=== PATIENT | male | born 1960 | race Caucasian/White ===

== ENCOUNTER 2017-09-07 08:17 | Inpatient (IN) | payer MEDICARE ==
[2017-09-07] MEDS ORDERED: Nitroglycerin 0.4 MG TAB (25 Tab Bottle) ONE (08:50)
[2017-09-07 08:59] LABS: CKMB 5.2 ng/mL (0-6.6); Troponin I 0.152 ng/mL (< 0.028)
[2017-09-07 09:00] LABS: #Lymphocytes 0.8 thou/uL (1.20-3.40); #Monocytes 0.9 thou/uL (0.11-0.59); #Neutrophils 4.7 thou/uL (1.40-6.50); %Basophils 0.3 % (0.0-1.0); %Eosinophils 0.4 % (0.0-10.0); %Lymphocytes 12.8 % (21.0-51.0); %Monocytes 14.5 % (0.0-10.0); Band 21 % (5-11); Eosinophils 1 % (0-10); Hemoglobin 13.9 g/dL (14.0-18.0); Lymphocytes 17 % (21-51); MDiff Complete? YES; Mean Corpuscular HGB CONC 33.1 g/dL (32.0-36.0); Mean Corpuscular Volume 96.6 fl (80.0-94.0); Mean Platelet Volume 9.1 fL (7.4-10.4); Monocytes 14 % (0-10); Neutrophil 44 % (42-75); PLT Morphology Comment Appears Decreased; Platelet Count 93 thou/uL (130-400); RBC Distribution Width 11.9 % (11.5-14.5); Reactive Lymphocytes 3 % (0-10); Red Blood Cell (RBC) Count 4.34 mill/uL (4.70-6.10); White Blood Cell (WBC) Count 6.5 thou/uL (4.8-10.8)
--- NOTE | 2017-09-07 09:02 | RAD ---
PORTABLE CHEST 1 VIEW: Dat5e: 09/07/17 Time: 0835 hours HISTORY: Dyspnea and chest pain. FINDINGS: Comparison made with exam of 01/15/17. The heart size is normal. The aorta is tortuous. The lungs are well expanded without lobar consolidat ion, pneumothorax, or pleural effusions. Mild chronic changes are present. There are degenerative chano nges of the spine. IMPRESSION: No radiographic evidence of acute cardiopulmonary process. POS: H
[2017-09-07 09:04] LABS: ALT (SGPT) 13 U/L (8-55); AST (SGOT) 20 U/L (5-34); Albumin 3.8 g/dL (3.5-5.0); Alkaline Phosphatase 89 U/L (40-150); Anion Gap 13 mmol/L (10-20); BUN (Urea Nitrogen) 44 mg/dL (8.4-25.7); Bilirubin, Total 0.5 mg/dL (0.2-1.2); CK (CPK) 265 U/L (30-200); Calc. Creatinine Clearance 0 mL/min (70-130); Calcium 9.4 mg/dL (7.8-10.44); Carbon Dioxide 23 mmol/L (22-29); Chloride 98 mmol/L (98-107); Estimated GFR-MDRD 57; Globulin 3.6 g/dL (2.4-3.5); Glucose 162 mg/dL (70-105); Protein, Total 7.4 g/dL (6.0-8.3); Sodium 130 mmol/L (136-145)
[2017-09-07] MEDS ORDERED: Norepinephrine 4 MG/4 ML VIAL ONE (09:23)
[2017-09-07] MEDS ORDERED: EPINEPHrine 1 MG/10 ML Abboject SYRINGE ONE (09:24)
[2017-09-07] MEDS ORDERED: EPINEPHrine 1 MG/ML AMP ONE (09:24)
--- NOTE | 2017-09-07 12:12 | HP ---
DATE OF ADMISSION: 09/07/2017 PRIMARY CARE PHYSICIAN: Dr. Greg Garcia. PRIMARY ART DEPARTMENT HEAD: Dr. Jaret Newby. CHIEF COMPLAINT: Chest discomfort. HISTORY OF PRESENT ILLNESS: The patient is a 57-year-old male with ongoing tobacco abuse, coronary a rtery disease status post stent placement on aspirin and Plavix, peripheral vascular disease status p ost right knee amputation, hypertension, hyperlipidemia, diabetes mellitus type 2 and mild COPD, pres ented to the emergency room with chest discomfort that started over the last 2-3 days. Patient was discharged from this facility in January of last year after drug-eluting stent placement to the RCA. Over the last 2-3 days, patient has flu-like symptoms. He has shortness of breath along with wheezin g and productive cough. The cough was thick, dark greenish in color. He was short of breath on mild to moderate exertion. The chest discomfort was more or less in the epigastric region, worse on coug magdalena. He had intermittent chills with diaphoresis. He never had diaphoresis along with chest discom fort. He denies any lightheadedness, dizziness, syncope or palpitations. No recent immobilization, travel or dyspepsia reported. In the emergency room, his initial vital signs showed temperature of 97.7 with O2 saturation 88% on r oom air. His O2 saturation improved with O2 supplementation. He was placed on nonrebreather initial ly. His initial pulse rate was 122 with blood pressure of 185/81. After sublingual nitroglycerin, h is blood pressure dropped requiring IV fluid bolus. The sublingual nitroglycerin did not significant ly help with his chest discomfort. His blood pressure in the emergency room lowest was 74/37 that im proved with IV fluids. PAST MEDICAL HISTORY: 1. Coronary artery disease, status post RCA drug-eluting stent placed in January of last year. He also has bare metal stents in the RCA placed in 03/2016. 2. History of complete heart block secondary to high dose of diltiazem in the past. 3. Peripheral vascular disease, status post right above knee amputation. 4. Hypertension. 5. Hyperlipidemia. 6. Ongoing tobacco abuse. 7. Diabetes mellitus type 2. 8. History of renal failure requiring dialysis during the episode of pancreatitis. 9. Anxiety and depression. PAST SURGICAL HISTORY: 1. Femoropopliteal bypass. 2. Right above-knee amputation. 3. Cholecystectomy. 4. Diverticular disease status post colon resection. He also had colostomy at that time. 5. Surgery for pancreatic pseudocyst. 6. Back surgery. 7. Repair of hydrocele. 8. Femoropopliteal bypass. ALLERGIES: Patient is allergic to MORPHINE. CURRENT HOME MEDICATIONS: The patient does not remember all of his home medications. He takes aspir in and Plavix along with Lantus 25 units daily. He is unable to recall all the names of his medicati ons. FAMILY HISTORY: The patient denies any premature coronary artery disease. SOCIAL HISTORY: Continues to smoke and has been smoking for more than 26 years. He denies any drug use. He is FULL CODE. Makes his own decisions. REVIEW OF SYSTEMS: The following complete review of systems was negative, unless otherwise mentioned in the HPI or below: Constitutional: Weight loss or gain, ability to conduct usual activities. Skin: Rash, itching. Eyes: Double vision, pain. ENT/Mouth: Nose bleeding, neck stiffness, pain, tenderness. Cardiovascular: Palpitations, dyspnea on exertion, orthopnea. Respiratory: Shortness of breath, wheezing, cough, hemoptysis, fever or night sweats. Gastrointestinal: Poor appetite, abdominal pain, heartburn, nausea, vomiting, constipation, or diarr hea. Genitourinary: Urgency, frequency, dysuria, nocturia. Musculoskeletal: Pain, swelling. Neurologic/Psychiatric: Anxiety, depression. Allergy/Immunologic: Skin rash, bleeding tendency. PHYSICAL EXAMINATION: VITAL SIGNS: As discussed above. GENERAL: A 57-year-old male in no apparent distress. Chest discomfort has somewhat improved. HEENT: Head atraumatic, normocephalic. Sclerae are anicteric. Moist mucous membrane, no oral lesio n. NECK: Supple, no JVD appreciated. No carotid bruit. LUNGS: Showed diffuse expiratory wheezing with scattered rhonchi. Lungs were symmetrical. No rales are appreciated. Trachea was in midline. HEART: S1, S2 present. Regular rate and rhythm, tachycardic. No rubs or gallops. ABDOMEN: Soft. There was tenderness over the rectus abdominus muscle. No rebound, guarding, no cos tovertebral angle tenderness. EXTREMITIES: No edema or calf tenderness in left lower extremity. The patient is status post right above-knee amputation. SKIN: Warm and dry. LYMPH NODES: No palpable lymph nodes in the neck. PERIPHERAL VASCULAR: Radial pulses palpable bilaterally. MUSCULOSKELETAL: No joint swelling or tenderness. NEUROLOGIC: Grossly nonfocal, moves all four extremities. PSYCHIATRIC: Alert, awake, oriented x3. LABORATORY DATA AND X-RAY FINDINGS: 1. CBC showed WBC 6.5 with hemoglobin 13.9, hematocrit 41.9, and platelet count of 93. He has 21% b andemia. 2. Chemistries showed sodium 130, potassium 4, chloride 98, bicarbonate 23, BUN of 44, creatinine 1. 3, glucose of 162, troponin was 0.152, BNP 296. 3. Chest x-ray by my review was negative for infiltrate. 4. EKG by my review showed sinus rhythm with QT interval of 484 milliseconds. There was nonspecific ST-T wave change in the inferior leads. No previous EKG to compare. 5. His lowest O2 saturation in the emergency room was 87%. IMPRESSION: 1. Acute hypoxic respiratory failure secondary to chronic obstructive pulmonary disease exacerbation /acute bronchitis. 2. Chest discomfort. The patient has coronary artery disease, status post stents in the RCA. 3. Elevated troponins, probably secondary to demand ischemia. 4. Peripheral vascular disease, status post right above knee amputation. 5. Hypertension. 6. Hyperlipidemia. 7. Ongoing tobacco abuse. 8. Diabetes mellitus type 2. 9. History of complete heart block secondary to high dose of diltiazem in the past. 10. Chronic kidney disease stage 2. 11. Hypotension in the emergency room secondary to sublingual nitroglycerin, improved with IV fluids . 12. Hyponatremia, chronic. 13. Thrombocytopenia, chronic. 14. Bandemia at 21%, probably secondary to #1. 15. Chronic anemia, macrocytic. 16. Prerenal azotemia. 17. MORPHINE allergy. 18. Prolonged QT. PLAN: 1. The patient will be monitored in the telemetry unit due to chest discomfort. His chest discomfor t is probably musculoskeletal in origin from repeated coughing. Serial cardiac enzymes will be done. He already took aspirin and Plavix today. This will be continued. We will start him on insulin sl iding scale. We will also add steroids due to COPD exacerbation. We will check for flu. Empiric an tibiotics. We will avoid antibiotics that can cause prolonged QT. Cardiology has already been notif ied by the ER physician. Nebulizer treatments. Home O2 assessment at discharge. 2. The patient will probably require 1-2 days for stabilization. It will depend on the hospital cou rse. Plan of care was discussed with the patient in detail. He stated understanding.
[2017-09-07 12:38] LABS: Troponin I 0.239 ng/mL (< 0.028)
[2017-09-07] MEDS ORDERED: Dextrose 50% Abboject 50 ML SYRINGE SLOW IVP PRN (12:55)
[2017-09-07] MEDS ORDERED: HYDROcodone/Acetaminophen 5/325 mg Tablet PO PRN (12:55)
[2017-09-07] MEDS ORDERED: Calcium Carbonate 500 MG ChewTAB PO PRN (12:55)
[2017-09-07] MEDS ORDERED: Nitroglycerin 0.4 MG TAB (25 Tab Bottle) PO PRN (12:55)
[2017-09-07] MEDS ORDERED: Senokot 8.6 MG TAB PO PRN (12:55)
[2017-09-07] MEDS ORDERED: Dextrose 5% in Water 1,000 ML IV PRN (12:55)
[2017-09-07] MEDS ORDERED: Cyclobenzaprine 10 MG TAB PO PRN ×2 (12:55→20:04)
[2017-09-07] MEDS ORDERED: Acetaminophen 325 MG TAB PO PRN (12:55)
[2017-09-07] MEDS ORDERED: cefTRIAXone\\ROCEPHIN 1 GM in Sodium Chloride 0.9% 100 ML IVPB SCH (12:55)
[2017-09-07] MEDS ORDERED: Insulin Regular 300 UNITS/3 ML VIAL SC PRN ×2 (12:55)
[2017-09-07] MEDS ORDERED: Doxycycline 100 MG CAP PO SCH (13:45)
[2017-09-07] MEDS ORDERED: guaiFENesin ER 600 MG TAB PO SCH (13:45)
[2017-09-07] MEDS ORDERED: HYDROcodone/Acetaminophen 5/325 mg Tablet ONE (14:43)
[2017-09-07 14:51] LABS: Troponin I 0.251 ng/mL (< 0.028)
[2017-09-07] MEDS ORDERED: Sterile Water 0 ML ONE (15:52)
[2017-09-07] MEDS: Mometasone/Formoterol 120 PUFF INHALER INH SCH (19:14)
[2017-09-07] MEDS: Famotidine 20 MG TAB PO SCH (20:33)
[2017-09-07] MEDS: Temazepam 15 MG CAP PO PRN (20:34)
[2017-09-07] MEDS: HYDROcodone/Acetaminophen 10/325 mg Tablet PO PRN (20:34)
[2017-09-07] MEDS: Rosuvastatin 10 MG TAB PO SCH (20:34)
[2017-09-07] MEDS: Docusate 100 MG CAP PO SCH (20:34)
[2017-09-07] MEDS: guaiFENesin ER 600 MG TAB PO SCH (20:36)
[2017-09-07] MEDS: Doxycycline 100 MG CAP PO SCH (20:36)
[2017-09-07] MEDS: Sodium Chloride 0.9% 1,000 ML IV SCH (20:37)
[2017-09-07] MEDS: cefTRIAXone\\ROCEPHIN 1 GM, Syringe 0.4 ML in Sterile Water 9.6 ML SLOW IVP SCH (20:40)
[2017-09-07] MEDS ORDERED: Rosuvastatin 5 MG TAB PO SCH (21:00)
[2017-09-07] MEDS: Insulin Detemir 100 UNITS/ML 25 UNITS in Admixture Fee 1 EACH SC SCH (22:02)
[2017-09-08 05:07] LABS: #Lymphocytes 0.8 thou/uL (1.20-3.40); #Monocytes 0.5 thou/uL (0.11-0.59); #Neutrophils 3.6 thou/uL (1.40-6.50); %Basophils 0.5 % (0.0-1.0); %Eosinophils 0.1 % (0.0-10.0); %Lymphocytes 15.6 % (21.0-51.0); %Monocytes 9.6 % (0.0-10.0); %Neutrophils 74.2 % (42.0-75.0); Mean Corpuscular Hemoglobin 32.1 pg (27.0-31.0); Mean Corpuscular Volume 97.3 fl (80.0-94.0); Mean Platelet Volume 8.8 fL (7.4-10.4); Platelet Count 86 thou/uL (130-400); Red Blood Cell (RBC) Count 3.74 mill/uL (4.70-6.10); White Blood Cell (WBC) Count 4.9 thou/uL (4.8-10.8)
[2017-09-08 05:26] LABS: Anion Gap 10 mmol/L (10-20); BUN (Urea Nitrogen) 35 mg/dL (8.4-25.7); BUN/Creatinine Ratio 38.89; Calc. Creatinine Clearance 71 mL/min (70-130); Calcium 8.8 mg/dL (7.8-10.44); Carbon Dioxide 22 mmol/L (22-29); Chloride 106 mmol/L (98-107); Estimated GFR-MDRD 87; Glucose 150 mg/dL (70-105); Magnesium 1.6 mg/dL (1.6-2.6); Phosphorus 3.1 mg/dL (2.3-4.7); Potassium 4.1 mmol/L (3.5-5.1); Sodium 134 mmol/L (136-145)
[2017-09-08] MEDS: Sodium Chloride 0.9% 1,000 ML IV SCH (06:11)
[2017-09-08] MEDS: Mometasone/Formoterol 120 PUFF INHALER INH SCH (07:43)
[2017-09-08] MEDS ORDERED: Lisinopril 5 MG TAB PO SCH (09:00)
[2017-09-08] MEDS: HYDROcodone/Acetaminophen 10/325 mg Tablet PO PRN (12:46)
[2017-09-08] MEDS: Aspirin 81 mg Enteric Coated Tablet PO SCH (12:49)
[2017-09-08] MEDS: Docusate 100 MG CAP PO SCH ×2 (12:50→22:12)
[2017-09-08] MEDS: Clopidogrel Bisulfate 75 MG TAB PO SCH (12:51)
[2017-09-08] MEDS: Doxycycline 100 MG CAP PO SCH ×2 (12:52→22:12)
[2017-09-08] MEDS: guaiFENesin ER 600 MG TAB PO SCH ×2 (12:52→22:12)
[2017-09-08] MEDS: Famotidine 20 MG TAB PO SCH (12:52)
[2017-09-08] MEDS: Ubidecarenone 50 MG CAP PO SCH (12:54)
[2017-09-08 13:30] VITALS: BMI 19.3
[2017-09-08] MEDS: cefTRIAXone\\ROCEPHIN 1 GM, Syringe 0.4 ML in Sterile Water 9.6 ML SLOW IVP SCH (13:53)
--- NOTE | 2017-09-08 15:10 | CON ---
DATE OF CONSULTATION: 09/08/2017 HISTORY OF PRESENT ILLNESS: This is patient of Dr. Richardson who came in yesterday with shortness of b reath and cannot breath, still smoking about half pack a day. He is coughing up some grossly green s putum. No chest pain, chills or sweats. This morning, he is still having difficulty handling his secretions. Most days he can walk half a block following which he gets short of breath. He saw Dr. Richardson about 2 months ago. Regarding his chest pain, he says it is substernal in origin. He has seen a cardiolo gist in the past. Denies any nausea, vomiting or diaphoresis. PAST MEDICAL HISTORY: COPD, tobacco abuse, hyperlipidemia, coronary artery disease, hypertension, an xiety and depression. PREVIOUS SURGERIES: Right leg amputation, colon surgery, multiple stents, pacemaker, and cholecystec fran. SOCIAL AND FAMILY HISTORY: Disabled. No alcohol abuse. Ongoing tobacco abuse. REVIEW OF SYSTEMS: Ten point negative. I reviewed his old medical records there. PHYSICAL EXAMINATION: VITAL SIGNS: On examination, blood pressure is 177/87, sats 92% on 2 liters, pulse 79, temperature 9 6. CHEST: Bilateral rhonchi and crackles. CARDIAC: Normal S1, S2, no gallops. ABDOMEN: No masses. NEUROLOGIC: Awake, alert and responsive. IMAGING: X-ray report and imaging was personally reviewed. No acute infiltrates were seen. LABORATORY DATA: White count 4,000, hemoglobin and hematocrit 12 and 36, platelet count is low at 86 . This is a new thrombocytopenic manifestation. Electrolytes are normal. Troponin is normal. IMPRESSION: 1. Chest pain. 2. Coronary artery disease with multiple stents in the past, recent pacemaker. 3. Chronic obstructive pulmonary disease. 4. Ongoing tobacco abuse. 5. Diabetes. 6. Peripheral vascular disease. PLAN: He is on neb treatments, steroids and antibiotics, which I would continue. We will notify Dr. Richardson. Await cardiac input. Please note in this 70 minutes of my consultation time of which 50 minutes spent at the bedside, dire ct patient care.
--- NOTE | 2017-09-08 15:48 | PDOC.PN ---
- Subjective Encounter Start Date: 09/08/17 Encounter Start Time: 12:00 Patient seen and examined. SOB with Wheezing + Productive cough +. No overnight events - Objective MAR Reviewed: Yes Vital Signs & Weight: Vital Signs (12 hours) Temp Pulse Resp BP Pulse Ox 09/08/17 14:09 82 20 09/08/17 10:17 79 177/87 H 09/08/17 08:46 82 09/08/17 08:00 97.6 F 82 16 92 L 09/08/17 07:48 92 L 09/08/17 07:43 82 16 92 L 09/08/17 07:42 97.6 F 82 16 195/126 H 92 L 09/08/17 04:54 94 L Weight Admit Weight 120 lb 3 oz Weight 123 lb 9.6 oz I&O: 09/07/17 09/08/17 09/09/17 06:59 06:59 06:59 Intake Total 910 Balance 910 Result Diagrams: 09/08/17 04:54 09/08/17 04:54 Additional Labs: Accuchecks 09/08/17 09/07/17 02:15 22:04 POC Glucose 150 H 133 H EKG Reviewed by me: Yes (Tele SR) Phys Exam - Physical Examination Constitutional: NAD Respiratory: no rales, no rhonchi, wheezing present Symmetrical Cardiovascular: RRR, no rub no heaves/pulsations Gastrointestinal: soft, non-tender, no distention, positive bowel sounds Musculoskeletal: no edema Neurological: non-focal, moves all 4 limbs Psychiatric: A&O x 3 Dx/Plan - Plan respiratory therapy, DVT proph w/SCDs IMPRESSION: 1. Acute hypoxic respiratory failure secondary to chronic obstructive pulmonary disease exacerbation/acute bronchitis. improving 2. Chest discomfort. The patient has coronary artery disease, status post stents in the RCA. 3. Elevated troponins, probably secondary to demand ischemia. 4. Peripheral vascular disease, status post right above knee amputation. 5. Hypertension. 6. Hyperlipidemia. 7. Ongoing tobacco abuse. Counselled 8. Diabetes mellitus type 2. 9. History of complete heart block secondary to high dose of diltiazem in the past. 10. Chronic kidney disease stage 2. 11. Hypotension in the emergency room secondary to sublingual nitroglycerin, improved with IV fluids. 12. Hyponatremia, chronic. 13. Thrombocytopenia, chronic. 14. Bandemia at 21%, probably secondary to #1. 15. Chronic anemia, macrocytic. 16. Prerenal azotemia. 17. MORPHINE allergy. 18. Prolonged QT. PLAN: * Await Cardiology input * Cont Steroids/Atbx/Nebs * Cont ASA/Plavix * Cont current meds as below * Cont Coreg * Cont to monitor Review of Systems - Review of Systems Cardiovascular: negative: chest pain, palpitations, orthopnea, paroxysmal nocturnal dyspnea, edema, light headedness Gastrointestinal: negative: Nausea, Vomiting, Abdominal Pain, Diarrhea, Constipation, Melena, Hematochezia - Medications/Allergies Allergies/Adverse Reactions: Allergies Allergy/AdvReac Type Severity Reaction Status Date / Time morphine AdvReac Severe Verified 09/07/17 19:40 Medications: Current Medications Acetaminophen (Tylenol) 650 mg PO Q4H PRN PRN Reason: Headache/Fever or Pain Hydrocodone Bitart/Acetaminophen (Almond 5/325) 1 tab PO Q4H PRN PRN Reason: Moderate Pain (4-6) Hydrocodone Bitart/Acetaminophen (Almond 10/325) 1 tab PO Q4H PRN PRN Reason: Severe Pain (7-10) Last Admin: 09/08/17 12:46 Dose: 1 tab Albuterol/Ipratropium (Duoneb) 3 ml NEB [id number] [facility] Last Admin: 09/08/17 14:09 Dose: 3 ml Albuterol/Ipratropium (Duoneb) 3 ml NEB [id number] PRN PRN Reason: SOB &/or Wheezing Aspirin (Ecotrin) 81 mg PO DAILY [facility] Last Admin: 09/08/17 12:49 Dose: Not Given Calcium Carbonate (Tums) 1,000 mg PO Q4H PRN PRN Reason: Heartburn or Indigestion Carvedilol (Coreg) 6.25 mg PO BID [facility] Clopidogrel Bisulfate (Plavix) 75 mg PO QAM [facility] Last Admin: 09/08/17 12:51 Dose: Not Given Coenzyme Q10 (Coenzyme Q10) 100 mg PO DAILY [facility] Last Admin: 09/08/17 12:54 Dose: 100 mg Cyclobenzaprine HCl (Flexeril) 5 mg PO TID PRN PRN Reason: Muscle Spasm Stop: 09/09/17 12:56 Cyclobenzaprine HCl (Flexeril) 5 mg PO DAILY PRN PRN Reason: Muscle Spasm Dextrose/Water (Dextrose 50%) 25 gm SLOW IVP PRN PRN PRN Reason: Hypoglycemia Docusate Sodium (Colace) 100 mg PO BID [facility] Last Admin: 09/08/17 12:50 Dose: Not Given Doxycycline Hyclate (Vibramycin) 100 mg PO BID [facility] Last Admin: 09/08/17 12:52 Dose: 100 mg Glucagon (Glucagon) 1 mg IM PRN PRN PRN Reason: Hypoglycemia Guaifenesin (Mucinex) 600 mg PO Q12HR [facility] Last Admin: 09/08/17 12:52 Dose: 600 mg Hydralazine HCl (Apresoline) 5 mg SLOW IVP Q4H PRN PRN Reason: SBP Greater Than 180 Dextrose/Water (D5w) 1,000 mls @ 0 mls/hr IV .Q0M PRN; As Directed PRN Reason: Hypoglycemia Insulin Detemir 25 units/ (Miscellaneous Medication) 0.25 mls @ 0 mls/hr SC [facility] Last Admin: 09/07/17 22:02 Dose: 0.25 mls Ceftriaxone Sodium 1 gm/ (Syringe 0.4 ml/ Sterile Water) 10 mls @ 120 mls/hr SLOW IVP 1400 [facility] Last Admin: 09/08/17 13:53 Dose: 10 mls Insulin Human Regular (Humulin R) 0 units SC .MODERATE SLIDING SC PRN PRN Reason: Moderate Correctional Scale Insulin Human Regular (Humulin R) 0 units SC .BEDTIME SLIDING SC PRN PRN Reason: Bedtime Correctional Scale Lisinopril (Zestril) 5 mg PO DAILY [facility] Last Admin: 09/08/17 08:46 Dose: 5 mg Loratadine (Claritin) 10 mg PO DAILY [facility] Meloxicam (Mobic) 15 mg PO DAILY [facility] Methylprednisolone Sodium Succinate (Solu-Medrol) 20 mg IVP Q8HR [facility] Last Admin: 09/08/17 13:52 Dose: 20 mg Nitroglycerin (Nitrostat) 0.4 mg PO Q5MIN PRN PRN Reason: Chest Pain Lantus Insluin 0 each SC [facility] Anoro 62.5/25mcg 1 (Puff) 1 each PO DAILY [facility] Rosuvastatin Calcium (Crestor) 10 mg PO [facility] Last Admin: 09/07/17 20:34 Dose: 10 mg Senna (Senokot) 2 tab PO HSPRN PRN PRN Reason: Constipation Sertraline HCl (Zoloft) 100 mg PO DAILY [facility] Last Admin: 09/08/17 12:51 Dose: Not Given Temazepam (Restoril) 15 mg PO HS PRN PRN Reason: Insomnia Last Admin: 09/07/17 20:34 Dose: 15 mg
[2017-09-08] MEDS: hydrALAZINE 20 MG/ML VIAL SLOW IVP PRN (16:20)
--- NOTE | 2017-09-08 16:31 | PDOC.EVN ---
Event Note - Event Note Event Note: RN called - Pt developed 6 beats of Vtach
[2017-09-08] MEDS ORDERED: Magnesium Sulfate 2 GM in Sodium Chloride 0.9% 100 ML IVPB SCH (17:30)
[2017-09-08] MEDS: cloNIDine 0.1 MG TAB PO PRN (18:13)
[2017-09-08] MEDS ORDERED: Carvedilol 6.25 MG TAB PO SCH (21:00)
[2017-09-08] MEDS: Rosuvastatin 10 MG TAB PO SCH (22:13)
[2017-09-08] MEDS: INSULIN GLARGINE SC SCH (22:17)
--- NOTE | 2017-09-08 22:41 | CON ---
DATE OF CONSULTATION: 09/08/2017 HISTORY OF PRESENT ILLNESS: Keith Herrera is a 57-year-old white male who I initially evaluated in 02/2016. He was to undergo a hydrocelectomy with general anesthesia in [place]. In the mid 1999, he underwent cardiac evaluation at [facility] in [place] including transesophageal echo and cardiac catheterization; however, he did not recall the findings. 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 A tracheostomy was placed and he was on dialysis for a while. In 04/2009, adenosine Cardiolite was probably normal. He underwent Lexiscan Cardiolite test in the office in 02/2016, which revealed an inferior wall fixed defect with evidence of ischemia. This is a new finding from the 2008 Cardiolite. He underwent cardiac catheterization at [facility]. Normal left ventricular function with ejection fraction of 55%-60%. There was a 10% proximal LAD, 70% mid circumflex with very small distal circumflex to this. There was a 50% lesion in the first obtuse marginal. The right coronary artery had a 60% proximal lesion, 90% mid lesion. Several days later, he then underwent stent placement at [facility]- REBEL 3.0 x 32 mm, 3.0 x 26 mm, and 3.0 x 16-mm stents placed in the right coronary artery. The proximal stent was postdilated with a 3.5-mm balloon. He was seen in the office in 08/2016. He stated that he had better energy level since the stenting of the right coronary artery. In 12/2016, he continued to not have any specific complaints. LDL was 97 on atorvastatin 20 and this was increased to 40 mg qd. He then presented in 01/2017 complaining of 2 days of feeling poorly. He did not complain of any specific chest discomfort. On the day of admission, he had increased shortness of breath and increased weakness, and was brought to the emergency room and found to be in complete heart block with a heart rate of 29- 32 per minute. There was evidence of old anterior infarction and no specific changes inferiorly. He continued to have more hypotension and a transcutaneous pacemaker was placed. He was taken to the cardiac cook house laborer and a temporary pacemaker was placed. Once he was paced in the 90-100 per minute range, his dyspnea dramatically improved. He was found to have total occlusion of the right coronary artery and underwent placement of drug-eluting stents - Synergy 2.5 x 20 mm, 3.0 x 32 mm, 3.0 x 28 mm, and 3.5 x 20 mm from the distal right coronary artery to the ostium. The stenosis was reduced from totally occluded to 0%. He was maintained with temporary pacer for approximately 48 hours and then had recovery of his AV node. Ultimately, the temporary pacemaker was removed. He also was on Cardizem and that was discontinued. He was not initially placed on a beta rachel due to his complete heart block. Echo at the time of discharge revealed ejection fraction of 45%-50%. His peak MB was 27.2 with a peak troponin I of 18.124. He has continued to be followed in the office since that time. In March 2017, he was placed on metoprolol 25 mg daily and lisinopril was increased to 10 mg daily due to poorly controlled blood pressure. In 05/2017, echocardiogram was repeated and again his ejection fraction was 45%-50%. He was then changed from metoprolol 25 daily to carvedilol 6.25 b.i.d. for poorly controlled hypertension. He now is admitted with a 3 to 4-day history of increased cough, productive at times of yellow and brown sputum. He also complains of chest discomfort, which was only present while he was coughing. His initial pulse rate when he presented was 122 per minute with a blood pressure of 185/81. PAST MEDICAL HISTORY: Hypertension; diabetes; hypercholesterolemia; history of acute necrotizing pancreatitis; renal failure, on dialysis for 2 months in 2008 ; history of tracheostomy placement; anxiety; and depression. PAST SURGICAL HISTORY: Colectomy for diverticulosis, resection of more of the colon with placement of colostomy, and ultimately takedown of the colostomy; tracheostomy; laparoscopic cholecystectomy; right [id number] amputation after an episode of hypotension; resection of pancreatic pseudocyst; repair of hydrocele; back surgery. MEDICATIONS: Aspirin 81 daily, Plavix 75 mg q.a.m., carvedilol 6.25 b.i.d., Zyrtec 10 daily, cyclobenzaprine 5 mg t.i.d. p.r.n., [place] p.r.n., Lantus, lisinopril 5 mg daily, Mobic 15 daily, omeprazole 40 daily, Lyrica 50 mg p.r.n. , Crestor 10 mg at bedtime, sertraline 100 daily, Restoril 15 mg at bedtime, CoQ10 200 mg daily. ALLERGIES: MORPHINE. SOCIAL HISTORY: He continued to smoke one pack per day until his myocardial infarction in 01/2017 and then cut back to one-half pack per day. He does not drink alcohol since his necrotizing pancreatitis and the history was unknown. REVIEW OF SYSTEMS: Twelve-point review of systems was unremarkable. PHYSICAL EXAMINATION: VITAL SIGNS: Blood pressure 189/87, pulse of 71. HEENT: PERRL. NECK: Supple. CHEST: Clear. CARDIAC: S1 and S2 are normal without any S3, S4, or murmurs. Carotid upstrokes are normal without bruits. ABDOMEN: Normal bowel sounds without tenderness. EXTREMITIES: Revealed no left leg clubbing, cyanosis, or edema. NEUROLOGIC: Grossly intact. SKIN: Warm and dry. LABORATORY DATA: EKG reveals normal sinus rhythm with prolonged QT. He has had an episode of nonsustained ventricular tachycardia as well as an episode of paroxysmal atrial tachycardia of 14 beats. In the emergency room, O2 saturation was 87%. Hemoglobin 12, hematocrit 36.4, white count 4900. Sodium 134, potassium 4.1, chloride 106, carbon dioxide 22, BUN 35, creatinine 0.9. BNP is 296.1. Troponin I is 0.251. CK-MB is normal. Chest x-ray is unremarkable. IMPRESSION: 1. Chest pain related to coughing. 2. Demand ischemia. 3. Chronic obstructive pulmonary disease exacerbation. 4. History of inferior [id number] myocardial infarction in 01/2017 with total occlusion of right coronary artery with placement of drug-eluting stents. Peak MB 27.2. Peak troponin I 18.124. 5. Placement of bare-metal stents in the right coronary artery in 03/2016. 6. Complete heart block secondary to the totally occluded right coronary artery in 01/2017 as well as being on high-dose diltiazem. He was paced and ultimately his complete heart block resolved. 7. Mild left ventricular dysfunction with most recent ejection fraction of 45%- 50% in 05/2017. 8. Supraventricular tachycardia - probable paroxysmal atrial tachycardia. 9. Nonsustained ventricular tachycardia. 10. Smoker. 11. Hypertension. 12. Hypercholesterolemia. 13. Diabetes. 14. History of acute necrotizing pancreatitis. 15. History of dialysis with ultimate immediate recovery. PLAN: Carvedilol will be increased for better blood pressure control as well as suppression of his arrhythmias. Echo will be performed to reassess left ventricular function. The patient will continue to be treated for his COPD exacerbation. Fasting lipid profile will be obtained. MTDD
[2017-09-08] MEDS: Insulin Detemir 100 UNITS/ML 25 UNITS in Admixture Fee 1 EACH SC SCH (23:27)
[2017-09-09] MEDS: cloNIDine 0.1 MG TAB PO PRN ×2 (03:57→12:00)
[2017-09-09 06:16] LABS: Anion Gap 8 mmol/L (10-20); BUN (Urea Nitrogen) 31 mg/dL (8.4-25.7); Calc. Creatinine Clearance 63 mL/min (70-130); Calcium 8.9 mg/dL (7.8-10.44); Carbon Dioxide 26 mmol/L (22-29); Cardiac Risk 4.8 (Less than 4.5); Chloride 104 mmol/L (98-107); Cholesterol 67 mg/dl (< 200 Desired); Estimated GFR-MDRD 75; Glucose 306 mg/dL (70-105); HDL Cholesterol 14 mg/dL (>60 Neg Risk); LDL Cholesterol, Calculated 29 mg/dL; Potassium 3.7 mmol/L (3.5-5.1); Sodium 134 mmol/L (136-145); Triglycerides 118 mg/dL (Less than 150)
[2017-09-09 06:37] LABS: Band 4 % (5-11); Lymphocytes 18 % (21-51); MDiff Complete? YES; Macrocytosis SLIGHT = 6-15 cells (100X) (0-5/hpf); Mean Corpuscular HGB CONC 33.3 g/dL (32.0-36.0); Mean Corpuscular Hemoglobin 32.1 pg (27.0-31.0); Mean Corpuscular Volume 96.4 fl (80.0-94.0); Mean Platelet Volume 8.9 fL (7.4-10.4); Monocytes 7 % (0-10); Neutrophil 71 % (42-75); PLT Morphology Comment Appears Decreased; Platelet Count 101 thou/uL (130-400); Red Blood Cell (RBC) Count 3.41 mill/uL (4.70-6.10); White Blood Cell (WBC) Count 6.3 thou/uL (4.8-10.8)
--- NOTE | 2017-09-09 08:58 | PDOC.PULPN ---
Progress Note: Subj/Obj - Subjective Date: 09/09/17 Time: 08:57 Narrative: SOB, c/o wheezing - ROS All systems: reviewed and no additional remarkable complaints except as stated Respiratory: short of breath - Objective Allergies/Adverse Reactions: Allergies Allergy/AdvReac Type Severity Reaction Status Date / Time morphine AdvReac Severe Verified 09/07/17 19:40 Medications: Current Medications Acetaminophen (Tylenol) 650 mg PO Q4H PRN PRN Reason: Headache/Fever or Pain Hydrocodone Bitart/Acetaminophen ([place] 5/325) 1 tab PO Q4H PRN PRN Reason: Moderate Pain (4-6) Hydrocodone Bitart/Acetaminophen ([place] 10/325) 1 tab PO Q4H PRN PRN Reason: Severe Pain (7-10) Last Admin: 09/08/17 12:46 Dose: 1 tab Albuterol/Ipratropium (Duoneb) 3 ml NEB [id number] [facility] Last Admin: 09/09/17 07:24 Dose: 3 ml Albuterol/Ipratropium (Duoneb) 3 ml NEB [id number] PRN PRN Reason: SOB &/or Wheezing Aspirin (Ecotrin) 81 mg PO DAILY [facility] Last Admin: 09/08/17 12:49 Dose: Not Given Calcium Carbonate (Tums) 1,000 mg PO Q4H PRN PRN Reason: Heartburn or Indigestion Carvedilol (Coreg) 6.25 mg PO TID [facility] Clonidine (Catapres) 0.1 mg PO Q4H PRN PRN Reason: Systolic BP > 180 Last Admin: 09/09/17 03:57 Dose: 0.1 mg Clopidogrel Bisulfate (Plavix) 75 mg PO QAM [facility] Last Admin: 09/08/17 12:51 Dose: Not Given Coenzyme Q10 (Coenzyme Q10) 100 mg PO DAILY [facility] Last Admin: 09/08/17 12:54 Dose: 100 mg Cyclobenzaprine HCl (Flexeril) 5 mg PO TID PRN PRN Reason: Muscle Spasm Stop: 09/09/17 12:56 Cyclobenzaprine HCl (Flexeril) 5 mg PO DAILY PRN PRN Reason: Muscle Spasm Dextrose/Water (Dextrose 50%) 25 gm SLOW IVP PRN PRN PRN Reason: Hypoglycemia Docusate Sodium (Colace) 100 mg PO BID [facility] Last Admin: 09/08/17 22:12 Dose: Not Given Doxycycline Hyclate (Vibramycin) 100 mg PO BID [facility] Last Admin: 09/08/17 22:12 Dose: Not Given Glucagon (Glucagon) 1 mg IM PRN PRN PRN Reason: Hypoglycemia Guaifenesin (Mucinex) 600 mg PO Q12HR [facility] Last Admin: 09/08/17 22:12 Dose: Not Given Hydralazine HCl (Apresoline) 5 mg SLOW IVP Q4H PRN PRN Reason: SBP Greater Than 180 Last Admin: 09/08/17 16:20 Dose: 5 mg Dextrose/Water (D5w) 1,000 mls @ 0 mls/hr IV .Q0M PRN; As Directed PRN Reason: Hypoglycemia Insulin Detemir 25 units/ (Miscellaneous Medication) 0.25 mls @ 0 mls/hr SC [facility] Last Admin: 09/08/17 23:27 Dose: Not Given Ceftriaxone Sodium 1 gm/ (Syringe 0.4 ml/ Sterile Water) 10 mls @ 120 mls/hr SLOW IVP 1400 [facility] Last Admin: 09/08/17 13:53 Dose: 10 mls Insulin Human Regular (Humulin R) 0 units SC .MODERATE SLIDING SC PRN PRN Reason: Moderate Correctional Scale Last Admin: 09/08/17 18:14 Dose: 6 unit Insulin Human Regular (Humulin R) 0 units SC .BEDTIME SLIDING SC PRN PRN Reason: Bedtime Correctional Scale Lisinopril (Zestril) 5 mg PO BID [facility] Loratadine (Claritin) 10 mg PO DAILY [facility] Meloxicam (Mobic) 15 mg PO DAILY [facility] Methylprednisolone Sodium Succinate (Solu-Medrol) 20 mg IVP Q8HR [facility] Last Admin: 09/09/17 06:39 Dose: Not Given Nitroglycerin (Nitrostat) 0.4 mg PO Q5MIN PRN PRN Reason: Chest Pain Lantus Insluin 0 each SC [facility] Last Admin: 09/08/17 22:17 Dose: Not Given Anoro 62.5/25mcg 1 (Puff) 0 each INH DAILY-RT [facility] Rosuvastatin Calcium (Crestor) 10 mg PO [facility] Last Admin: 09/08/17 22:13 Dose: Not Given Senna (Senokot) 2 tab PO HSPRN PRN PRN Reason: Constipation Sertraline HCl (Zoloft) 100 mg PO DAILY [facility] Last Admin: 09/08/17 12:51 Dose: Not Given Sodium Chloride (Flush - Normal Saline) 10 ml IVF Q12HR [facility] Sodium Chloride (Flush - Normal Saline) 10 ml IVF PRN PRN PRN Reason: Saline Flush Temazepam (Restoril) 15 mg PO HS PRN PRN Reason: Insomnia Last Admin: 09/07/17 20:34 Dose: 15 mg MAR Reviewed: Yes Vital Signs: Vital Signs Temp 98.3 F 09/09/17 07:59 Pulse 72 09/09/17 07:59 Resp 20 09/09/17 07:59 BP 198/88 H 09/09/17 04:00 Pulse Ox 98 09/09/17 07:59 Intake & Output 09/08/17 09/09/17 09/09/17 18:59 06:59 18:59 Intake Total 440 Balance 440 Weight 123 lb 9.6 oz Intake: Oral 440 Other: Voiding Method Toilet Toilet Toilet Progress Note: Exam - Physical Exam Constitutional: NAD HEENT: PERRLA, sclera anicteric Neck: no nodes Cardiovascular: RRR Focused Respiratory Location: wheezes: Right, Left Gastrointestinal: soft, non-tender Musculoskeletal: no edema Neurological: non-focal Lymphatic: no nodes Psychiatric: normal affect, A&O x 3 Skin: no rash Progress Note: Data - Labs Result Diagrams: 09/09/17 05:08 09/09/17 05:08 Lab results: Laboratory Results 09/07/17 09/08/17 09/08/17 22:04 02:15 04:54 WBC RBC Hgb Hct MCV MCH MCHC RDW Plt Count MPV Neutrophils % Neutrophils % (Manual) Band Neuts % (Manual) Lymphocytes % Lymphocytes % (Manual) Monocytes % Monocytes % (Manual) Eosinophils % Basophils % Neutrophils # Lymphocytes # Monocytes # Eosinophils # Basophils # Plt Morphology Comment Macrocytosis Sodium 134 L Potassium 4.1 Chloride 106 Carbon Dioxide 22 Anion Gap 10 BUN 35 H Creatinine 0.90 Estimated GFR (MDRD) 87 BUN/Creatinine Ratio 38.89 Glucose 150 H POC Glucose 133 H 150 H Calcium 8.8 Phosphorus 3.1 Magnesium 1.6 Albumin 3.0 L Triglycerides Cholesterol LDL Cholesterol, Calc HDL Cholesterol Heart Disease Risk Ratio 09/08/17 09/08/17 09/08/17 04:54 17:17 21:51 WBC 4.9 RBC 3.74 L Hgb 12.0 L Hct 36.4 L MCV 97.3 H MCH 32.1 H MCHC 33.0 RDW 12.0 Plt Count 86 L MPV 8.8 Neutrophils % 74.2 Neutrophils % (Manual) Band Neuts % (Manual) Lymphocytes % 15.6 L Lymphocytes % (Manual) Monocytes % 9.6 Monocytes % (Manual) Eosinophils % 0.1 Basophils % 0.5 Neutrophils # 3.6 Lymphocytes # 0.8 L Monocytes # 0.5 Eosinophils # 0.0 Basophils # 0.0 Plt Morphology Comment Macrocytosis Sodium Potassium Chloride Carbon Dioxide Anion Gap BUN Creatinine Estimated GFR (MDRD) BUN/Creatinine Ratio Glucose POC Glucose 279 H 458 H Calcium Phosphorus Magnesium Albumin Triglycerides Cholesterol LDL Cholesterol, Calc HDL Cholesterol Heart Disease Risk Ratio 09/09/17 09/09/17 05:08 05:08 WBC 6.3 RBC 3.41 L Hgb 11.0 L Hct 32.9 L MCV 96.4 H MCH 32.1 H MCHC 33.3 RDW 12.0 Plt Count 101 L MPV 8.9 Neutrophils % Neutrophils % (Manual) 71 Band Neuts % (Manual) 4 L Lymphocytes % Lymphocytes % (Manual) 18 L Monocytes % Monocytes % (Manual) 7 Eosinophils % Basophils % Neutrophils # Lymphocytes # Monocytes # Eosinophils # Basophils # Plt Morphology Comment Appears Decreased L Macrocytosis SLIGHT = 6-15 cells Sodium 134 L Potassium 3.7 Chloride 104 Carbon Dioxide 26 Anion Gap 8 L BUN 31 H Creatinine 1.02 Estimated GFR (MDRD) 75 BUN/Creatinine Ratio Glucose 306 H POC Glucose Calcium 8.9 Phosphorus Magnesium 2.0 Albumin Triglycerides 118 Cholesterol 67 LDL Cholesterol, Calc 29 HDL Cholesterol 14 Heart Disease Risk Ratio 4.8 Progress Note: A/P - Problems (1) Chronic obstructive pulmonary disease with acute exacerbation Current Visit: Yes Status: Acute Code(s): J44.1 - CHRONIC OBSTRUCTIVE PULMONARY DISEASE W (ACUTE) EXACERBATION - Plan Plan: continue steroids, nebs, and abx
[2017-09-09] MEDS: ANORO INH SCH (09:07)
[2017-09-09] MEDS: Meloxicam 15 MG TAB PO SCH (09:09)
[2017-09-09] MEDS: Lisinopril 5 MG TAB PO SCH ×2 (09:10→20:49)
[2017-09-09] MEDS: Carvedilol 6.25 MG TAB PO SCH ×3 (09:11→20:49)
[2017-09-09] MEDS: Clopidogrel Bisulfate 75 MG TAB PO SCH (09:11)
[2017-09-09] MEDS: Aspirin 81 mg Enteric Coated Tablet PO SCH (09:13)
[2017-09-09] MEDS: Docusate 100 MG CAP PO SCH ×2 (09:13→20:50)
[2017-09-09] MEDS: Loratadine 10 MG TAB PO SCH (09:16)
[2017-09-09] MEDS: Doxycycline 100 MG CAP PO SCH ×2 (09:16→20:48)
[2017-09-09] MEDS: guaiFENesin ER 600 MG TAB PO SCH ×2 (09:16→20:48)
[2017-09-09] MEDS: Ubidecarenone 50 MG CAP PO SCH (09:16)
[2017-09-09] MEDS: HYDROcodone/Acetaminophen 10/325 mg Tablet PO PRN ×3 (09:20→20:49)
[2017-09-09] MEDS: Insulin Regular 300 UNITS/3 ML VIAL SC PRN (12:01)
--- NOTE | 2017-09-09 13:25 | PDOC.PN ---
- Subjective Encounter Start Date: 09/09/17 Encounter Start Time: 11:00 Patient seen and examined. SOB/Wheezing +. No overnight events - Objective MAR Reviewed: Yes Vital Signs & Weight: Vital Signs (12 hours) Temp Pulse Resp BP BP Pulse Ox 09/09/17 12:00 214/96 H 09/09/17 11:41 97.1 F L 71 20 214/96 H 99 09/09/17 11:08 75 16 98 09/09/17 09:11 198/88 H 09/09/17 09:10 72 09/09/17 07:59 98.3 F 72 20 98 09/09/17 07:55 97.2 F L 70 24 H 189/79 H 98 09/09/17 07:25 20 98 09/09/17 07:24 74 16 09/09/17 07:20 20 78 L 09/09/17 04:00 70 18 198/88 H 94 L 09/09/17 03:57 198/88 H Weight Admit Weight 120 lb 3 oz Weight 123 lb 9.6 oz I&O: 09/08/17 09/09/17 09/10/17 06:59 06:59 06:59 Intake Total 910 440 300 Balance 910 440 300 Result Diagrams: 09/09/17 05:08 09/09/17 05:08 Additional Labs: Accuchecks 09/09/17 09/08/17 09/08/17 11:46 21:51 17:17 POC Glucose 246 H 458 H 279 H EKG Reviewed by me: Yes (Tele SR) Phys Exam - Physical Examination Constitutional: NAD Respiratory: no rhonchi, wheezing present (exp) Cardiovascular: RRR, no rub Gastrointestinal: soft, non-tender, positive bowel sounds Musculoskeletal: no edema Neurological: moves all 4 limbs Dx/Plan - Plan continue antibiotics, PT/OT, respiratory therapy, DVT proph w/SCDs (no Lovenox due to low plts) IMPRESSION: 1. Acute hypoxic respiratory failure secondary to chronic obstructive pulmonary disease exacerbation/acute bronchitis. slowly improving 2. Chest discomfort/NSVT/CAD s/p stents in the RCA. 3. Elevated troponins, probably secondary to demand ischemia. 4. Peripheral vascular disease, status post right above knee amputation. 5. Hypertension. 6. Hyperlipidemia. 7. Ongoing tobacco abuse. Counselled 8. Diabetes mellitus type 2. uncontrolled due to steroids 9. History of complete heart block secondary to high dose of diltiazem in the past. 10. Chronic kidney disease stage 2. 11. Hypotension in the emergency room secondary to sublingual nitroglycerin, improved with IV fluids. 12. Hyponatremia, chronic. 13. Thrombocytopenia, chronic. 14. Bandemia at 21%, probably secondary to #1. improved 15. Chronic anemia, macrocytic. 16. Prerenal azotemia. 17. MORPHINE allergy. 18. Prolonged QT. PLAN: * Cont to monitor * Cardiology/Pulmonary following * Cont Steroids/Atbx/Nebs/O2 * Cont ASA/Plavix * Cont current meds as below * Cont Coreg - dose increased * Change sliding scale to Aggressive * Increase Levemir to 30 unit HS Review of Systems - Review of Systems Cardiovascular: negative: chest pain, palpitations, orthopnea, paroxysmal nocturnal dyspnea, edema, light headedness Gastrointestinal: negative: Nausea, Vomiting, Abdominal Pain, Diarrhea, Constipation, Melena, Hematochezia - Medications/Allergies Allergies/Adverse Reactions: Allergies Allergy/AdvReac Type Severity Reaction Status Date / Time morphine AdvReac Severe Verified 09/07/17 19:40 Medications: Current Medications Acetaminophen (Tylenol) 650 mg PO Q4H PRN PRN Reason: Headache/Fever or Pain Hydrocodone Bitart/Acetaminophen ([place] 5/325) 1 tab PO Q4H PRN PRN Reason: Moderate Pain (4-6) Hydrocodone Bitart/Acetaminophen ([place] 10/325) 1 tab PO Q4H PRN PRN Reason: Severe Pain (7-10) Last Admin: 09/09/17 09:20 Dose: 1 tab Albuterol/Ipratropium (Duoneb) 3 ml NEB [id number] [facility] Last Admin: 09/09/17 11:08 Dose: 3 ml Albuterol/Ipratropium (Duoneb) 3 ml NEB [id number] PRN PRN Reason: SOB &/or Wheezing Aspirin (Ecotrin) 81 mg PO DAILY [facility] Last Admin: 09/09/17 09:13 Dose: Not Given Calcium Carbonate (Tums) 1,000 mg PO Q4H PRN PRN Reason: Heartburn or Indigestion Carvedilol (Coreg) 6.25 mg PO TID [facility] Last Admin: 09/09/17 09:11 Dose: Not Given Clonidine (Catapres) 0.1 mg PO Q4H PRN PRN Reason: Systolic BP > 180 Last Admin: 09/09/17 12:00 Dose: 0.1 mg Clopidogrel Bisulfate (Plavix) 75 mg PO QAM [facility] Last Admin: 09/09/17 09:11 Dose: Not Given Coenzyme Q10 (Coenzyme Q10) 100 mg PO DAILY [facility] Last Admin: 09/09/17 09:16 Dose: 100 mg Cyclobenzaprine HCl (Flexeril) 5 mg PO DAILY PRN PRN Reason: Muscle Spasm Dextrose/Water (Dextrose 50%) 25 gm SLOW IVP PRN PRN PRN Reason: Hypoglycemia Docusate Sodium (Colace) 100 mg PO BID [facility] Last Admin: 09/09/17 09:13 Dose: Not Given Doxycycline Hyclate (Vibramycin) 100 mg PO BID [facility] Last Admin: 09/09/17 09:16 Dose: 100 mg Glucagon (Glucagon) 1 mg IM PRN PRN PRN Reason: Hypoglycemia Guaifenesin (Mucinex) 600 mg PO Q12HR [facility] Last Admin: 09/09/17 09:16 Dose: 600 mg Hydralazine HCl (Apresoline) 5 mg SLOW IVP Q4H PRN PRN Reason: SBP Greater Than 180 Last Admin: 09/08/17 16:20 Dose: 5 mg Dextrose/Water (D5w) 1,000 mls @ 0 mls/hr IV .Q0M PRN; As Directed PRN Reason: Hypoglycemia Ceftriaxone Sodium 1 gm/ (Syringe 0.4 ml/ Sterile Water) 10 mls @ 120 mls/hr SLOW IVP 1400 [facility] Last Admin: 09/08/17 13:53 Dose: 10 mls Insulin Detemir 30 units/ (Miscellaneous Medication) 0.3 mls @ 0 mls/hr SC HS [facility] Insulin Human Regular (Humulin R) 0 units SC .BEDTIME SLIDING SC PRN PRN Reason: Bedtime Correctional Scale Insulin Human Regular (Humulin R) 0 units SC .AGGRESSIVE SLIDING PRN PRN Reason: Aggressive Sliding Scale Last Admin: 09/09/17 12:01 Dose: 6 unit Lisinopril (Zestril) 5 mg PO BID [facility] Last Admin: 09/09/17 09:10 Dose: Not Given Loratadine (Claritin) 10 mg PO DAILY [facility] Last Admin: 09/09/17 09:16 Dose: 10 mg Meloxicam (Mobic) 15 mg PO DAILY [facility] Last Admin: 09/09/17 09:09 Dose: Not Given Methylprednisolone Sodium Succinate (Solu-Medrol) 20 mg IVP Q8HR [facility] Last Admin: 09/09/17 06:39 Dose: Not Given Nitroglycerin (Nitrostat) 0.4 mg PO Q5MIN PRN PRN Reason: Chest Pain Lantus Insluin 0 each SC HS [facility] Last Admin: 09/08/17 22:17 Dose: Not Given Anoro 62.5/25mcg 1 (Puff) 0 each INH DAILY-RT [facility] Last Admin: 09/09/17 09:07 Dose: 1 each Rosuvastatin Calcium (Crestor) 10 mg PO HS [facility] Last Admin: 09/08/17 22:13 Dose: Not Given Senna (Senokot) 2 tab PO HSPRN PRN PRN Reason: Constipation Sertraline HCl (Zoloft) 100 mg PO DAILY [facility] Last Admin: 09/09/17 09:09 Dose: Not Given Sodium Chloride (Flush - Normal Saline) 10 ml IVF Q12HR [facility] Last Admin: 09/09/17 09:17 Dose: 10 ml Sodium Chloride (Flush - Normal Saline) 10 ml IVF PRN PRN PRN Reason: Saline Flush Temazepam (Restoril) 15 mg PO HS PRN PRN Reason: Insomnia Last Admin: 09/07/17 20:34 Dose: 15 mg
[2017-09-09] MEDS: cefTRIAXone\\ROCEPHIN 1 GM, Syringe 0.4 ML in Sterile Water 9.6 ML SLOW IVP SCH (14:36)
[2017-09-09] MEDS: Rosuvastatin 10 MG TAB PO SCH (20:48)
[2017-09-09] MEDS: Temazepam 15 MG CAP PO PRN (20:49)
[2017-09-09] MEDS: INSULIN GLARGINE SC SCH (20:52)
[2017-09-09] MEDS ORDERED: Insulin Detemir 100 UNITS/ML 30 UNITS in Pre-Filled Syringe SC SCH (21:00)
[2017-09-09] MEDS: hydrALAZINE 20 MG/ML VIAL SLOW IVP PRN (22:25)
[2017-09-10] MEDS: HYDROcodone/Acetaminophen 10/325 mg Tablet PO PRN ×3 (04:26→15:52)
[2017-09-10] MEDS: Insulin Regular 300 UNITS/3 ML VIAL SC PRN (04:27)
[2017-09-10] MEDS ORDERED: Insulin Regular 300 UNITS/3 ML VIAL SC PRN (06:13)
[2017-09-10] MEDS: Aspirin 81 mg Enteric Coated Tablet PO SCH (08:29)
[2017-09-10] MEDS: Clopidogrel Bisulfate 75 MG TAB PO SCH (08:29)
[2017-09-10] MEDS: Lisinopril 5 MG TAB PO SCH ×2 (08:29→21:03)
[2017-09-10] MEDS: Docusate 100 MG CAP PO SCH ×2 (08:29→21:10)
[2017-09-10] MEDS: Carvedilol 6.25 MG TAB PO SCH ×2 (08:29→14:15)
[2017-09-10] MEDS: Doxycycline 100 MG CAP PO SCH ×2 (08:30→21:03)
[2017-09-10] MEDS: guaiFENesin ER 600 MG TAB PO SCH ×2 (08:30→21:20)
[2017-09-10] MEDS: Ubidecarenone 50 MG CAP PO SCH (08:30)
[2017-09-10] MEDS: Loratadine 10 MG TAB PO SCH (08:30)
[2017-09-10] MEDS: Meloxicam 15 MG TAB PO SCH (08:30)
[2017-09-10] MEDS: ANORO INH SCH (08:32)
--- NOTE | 2017-09-10 10:48 | PDOC.PULPN ---
Progress Note: Subj/Obj - Subjective Date: 09/10/17 Time: 10:46 Narrative: feeling better - ROS All systems: reviewed and no additional remarkable complaints except as stated - Objective Allergies/Adverse Reactions: Allergies Allergy/AdvReac Type Severity Reaction Status Date / Time morphine AdvReac Severe Verified 09/07/17 19:40 Medications: Current Medications Acetaminophen (Tylenol) 650 mg PO Q4H PRN PRN Reason: Headache/Fever or Pain Hydrocodone Bitart/Acetaminophen ([place] 5/325) 1 tab PO Q4H PRN PRN Reason: Moderate Pain (4-6) Hydrocodone Bitart/Acetaminophen ([place] 10/325) 1 tab PO Q4H PRN PRN Reason: Severe Pain (7-10) Last Admin: 09/10/17 04:26 Dose: 1 tab Hydrocodone Bitart/Acetaminophen ([place] 10/325) 2 tab PO Q6H PRN PRN Reason: Severe Pain (7-10) Last Admin: 09/10/17 08:28 Dose: 2 tab Albuterol/Ipratropium (Duoneb) 3 ml NEB [id number] [facility] Last Admin: 09/10/17 07:34 Dose: 3 ml Albuterol/Ipratropium (Duoneb) 3 ml NEB [id number] PRN PRN Reason: SOB &/or Wheezing Aspirin (Ecotrin) 81 mg PO DAILY [facility] Last Admin: 09/10/17 08:29 Dose: 81 mg Calcium Carbonate (Tums) 1,000 mg PO Q4H PRN PRN Reason: Heartburn or Indigestion Carvedilol (Coreg) 6.25 mg PO TID [facility] Last Admin: 09/10/17 08:29 Dose: 6.25 mg Clonidine (Catapres) 0.1 mg PO Q4H PRN PRN Reason: Systolic BP > 180 Last Admin: 09/09/17 12:00 Dose: 0.1 mg [facility]) [facility] Last Admin: 09/10/17 08:29 Dose: 75 mg Coenzyme Q10 (Coenzyme Q10) 100 mg PO DAILY [facility] Last Admin: 09/10/17 08:30 Dose: 100 mg Cyclobenzaprine HCl (Flexeril) 5 mg PO DAILY PRN PRN Reason: Muscle Spasm Last Admin: 09/10/17 05:54 Dose: 5 mg Dextrose/Water (Dextrose 50%) 25 gm SLOW IVP PRN PRN PRN Reason: Hypoglycemia Last Admin: 09/10/17 02:07 Dose: 25 gm Docusate Sodium (Colace) 100 mg PO BID [facility] Last Admin: 09/10/17 08:29 Dose: 100 mg Doxycycline Hyclate (Vibramycin) 100 mg PO BID [facility] Last Admin: 09/10/17 08:30 Dose: 100 mg Glucagon (Glucagon) 1 mg IM PRN PRN PRN Reason: Hypoglycemia Guaifenesin (Mucinex) 600 mg PO Q12HR [facility] Last Admin: 09/10/17 08:30 Dose: 600 mg Hydralazine HCl (Apresoline) 5 mg SLOW IVP Q4H PRN PRN Reason: SBP Greater Than 180 Last Admin: 09/09/17 22:25 Dose: 5 mg Dextrose/Water (D5w) 1,000 mls @ 0 mls/hr IV .Q0M PRN; As Directed PRN Reason: Hypoglycemia Ceftriaxone Sodium 1 gm/ (Syringe 0.4 ml/ Sterile Water) 10 mls @ 120 mls/hr SLOW IVP 1400 [facility] Last Admin: 09/09/17 14:36 Dose: 10 mls Insulin Detemir 20 units/ (Miscellaneous Medication) 0.2 mls @ 0 mls/hr SC [facility] Insulin Human Regular (Humulin R) 0 units SC .BEDTIME SLIDING SC PRN PRN Reason: Bedtime Correctional Scale Insulin Human Regular (Humulin R) 0 units SC .MODERATE SLIDING SC PRN PRN Reason: Moderate Correctional Scale Lisinopril (Zestril) 5 mg PO BID [facility] Last Admin: 09/10/17 08:29 Dose: 5 mg Loratadine (Claritin) 10 mg PO DAILY [facility] Last Admin: 09/10/17 08:30 Dose: 10 mg Meloxicam (Mobic) 15 mg PO DAILY [facility] Last Admin: 09/10/17 08:30 Dose: 15 mg Methylprednisolone Sodium Succinate (Solu-Medrol) 20 mg IVP Q8HR [facility] Last Admin: 09/10/17 04:17 Dose: Not Given Nitroglycerin (Nitrostat) 0.4 mg PO Q5MIN PRN PRN Reason: Chest Pain Lantus Insluin 0 each SC [facility] Last Admin: 09/09/17 20:52 Dose: Not Given Anoro 62.5/25mcg 1 (Puff) 0 each INH DAILY-RT [facility] Last Admin: 09/10/17 08:32 Dose: 1 each Rosuvastatin Calcium (Crestor) 10 mg PO HS [facility] Last Admin: 09/09/17 20:48 Dose: 10 mg Senna (Senokot) 2 tab PO HSPRN PRN PRN Reason: Constipation Sertraline HCl (Zoloft) 100 mg PO DAILY [facility] Last Admin: 09/10/17 08:29 Dose: 100 mg Sodium Chloride (Flush - Normal Saline) 10 ml IVF Q12HR [facility] Last Admin: 09/10/17 08:30 Dose: 10 ml Sodium Chloride (Flush - Normal Saline) 10 ml IVF PRN PRN PRN Reason: Saline Flush Last Admin: 09/10/17 02:09 Dose: 10 ml Temazepam (Restoril) 15 mg PO HS PRN PRN Reason: Insomnia Last Admin: 09/09/17 20:49 Dose: 15 mg MAR Reviewed: Yes Vital Signs: Vital Signs Temp 98.7 F 09/10/17 08:00 Pulse 79 09/10/17 08:00 Resp 18 09/10/17 08:00 BP 145/67 H 09/10/17 07:52 Pulse Ox 93 L 09/10/17 07:52 Intake & Output 09/09/17 09/10/17 09/10/17 18:59 06:59 18:59 Intake Total 600 320 Balance 600 320 Intake: Oral 600 320 Other: Voiding Method Toilet Toilet # Unmeasured Voids 3 Progress Note: Exam - Physical Exam Constitutional: NAD HEENT: PERRLA, sclera anicteric Neck: no nodes, supple Cardiovascular: RRR Respiratory: clear to auscultation bilaterally Gastrointestinal: soft, non-tender Musculoskeletal: no edema Neurological: non-focal Lymphatic: no nodes Psychiatric: normal affect, A&O x 3 Skin: no rash Progress Note: Data - Labs Result Diagrams: 09/09/17 05:08 09/09/17 05:08 Lab results: Laboratory Results 09/08/17 09/08/17 09/09/17 17:17 21:51 05:08 WBC RBC Hgb Hct MCV MCH MCHC RDW Plt Count MPV Neutrophils % (Manual) Band Neuts % (Manual) Lymphocytes % (Manual) Monocytes % (Manual) Plt Morphology Comment Macrocytosis Sodium 134 L Potassium 3.7 Chloride 104 Carbon Dioxide 26 Anion Gap 8 L BUN 31 H Creatinine 1.02 Estimated GFR (MDRD) 75 Glucose 306 H POC Glucose 279 H 458 H Calcium 8.9 Magnesium 2.0 Triglycerides 118 Cholesterol 67 LDL Cholesterol, Calc 29 HDL Cholesterol 14 Heart Disease Risk Ratio 4.8 09/09/17 09/09/17 09/09/17 05:08 11:46 17:33 WBC 6.3 RBC 3.41 L Hgb 11.0 L Hct 32.9 L MCV 96.4 H MCH 32.1 H MCHC 33.3 RDW 12.0 Plt Count 101 L MPV 8.9 Neutrophils % (Manual) 71 Band Neuts % (Manual) 4 L Lymphocytes % (Manual) 18 L Monocytes % (Manual) 7 Plt Morphology Comment Appears Decreased L Macrocytosis SLIGHT = 6-15 cells Sodium Potassium Chloride Carbon Dioxide Anion Gap BUN Creatinine Estimated GFR (MDRD) Glucose POC Glucose 246 H 119 H Calcium Magnesium Triglycerides Cholesterol LDL Cholesterol, Calc HDL Cholesterol Heart Disease Risk Ratio 09/09/17 09/10/17 09/10/17 20:48 02:05 02:36 WBC RBC Hgb Hct MCV MCH MCHC RDW Plt Count MPV Neutrophils % (Manual) Band Neuts % (Manual) Lymphocytes % (Manual) Monocytes % (Manual) Plt Morphology Comment Macrocytosis Sodium Potassium Chloride Carbon Dioxide Anion Gap BUN Creatinine Estimated GFR (MDRD) Glucose POC Glucose 191 H 54 L* 204 H Calcium Magnesium Triglycerides Cholesterol LDL Cholesterol, Calc HDL Cholesterol Heart Disease Risk Ratio 09/10/17 04:22 WBC RBC Hgb Hct MCV MCH MCHC RDW Plt Count MPV Neutrophils % (Manual) Band Neuts % (Manual) Lymphocytes % (Manual) Monocytes % (Manual) Plt Morphology Comment Macrocytosis Sodium Potassium Chloride Carbon Dioxide Anion Gap BUN Creatinine Estimated GFR (MDRD) Glucose POC Glucose 253 H Calcium Magnesium Triglycerides Cholesterol LDL Cholesterol, Calc HDL Cholesterol Heart Disease Risk Ratio Progress Note: A/P - Problems (1) Chronic obstructive pulmonary disease with acute exacerbation Current Visit: Yes Status: Acute Code(s): J44.1 - CHRONIC OBSTRUCTIVE PULMONARY DISEASE W (ACUTE) EXACERBATION - Plan Plan: Definitely better Cont steroids and nebs home tomorrow
[2017-09-10] MEDS: cefTRIAXone\\ROCEPHIN 1 GM, Syringe 0.4 ML in Sterile Water 9.6 ML SLOW IVP SCH (14:14)
[2017-09-10] MEDS: cloNIDine 0.1 MG TAB PO PRN (15:52)
[2017-09-10] MEDS: hydrALAZINE 20 MG/ML VIAL SLOW IVP PRN (17:39)
[2017-09-10] MEDS ORDERED: Insulin Detemir 100 UNITS/ML 20 UNITS in Pre-Filled Syringe 1 EACH SC SCH (21:00)
[2017-09-10] MEDS: Rosuvastatin 10 MG TAB PO SCH (21:04)
[2017-09-10] MEDS: INSULIN GLARGINE SC SCH (21:15)
--- NOTE | 2017-09-10 22:01 | PDOC.PN ---
- Subjective Encounter Start Date: 09/10/17 Encounter Start Time: 08:30 Patient seen and examined. Feels weak. SOB with wheezing +. No overnight events - Objective MAR Reviewed: Yes Vital Signs & Weight: Vital Signs (12 hours) Temp Pulse Resp BP BP Pulse Ox 09/10/17 21:03 83 168/76 H 09/10/17 19:20 93 L 09/10/17 19:17 79 18 84 L 09/10/17 17:39 73 09/10/17 17:25 73 184/84 H 09/10/17 15:35 97.4 F L 81 16 182/84 H 96 09/10/17 14:35 83 16 09/10/17 13:51 97.6 F 78 16 96 09/10/17 13:50 97.6 F 78 16 154/76 H 96 09/10/17 11:48 97.2 F L 63 18 164/79 H 96 09/10/17 11:11 79 16 96 Weight Admit Weight 120 lb 3 oz Weight 123 lb 9.6 oz I&O: 09/09/17 09/10/17 09/11/17 06:59 06:59 06:59 Intake Total 440 920 240 Balance 440 920 240 Result Diagrams: 09/09/17 05:08 09/09/17 05:08 Additional Labs: Accuchecks 09/10/17 09/10/17 09/10/17 20:49 17:39 10:49 POC Glucose 228 H 185 H 146 H 09/10/17 09/10/17 09/10/17 04:22 02:36 02:05 POC Glucose 253 H 204 H 54 L* EKG Reviewed by me: Yes (Tele SR) Phys Exam - Physical Examination Constitutional: NAD Respiratory: no rales, no rhonchi, wheezing present Cardiovascular: RRR, no rub Gastrointestinal: soft, non-tender, positive bowel sounds Musculoskeletal: no edema Dx/Plan - Plan IMPRESSION: 1. Acute hypoxic respiratory failure secondary to chronic obstructive pulmonary disease exacerbation/acute bronchitis. slowly improving. Patient refusing IV steroids 2. Chest discomfort/NSVT/CAD s/p stents in the RCA. 3. Elevated troponins, probably secondary to demand ischemia. 4. Peripheral vascular disease, status post right above knee amputation. 5. Hypertension. 6. Hyperlipidemia. 7. Ongoing tobacco abuse. Counselled 8. Diabetes mellitus type 2 uncontrolled. Insulin dose was adjusted based on steroids - Pt however refused steroids 9. History of complete heart block secondary to high dose of diltiazem in the past. 10. Chronic kidney disease stage 2. 11. Hypotension in the emergency room secondary to sublingual nitroglycerin, improved with IV fluids. 12. Hyponatremia, chronic. 13. Thrombocytopenia, chronic. 14. Bandemia at 21%, probably secondary to #1. improved 15. Chronic anemia, macrocytic. 16. Prerenal azotemia. 17. MORPHINE allergy. 18. Prolonged QT. PLAN: * Cont to monitor * Cardiology/Pulmonary following * Cont Atbx/Nebs/O2. Refusing steroids * Cont ASA/Plavix * Betablocker dose increased * Cont current meds as below * Cont Coreg - dose increased due to NSVT * Change sliding scale to moderate * Change Levemir to 20 unit HS * DC in AM if stable * Home O2 eval Review of Systems - Review of Systems Respiratory: Cough, Dry, SOB with Excertion, Wheezing. negative: Shortness of Breath, Hemoptysis, Pleuritic Pain, Sputum Cardiovascular: negative: chest pain, palpitations, orthopnea, paroxysmal nocturnal dyspnea, edema, light headedness Gastrointestinal: negative: Nausea, Vomiting, Abdominal Pain, Diarrhea, Constipation, Melena, Hematochezia - Medications/Allergies Allergies/Adverse Reactions: Allergies Allergy/AdvReac Type Severity Reaction Status Date / Time morphine AdvReac Severe Verified 09/07/17 19:40 Medications: Current Medications Acetaminophen (Tylenol) 650 mg PO Q4H PRN PRN Reason: Headache/Fever or Pain Hydrocodone Bitart/Acetaminophen ([place] 5/325) 1 tab PO Q4H PRN PRN Reason: Moderate Pain (4-6) Hydrocodone Bitart/Acetaminophen ([place] 10/325) 1 tab PO Q4H PRN PRN Reason: Severe Pain (7-10) Last Admin: 09/10/17 04:26 Dose: 1 tab Hydrocodone Bitart/Acetaminophen ([place] 10/325) 2 tab PO Q6H PRN PRN Reason: Severe Pain (7-10) Last Admin: 09/10/17 15:52 Dose: 2 tab Albuterol/Ipratropium (Duoneb) 3 ml NEB [id number] Last Admin: 09/10/17 19:17 Dose: 3 ml Albuterol/Ipratropium (Duoneb) 3 ml NEB [id number] PRN PRN Reason: SOB &/or Wheezing Aspirin (Ecotrin) 81 mg PO DAILY [facility] Last Admin: 09/10/17 08:29 Dose: 81 mg Calcium Carbonate (Tums) 1,000 mg PO Q4H PRN PRN Reason: Heartburn or Indigestion Carvedilol (Coreg) 12.5 mg PO BID-[facility] Clonidine (Catapres) 0.1 mg PO Q4H PRN PRN Reason: Systolic BP > 180 Last Admin: 09/10/17 15:52 Dose: 0.1 mg Clopidogrel Bisulfate (Plavix) 75 mg PO QAM [facility] Last Admin: 09/10/17 08:29 Dose: 75 mg Coenzyme Q10 (Coenzyme Q10) 100 mg PO DAILY [facility] Last Admin: 09/10/17 08:30 Dose: 100 mg Cyclobenzaprine HCl (Flexeril) 5 mg PO DAILY PRN PRN Reason: Muscle Spasm Last Admin: 09/10/17 05:54 Dose: 5 mg Dextrose/Water (Dextrose 50%) 25 gm SLOW IVP PRN PRN PRN Reason: Hypoglycemia Last Admin: 09/10/17 02:07 Dose: 25 gm Docusate Sodium (Colace) 100 mg PO BID [facility] Last Admin: 09/10/17 21:10 Dose: 100 mg Doxycycline Hyclate (Vibramycin) 100 mg PO BID [facility] Last Admin: 09/10/17 21:03 Dose: 100 mg Glucagon (Glucagon) 1 mg IM PRN PRN PRN Reason: Hypoglycemia Guaifenesin (Mucinex) 600 mg PO Q12HR [facility] Last Admin: 09/10/17 21:20 Dose: 600 mg Hydralazine HCl (Apresoline) 5 mg SLOW IVP Q4H PRN PRN Reason: SBP Greater Than 180 Last Admin: 09/10/17 17:39 Dose: 5 mg Dextrose/Water (D5w) 1,000 mls @ 0 mls/hr IV .Q0M PRN; As Directed PRN Reason: Hypoglycemia Ceftriaxone Sodium 1 gm/ (Syringe 0.4 ml/ Sterile Water) 10 mls @ 120 mls/hr SLOW IVP 1400 [facility] Last Admin: 09/10/17 14:14 Dose: 10 mls Insulin Detemir 20 units/ (Miscellaneous Medication) 0.2 mls @ 0 mls/hr SC [facility] Last Admin: 09/10/17 21:11 Dose: 0.2 mls Insulin Human Regular (Humulin R) 0 units SC .BEDTIME SLIDING SC PRN PRN Reason: Bedtime Correctional Scale Insulin Human Regular (Humulin R) 0 units SC .MODERATE SLIDING SC PRN PRN Reason: Moderate Correctional Scale Last Admin: 09/10/17 17:39 Dose: 2 unit Lisinopril (Zestril) 5 mg PO BID [facility] Last Admin: 09/10/17 21:03 Dose: 5 mg Loratadine (Claritin) 10 mg PO DAILY [facility] Last Admin: 09/10/17 08:30 Dose: 10 mg Meloxicam (Mobic) 15 mg PO DAILY [facility] Last Admin: 09/10/17 08:30 Dose: 15 mg Methylprednisolone Sodium Succinate (Solu-Medrol) 20 mg IVP Q8HR [facility] Last Admin: 09/10/17 21:04 Dose: 20 mg Nitroglycerin (Nitrostat) 0.4 mg PO Q5MIN PRN PRN Reason: Chest Pain Lantus Insluin 0 each SC [facility] Last Admin: 09/10/17 21:15 Dose: Not Given Anoro 62.5/25mcg 1 (Puff) 0 each INH DAILY-[facility] Last Admin: 09/10/17 08:32 Dose: 1 each Rosuvastatin Calcium (Crestor) 10 mg PO [facility] Last Admin: 09/10/17 21:04 Dose: 10 mg Senna (Senokot) 2 tab PO HSPRN PRN PRN Reason: Constipation Sertraline HCl (Zoloft) 100 mg PO DAILY [facility] Last Admin: 09/10/17 08:29 Dose: 100 mg Sodium Chloride (Flush - Normal Saline) 10 ml IVF Q12HR [facility] Last Admin: 09/10/17 21:11 Dose: 10 ml Sodium Chloride (Flush - Normal Saline) 10 ml IVF PRN PRN PRN Reason: Saline Flush Last Admin: 09/10/17 02:09 Dose: 10 ml Temazepam (Restoril) 15 mg PO HS PRN PRN Reason: Insomnia Last Admin: 09/09/17 20:49 Dose: 15 mg
[2017-09-10] MEDS: Temazepam 15 MG CAP PO PRN (23:28)
[2017-09-11] MEDS ORDERED: Carvedilol 6.25 MG TAB PO SCH (08:00)
[2017-09-11] MEDS: Lisinopril 5 MG TAB PO SCH (08:49)
[2017-09-11] MEDS: Doxycycline 100 MG CAP PO SCH (08:49)
[2017-09-11] MEDS: Clopidogrel Bisulfate 75 MG TAB PO SCH (08:49)
[2017-09-11] MEDS: Ubidecarenone 50 MG CAP PO SCH (08:50)
[2017-09-11] MEDS: Aspirin 81 mg Enteric Coated Tablet PO SCH (08:50)
[2017-09-11] MEDS: guaiFENesin ER 600 MG TAB PO SCH (08:50)
[2017-09-11] MEDS: Loratadine 10 MG TAB PO SCH (08:50)
[2017-09-11] MEDS: Meloxicam 15 MG TAB PO SCH (08:51)
[2017-09-11] MEDS: Docusate 100 MG CAP PO SCH (08:51)
--- NOTE | 2017-09-11 11:11 | PRG ---
DATE OF SERVICE: 09/11/2017 SUBJECTIVE: He feels better and wants to go home. PHYSICAL EXAMINATION: VITAL SIGNS: Temperature is 98.1, pulse 77, blood pressure 181/81, O2 sat 97% on 1 liter. HEENT: Unremarkable. NECK: No JVD. CHEST: Clear without wheezing. CARDIAC: S1 and S2 regular. ABDOMEN: Soft. EXTREMITIES: No edema. ASSESSMENT: Chronic obstructive pulmonary disease with exacerbation. PLAN: Can go home on his routine pulmonary medications. Complete 7 days of antibiotics. Wean stero ids over a week or two. He can see me in the office in 1 month.
[2017-09-11 12:01] VITALS: TEMP 98
[2017-09-11] MEDS: cloNIDine 0.1 MG TAB PO PRN (12:34)
[2017-09-11 15:15] VITALS: BP 182/88
--- NOTE | 2017-09-12 10:37 | DIS ---
DATE OF DISCHARGE: 09/11/2017 DISCHARGE DISPOSITION: Home. FOLLOWUP: 1. Follow up with primary care physician Greg Garcia in 1 week. 2. Follow up with Dr. Richardson after 2 weeks. INPATIENT CONSULTANTS: 1. Pulmonary, Dr. Richardson. 2. Cardiology, Dr. Newby. Patient will follow up with Dr. Newby after 2 weeks. ALLERGIES: The patient is allergic to MORPHINE. The patient was seen and examined on the day of discharge. He denies any new complaints. Shortness of breath and wheezing has significantly improved. BRIEF HOSPITAL COURSE: The patient is a 57-year-old male with COPD, coronary artery disease, status post stent placement with ongoing tobacco abuse, peripheral vascular disease, status post right knee amputation, who presented to the hospital with chest discomfort as well as shortness of breath. Pleandrew se refer to the history and physical dated 09/07/2017 for further details. The patient was admitted to the hospital with the diagnosis of acute hypoxic respiratory failure seco ndary to chronic obstructive pulmonary disease exacerbation/acute bronchitis. The patient was seen b y Cardiology as well as Pulmonary. Serial troponins were in indeterminate range, maximum of 0.251. He also had a brief episode of nonsustained ventricular tachycardia. Beta rachel dose has been incr eased per Cardiology. He received oxygen nebulizer treatment. Please note patient refused IV steroi ds. He has been cleared by Cardiology and Pulmonary for discharge. FINAL DIAGNOSES: 1. Acute hypoxic respiratory failure secondary to chronic obstructive pulmonary disease exacerbation /acute bronchitis. 2. Chest discomfort with indeterminate troponins. 3. Nonsustained ventricular tachycardia. 4. History of coronary artery disease, status post right coronary artery stents placement. 5. Elevated troponins, probably secondary to demand ischemia. 6. Peripheral vascular disease, status post right above-knee amputation. 7. Hypertension. 8. Hyperlipidemia. 9. Ongoing tobacco abuse. 10. Diabetes mellitus type 2. 11. History of complete heart block secondary to high dose of diltiazem in the past. 12. Chronic kidney disease stage 2. 13. Hypotension in the emergency room secondary to sublingual nitroglycerin improved with IV fluids. 14. Chronic hyponatremia. 15. Chronic thrombocytopenia. 16. Chronic anemia. 17. Prerenal azotemia. 18. Prolonged QT. 19. Morphine allergy. 20. 21% bandemia on admission, probably secondary to acute bronchitis with suspected pneumonia. Que stionable pneumococcal. 21. Influenza testing was negative. 22. Plan of care was discussed with the patient in detail.
--- NOTE | 2017-09-12 12:22 | EKG ---
Test Reason : Blood Pressure : / mmHG Vent. Rate : 094 BPM Atrial Rate : 094 BPM P-R Int : 132 ms QRS Dur : 110 ms QT Int : 364 ms P-R-T Axes : 067 079 055 degrees QTc Int : 455 ms Normal sinus rhythm Possible Left atrial enlargement Borderline ECG No ST elevation/AR Confirmed by LESTER Ortiz, JUANPABLO ([id number]), online content editor BERT PRASAD ([id number]) on 09/12/2017 12:22:01 PM Referred By: Confirmed By:JUANPABLO BATISTA M.D.
--- NOTE | 2017-09-12 12:23 | EKG ---
Test Reason : LOW BP Blood Pressure : / mmHG Vent. Rate : 064 BPM Atrial Rate : 064 BPM P-R Int : 112 ms QRS Dur : 108 ms QT Int : 470 ms P-R-T Axes : 062 087 040 degrees QTc Int : 484 ms Normal sinus rhythm Prolonged QT Abnormal ECG Confirmed by JUANPABLO BATISTA M.D. ([id number]), senior technical editor BERT PRASAD ([id number]) on 09/12/2017 12:22:46 PM Referred By: Confirmed By:JUANPABLO BTAISTA M.D.
--- NOTE | 2017-09-28 15:57 | PQF ---
GINO REA MALIK MD [id number] [address] [place] [address] [id number] CLINICAL DOCUMENTATION CLARIFICATION FORM: POST DISCHARGE Addendum to original discharge summary date: ____ Late entry note date: __ DATE: 09/28/17 ATTN: DR MARIE Please exercise your independent, professional judgment in responding to the clarification form. Clinical indicators are provided on the bottom of this form for your review Please check appropriate box(s): [ ] Aspiration Pneumonia [ ] Aspiration Bronchitis [ ] Empirically treating Gram Negative Pneumonia [ ] Empirically treating Anaerobic Pneumonia [ x ] Suspected Pneumonia secondary to (specify organism / underlying disease) _ _Pneumococcal [ ] Simple Pneumonia (community acquired - nosocomial) [ ] Bronchopneumonia [ ] Pneumonia of unknown etiology [ ] Other diagnosis [ ] Unable to determine In addition, please specify: Present on Admission (POA): [ ] Yes [ ] No [ ] Unable to determine For continuity of documentation, please document condition throughout progress notes and discharge summary. Thank You. CLINICAL INDICATORS - SIGNS / SYMPTOMS / LABS Fever, Elevated WBC SOB, Hypoxia, ABGs, O2 sats CXR results Antibiotics RISK FACTORS Chronic lung disease Tobacco abuse TREATMENTS: Antibiotics/antifungals O2 therapy / bronchodilators Pulmonary consult IV fluids Serial CXRs ACUTE BRONCHITS WITH SUSPECTED PNEUMONIA, PROBABLY PNEUMONOCOCCAL. PLEASE RULE IN / OUT PNEUMONIA (This form is maintained as a part of the permanent medical record) 2014 [email or web address] All Rights Reserved Lisandra [email or web address] [phone] [email or web address]
== END 2017-09-11 14:45 | disposition home or self-care (01) | DRG 193 ==
LOC: ERS 08:17 → ERHOLD 11:48 → OBSVTOIN 18:21 → 2SW 18:25 → 2NO 09-10 13:44
PROVIDERS: ADMIT Internal Medicine; ATTEND Internal Medicine
DX: J13 Pneumonia due to Streptococcus pneumoniae (principal); J96.01 Acute respiratory failure with hypoxia; I47.2 Ventricular tachycardia; E11.22 Type 2 diabetes mellitus with diabetic chronic kidney disease; D69.6 Thrombocytopenia, unspecified; E11.42 Type 2 diabetes mellitus with diabetic polyneuropathy; E87.1 Hypo-osmolality and hyponatremia; I24.8 Other forms of acute ischemic heart disease; J44.1 Chronic obstructive pulmonary disease with (acute) exacerbation; J44.0 Chronic obstructive pulmonary disease with (acute) lower respiratory infection; I25.10 Atherosclerotic heart disease of native coronary artery without angina pectoris; Z89.611 Acquired absence of right leg above knee; F17.210 Nicotine dependence, cigarettes, uncomplicated; Z95.5 Presence of coronary angioplasty implant and graft; Z79.01 Long term (current) use of anticoagulants; Z79.82 Long term (current) use of aspirin; F41.9 Anxiety disorder, unspecified; F32.9 Major depressive disorder, single episode, unspecified; Z90.49 Acquired absence of other specified parts of digestive tract; Z88.5 Allergy status to narcotic agent; Z79.4 Long term (current) use of insulin; J20.9 Acute bronchitis, unspecified; I12.9 Hypertensive chronic kidney disease with stage 1 through stage 4 chronic kidney disease, or unspecified chronic kidney disease; N18.2 Chronic kidney disease, stage 2 (mild); I95.2 Hypotension due to drugs; T46.3X5A Adverse effect of coronary vasodilators, initial encounter; D64.9 Anemia, unspecified; E78.00 Pure hypercholesterolemia, unspecified; I25.2 Old myocardial infarction; I25.5 Ischemic cardiomyopathy
CPT/HCPCS: 36415; 36416; 71045; 80048; 80053; 80061; 80069; 82553; 83735; 83880; 84484; 85025; 93005; 93306; 94640; 94760; 96361; 96374; 96375; A4216; J0171; J0360; J0696; J1610; J1815; J2920; J3475; J7050; J7620

== ENCOUNTER 2017-12-10 12:36 | Outpatient (CLI) | payer MEDICARE ==
--- NOTE | 2017-12-10 13:52 | RAD ---
CHEST 2 VIEWS: Date: 12/10/17 HISTORY: Dyspnea. COMPARISON: 11/25/16. FINDINGS: Cardiac silhouette and pulmonary vasculature are unremarkable. Mediastinum is midline with aortic niurka cification. Radiopaque stent overlies the coronary arteries. Lungs are hyperinflated with flattening of each hemidiaphragm. No confluent air space consolidation, pneumothorax, or pleural fluid are appar ent. IMPRESSION: 1. COPD. 2. Atherosclerosis. POS: [place]
== END 2017-12-10 12:37 | disposition home or self-care (01) ==
LOC: RAD 12:36
PROVIDERS: ATTEND Internal Medicine Critical Care Medicine
DX: R06.00 Dyspnea, unspecified (principal); J44.9 Chronic obstructive pulmonary disease, unspecified; I70.90 Unspecified atherosclerosis
CPT/HCPCS: 71046

== ENCOUNTER 2018-02-25 08:37 | Outpatient (CLI) | payer MEDICARE ==
[2018-02-25] MEDS ORDERED: ISOVUE-370 76%-LOCM 1 ML ONE (13:09)
== END 2018-02-25 08:38 | disposition home or self-care (01) ==
LOC: BICCT 08:37
PROVIDERS: ATTEND Internal Medicine Gastroenterology
DX: K62.4 Stenosis of anus and rectum (principal); K86.2 Cyst of pancreas; I70.8 Atherosclerosis of other arteries; Z90.49 Acquired absence of other specified parts of digestive tract
CPT/HCPCS: 74177

== ENCOUNTER 2018-12-27 05:15 | Inpatient (IN) | payer MEDICARE ==
[2018-12-27 06:09] LABS: #Eosinphils 0.1 thou/uL (0.0-0.7); #Lymphocytes 1.4 thou/uL (1.20-3.40); #Monocytes 0.4 thou/uL (0.11-0.59); #Neutrophils 5.3 thou/uL (1.40-6.50); %Basophils 0.4 % (0.0-1.0); %Eosinophils 0.7 % (0.0-10.0); %Lymphocytes 19.7 % (21.0-51.0); %Monocytes 5.4 % (0.0-10.0); %Neutrophils 73.7 % (42.0-75.0); Hemoglobin 12.8 g/dL (14.0-18.0); Mean Corpuscular HGB CONC 31.9 g/dL (32.0-36.0); Mean Corpuscular Hemoglobin 31.8 pg (27.0-31.0); Mean Corpuscular Volume 99.5 fL (78.0-98.0); Mean Platelet Volume 9.1 fL (7.4-10.4); Platelet Count 110 thou/uL (130-400); RBC Distribution Width 12.6 % (11.5-14.5); Red Blood Cell (RBC) Count 4.02 mill/uL (4.70-6.10); White Blood Cell (WBC) Count 7.3 thou/uL (4.8-10.8)
[2018-12-27 06:13] LABS: ALT (SGPT) 18 U/L (8-55); AST (SGOT) 19 U/L (5-34); Albumin 3.3 g/dL (3.5-5.0); Alkaline Phosphatase 117 U/L (40-150); Anion Gap 11 mmol/L (10-20); BUN (Urea Nitrogen) 12 mg/dL (8.4-25.7); Bilirubin, Total 0.3 mg/dL (0.2-1.2); Calc. Creatinine Clearance 0 mL/min (70-130); Calcium 7.9 mg/dL (7.8-10.44); Carbon Dioxide 22 mmol/L (22-29); Chloride 107 mmol/L (98-107); Estimated GFR-MDRD 66; Globulin 2.4 g/dL (2.4-3.5); Glucose 181 mg/dL (70-105); Potassium 4.3 mmol/L (3.5-5.1); Protein, Total 5.7 g/dL (6.0-8.3); Sodium 136 mmol/L (136-145)
[2018-12-27] MEDS ORDERED: Azithromycin 250 MG TAB ONE (06:14)
[2018-12-27] MEDS ORDERED: cefTRIAXone\\ROCEPHIN 1 GM VIAL ONE (06:14)
[2018-12-27] MEDS ORDERED: Furosemide 40 MG/4 ML VIAL ONE (06:25)
[2018-12-27 06:39] LABS: CKMB 7.5 ng/mL (0-6.6)
--- NOTE | 2018-12-27 07:29 | RAD ---
CHEST 1 VIEW: Date: 12/27/18 INDICATION: Emergency examination for shortness of breath. COMPARISON: Prior 2 views of chest dated 12/10/17. FINDINGS: There is worsening mild to moderate cardiomegaly with mild pulmonary vascular congestion and slight i ncrease in interstitial markings. There is blunting of the costophrenic angles. No pneumothorax is ev ident. IMPRESSION: Findings most suggestive of mild CHF superimposed on severe COPD. POS: [facility]
[2018-12-27] MEDS ORDERED: HYDROcodone/Acetaminophen 10/325 mg Tablet ONE (07:41)
[2018-12-27] MEDS ORDERED: Acetaminophen 325 MG TAB PO PRN (08:14)
[2018-12-27] MEDS ORDERED: Dextrose 5% in Water 1,000 ML IV PRN (08:16)
[2018-12-27] MEDS ORDERED: Dextrose 50% Abboject 50 ML SYRINGE SLOW IVP PRN (08:16)
[2018-12-27] MEDS ORDERED: Insulin Glargine 26 UNITS in Pre-Filled Syringe 1 EACH SC SCH (09:00)
[2018-12-27 09:16] LABS: Troponin I 0.051 ng/mL (< 0.028)
[2018-12-27] MEDS: Lisinopril 5 MG TAB PO SCH (10:26)
[2018-12-27] MEDS: Loratadine 10 MG TAB PO SCH (10:27)
[2018-12-27] MEDS: Meloxicam 15 MG TAB PO SCH (10:27)
[2018-12-27] MEDS: Nicotine 21 MG PATCH TD SCH (10:29)
[2018-12-27 12:14] LABS: Troponin I 0.056 ng/mL (< 0.028)
--- NOTE | 2018-12-27 14:44 | HP ---
CHIEF COMPLAINT: Shortness of breath. HISTORY OF PRESENT ILLNESS: This patient is a 58-year-old male with a history of COPD and coronary artery disease, who was most recently admitted to this facility in August of 2017 with what appeared to be decompensated COPD. The patient follows with Dr. Richardson as his ginner and Dr. 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 He has seen both of them recently. He states Dr. Newby recently changed his beta-rachel and encouraged him to follow his blood pressure. He has not been following it closely at home, but it reports when he saw Dr. Newby, it was very high. The patient awoke yesterday morning to get up to go to the bathroom, when he did, he was very short of breath, became very diaphoretic, believes he even had a little bit of a panic attack as he felt like he was dying. This resolved within about 30 minutes and he did better throughout the day. He resulted to see a physician about this today, being Thursday. However, when he woke up this morning, he had a similar episode and therefore came to the emergency department. The patient reports that he has had a cough over the past week that is productive of a yellow to brown sputum. He has had no chest pain. No generalized edema. No change in his diet, salt, or fluid intake. He reports he has not had any fevers or chills, although he felt like potentially had a little bit here today. He does endorse some orthopnea. REVIEW OF SYSTEMS: The patient has had sluggish bowels. Otherwise, all systems reviewed and all pertinent positives and negatives noted in the history of present illness. PAST MEDICAL HISTORY: Notable for, 1. Coronary artery disease with drug-eluting stent placed in January 2017 in the RCA as well as a bare-metal stent placed in the RCA in 2015. 2. History of complete heart block, which was apparently related to diltiazem. 3. Peripheral vascular disease, status post right AKA. 4. Hypertension. 5. Hyperlipidemia, although the patient's most recent lipid panel in the computer is not bad. 6. Diabetes mellitus, which the patient reports has been under good control. 7. History of pancreatitis. 8. Renal failure, transient related to the pancreatitis requiring transient dialysis. 9. Anxiety and depression. PAST SURGICAL HISTORY: Fem-pop bypass, right AKA, cholecystectomy, colon resection for diverticular disease requiring colostomy with subsequent reversal, had surgical intervention for the pancreatic pseudocyst, had back surgery and hydrocele repair. FAMILY HISTORY: The patient is unaware of any medical problems with his parents. They are both and he is not sure why either of them passed. SOCIAL HISTORY: The patient continues to smoke about a pack of cigarettes per day. Denies alcohol or drugs. He is a full code and his son, Richard, would be his surrogate decision maker should that become necessary. ALLERGIES: MORPHINE. THE PATIENT REPORTS THAT HIS ONLY REACTION TO MORPHINE IS THAT HE GETS A LITTLE CRAZY AND HALLUCINATES IF HE IS ON IT FOR ABOUT A WEEK, WHICH HAPPENED TO HIM ONCE WHEN HE WAS IN THE HOSPITAL IN [place]. HOME MEDICATIONS: 1. Omeprazole 40 mg daily. 2. Meloxicam 15 mg q.a.m. 3. Sertraline 100 mg daily. 4. Zyrtec 10 mg daily. 5. Metoprolol 50 mg daily. 6. [place] 10/325 p.r.n. 7. Aspirin 81 mg p.o. daily. 8. Lantus 26 units subcu at bedtime. 9. Trelegy one inhalation daily. PHYSICAL EXAMINATION: VITAL SIGNS: Initial vital signs; blood pressure 164/103, pulse 97, respirations 28, temperature 98.0, and O2 saturation 92% on room air. Most recent vitals; blood pressure 177/112, pulse 97, respirations 24, temperature 98.5, and O2 saturation 98% on 3 L. GENERAL APPEARANCE: Age-appropriate male, in no distress. He is awake, alert, oriented, pleasant, and cooperative. He is generally thin. HEENT: PERRL. No OP lesions. NECK: Supple and symmetric. HEART: Regular rate and rhythm. Borderline tachycardic. No murmurs, gallops, or rubs. LUNGS: Generally diminished. There is no significant wheezes or rales noted at the moment. ABDOMEN: Soft, very slightly protuberant. He has postsurgical scars above and below the umbilicus, which are generally well healed. There appears to be a small stitch granuloma on the superior incisional scar. Bowel sounds are present. EXTREMITIES: The right AKA stump appears to be healthy. There is no edema of the left lower extremity. There are diminished pulses there. NEUROLOGICAL: The patient appears to be fully intact with no deficits and cognitively normal. DIAGNOSTIC DATA: White count 7.3, hemoglobin 12.8, and platelets 110. Sodium 136, potassium 4.3, chloride 107, CO2 of 27, BUN 12, creatinine is 1.13, glucose 181, AST 19, and ALT 18. CK 7.5, troponin 0.04. BNP 3289. Flu screen negative. Chest x-ray shows some pulmonary vascular congestion and severe COPD. EKG shows sinus rhythm with frequent PACs and PVCs. There is a left bundle-branch block and a right upward axis deviation, right superior axis deviation. IMPRESSION AND PLAN: 1. Congestive heart failure exacerbation, appears to be decompensated diastolic dysfunction. The patient's last echo was in August 2017, that we have record of here. We will repeat that now given that he continues to smoke. We will continue with IV Lasix b.i.d. We will continue with his metoprolol and start low-dose SAKINA inhibitors as his renal function appears to be normal. 2. Chronic obstructive pulmonary disease. We will continue nebulizers, supplemental oxygen. We will avoid steroids as the patient prefers to avoid those as possible because of the profound negative impact that has on his blood sugars. 3. Hypertension. The patient has severely elevated blood pressure. We will resume his metoprolol, adding low-dose SAKINA inhibitor and we will give IV hydralazine p.r.n. 4. Diabetes mellitus. Resume his home dose of Lantus at 26 units at bedtime. We will continue a diabetic diet and Accu-Cheks with low-dose sliding scale. 5. Coronary artery disease. Continue aspirin at 81 mg daily and beta-rachel. 6. Peripheral vascular disease. Continue the aspirin. Job ID: [id number]
[2018-12-27] MEDS: Furosemide 40 MG/4 ML VIAL SLOW IVP SCH (15:08)
[2018-12-27] MEDS: Carvedilol 6.25 MG TAB PO SCH (17:26)
[2018-12-27] MEDS: HYDROcodone/Acetaminophen 10/325 mg Tablet PO PRN (17:29)
[2018-12-27] MEDS: Budesonide 0.25 MG/2 ML NEB INH SCH (18:26)
[2018-12-27] MEDS ORDERED: Temazepam 15 MG CAP PO SCH (21:45)
[2018-12-27] MEDS ORDERED: Rosuvastatin 10 MG TAB PO SCH (21:45)
[2018-12-27] MEDS: Insulin Glargine 26 UNITS in Pre-Filled Syringe 1 EACH SC SCH (21:56)
--- NOTE | 2018-12-27 23:53 | CON ---
DATE OF CONSULTATION: HISTORY OF PRESENT ILLNESS: Keith Herrera is a 58-year-old white male who was initially evaluated in February 2016. He was to undergo hydrocelectomy in [place] with general anesthesia. In the mid , he underwent cardiac evaluation at [facility] in [place] including transesophageal echo and cardiac catheterization; however, he did not recall the findings. 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 A tracheostomy was placed and he was on dialysis for a time. In April 2009, adenosine Cardiolite was probably normal. He underwent Lexiscan Cardiolite test in the office in February 2016, which revealed an inferior wall fixed defect with evidence of ischemia. That was a new finding from the 2008 Cardiolite. He underwent cardiac catheterization at [facility]. There was normal left ventricular function with an ejection fraction of 55% to 60%. There was a 10% proximal LAD , 70% mid circumflex with very small distal circumflex to this. There was a 50% lesion in the first obtuse marginal. Right coronary artery had a 60% proximal lesion, 90 % mid lesion. Several days later, he then underwent stent placement at [facility] with Rebel 3.0 x 32, 3.0 x 26, 3.0 x 16 mm stents in the right coronary artery. The proximal stent was post-dilated with a 3.5 mm balloon. These were bare metal stents. In August 2016, when he was seen in the office, he stated that he had better energy level since stenting of the right coronary artery. In December 2016, he continued to deny any specific complaints. LDL was 97 on atorvastatin 20 and this was increased to 40 mg. He then presented in January 2017 complaining of two days of feeling poorly. He did not complain of any specific chest discomfort. On the day of admission, he had increased shortness of breath, increased weakness and was brought to the emergency room and was found to be in complete heart block with heart rate of 29-32 per minute. There was evidence of old anterior infarction, but no specific changes inferiorly. He continued to have hypotension and a transcutaneous pacemaker was placed. He was taken to the cardiac lab director emergently and a temporary venous pacemaker was placed. Once he was paced at 90-100 per minute, his dyspnea dramatically improved. He was found to have total occlusion of the right coronary artery and he underwent placement of drug-eluting stents - Synergy 2.5 x 20, 3.0 x 32, 3.0 x 28 and 3.5 x 22 mm in the distal right coronary artery to the ostium. The stenosis was reduced from totally occluded to 0%. He was maintained with temporary pacing for approximately 48 hours and then he had recovery of his AV node. He was also on Cardizem at the time of admission, and that was discontinued. Initially, he was not placed on a beta rachel due to his complete heart block. Echo at the time of discharge revealed an ejection fraction of 45% to 50%. Peak MB was 27.2 with peak troponin I of 18.124. In March 2017, he was placed on metoprolol 25 daily, lisinopril was increased to 10 mg daily due to poorly controlled blood pressure. In May 2017, echocardiogram was repeated and again his ejection fraction was 45% to 50%. He was then changed from metoprolol 25 to carvedilol 6.25 b.i.d. for again poorly controlled hypertension. He was admitted in August 2017, with increased cough and chest discomfort, only present when he was coughing. He had acute hypoxic respiratory failure due to COPD. He also had an episode of nonsustained ventricular tachycardia. He has continued to be followed in the office. He continues to smoke one-half pack per day. He was recently seen and found to have a potassium of 5.2, and lisinopril was discontinued. His carvedilol was discontinued; instead, he was placed on metoprolol 50 daily. He has not been following his blood pressure at home like he should. He now is admitted with increased shortness of breath and a panic attack, feeling as if he was going to . He again had such an episodes this morning when he came to the emergency room. He has had cough over the last week, productive of yellow to brown sputum. He denies any fever, chills. PAST MEDICAL HISTORY: 1. Coronary artery disease, drug-eluting stents to the right coronary artery in January 2017 and prior to that right coronary artery bare-metal stent in March,. 2. History of complete heart block when he had total occlusion of his right coronary artery in January 2017 with diltiazem also playing a role. 3. Peripheral vascular disease. 4. Hypertension. 5. Hypercholesterolemia. 6. Diabetes, history of pancreatitis. 7. History of renal failure with his pancreatitis, but ultimately he had return of his kidney function. 8. Anxiety with depression. PAST SURGICAL HISTORY: Operations, tracheostomy, colectomy for diverticulosis, resection of more of the colon and placement of a colostomy and ultimate takedown of the colostomy, laparoscopic cholecystectomy, right [id number] amputation after an episode of hypotension , resection of pancreatic pseudocyst, repair of hydrocele, and back surgery. MEDICATIONS: When he was last seen in the office; 1. Metoprolol 50 q.a.m. 2. Aspirin 325 daily. 3. Meloxicam 15 mg daily. 4. Cyclobenzaprine 5 mg p.r.n. 5. Omeprazole 40 mg daily. 6. Sertraline 100 mg daily. 7. Atorvastatin 40 -1/2 tablet daily. 8. Lantus insulin. ALLERGIES: MORPHINE. SOCIAL HISTORY: He continues to smoke one-half pack per day. Prior to his infarction in January 2017, he was smoking one pack per day. He does not drink alcohol since his necrotizing pancreatitis. REVIEW OF SYSTEMS: A 12-point review of systems is otherwise unremarkable. PHYSICAL EXAMINATION: VITAL SIGNS: 162/92, 170/97, pulse 81. HEENT: PERRL. NECK: Supple. CHEST: Reveals late expiratory wheezing. CARDIOVASCULAR: S1 and S2 normal without any S3, S4, or murmurs. ABDOMEN: Normal bowel sounds without tenderness or organomegaly. EXTREMITIES: Revealed no clubbing, cyanosis, or edema of the left leg, right AKA. NEUROLOGIC: Grossly intact. LABORATORY DATA: EKG revealed sinus rhythm with occasional PVCs, new left bundle-branch block. Hemoglobin 12.8, hematocrit 40.0, white count 7,300, platelets 110,000. Sodium 136, potassium 4.3, chloride 107, carbon dioxide 22, BUN 12, creatinine 1.13. CK-MB 7.5, troponin I 0.051. BNP 3289.1 (BNP 296 in August 2017). In November 2018, cholesterol 115, triglycerides 159, HDL 35, LDL 48. Chest x-ray revealed findings suggestive of mild CHF superimposed on severe COPD. IMPRESSION: 1. Increased shortness of breath, probably due to some degree of systolic dysfunction as well as chronic obstructive pulmonary disease. 2. New left bundle-branch block, which is on current EKG, but has not been present in the past. 3. Non-ST elevation myocardial infarction, type 2. 4. Severe chronic obstructive pulmonary disease. 5. The patient continues to smoke one-half pack per day. 6. History of inferior non-ST elevation myocardial infarction in January 2017 with total occlusion of right coronary artery and placement of drug-eluting stents. Peak MB 27.2, peak troponin 18.124. 7. Placement of bare-metal stent to the right coronary artery in March 2016. 8. Complete heart block secondary to totally occluded right coronary artery in January 2017, as well as being on high-dose diltiazem. He was temporarily placed and ultimately his complete heart block resolved. 9. Mild left ventricular dysfunction with most recent ejection fraction of 45% to 50% in May 2017. However, he has developed left bundle-branch block and may have had significant worsening of his left ventricular function. 10. History of paroxysmal atrial tachycardia. 11. History of nonsustained ventricular tachycardia. 12. Hypertension. 13. Hypercholesterolemia, under good control. 14. Diabetes. 15. History of acute necrotizing pancreatitis. 16. History of dialysis when he had the necrotizing pancreatitis for approximately 2 months with ultimate return of renal function. PLAN: Echocardiogram will be performed to assess left ventricular function with his new left bundle-branch block. I imagine this has significantly worsened with the finding of significantly elevated BNP and the new LBBB. He has been restarted on low-dose lisinopril. I will restart him on carvedilol with hopes of controlling his blood pressure. He will continue to be diuresed. Job ID: [id number] [facility]
[2018-12-28] MEDS: Furosemide 40 MG/4 ML VIAL SLOW IVP SCH ×2 (05:06→13:23)
[2018-12-28] MEDS: Budesonide 0.25 MG/2 ML NEB INH SCH ×2 (05:08→18:17)
[2018-12-28 05:39] LABS: #Basophils 0.1 thou/uL (0.0-0.2); #Eosinphils 0.1 thou/uL (0.0-0.7); #Lymphocytes 1.9 thou/uL (1.20-3.40); #Monocytes 0.5 thou/uL (0.11-0.59); #Neutrophils 4.4 thou/uL (1.40-6.50); %Basophils 0.9 % (0.0-1.0); %Eosinophils 1.4 % (0.0-10.0); %Monocytes 7.4 % (0.0-10.0); %Neutrophils 63.3 % (42.0-75.0); Hemoglobin 12.8 g/dL (14.0-18.0); Mean Corpuscular HGB CONC 32.8 g/dL (32.0-36.0); Mean Corpuscular Hemoglobin 32.2 pg (27.0-31.0); Mean Corpuscular Volume 98.1 fL (78.0-98.0); Mean Platelet Volume 9.2 fL (7.4-10.4); Platelet Count 103 thou/uL (130-400); RBC Distribution Width 12.6 % (11.5-14.5); Red Blood Cell (RBC) Count 3.99 mill/uL (4.70-6.10)
[2018-12-28] MEDS ORDERED: methylPREDNISolone Sod Succ/PF 125 MG/2 ML VIAL IVP SCH (05:45)
[2018-12-28] MEDS: HumaLOG 300 UNITS/3 ML VIAL SC PRN ×2 (05:52→17:00)
[2018-12-28 05:54] LABS: Anion Gap 12 mmol/L (10-20); BUN (Urea Nitrogen) 14 mg/dL (8.4-25.7); Calc. Creatinine Clearance 42 mL/min (70-130); Calcium 8.5 mg/dL (7.8-10.44); Carbon Dioxide 24 mmol/L (22-29); Chloride 103 mmol/L (98-107); Estimated GFR-MDRD 49; Glucose 224 mg/dL (70-105); Potassium 3.8 mmol/L (3.5-5.1); Sodium 135 mmol/L (136-145)
--- NOTE | 2018-12-28 07:37 | RAD ---
EXAM: Portable chest: INDICATIONS: Cough. COPD COMPARISON: 12/27/2018 FINDINGS: Heart size upper normal. Vascular and interstitial markings mildly prominent. Left-sided ef fusion and left basilar atelectasis/infiltrate. IMPRESSION: Stable from yesterday
[2018-12-28] MEDS: Carvedilol 6.25 MG TAB PO SCH ×2 (08:32→16:00)
[2018-12-28] MEDS: Lisinopril 5 MG TAB PO SCH (08:32)
[2018-12-28] MEDS: Meloxicam 15 MG TAB PO SCH (08:32)
[2018-12-28] MEDS: Nicotine 21 MG PATCH TD SCH (08:33)
[2018-12-28] MEDS: Loratadine 10 MG TAB PO SCH (08:33)
[2018-12-28] MEDS ORDERED: Lisinopril 10 MG TAB PO SCH (10:00)
[2018-12-28] MEDS ORDERED: Sodium Chloride 0.9% 1,000 ML IV SCH (10:00)
[2018-12-28] MEDS: HYDROcodone/Acetaminophen 10/325 mg Tablet PO PRN ×3 (10:30→20:57)
[2018-12-28] MEDS: Communication Order-Pharmacy FS SCH (11:06)
[2018-12-28 13:14] VITALS: BMI 19.7
--- NOTE | 2018-12-28 15:41 | PDOC.PN ---
- Subjective Encounter Start Date: 12/28/18 Encounter Start Time: 07:40 Pt seen for followup re: acute on chronic systolic heart failure. feels slightly better. - Objective Resuscitation Status - Order Detail: 12/27/18 08:14 Resuscitation Status Routine Resuscitation Status: FULL: Full Resuscitation Vital Signs & Weight: Vital Signs (12 hours) Temp Pulse Resp BP BP Pulse Ox 12/28/18 12:24 85 16 92 L 12/28/18 11:02 162/92 H 12/28/18 11:00 97.4 F L 82 16 150/85 H 93 L 12/28/18 08:04 97.8 F 71 16 167/92 H 93 L 12/28/18 06:48 95 12/28/18 05:07 101 H 24 H 95 12/28/18 03:37 98 F 76 20 166/89 H 96 Weight Admit Weight 119 lb 14.4 oz Weight 126 lb I&O: 12/27/18 12/28/18 12/29/18 06:59 06:59 06:59 Intake Total 900 Output Total 1570 680 Balance -670 -680 Result Diagrams: 12/28/18 04:49 12/28/18 04:49 Additional Labs: Accuchecks 12/28/18 12/28/18 12/27/18 11:04 05:02 21:40 POC Glucose 175 H 215 H 130 H 12/27/18 12/27/18 20:10 17:00 POC Glucose 67 L 93 Phys Exam - Physical Examination Constitutional: NAD HEENT: moist MMs, sclera anicteric, oral pharynx no lesions, 2+ tonsils Neck: no nodes, supple, full ROM JVD Syed crackles Cardiovascular: RRR, no rub Gastrointestinal: soft, non-tender, no distention, positive bowel sounds Neurological: moves all 4 limbs Psychiatric: normal affect, A&O x 3 Dx/Plan (1) Acute on chronic systolic heart failure, NYHA class 3 Code(s): I50.23 - ACUTE ON CHRONIC SYSTOLIC (CONGESTIVE) HEART FAILURE Status : Acute Comment: continue furosemide (2) LBBB (left bundle branch block) Code(s): I44.7 - LEFT BUNDLE-BRANCH BLOCK, UNSPECIFIED Status: Acute Comment : for cath on (3) DM2 (diabetes mellitus, type 2) Status: Chronic Qualifiers: Diabetes mellitus snf insulin use: with terminal clerk use Diabetes mellitus complication status: with other specified complication Qualified Code (s): E11.69 - Type 2 diabetes mellitus with other specified complication; Z79.4 - terminal block assembler (current) use of insulin Comment: reasonable control (4) HTN (hypertension) Code(s): I10 - ESSENTIAL (PRIMARY) HYPERTENSION Status: Chronic Qualifiers: Hypertension type: essential hypertension Qualified Code(s): I10 - Essential (primary) hypertension Comment: monitor vital signs, titrate antihypertensives as needed - Plan * . Review of Systems - Review of Systems Constitutional: weakness. negative: fever, chills, sweats, malaise Respiratory: Cough, SOB with Excertion, Sputum. negative: Dry, Shortness of Breath, Hemoptysis, Pleuritic Pain, Wheezing Cardiovascular: orthopnea. negative: chest pain, palpitations, paroxysmal nocturnal dyspnea, edema, light headedness, other Gastrointestinal: negative: Nausea, Vomiting, Abdominal Pain, Diarrhea, Constipation, Melena, Hematochezia Genitourinary: negative: Dysuria, Frequency, Incontinence, Hematuria, Retention Skin: negative: Rash, Lesions, [place], Bruising - Medications/Allergies Allergies/Adverse Reactions: Allergies Allergy/AdvReac Type Severity Reaction Status Date / Time morphine AdvReac Severe Verified 09/07/17 19:40 Medications: Current Medications Acetaminophen (Tylenol) 650 mg PO Q4H PRN PRN Reason: Headache/Fever/Mild Pain (1-3) Hydrocodone Bitart/Acetaminophen ([place] 10/325) 1 tab PO Q4H PRN PRN Reason: Mild-Moderate Pain (1-5) Hydrocodone Bitart/Acetaminophen ([place] 10/325) 2 tab PO Q4H PRN PRN Reason: Moderate to Severe Pain (6-10) Last Admin: 12/28/18 15:05 Dose: 2 tab Albuterol/Ipratropium (Duoneb) 3 ml NEB [id number] VOLODYMYR Last Admin: 12/28/18 12:24 Dose: 3 ml Albuterol/Ipratropium (Duoneb) 3 ml NEB [id number] PRN PRN Reason: SOB &/or Wheezing Budesonide (Pulmicort Neb Solution) 0.25 mg INH BID-RT VOLODYMYR Last Admin: 12/28/18 05:08 Dose: 0.25 mg Carvedilol (Coreg) 12.5 mg PO BID-[facility] Last Admin: 12/28/18 08:32 Dose: 12.5 mg Dextrose/Water (Dextrose 50%) 25 gm SLOW IVP PRN PRN PRN Reason: Hypoglycemia Furosemide (Lasix) 40 mg SLOW IVP 0600,1400 [facility] Last Admin: 12/28/18 13:23 Dose: 40 mg Glucagon (Glucagon) 1 mg IM PRN PRN PRN Reason: Hypoglycemia Hydralazine HCl (Apresoline) 10 mg SLOW IVP Q4H PRN PRN Reason: Hypertension Dextrose/Water (D5w) 1,000 mls @ 0 mls/hr IV .Q0M PRN PRN Reason: Hypoglycemia Insulin Glargine 26 units/ (Miscellaneous Medication) 0.26 mls @ 0 mls/hr SC [facility] Last Admin: 12/27/18 21:56 Dose: Not Given Sodium Chloride (Normal Saline 0.9%) 1,000 mls @ 100 mls/hr IV .Q10H [facility] Insulin Human Lispro (Humalog) 0 units SC .MILD SLIDING SCALE PRN PRN Reason: Mild Correctional Scale Last Admin: 12/28/18 05:52 Dose: 3 unit Lisinopril (Zestril) 10 mg PO BID [facility] Loratadine (Claritin) 10 mg PO DAILY [facility] Last Admin: 12/28/18 08:33 Dose: 10 mg Meloxicam (Mobic) 15 mg PO DAILY [facility] Last Admin: 12/28/18 08:32 Dose: 15 mg Miscellaneous Information (Communication Order-Pharmacy) 0 each FS 1000 [facility] Last Admin: 12/28/18 11:06 Dose: Not Given Nicotine (Nicoderm Patch) 21 mg TD Q24HR [facility] Last Admin: 12/28/18 08:33 Dose: 21 mg Pantoprazole Sodium (Protonix) 40 mg PO DAILY [facility] Last Admin: 12/28/18 08:32 Dose: 40 mg Rosuvastatin Calcium (Crestor) 10 mg PO HS [facility] Temazepam (Restoril) 15 mg PO [facility]
[2018-12-28] MEDS ORDERED: HumaLOG 300 UNITS/3 ML VIAL SC SCH (18:00)
[2018-12-28] MEDS: Rosuvastatin 10 MG TAB PO SCH (20:54)
[2018-12-28] MEDS: Lisinopril 10 MG TAB PO SCH (20:56)
[2018-12-28] MEDS: Temazepam 15 MG CAP PO SCH (20:57)
[2018-12-28] MEDS: Insulin Glargine 26 UNITS in Pre-Filled Syringe 1 EACH SC SCH (20:59)
[2018-12-29] MEDS: Furosemide 40 MG/4 ML VIAL SLOW IVP SCH ×2 (05:49→13:56)
[2018-12-29] MEDS: Budesonide 0.25 MG/2 ML NEB INH SCH ×2 (07:11→18:01)
[2018-12-29] MEDS: Meloxicam 15 MG TAB PO SCH (08:46)
[2018-12-29] MEDS: Loratadine 10 MG TAB PO SCH (08:46)
[2018-12-29] MEDS: Carvedilol 6.25 MG TAB PO SCH ×2 (08:46→17:23)
[2018-12-29] MEDS: Lisinopril 10 MG TAB PO SCH (08:46)
[2018-12-29] MEDS: HYDROcodone/Acetaminophen 10/325 mg Tablet PO PRN ×3 (08:56→21:37)
[2018-12-29] MEDS: Nicotine 21 MG PATCH TD SCH (08:56)
[2018-12-29 09:22] LABS: Anion Gap 12 mmol/L (10-20); BUN (Urea Nitrogen) 24 mg/dL (8.4-25.7); Calc. Creatinine Clearance 51 mL/min (70-130); Carbon Dioxide 32 mmol/L (22-29); Chloride 96 mmol/L (98-107); Estimated GFR-MDRD 60; Glucose 185 mg/dL (70-105); Potassium 3.5 mmol/L (3.5-5.1); Sodium 136 mmol/L (136-145)
[2018-12-29] MEDS: Communication Order-Pharmacy FS SCH (10:15)
--- NOTE | 2018-12-29 12:00 | EKG ---
Test Reason : Blood Pressure : / mmHG Vent. Rate : 090 BPM Atrial Rate : 090 BPM P-R Int : 164 ms QRS Dur : 150 ms QT Int : 404 ms P-R-T Axes : 068 085 068 degrees QTc Int : 494 ms Normal sinus rhythm Possible Left atrial enlargement Left bundle branch block Abnormal ECG When compared with ECG of 27-DEC-2018 06:37, (Unconfirmed) Premature ventricular complexes are no longer Present Premature atrial complexes are no longer Present Questionable change in QRS axis Nonspecific T wave abnormality now evident in Inferior leads Confirmed by DR. Susana STEELE ([id number]) on 12/29/2018 12:00:32 PM Referred By: HALEY Confirmed By:DR. Susana STEELE
[2018-12-29] MEDS: HumaLOG 300 UNITS/3 ML VIAL SC PRN ×2 (12:01→17:24)
[2018-12-29] MEDS: hydrALAZINE 20 MG/ML VIAL SLOW IVP PRN (12:22)
--- NOTE | 2018-12-29 14:14 | PDOC.PN ---
- Subjective Encounter Start Date: 12/29/18 Encounter Start Time: 08:00 Pt seen for followup re: CHF exacerbation. Feels better. - Objective Resuscitation Status - Order Detail: 12/27/18 08:14 Resuscitation Status Routine Resuscitation Status: FULL: Full Resuscitation Vital Signs & Weight: Vital Signs (12 hours) Temp Pulse Resp BP BP Pulse Ox 12/29/18 13:30 67 16 98 12/29/18 12:59 153/82 H 12/29/18 12:22 174/84 H 12/29/18 12:10 98.0 F 76 19 180/102 H 98 12/29/18 08:46 174/84 H 12/29/18 07:18 97.5 F L 79 18 178/93 H 97 12/29/18 07:14 83 16 95 12/29/18 07:11 83 16 95 12/29/18 06:00 95 12/29/18 03:32 98.1 F 78 19 155/81 H 94 L Weight Admit Weight 119 lb 14.4 oz Weight 123 lb 8 oz I&O: 12/28/18 12/29/18 12/30/18 06:59 06:59 06:59 Intake Total 900 1040 Output Total 1570 2830 Balance -670 -1790 Result Diagrams: 12/28/18 04:49 12/29/18 08:54 Additional Labs: Accuchecks 12/29/18 12/28/18 12/28/18 05:31 20:34 16:48 POC Glucose 142 H 175 H 445 H Phys Exam - Physical Examination Constitutional: NAD HEENT: moist MMs Neck: supple Respiratory: clear to auscultation bilateral Cardiovascular: RRR Gastrointestinal: soft Neurological: moves all 4 limbs Psychiatric: normal affect Dx/Plan (1) Acute on chronic systolic heart failure, NYHA class 3 Code(s): I50.23 - ACUTE ON CHRONIC SYSTOLIC (CONGESTIVE) HEART FAILURE Status : Acute Comment: Improved, continue furosemide (2) LBBB (left bundle branch block) Code(s): I44.7 - LEFT BUNDLE-BRANCH BLOCK, UNSPECIFIED Status: Acute Comment : for cath tomorrow (3) DM2 (diabetes mellitus, type 2) Status: Chronic Qualifiers: Diabetes mellitus long term care social worker insulin use: with mcfp use Diabetes mellitus complication status: with other specified complication Qualified Code (s): E11.69 - Type 2 diabetes mellitus with other specified complication; Z79.4 - termite control servicer (current) use of insulin Comment: reasonable control (4) HTN (hypertension) Code(s): I10 - ESSENTIAL (PRIMARY) HYPERTENSION Status: Chronic Qualifiers: Hypertension type: essential hypertension Qualified Code(s): I10 - Essential (primary) hypertension Comment: monitor vital signs, titrate antihypertensives as needed - Plan * . Review of Systems - Review of Systems Respiratory: SOB with Excertion. negative: Cough, Dry, Shortness of Breath, Hemoptysis, Pleuritic Pain, Sputum, Wheezing Cardiovascular: negative: chest pain, palpitations, orthopnea, paroxysmal nocturnal dyspnea, edema, light headedness - Medications/Allergies Allergies/Adverse Reactions: Allergies Allergy/AdvReac Type Severity Reaction Status Date / Time morphine AdvReac Severe Verified 09/07/17 19:40 Medications: Current Medications Acetaminophen (Tylenol) 650 mg PO Q4H PRN PRN Reason: Headache/Fever/Mild Pain (1-3) Hydrocodone Bitart/Acetaminophen ([place] 10/325) 1 tab PO Q4H PRN PRN Reason: Mild-Moderate Pain (1-5) Hydrocodone Bitart/Acetaminophen ([place] 10/325) 2 tab PO Q4H PRN PRN Reason: Moderate to Severe Pain (6-10) Last Admin: 12/29/18 08:56 Dose: 2 tab Albuterol/Ipratropium (Duoneb) 3 ml NEB [id number] Last Admin: 12/29/18 13:30 Dose: 3 ml Albuterol/Ipratropium (Duoneb) 3 ml NEB [id number] PRN PRN Reason: SOB &/or Wheezing Budesonide (Pulmicort Neb Solution) 0.25 mg INH BID-RT VOLODYMYR Last Admin: 12/29/18 07:11 Dose: 0.25 mg Carvedilol (Coreg) 12.5 mg PO BID-WM VOLODYMYR Last Admin: 12/29/18 08:46 Dose: 12.5 mg Dextrose/Water (Dextrose 50%) 25 gm SLOW IVP PRN PRN PRN Reason: Hypoglycemia Furosemide (Lasix) 40 mg SLOW IVP 0600,1400 [facility] Last Admin: 12/29/18 13:56 Dose: 40 mg Glucagon (Glucagon) 1 mg IM PRN PRN PRN Reason: Hypoglycemia Hydralazine HCl (Apresoline) 10 mg SLOW IVP Q4H PRN PRN Reason: Hypertension Last Admin: 12/29/18 12:22 Dose: 10 mg Dextrose/Water (D5w) 1,000 mls @ 0 mls/hr IV .Q0M PRN PRN Reason: Hypoglycemia Insulin Glargine 26 units/ (Miscellaneous Medication) 0.26 mls @ 0 mls/hr SC [facility] Last Admin: 12/28/18 20:59 Dose: Not Given Sodium Chloride (Normal Saline 0.9%) 1,000 mls @ 100 mls/hr IV .Q10H [facility] Insulin Human Lispro (Humalog) 0 units SC .MILD SLIDING SCALE PRN PRN Reason: Mild Correctional Scale Last Admin: 12/29/18 12:01 Dose: 2 unit Lisinopril (Zestril) 10 mg PO BID [facility] Last Admin: 12/29/18 08:46 Dose: 10 mg Loratadine (Claritin) 10 mg PO DAILY [facility] Last Admin: 12/29/18 08:46 Dose: 10 mg Meloxicam (Mobic) 15 mg PO DAILY [facility] Last Admin: 12/29/18 08:46 Dose: 15 mg Miscellaneous Information (Communication Order-Pharmacy) 0 each FS 1000 [facility] Last Admin: 12/29/18 10:15 Dose: Not Given Nicotine (Nicoderm Patch) 21 mg TD Q24HR [facility] Last Admin: 12/29/18 08:56 Dose: 21 mg Pantoprazole Sodium (Protonix) 40 mg PO DAILY [facility] Last Admin: 12/29/18 08:46 Dose: 40 mg Rosuvastatin Calcium (Crestor) 10 mg PO [facility] Last Admin: 12/28/18 20:54 Dose: 10 mg Sodium Chloride (Flush - Normal Saline) 10 ml IVF Q12HR [facility] Last Admin: 12/29/18 08:47 Dose: 10 ml Sodium Chloride (Flush - Normal Saline) 10 ml IVF PRN PRN PRN Reason: Saline Flush Last Admin: 12/29/18 05:49 Dose: 10 ml Temazepam (Restoril) 15 mg PO [facility] Last Admin: 12/28/18 20:57 Dose: 15 mg
[2018-12-29] MEDS: Rosuvastatin 10 MG TAB PO SCH (21:35)
[2018-12-29] MEDS: Insulin Glargine 26 UNITS in Pre-Filled Syringe 1 EACH SC SCH (21:36)
[2018-12-29] MEDS: Temazepam 15 MG CAP PO SCH (21:37)
[2018-12-30 05:44] LABS: Anion Gap 13 mmol/L (10-20); BUN (Urea Nitrogen) 27 mg/dL (8.4-25.7); Calc. Creatinine Clearance 55 mL/min (70-130); Calcium 8.9 mg/dL (7.8-10.44); Carbon Dioxide 32 mmol/L (22-29); Chloride 94 mmol/L (98-107); Estimated GFR-MDRD 66; Glucose 230 mg/dL (70-105); Potassium 3.5 mmol/L (3.5-5.1); Sodium 135 mmol/L (136-145)
[2018-12-30] MEDS: Meloxicam 15 MG TAB PO SCH (05:59)
[2018-12-30] MEDS: Loratadine 10 MG TAB PO SCH (05:59)
[2018-12-30] MEDS: Sodium Chloride 0.9% 1,000 ML IV SCH ×2 (05:59→17:01)
[2018-12-30] MEDS: Carvedilol 6.25 MG TAB PO SCH ×2 (06:00→17:00)
[2018-12-30] MEDS: Nicotine 21 MG PATCH TD SCH (06:07)
[2018-12-30] MEDS: Budesonide 0.25 MG/2 ML NEB INH SCH ×2 (07:01→18:44)
[2018-12-30] MEDS ORDERED: Heparin 10,000 UNITS/1 ML VIAL ONE (07:29)
[2018-12-30] MEDS ORDERED: Midazolam HCl 2 mg/2 ml Vial ONE (08:36)
[2018-12-30] MEDS ORDERED: Fentanyl 100 MCG/2 ML VIAL ONE (08:36)
[2018-12-30] MEDS ORDERED: Protamine Sulfate 50 MG/5 ML VIAL ONE (09:17)
[2018-12-30] MEDS ORDERED: Sacubitril 24.5 MG/Valsartan 25.5 MG TABLET PO SCH ×3 (09:45→21:00)
[2018-12-30] MEDS: Furosemide 40 MG TAB PO SCH (09:49)
[2018-12-30] MEDS ORDERED: Iopamidol 370 76% 100 ML VIAL ONE (11:37)
[2018-12-30] MEDS ORDERED: Iopamidol 370 76% 50 ML VIAL FS ONE (11:37)
--- NOTE | 2018-12-30 11:52 | PDOC.PN ---
- Subjective Encounter Start Date: 12/30/18 Encounter Start Time: 11:30 Subjective: is post cardiac cath in room, at bedside -: no chest pain or sob - Objective Resuscitation Status - Order Detail: 12/27/18 08:14 Resuscitation Status Routine Resuscitation Status: FULL: Full Resuscitation MAR Reviewed: Yes Vital Signs & Weight: Vital Signs (12 hours) Temp Pulse Resp BP BP Pulse Ox 12/30/18 08:00 98 12/30/18 07:06 92 L 12/30/18 07:05 72 16 92 L 12/30/18 07:01 72 16 92 L 12/30/18 06:00 153/81 H 12/30/18 03:28 98.0 F 82 18 159/86 H 93 L 12/30/18 00:00 18 Weight Admit Weight 119 lb 14.4 oz Weight 118 lb 1.6 oz I&O: 12/29/18 12/30/18 12/31/18 06:59 06:59 06:59 Intake Total 1040 2080 Output Total 2830 3845 Balance -1790 -1765 Result Diagrams: 12/28/18 04:49 12/30/18 04:41 Additional Labs: Accuchecks 12/30/18 12/30/18 12/29/18 10:29 05:41 20:51 POC Glucose 215 H 233 H 113 H 12/29/18 12/29/18 17:06 11:15 POC Glucose 284 H 191 H Phys Exam - Physical Examination HEENT: PERRLA, moist MMs Neck: no JVD, supple Respiratory: no wheezing, no rales Cardiovascular: RRR, no significant murmur Gastrointestinal: soft, non-tender, positive bowel sounds Musculoskeletal: no edema, pulses present Neurological: non-focal, moves all 4 limbs Psychiatric: normal affect, A&O x 3 Dx/Plan (1) CAD (coronary artery disease) Code(s): I25.10 - ATHSCL HEART DISEASE OF [place] CORONARY ARTERY W/O ANG PCTRS Status: Chronic Qualifiers: Coronary Disease-Associated Artery/Lesion type: [place] artery [place] vs. 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 insulin use: with group home use Diabetes mellitus complication status: with other specified complication Qualified Code (s): E11.69 - Type 2 diabetes mellitus with other specified complication; Z79.4 - residential (current) use of insulin (5) HTN (hypertension) Code(s): I10 - ESSENTIAL (PRIMARY) HYPERTENSION Status: Chronic Qualifiers: Hypertension type: essential hypertension Qualified Code(s): I10 - Essential (primary) hypertension (6) PVD (peripheral vascular disease) Code(s): I73.9 - PERIPHERAL VASCULAR DISEASE, UNSPECIFIED Status: Chronic (7) History of right above knee amputation Code(s): Z89.611 - ACQUIRED ABSENCE OF RIGHT LEG ABOVE KNEE Status: Chronic - Plan has 3 vessel disease for medical mgmt -: continue lasix, coreg, entresto, crestor -: nebs, pulmicort inh, lantus -: hemostable -: d/w and patient at bedside * . Review of Systems - Medications/Allergies Allergies/Adverse Reactions: Allergies Allergy/AdvReac Type Severity Reaction Status Date / Time morphine AdvReac Severe Verified 09/07/17 19:40 Medications: Current Medications Acetaminophen (Tylenol) 650 mg PO Q4H PRN PRN Reason: Headache/Fever/Mild Pain (1-3) Hydrocodone Bitart/Acetaminophen ([place] 10/325) 1 tab PO Q4H PRN PRN Reason: Mild-Moderate Pain (1-5) Hydrocodone Bitart/Acetaminophen ([place] 10/325) 2 tab PO Q4H PRN PRN Reason: Moderate to Severe Pain (6-10) Last Admin: 12/29/18 21:37 Dose: 2 tab Albuterol/Ipratropium (Duoneb) 3 ml NEB [id number] [id number] Last Admin: 12/30/18 07:05 Dose: 3 ml Albuterol/Ipratropium (Duoneb) 3 ml NEB [id number] PRN PRN Reason: SOB &/or Wheezing Budesonide (Pulmicort Neb Solution) 0.25 mg INH BID-RT [facility] Last Admin: 12/30/18 07:01 Dose: 0.25 mg Carvedilol (Coreg) 12.5 mg PO BID-WM [facility] Last Admin: 12/30/18 06:00 Dose: 12.5 mg Dextrose/Water (Dextrose 50%) 25 gm SLOW IVP PRN PRN PRN Reason: Hypoglycemia Furosemide (Lasix) 40 mg PO DAILY-AC [facility] Last Admin: 12/30/18 09:49 Dose: Not Given Glucagon (Glucagon) 1 mg IM PRN PRN PRN Reason: Hypoglycemia Hydralazine HCl (Apresoline) 10 mg SLOW IVP Q4H PRN PRN Reason: Hypertension Last Admin: 12/29/18 12:22 Dose: 10 mg Dextrose/Water (D5w) 1,000 mls @ 0 mls/hr IV .Q0M PRN PRN Reason: Hypoglycemia Insulin Glargine 26 units/ (Miscellaneous Medication) 0.26 mls @ 0 mls/hr SC [facility] Last Admin: 12/29/18 21:36 Dose: Not Given Sodium Chloride (Normal Saline 0.9%) 1,000 mls @ 100 mls/hr IV .Q10H [facility] Last Admin: 12/30/18 05:59 Dose: 1,000 mls Insulin Human Lispro (Humalog) 0 units SC .MILD SLIDING SCALE PRN PRN Reason: Mild Correctional Scale Last Admin: 12/29/18 17:24 Dose: 4 unit Loratadine (Claritin) 10 mg PO DAILY [facility] Last Admin: 12/30/18 05:59 Dose: 10 mg Meloxicam (Mobic) 15 mg PO DAILY [facility] Last Admin: 12/30/18 05:59 Dose: 15 mg Miscellaneous Information (Communication Order-Pharmacy) 0 each FS 1000 [facility] Last Admin: 12/29/18 10:15 Dose: Not Given Pantoprazole Sodium (Protonix) 40 mg PO DAILY [facility] Last Admin: 12/30/18 05:59 Dose: 40 mg Rosuvastatin Calcium (Crestor) 10 mg PO [facility] Last Admin: 12/29/18 21:35 Dose: 10 mg Sacubitril/Valsartan (Entresto 24.5 Mg-25.5 Mg Tablet) 1 tab PO ONE [facility] Stop: 12/30/18 12:00 Sacubitril/Valsartan (Entresto 24.5 Mg-25.5 Mg Tablet) 2 tab PO BID [facility] Sodium Chloride (Flush - Normal Saline) 10 ml IVF Q12HR [facility] Last Admin: 12/30/18 06:07 Dose: 10 ml Sodium Chloride (Flush - Normal Saline) 10 ml IVF PRN PRN PRN Reason: Saline Flush Last Admin: 12/29/18 05:49 Dose: 10 ml Temazepam (Restoril) 15 mg PO HS [facility] Last Admin: 12/29/18 21:37 Dose: 15 mg
[2018-12-30] MEDS: hydrALAZINE 20 MG/ML VIAL SLOW IVP PRN (12:07)
[2018-12-30] MEDS ORDERED: Acetaminophen/Codeine 30-300mg Tablet PO PRN ×2 (13:20)
[2018-12-30] MEDS ORDERED: Sodium Chloride 0.9% 200 ML IV PRN (13:20)
[2018-12-30] MEDS ORDERED: Nitroglycerin 0.4 MG TAB (25 Tab Bottle) SL PRN (13:20)
[2018-12-30] MEDS ORDERED: Sodium Chloride 0.9% 1,000 ML IV SCH (13:30)
[2018-12-30] MEDS: HYDROcodone/Acetaminophen 10/325 mg Tablet PO PRN ×2 (14:17→22:17)
[2018-12-30] MEDS: Communication Order-Pharmacy FS SCH (15:31)
[2018-12-30] MEDS: Sacubitril 24.5 MG/Valsartan 25.5 MG TABLET PO SCH (21:58)
[2018-12-30] MEDS: Temazepam 15 MG CAP PO SCH (21:58)
[2018-12-30] MEDS: Rosuvastatin 10 MG TAB PO SCH (21:58)
[2018-12-30] MEDS: HumaLOG 300 UNITS/3 ML VIAL SC PRN (22:12)
[2018-12-30] MEDS: Insulin Glargine 26 UNITS in Pre-Filled Syringe 1 EACH SC SCH (22:21)
[2018-12-31 05:02] LABS: Anion Gap 14 mmol/L (10-20); BUN (Urea Nitrogen) 16 mg/dL (8.4-25.7); Calc. Creatinine Clearance 71 mL/min (70-130); Calcium 9.1 mg/dL (7.8-10.44); Carbon Dioxide 25 mmol/L (22-29); Chloride 100 mmol/L (98-107); Estimated GFR-MDRD Greater than 90; Glucose 124 mg/dL (70-105); Potassium 3.7 mmol/L (3.5-5.1); Sodium 135 mmol/L (136-145)
[2018-12-31] MEDS: Budesonide 0.25 MG/2 ML NEB INH SCH ×2 (08:00→18:29)
[2018-12-31] MEDS: Carvedilol 6.25 MG TAB PO SCH ×3 (09:04→22:03)
[2018-12-31] MEDS: Furosemide 40 MG TAB PO SCH (09:05)
[2018-12-31] MEDS: HYDROcodone/Acetaminophen 10/325 mg Tablet PO PRN ×3 (09:05→22:47)
[2018-12-31] MEDS: Loratadine 10 MG TAB PO SCH (09:06)
[2018-12-31] MEDS: Sodium Chloride 0.9% 1,000 ML IV SCH (09:06)
[2018-12-31] MEDS: Meloxicam 15 MG TAB PO SCH (09:06)
[2018-12-31] MEDS: Sacubitril 24.5 MG/Valsartan 25.5 MG TABLET PO SCH ×2 (09:20→22:02)
[2018-12-31] MEDS ORDERED: Milk Of Magnesia 30 ML UDCUP PO PRN (10:49)
[2018-12-31] MEDS ORDERED: Milk Of Magnesia 30 ML UDCUP PO SCH (11:00)
[2018-12-31] MEDS ORDERED: Bisacodyl 10 MG SUPP PR PRN (12:02)
[2018-12-31] MEDS ORDERED: Ondansetron PF 4 MG/2 ML Vial IVP SCH (12:15)
--- NOTE | 2018-12-31 13:10 | PDOC.PN ---
- Subjective Encounter Start Date: 12/31/18 Encounter Start Time: 09:00 Subjective: no chest pain or sob -: nausea+, no bm x5 days now -: at bedside - Objective Resuscitation Status - Order Detail: 12/27/18 08:14 Resuscitation Status Routine Resuscitation Status: FULL: Full Resuscitation MAR Reviewed: Yes Vital Signs & Weight: Vital Signs (12 hours) Temp Pulse Resp BP BP Pulse Ox 12/31/18 09:04 159/114 H 12/31/18 08:55 98.0 F 80 18 159/114 H 92 L 12/31/18 03:51 97.5 F L 87 20 124/80 92 L Weight Admit Weight 119 lb 14.4 oz Weight 118 lb 1.6 oz I&O: 12/30/18 12/31/18 01/01/19 06:59 06:59 06:59 Intake Total 2080 1400 Output Total 3845 1700 Balance -1765 -300 Result Diagrams: 12/28/18 04:49 12/31/18 04:25 Additional Labs: Accuchecks 12/31/18 12/31/18 12/30/18 11:03 05:33 20:51 POC Glucose 121 H 127 H 192 H 12/30/18 17:11 POC Glucose 167 H Phys Exam - Physical Examination HEENT: PERRLA, moist MMs Neck: no JVD, supple Respiratory: no wheezing, no rales Cardiovascular: RRR, no significant murmur Gastrointestinal: soft, non-tender, positive bowel sounds Musculoskeletal: no edema, pulses present Neurological: non-focal, moves all 4 limbs Psychiatric: normal affect, A&O x 3 Dx/Plan (1) CAD (coronary artery disease) Code(s): I25.10 - ATHSCL HEART DISEASE OF [place] CORONARY ARTERY W/O ANG PCTRS Status: Chronic Qualifiers: Coronary Disease-Associated Artery/Lesion type: [place] artery [place] vs. transplanted heart: [place] heart Associated angina: without angina Qualified Code(s): I25.10 - Atherosclerotic heart disease of [place] coronary artery without angina pectoris Comment: for medical mgmt (2) Acute on chronic systolic heart failure, NYHA class 3 Code(s): I50.23 - ACUTE ON CHRONIC SYSTOLIC (CONGESTIVE) HEART FAILURE Status : Acute Comment: ef of 25% (3) LBBB (left bundle branch block) Code(s): I44.7 - LEFT BUNDLE-BRANCH BLOCK, UNSPECIFIED Status: Acute (4) DM2 (diabetes mellitus, type 2) Status: Chronic Qualifiers: Diabetes mellitus residential insulin use: with residential use Diabetes mellitus complication status: with other specified complication Qualified Code (s): E11.69 - Type 2 diabetes mellitus with other specified complication; Z79.4 - longterm (current) use of insulin (5) HTN (hypertension) Code(s): I10 - ESSENTIAL (PRIMARY) HYPERTENSION Status: Chronic Qualifiers: Hypertension type: essential hypertension Qualified Code(s): I10 - Essential (primary) hypertension (6) PVD (peripheral vascular disease) Code(s): I73.9 - PERIPHERAL VASCULAR DISEASE, UNSPECIFIED Status: Chronic (7) History of right above knee amputation Code(s): Z89.611 - ACQUIRED ABSENCE OF RIGHT LEG ABOVE KNEE Status: Chronic - Plan dulcolax suppository/fleets enema, zofran prn -: is on entresto, coreg, crestor, lasix, lantus, nebs prn -: dc iv fluids -: htn is slightly uncontrolled (likely anxiety a bit) -: I have explained findings of cath and heart failure education given * . Review of Systems - Medications/Allergies Allergies/Adverse Reactions: Allergies Allergy/AdvReac Type Severity Reaction Status Date / Time morphine AdvReac Severe Verified 09/07/17 19:40 Medications: Current Medications Acetaminophen (Tylenol) 650 mg PO Q4H PRN PRN Reason: Headache/Fever/Mild Pain (1-3) Acetaminophen/Codeine Phosphate (Tylenol #3) 1 tab PO Q4H PRN PRN Reason: Mild Pain (1-3) Acetaminophen/Codeine Phosphate (Tylenol #3) 2 tab PO Q4H PRN PRN Reason: Moderate Pain (4-6) Hydrocodone Bitart/Acetaminophen ([place] 10/325) 1 tab PO Q4H PRN PRN Reason: Mild-Moderate Pain (1-5) Last Admin: 12/31/18 09:05 Dose: 1 tab Hydrocodone Bitart/Acetaminophen ([place] 10/325) 2 tab PO Q4H PRN PRN Reason: Moderate to Severe Pain (6-10) Last Admin: 12/30/18 22:17 Dose: 2 tab Albuterol/Ipratropium (Duoneb) 3 ml NEB [id number] [facility] Last Admin: 12/30/18 23:11 Dose: Not Given Albuterol/Ipratropium (Duoneb) 3 ml NEB [id number] PRN PRN Reason: SOB &/or Wheezing Bisacodyl (Dulcolax) 10 mg [place] DAILYPRN PRN PRN Reason: Constipation Budesonide (Pulmicort Neb Solution) 0.25 mg INH BID-RT [facility] Last Admin: 12/30/18 18:44 Dose: 0.25 mg Carvedilol (Coreg) 12.5 mg PO TID [facility] Dextrose/Water (Dextrose 50%) 25 gm SLOW IVP PRN PRN PRN Reason: Hypoglycemia Docusate Sodium (Colace) 100 mg PO BID [facility] Furosemide (Lasix) 40 mg PO DAILY-AC [facility] Last Admin: 12/31/18 09:05 Dose: 40 mg Glucagon (Glucagon) 1 mg IM PRN PRN PRN Reason: Hypoglycemia Hydralazine HCl (Apresoline) 10 mg SLOW IVP Q4H PRN PRN Reason: Hypertension Last Admin: 12/30/18 12:07 Dose: 10 mg Dextrose/Water (D5w) 1,000 mls @ 0 mls/hr IV .Q0M PRN PRN Reason: Hypoglycemia Insulin Glargine 26 units/ (Miscellaneous Medication) 0.26 mls @ 0 mls/hr SC HS [facility] Last Admin: 12/30/18 22:21 Dose: Not Given Sodium Chloride (Normal Saline 0.9%) 1,000 mls @ 100 mls/hr IV .Q10H [facility] Last Admin: 12/31/18 09:06 Dose: Not Given Sodium Chloride (Normal Saline 0.9%) 200 mls @ 0 mls/hr IV ONE PRN PRN Reason: SBP < 90 Stop: 01/02/19 13:21 Insulin Human Lispro (Humalog) 0 units SC .MILD SLIDING SCALE PRN PRN Reason: Mild Correctional Scale Last Admin: 12/30/18 22:12 Dose: 2 unit Loratadine (Claritin) 10 mg PO DAILY [facility] Last Admin: 12/31/18 09:06 Dose: 10 mg Magnesium Hydroxide (Milk Of Magnesium) 30 ml PO DAILYPRN PRN PRN Reason: Constipation Meloxicam (Mobic) 15 mg PO DAILY [facility] Last Admin: 12/31/18 09:06 Dose: 15 mg Miscellaneous Information (Communication Order-Pharmacy) 0 each FS 1000 [facility] Last Admin: 12/30/18 15:31 Dose: Not Given Nitroglycerin (Nitrostat) 0.4 mg SL Q5MIN PRN PRN Reason: Chest Pain Ondansetron HCl (Zofran) 4 mg IVP Q6H PRN PRN Reason: Nausea/Vomiting Pantoprazole Sodium (Protonix) 40 mg PO DAILY [facility] Last Admin: 12/31/18 09:06 Dose: 40 mg Rosuvastatin Calcium (Crestor) 10 mg PO [facility] Last Admin: 12/30/18 21:58 Dose: 10 mg Sacubitril/Valsartan (Entresto 24.5 Mg-25.5 Mg Tablet) 2 tab PO BID [facility] Last Admin: 12/31/18 09:20 Dose: 2 tab Sodium Chloride (Flush - Normal Saline) 10 ml IVF Q12HR [facility] Last Admin: 12/31/18 09:07 Dose: 10 ml Sodium Chloride (Flush - Normal Saline) 10 ml IVF PRN PRN PRN Reason: Saline Flush Last Admin: 12/29/18 05:49 Dose: 10 ml Temazepam (Restoril) 15 mg PO HS [facility] Last Admin: 12/30/18 21:58 Dose: 15 mg
[2018-12-31] MEDS ORDERED: Fleet Enema 133 ML BOT PR PRN (13:12)
[2018-12-31] MEDS: Communication Order-Pharmacy FS SCH (14:41)
[2018-12-31] MEDS ORDERED: ISOVUE-370 76%-LOCM 1 ML ONE (15:37)
[2018-12-31 15:39] LABS: #Basophils 0.1 thou/uL (0.0-0.2); #Eosinphils 0.1 thou/uL (0.0-0.7); #Lymphocytes 1.9 thou/uL (1.20-3.40); #Monocytes 0.7 thou/uL (0.11-0.59); #Neutrophils 7.9 thou/uL (1.40-6.50); %Basophils 0.6 % (0.0-1.0); %Eosinophils 0.5 % (0.0-10.0); %Lymphocytes 17.9 % (21.0-51.0); %Monocytes 6.6 % (0.0-10.0); %Neutrophils 74.4 % (42.0-75.0); Hemoglobin 17.2 g/dL (14.0-18.0); Mean Corpuscular Hemoglobin 32.3 pg (27.0-31.0); Mean Corpuscular Volume 97.9 fL (78.0-98.0); Mean Platelet Volume 9.3 fL (7.4-10.4); Platelet Count 144 thou/uL (130-400); RBC Distribution Width 12.4 % (11.5-14.5); Red Blood Cell (RBC) Count 5.31 mill/uL (4.70-6.10); White Blood Cell (WBC) Count 10.6 thou/uL (4.8-10.8)
[2018-12-31] MEDS: Promethazine HCl 25 MG/ML VIAL IM/IV PRN ×2 (15:54→22:01)
[2018-12-31] MEDS: Ondansetron PF 4 MG/2 ML Vial IVP PRN (18:30)
[2018-12-31] MEDS: Docusate 100 MG CAP PO SCH (21:56)
[2018-12-31] MEDS: Rosuvastatin 10 MG TAB PO SCH (22:02)
[2018-12-31] MEDS: Temazepam 15 MG CAP PO SCH (22:02)
[2018-12-31] MEDS: Lactated Ringer's 1,000 ML IV SCH (22:03)
[2018-12-31] MEDS: Insulin Glargine 26 UNITS in Pre-Filled Syringe 1 EACH SC SCH (22:11)
--- NOTE | 2018-12-31 23:59 | CT ---
Contrast-enhanced images abdomen pelvis. The patient refused to drink oral contrast. The patient states he is been having abdominal pain since this yesterday. The lung bases are unremarkable. No evidence of free intraperitoneal air seen. The liver is unremarkable. The spleen has a wedgelike area of density possibly representing splenic infarction or splenic mass. Correlate with history. The gallbladder is been surgically removed. The pancreas is atrophied. Extensive splenic varicosities seen. The stomach is markedly distended. The small bowel is not significantly dilated. Some colonic stool seen. Atherosclerotic calcifications seen in the abdominal aorta. There is complete occlusion of the right common internal and external iliac artery. The left common a nd external iliac arteries are patent. Left iliac endovascular stent is in place. IMPRESSION: 1: Abnormal gastric distention 2: Possible splenic infarction or mass.
--- NOTE | 2019-01-01 00:48 | PDOC.EVN ---
Event Note - Event Note Event Note: pt has gastric distentoin with abd pain and nause and vomit, will place ngt with intermittent low wall pressure
[2019-01-01] MEDS: Ondansetron PF 4 MG/2 ML Vial IVP PRN ×3 (02:31→18:35)
[2019-01-01] MEDS ORDERED: Acetaminophen 650 MG Suppository PR PRN (04:49)
[2019-01-01] MEDS ORDERED: Promethazine HCl 25 MG in Sodium Chloride 0.9% 50 ML IVPB PRN (05:41)
[2019-01-01] MEDS: Fentanyl 100 MCG/2 ML VIAL SLOW IVP PRN ×2 (05:48→22:23)
[2019-01-01 05:56] LABS: #Lymphocytes 1.2 thou/uL (1.20-3.40); #Monocytes 0.6 thou/uL (0.11-0.59); #Neutrophils 9.9 thou/uL (1.40-6.50); %Eosinophils 0.1 % (0.0-10.0); %Lymphocytes 10.1 % (21.0-51.0); %Monocytes 5.5 % (0.0-10.0); %Neutrophils 84.3 % (42.0-75.0); Hemoglobin 15.9 g/dL (14.0-18.0); Mean Corpuscular HGB CONC 31.4 g/dL (32.0-36.0); Mean Corpuscular Hemoglobin 30.5 pg (27.0-31.0); Mean Platelet Volume 9.5 fL (7.4-10.4); Platelet Count 137 thou/uL (130-400); RBC Distribution Width 12.2 % (11.5-14.5); Red Blood Cell (RBC) Count 5.23 mill/uL (4.70-6.10); White Blood Cell (WBC) Count 11.7 thou/uL (4.8-10.8)
[2019-01-01 06:30] LABS: Anion Gap 20 mmol/L (10-20); BUN (Urea Nitrogen) 33 mg/dL (8.4-25.7); Calc. Creatinine Clearance 37 mL/min (70-130); Calcium 9.2 mg/dL (7.8-10.44); Carbon Dioxide 33 mmol/L (22-29); Chloride 86 mmol/L (98-107); Estimated GFR-MDRD 44; Glucose 324 mg/dL (70-105); Potassium 3.8 mmol/L (3.5-5.1); Sodium 135 mmol/L (136-145)
[2019-01-01] MEDS: Budesonide 0.25 MG/2 ML NEB INH SCH ×2 (07:19→19:03)
[2019-01-01] MEDS: hydrALAZINE 20 MG/ML VIAL SLOW IVP PRN (07:40)
[2019-01-01] MEDS: Lactated Ringer's 1,000 ML IV SCH (07:43)
[2019-01-01] MEDS: Aspirin 81 mg Enteric Coated Tablet PO SCH (08:20)
[2019-01-01] MEDS: Docusate 100 MG CAP PO SCH ×2 (08:20→22:02)
[2019-01-01] MEDS: Carvedilol 25 MG TAB PO SCH ×2 (08:20→15:28)
[2019-01-01] MEDS: Loratadine 10 MG TAB PO SCH (08:20)
[2019-01-01] MEDS: Furosemide 40 MG TAB PO SCH (08:21)
[2019-01-01] MEDS: Communication Order-Pharmacy FS SCH (09:44)
[2019-01-01] MEDS ORDERED: Lorazepam 2 MG/ML VIAL SLOW IVP SCH (10:15)
[2019-01-01] MEDS: hydrALAZINE 20 MG/ML VIAL SLOW IVP SCH ×3 (10:18→22:11)
[2019-01-01] MEDS ORDERED: Insulin Glargine 26 UNITS in Pre-Filled Syringe 1 EACH SC SCH (11:15)
[2019-01-01] MEDS: Metoprolol Tartrate 5 MG/5 ML VIAL IVP SCH ×2 (11:57→17:38)
[2019-01-01] MEDS: Nitroglycerin 2% Ointment 1 INCH/1 GM Packet TOP SCH ×2 (12:09→17:38)
--- NOTE | 2019-01-01 12:27 | PDOC.PN ---
- Subjective Encounter Start Date: 01/01/19 Encounter Start Time: 08:00 Subjective: still nauseous, has ng tube to low suction -: no chest pain or sob or palp -: no abd pain or distention - Objective Resuscitation Status - Order Detail: 12/27/18 08:14 Resuscitation Status Routine Resuscitation Status: FULL: Full Resuscitation MAR Reviewed: Yes Vital Signs & Weight: Vital Signs (12 hours) Temp Pulse Resp BP Pulse Ox 01/01/19 12:17 113 H 143/79 H 01/01/19 11:47 99.1 F 114 H 20 188/87 H 93 L 01/01/19 09:42 112 H 193/95 H 01/01/19 07:27 98 F 108 H 18 206/85 H 96 01/01/19 03:50 98.7 F 107 H 20 156/79 H 96 Weight Admit Weight 119 lb 14.4 oz Weight 118 lb 1.6 oz I&O: 12/31/18 01/01/19 01/02/19 06:59 06:59 06:59 Intake Total 1400 1354 Output Total 1700 2049 Balance -300 -696 Result Diagrams: 01/01/19 05:34 01/01/19 05:34 Additional Labs: Accuchecks 01/01/19 01/01/19 12/31/18 10:41 05:46 20:36 POC Glucose 324 H 321 H 210 H 12/31/18 17:03 POC Glucose 170 H Phys Exam - Physical Examination HEENT: PERRLA, moist MMs Neck: no JVD, supple Respiratory: no wheezing, no rales Cardiovascular: RRR, no significant murmur Gastrointestinal: soft, non-tender, positive bowel sounds Musculoskeletal: no edema, pulses present Neurological: non-focal, moves all 4 limbs Psychiatric: normal affect, A&O x 3 Dx/Plan (1) CAD (coronary artery disease) Code(s): I25.10 - ATHSCL HEART DISEASE OF [place] CORONARY ARTERY W/O ANG PCTRS Status: Chronic Qualifiers: Coronary Disease-Associated Artery/Lesion type: [place] artery [place] vs. transplanted heart: [place] heart Associated angina: without angina Qualified Code(s): I25.10 - Atherosclerotic heart disease of [place] coronary artery without angina pectoris Comment: for medical mgmt (2) Acute on chronic systolic heart failure, NYHA class 3 Code(s): I50.23 - ACUTE ON CHRONIC SYSTOLIC (CONGESTIVE) HEART FAILURE Status : Acute Comment: ef of 25% (3) LBBB (left bundle branch block) Code(s): I44.7 - LEFT BUNDLE-BRANCH BLOCK, UNSPECIFIED Status: Acute (4) DM2 (diabetes mellitus, type 2) Status: Chronic Qualifiers: Diabetes mellitus senior care insulin use: with transcripter use Diabetes mellitus complication status: with other specified complication Qualified Code (s): E11.69 - Type 2 diabetes mellitus with other specified complication; Z79.4 - custodial (current) use of insulin (5) HTN (hypertension) Code(s): I10 - ESSENTIAL (PRIMARY) HYPERTENSION Status: Chronic Qualifiers: Hypertension type: essential hypertension Qualified Code(s): I10 - Essential (primary) hypertension (6) PVD (peripheral vascular disease) Code(s): I73.9 - PERIPHERAL VASCULAR DISEASE, UNSPECIFIED Status: Chronic (7) History of right above knee amputation Code(s): Z89.611 - ACQUIRED ABSENCE OF RIGHT LEG ABOVE KNEE Status: Chronic (8) LISBETH (acute kidney injury) Code(s): N17.9 - ACUTE KIDNEY FAILURE, UNSPECIFIED Status: Acute - Plan hold entresto, give one dose lantus due to persistent hyperglycemia -: gentle iv hydration, Consult -: will d/w , likely will need EGD, no sbo on CT -: d/w pt and at bedside -: hold all oral meds, continue nebs and pulmicort inh * . Review of Systems - Medications/Allergies Allergies/Adverse Reactions: Allergies Allergy/AdvReac Type Severity Reaction Status Date / Time morphine AdvReac Severe Verified 09/07/17 19:40 lorazepam [From Ativan] AdvReac Verified 01/01/19 11:43 Medications: Current Medications Acetaminophen (Tylenol) 650 mg PO Q4H PRN PRN Reason: Headache/Fever/Mild Pain (1-3) Acetaminophen (Tylenol) 650 mg IA Q4H PRN PRN Reason: Headache/Fever or Pain Acetaminophen/Codeine Phosphate (Tylenol #3) 1 tab PO Q4H PRN PRN Reason: Mild Pain (1-3) Acetaminophen/Codeine Phosphate (Tylenol #3) 2 tab PO Q4H PRN PRN Reason: Moderate Pain (4-6) Hydrocodone Bitart/Acetaminophen ([place] 10/325) 1 tab PO Q4H PRN PRN Reason: Mild-Moderate Pain (1-5) Last Admin: 12/31/18 22:47 Dose: 1 tab Hydrocodone Bitart/Acetaminophen ([place] 10/325) 2 tab PO Q4H PRN PRN Reason: Moderate to Severe Pain (6-10) Last Admin: 12/30/18 22:17 Dose: 2 tab Albuterol/Ipratropium (Duoneb) 3 ml NEB [id number] [facility] Last Admin: 01/01/19 07:19 Dose: 3 ml Albuterol/Ipratropium (Duoneb) 3 ml NEB [id number] PRN PRN Reason: SOB &/or Wheezing Aspirin (Ecotrin) [address] [facility] Last Admin: 01/01/19 08:20 Dose: Not Given Bisacodyl (Dulcolax) 10 mg [place] DAILYPRN PRN PRN Reason: Constipation Budesonide (Pulmicort Neb Solution) 0.25 mg INH BID-RT [facility] Last Admin: 01/01/19 07:19 Dose: 0.25 mg Carvedilol (Coreg) 25 mg PO BID-WM [facility] Last Admin: 01/01/19 08:20 Dose: Not Given Dextrose/Water (Dextrose 50%) 25 gm SLOW IVP PRN PRN PRN Reason: Hypoglycemia Docusate Sodium (Colace) [address] [facility] Last Admin: 01/01/19 08:20 Dose: Not Given Fentanyl (Sublimaze) 25 mcg SLOW IVP Q2H PRN PRN Reason: Moderate to Severe Pain (6-10) Last Admin: 01/01/19 05:48 Dose: 25 mcg Glucagon (Glucagon) 1 mg IM PRN PRN PRN Reason: Hypoglycemia Hydralazine HCl (Apresoline) 10 mg SLOW IVP Q4H PRN PRN Reason: Hypertension Last Admin: 01/01/19 07:40 Dose: 10 mg Hydralazine HCl (Apresoline) 10 mg SLOW IVP 0300,0900,1500,2100 [facility] Last Admin: 01/01/19 10:18 Dose: Not Given Dextrose/Water (D5w) 1,000 mls @ 0 mls/hr IV .Q0M PRN PRN Reason: Hypoglycemia Insulin Glargine 26 units/ (Miscellaneous Medication) 0.26 mls @ 0 mls/hr SC HS [facility] Last Admin: 12/31/18 22:11 Dose: Not Given Sodium Chloride (Normal Saline 0.9%) 200 mls @ 0 mls/hr IV ONE PRN PRN Reason: SBP < 90 Stop: 01/02/19 13:21 Lactated Ringer's (Lactated Ringer's) 1,000 mls @ 100 mls/hr IV .Q10H [facility] Stop: 01/01/19 15:14 Last Admin: 01/01/19 07:43 Dose: 1,000 mls Promethazine HCl 25 mg/ Sodium (Chloride) 51 mls @ 204 mls/hr IVPB Q6H PRN PRN Reason: Nausea Last Admin: 01/01/19 06:07 Dose: 51 mls Insulin Glargine 26 units/ (Miscellaneous Medication) 0.26 mls @ 0 mls/hr SC NOW [facility] Stop: 01/01/19 13:15 Last Admin: 01/01/19 12:12 Dose: 0.26 mls Insulin Human Lispro (Humalog) 0 units SC .MILD SLIDING SCALE PRN PRN Reason: Mild Correctional Scale Last Admin: 12/30/18 22:12 Dose: 2 unit Loratadine (Claritin) [address] [facility] Last Admin: 01/01/19 08:20 Dose: Not Given Magnesium Hydroxide (Milk Of Magnesium) 30 ml PO DAILYPRN PRN PRN Reason: Constipation Metoprolol Tartrate (Lopressor) [address] [facility] Last Admin: 01/01/19 11:57 Dose: 5 mg Miscellaneous Information (Communication Order-Pharmacy) [address] [facility] Last Admin: 01/01/19 09:44 Dose: Not Given Nitroglycerin (Nitrostat) 0.4 mg SL Q5MIN PRN PRN Reason: Chest Pain Nitroglycerin (Nitro-Bid 2% Ointment) [address] [facility] Last Admin: 01/01/19 12:09 Dose: 2 inch Ondansetron HCl (Zofran) 4 mg IVP Q6H PRN PRN Reason: Nausea/Vomiting Last Admin: 01/01/19 10:19 Dose: 4 mg Pantoprazole Sodium (Protonix) [address] [facility] Last Admin: 01/01/19 08:20 Dose: Not Given Promethazine HCl (Phenergan) 25 mg IM/IV Q6H PRN PRN Reason: Nausea/Vomiting Last Admin: 12/31/18 22:01 Dose: 25 mg Rosuvastatin Calcium (Crestor) [address] [facility] Sodium Biphosphate/Sodium Phosphate (Fleet Enema) 133 ml IA ONE PRN PRN Reason: constipation Stop: 01/01/19 13:13 Sodium Chloride (Flush - Normal Saline) [address] [facility] Last Admin: 01/01/19 07:44 Dose: 10 ml Sodium Chloride (Flush - Normal Saline) 10 ml IVF PRN PRN PRN Reason: Saline Flush Last Admin: 12/29/18 05:49 Dose: 10 ml Temazepam (Restoril) [address] [facility] Last Admin: 12/31/18 22:02 Dose: 15 mg
[2019-01-01] MEDS ORDERED: Rocuronium Bromide 10 MG/ML (10ML VIAL) ONE (16:40)
[2019-01-01] MEDS ORDERED: Succinylcholine Chloride 20 MG/ML 10 ml SYRINGE FS ONE (16:40)
[2019-01-01] MEDS ORDERED: Dexamethasone 20 MG/5 ML VIAL ONE (16:40)
[2019-01-01] MEDS ORDERED: Lidocaine 1% PF 5 ML VIAL ONE (16:40)
[2019-01-01] MEDS ORDERED: Ondansetron PF 4 MG/2 ML Vial ONE (16:40)
[2019-01-01] MEDS ORDERED: Glycopyrrolate 0.2 MG/ML 5 ML SYRINGE ONE (16:40)
[2019-01-01] MEDS ORDERED: Pantoprazole 40 MG VIAL IVP SCH (21:00)
[2019-01-01] MEDS ORDERED: Sodium Chloride 0.9% (PF) 10 ML VIAL FS PRN (21:04)
--- NOTE | 2019-01-01 21:33 | CON ---
DATE OF CONSULTATION: 01/01/2019 CHIEF COMPLAINT: Nausea and abdominal pain. HISTORY OF PRESENT ILLNESS: Mr. Herrera is a 58-year-old man, who was admitted with shortness of breath. He underwent heart catheterization on 12/28/2018, that showed three-vessel coronary artery disease that can only be treated with medical management at this point. He has had multiple stents in the past. Over the last 3 days, he has had recurrent vomiting and upper abdominal aching pain. He has had constipation for the last week, but did take some milk of magnesia yesterday and had a bowel movement last night. He had a CT scan of the abdomen and pelvis yesterday evening to evaluate the abdominal discomfort and nausea, which the CT showed distention of the stomach. He did not have oral contrast with that. Splenic varicosities and possible splenic infarction versus splenic mass were also noted. He had an NG tube placed and immediately had 1100 mL of dark bilious fluid return. His nausea and abdominal pain have improved with placement of the NG tube and continued intermittent suction. He has no abdominal pain currently. PAST MEDICAL HISTORY: Coronary artery disease, COPD, cardiomyopathy, peripheral vascular disease, hyperlipidemia, diabetes mellitus, history of pancreatitis. He did have an episode of renal failure in the past requiring dialysis, however, is not on chronic dialysis now. PAST SURGICAL HISTORY: Right AKA, femoral-popliteal bypass, cholecystectomy. He has had a prior colon resection for diverticular disease and had colostomy and then colostomy takedown. He has had a pancreatic pseudocyst and back surgery. FAMILY HISTORY: Negative for GI malignancy. SOCIAL HISTORY: Smokes half a pack a day. Denies drug or alcohol use. ALLERGIES: MORPHINE. MEDICATIONS: Prior to admission, meloxicam, aspirin, Drasco, omeprazole 40 mg daily, sertraline, metoprolol, Lantus, Trelegy. REVIEW OF SYSTEMS: Negative x10 systems reviewed except as stated in history of present illness. PHYSICAL EXAMINATION: VITAL SIGNS: Temperature 98.2, pulse 92, blood pressure 175/82. GENERAL: He is in no acute distress. Alert and oriented x3. HEENT: Eyes have no scleral icterus. Oropharynx is clear without lesions. He has dry mucous membranes. He has an NG tube in place. NECK: No cervical or supraclavicular lymphadenopathy. LUNGS: Clear to auscultation bilaterally. HEART: Regular rate and rhythm without murmur. ABDOMEN: Soft, nontender, and nondistended. Bowel sounds are present. EXTREMITIES: No lower extremity edema on the left. He has [id number] amputation on the right. LABORATORY DATA: White blood cell count 11.7, hemoglobin 15.9, platelets 137, creatinine 1.61. Bilirubin 0.3, AST 19, ALT 18, alkaline phosphatase 117, albumin 3.3. IMPRESSION: 1. Gastric outlet obstruction. He is on meloxicam and aspirin and could have peptic ulcer. He does take omeprazole at home. He has had NG tube placed to suction and did have immediate return with the NG suction of 1100 mL. 2. Ischemic cardiomyopathy. 3. Three vessel coronary artery disease, which medical management has been advised. 4. Chronic obstructive pulmonary disease and tobacco abuse. 5. Severe peripheral vascular disease. 6. Question of a splenic lesion on CT either infarction or splenic mass. Splenic varices were also noted. He has thrombocytopenia along with that. RECOMMENDATIONS: 1. Proton pump inhibitor IV. We will increase this to twice daily. 2. EGD tomorrow. Job ID: [id number]
[2019-01-01] MEDS: Insulin Glargine 26 UNITS in Pre-Filled Syringe 1 EACH SC SCH (22:02)
[2019-01-01] MEDS: Temazepam 15 MG CAP PO SCH (22:03)
[2019-01-01] MEDS: Rosuvastatin 20 MG TAB PO SCH (22:03)
[2019-01-01] MEDS: Pantoprazole 40 MG VIAL IVP SCH (22:23)
[2019-01-02] MEDS: Nitroglycerin 2% Ointment 1 INCH/1 GM Packet TOP SCH ×5 (00:27→23:59)
[2019-01-02] MEDS: Metoprolol Tartrate 5 MG/5 ML VIAL IVP SCH ×2 (00:27→06:28)
[2019-01-02] MEDS: hydrALAZINE 20 MG/ML VIAL SLOW IVP SCH ×4 (03:45→21:07)
[2019-01-02 05:25] LABS: BUN (Urea Nitrogen) 24 mg/dL (8.4-25.7); Calc. Creatinine Clearance 55 mL/min (70-130); Calcium 8.9 mg/dL (7.8-10.44); Estimated GFR-MDRD 69; Glucose 83 mg/dL (70-105); Lipase 12 U/L (8-78)
[2019-01-02 05:34] LABS: Anion Gap 16 mmol/L (10-20); Carbon Dioxide 37 mmol/L (22-29); Chloride 88 mmol/L (98-107); Sodium 138 mmol/L (136-145)
[2019-01-02 05:36] LABS: Potassium 2.8 mmol/L (3.5-5.1)
[2019-01-02] MEDS ORDERED: Potassium Chloride 40 MEQ in Sodium Chloride 0.9% 250 ML 250 ML IVPB SCH (06:15)
[2019-01-02] MEDS: Budesonide 0.25 MG/2 ML NEB INH SCH ×2 (06:32→18:09)
[2019-01-02] MEDS: Carvedilol 25 MG TAB PO SCH ×2 (08:46→15:45)
[2019-01-02] MEDS: Docusate 100 MG CAP PO SCH ×2 (08:47→21:08)
[2019-01-02] MEDS: Aspirin 81 mg Enteric Coated Tablet PO SCH (08:47)
[2019-01-02] MEDS: Loratadine 10 MG TAB PO SCH (08:47)
[2019-01-02] MEDS: Pantoprazole 40 MG VIAL IVP SCH (08:52)
[2019-01-02] MEDS: Fentanyl 100 MCG/2 ML VIAL SLOW IVP PRN (09:02)
[2019-01-02 09:56] LABS: HBCM Index 0.07 S/CO (0-0.79); HBSAg Index 0.27 S/CO (0-0.99); Hep A IgM AB Non-Reactive (NonReactive); Hep A IgM S/CO 0.13 S/CO (0-0.79); Hep B Surf Ag Non-Reactive S/CO (NonReactive); Hep C IgG Ab Non-Reactive (NonReactive); Hep C Index 0.04 S/CO (0-0.79); Hepatitis B Core IgM Abs Non-Reactive (NonReactive)
--- NOTE | 2019-01-02 10:09 | ULT ---
BILATERAL RENAL SONOGRAM WITH DUPLEX EVALUATION: Date: 01/02/19 HISTORY: Hypertension. FINDINGS: Right kidney is 8.6 cm and left is 9.9 cm. Each has a normal sonographic appearance without evidence of mass, stone, or hydronephrosis. Urinary bladder is unremarkable. Good color and spectral Doppler flow within the renal arteries and aorta. Peak systolic velocity with in the aorta is 63 cm/second. Right renal artery 121 cm/second and left renal artery 68 cm/second. Resistive index associated with the arcuate arteries of the right kidney is 0.7 and the left kidney i s 0.6. IMPRESSION: Normal renal sonogram and renal artery duplex evaluation. POS: CET
--- NOTE | 2019-01-02 10:55 | PDOC.PN ---
- Subjective Encounter Start Date: 01/02/19 Encounter Start Time: 09:30 Subjective: doesn't feel good, had rough night as well -: feels weak, no abd pain or chest pain -: at bedside - Objective Resuscitation Status - Order Detail: 12/27/18 08:14 Resuscitation Status Routine Resuscitation Status: FULL: Full Resuscitation MAR Reviewed: Yes Vital Signs & Weight: Vital Signs (12 hours) Temp Pulse Resp BP BP Pulse Ox 01/02/19 07:22 98.2 F 99 20 161/92 H 93 L 01/02/19 04:00 99.6 F 93 18 147/82 H 95 01/02/19 03:45 93 147/82 H 01/01/19 23:30 96 140/71 Weight Admit Weight 119 lb 14.4 oz Weight 118 lb 1.6 oz I&O: 01/01/19 01/02/19 01/03/19 06:59 06:59 06:59 Intake Total 1354 1199 16.0 Output Total 2050 2325 Balance -696 -1126 16.0 Result Diagrams: 01/01/19 05:34 01/02/19 04:08 Additional Labs: Accuchecks 01/02/19 01/01/19 01/01/19 05:32 20:16 17:22 POC Glucose 87 187 H 239 H Phys Exam - Physical Examination HEENT: PERRLA, sclera anicteric Neck: no JVD, supple Respiratory: no wheezing, no rales Cardiovascular: RRR, no significant murmur Gastrointestinal: soft, non-tender, no distention, positive bowel sounds no rigidity or guarding Musculoskeletal: no edema, pulses present Neurological: non-focal, moves all 4 limbs Psychiatric: A&O x 3 Dx/Plan (1) CAD (coronary artery disease) Code(s): I25.10 - ATHSCL HEART DISEASE OF [place] CORONARY ARTERY W/O ANG PCTRS Status: Chronic Qualifiers: Coronary Disease-Associated Artery/Lesion type: [place] artery [place] vs. transplanted heart: [place] heart Associated angina: without angina Qualified Code(s): I25.10 - Atherosclerotic heart disease of [place] coronary artery without angina pectoris Comment: for medical mgmt (2) Acute on chronic systolic heart failure, NYHA class 3 Code(s): I50.23 - ACUTE ON CHRONIC SYSTOLIC (CONGESTIVE) HEART FAILURE Status : Acute Comment: ef of 25% (3) LBBB (left bundle branch block) Code(s): I44.7 - LEFT BUNDLE-BRANCH BLOCK, UNSPECIFIED Status: Acute (4) DM2 (diabetes mellitus, type 2) Status: Chronic Qualifiers: Diabetes mellitus [facility] insulin use: with terminal superintendent use Diabetes mellitus complication status: with other specified complication Qualified Code (s): E11.69 - Type 2 diabetes mellitus with other specified complication; Z79.4 - residential (current) use of insulin (5) HTN (hypertension) Code(s): I10 - ESSENTIAL (PRIMARY) HYPERTENSION Status: Chronic Qualifiers: Hypertension type: essential hypertension Qualified Code(s): I10 - Essential (primary) hypertension (6) PVD (peripheral vascular disease) Code(s): I73.9 - PERIPHERAL VASCULAR DISEASE, UNSPECIFIED Status: Chronic (7) History of right above knee amputation Code(s): Z89.611 - ACQUIRED ABSENCE OF RIGHT LEG ABOVE KNEE Status: Chronic (8) LISBETH (acute kidney injury) Code(s): N17.9 - ACUTE KIDNEY FAILURE, UNSPECIFIED Status: Resolved - Plan has ng tube with low intermittent suction -: rectal asp, iv lopressor, hydralazine and nitropaste -: await egd today -: start iv fluids, if fingerstick glucose is high switch to 1/2 ns -: oral meds are held for now until gi tract is cleared * . Review of Systems - Medications/Allergies Allergies/Adverse Reactions: Allergies Allergy/AdvReac Type Severity Reaction Status Date / Time morphine AdvReac Severe Verified 09/07/17 19:40 lorazepam [From Ativan] AdvReac Verified 01/01/19 11:43 Medications: Current Medications Acetaminophen (Tylenol) 650 mg PO Q4H PRN PRN Reason: Headache/Fever/Mild Pain (1-3) Acetaminophen (Tylenol) 650 mg [place] Q4H PRN PRN Reason: Headache/Fever or Pain Acetaminophen/Codeine Phosphate (Tylenol #3) 1 tab PO Q4H PRN PRN Reason: Mild Pain (1-3) Acetaminophen/Codeine Phosphate (Tylenol #3) 2 tab PO Q4H PRN PRN Reason: Moderate Pain (4-6) Hydrocodone Bitart/Acetaminophen ([place] 10/325) 1 tab PO Q4H PRN PRN Reason: Mild-Moderate Pain (1-5) Last Admin: 12/31/18 22:47 Dose: 1 tab Hydrocodone Bitart/Acetaminophen ([place] 10/325) 2 tab PO Q4H PRN PRN Reason: Moderate to Severe Pain (6-10) Last Admin: 12/30/18 22:17 Dose: 2 tab Albuterol/Ipratropium (Duoneb) 3 ml NEB [id number] [facility] Last Admin: 01/02/19 06:32 Dose: Not Given Albuterol/Ipratropium (Duoneb) 3 ml NEB [id number] PRN PRN Reason: SOB &/or Wheezing Aspirin (Ecotrin) 81 mg PO DAILY [facility] Last Admin: 01/02/19 08:47 Dose: Not Given Bisacodyl (Dulcolax) 10 mg [place] DAILYPRN PRN PRN Reason: Constipation Budesonide (Pulmicort Neb Solution) 0.25 mg INH BID-RT [facility] Last Admin: 01/02/19 06:32 Dose: Not Given Carvedilol (Coreg) 25 mg PO BID-WM [facility] Last Admin: 01/02/19 08:46 Dose: Not Given Dextrose/Water (Dextrose 50%) 25 gm SLOW IVP PRN PRN PRN Reason: Hypoglycemia Docusate Sodium (Colace) 100 mg PO BID [facility] Last Admin: 01/02/19 08:47 Dose: Not Given Fentanyl (Sublimaze) 25 mcg SLOW IVP Q2H PRN PRN Reason: Moderate to Severe Pain (6-10) Last Admin: 01/02/19 09:02 Dose: 25 mcg Glucagon (Glucagon) 1 mg IM PRN PRN PRN Reason: Hypoglycemia Hydralazine HCl (Apresoline) 10 mg SLOW IVP Q4H PRN PRN Reason: Hypertension Last Admin: 01/01/19 07:40 Dose: 10 mg Hydralazine HCl (Apresoline) 10 mg SLOW IVP 0300,0900,1500,2100 [facility] Last Admin: 01/02/19 08:50 Dose: 10 mg Dextrose/Water (D5w) 1,000 mls @ 0 mls/hr IV .Q0M PRN PRN Reason: Hypoglycemia Insulin Glargine 26 units/ (Miscellaneous Medication) 0.26 mls @ 0 mls/hr SC [facility] Last Admin: 01/01/19 22:02 Dose: Not Given Sodium Chloride (Normal Saline 0.9%) 200 mls @ 0 mls/hr IV ONE PRN PRN Reason: SBP < 90 Stop: 01/02/19 13:21 Promethazine HCl 25 mg/ Sodium (Chloride) 51 mls @ 204 mls/hr IVPB Q6H PRN PRN Reason: Nausea Last Admin: 01/01/19 06:07 Dose: 51 mls Insulin Human Lispro (Humalog) 0 units SC .MILD SLIDING SCALE PRN PRN Reason: Mild Correctional Scale Last Admin: 12/30/18 22:12 Dose: 2 unit Loratadine (Claritin) 10 mg PO DAILY [facility] Last Admin: 01/02/19 08:47 Dose: Not Given Magnesium Hydroxide (Milk Of Magnesium) 30 ml PO DAILYPRN PRN PRN Reason: Constipation Metoprolol Tartrate (Lopressor) 5 mg IVP Q6HR [facility] Nitroglycerin (Nitrostat) 0.4 mg SL Q5MIN PRN PRN Reason: Chest Pain Nitroglycerin (Nitro-Bid 2% Ointment) 2 inch TOP Q6HR [facility] Last Admin: 01/02/19 06:40 Dose: 2 inch Ondansetron HCl (Zofran) 4 mg IVP Q6H PRN PRN Reason: Nausea/Vomiting Last Admin: 01/01/19 18:35 Dose: 4 mg Pantoprazole Sodium (Protonix) 40 mg IVP BID [facility] Last Admin: 01/02/19 08:52 Dose: 40 mg Promethazine HCl (Phenergan) 25 mg IM/IV Q6H PRN PRN Reason: Nausea/Vomiting Last Admin: 12/31/18 22:01 Dose: 25 mg Rosuvastatin Calcium (Crestor) 20 mg PO [facility] Last Admin: 01/01/19 22:03 Dose: Not Given Sodium Chloride (Flush - Normal Saline) 10 ml IVF Q12HR [facility] Last Admin: 01/02/19 09:09 Dose: 10 ml Sodium Chloride (Flush - Normal Saline) 10 ml IVF PRN PRN PRN Reason: Saline Flush Last Admin: 01/02/19 06:41 Dose: 10 ml Sodium Chloride (Normal Saline Pf) 10 ml FS PRN PRN PRN Reason: RECONSTITUTION Last Admin: 01/02/19 08:52 Dose: 10 ml Temazepam (Restoril) 15 mg PO HS [facility] Last Admin: 01/01/19 22:03 Dose: Not Given
[2019-01-02] MEDS ORDERED: Metoprolol Tartrate 5 MG/5 ML VIAL IVP SCH (12:00)
[2019-01-02] MEDS ORDERED: Ketamine 50 MG/ML (10ML VIAL) ONE (12:44)
--- NOTE | 2019-01-02 14:19 | OP ---
DATE OF PROCEDURE: 01/02/2019 PROCEDURE PERFORMED: Esophagogastroduodenoscopy with biopsy. PREOPERATIVE DIAGNOSIS: Abnormal CT scan of the abdomen and pelvis and gastric outlet obstruction. DESCRIPTION OF PROCEDURE: Informed consent was obtained from the patient. He was sedated with general anesthesia. The bite block was placed and the endoscope was advanced easily to the second portion of the duodenum and retroflexion was performed in the stomach. The esophagus had severe grade D circumferential ulcerative esophagitis throughout the esophagus. This was biopsied. No clear Z-line was confirmed. There were ulcerations in the cardia of the stomach. There was diffuse erythematous gastritis throughout the remainder of the stomach. Gastric biopsies were obtained to rule out Helicobacter pylori. The pylorus was normal. There were shallow ulcerations throughout the first and second portions of the duodenum with linear thin ulcerations about on every fold. Biopsies were obtained. IMPRESSION: 1. Severe grade D circumferential erosive esophagitis, biopsied. 2. Ulcerations in the fundus and cardia of the stomach with diffuse erythematous gastritis. Biopsies obtained to rule out Helicobacter pylori. 3. Multiple shallow ulcerations throughout the second and first portions of the duodenum. Biopsies obtained. 4. These could be ischemic changes or it could be secondary to the aspirin and meloxicam more likely. RECOMMENDATIONS: 1. Check gastrin level. 2. Proton-pump inhibitor IV twice daily. 3. The NG tube can be clamped when the output decreases significantly. 4. Await histopathology. 5. Discontinue meloxicam. Job ID: [id number]
[2019-01-02] MEDS: Dextrose 5 %-0.45 % NaCl 1,000 ML IV SCH (15:43)
[2019-01-02] MEDS: Rosuvastatin 20 MG TAB PO SCH (21:08)
[2019-01-02] MEDS: Insulin Glargine 26 UNITS in Pre-Filled Syringe 1 EACH SC SCH (21:09)
[2019-01-02] MEDS: Temazepam 15 MG CAP PO SCH (21:10)
[2019-01-02] MEDS: Metoclopramide HCl 10 MG/2 ML VIAL IVP SCH (21:10)
[2019-01-02] MEDS: HYDROcodone/Acetaminophen 10/325 mg Tablet PO PRN (21:31)
[2019-01-03] MEDS: hydrALAZINE 20 MG/ML VIAL SLOW IVP SCH ×4 (04:24→21:45)
[2019-01-03 05:43] LABS: Anion Gap 12 mmol/L (10-20); BUN (Urea Nitrogen) 23 mg/dL (8.4-25.7); Calc. Creatinine Clearance 53 mL/min (70-130); Calcium 8.9 mg/dL (7.8-10.44); Carbon Dioxide 34 mmol/L (22-29); Chloride 89 mmol/L (98-107); Estimated GFR-MDRD 66; Glucose 320 mg/dL (70-105); Potassium 3.7 mmol/L (3.5-5.1); Sodium 131 mmol/L (136-145)
[2019-01-03] MEDS: Metoclopramide HCl 10 MG/2 ML VIAL IVP SCH ×3 (06:00→23:16)
[2019-01-03] MEDS: Nitroglycerin 2% Ointment 1 INCH/1 GM Packet TOP SCH ×4 (06:01→23:18)
[2019-01-03] MEDS: Budesonide 0.25 MG/2 ML NEB INH SCH ×2 (07:29→18:36)
[2019-01-03] MEDS: HYDROcodone/Acetaminophen 10/325 mg Tablet PO PRN ×3 (07:54→20:04)
[2019-01-03] MEDS: Dextrose 5 %-0.45 % NaCl 1,000 ML IV SCH (08:31)
[2019-01-03] MEDS: Carvedilol 25 MG TAB PO SCH ×2 (08:33→17:14)
[2019-01-03] MEDS: Aspirin 81 mg Enteric Coated Tablet PO SCH (08:34)
[2019-01-03] MEDS: Loratadine 10 MG TAB PO SCH (08:35)
[2019-01-03] MEDS: Docusate 100 MG CAP PO SCH ×2 (08:35→20:04)
[2019-01-03] MEDS: HumaLOG 300 UNITS/3 ML VIAL SC PRN ×3 (08:38→17:14)
[2019-01-03] MEDS ORDERED: Aspirin 300 MG Suppository PR SCH (09:00)
--- NOTE | 2019-01-03 09:17 | PDOC.CTH ---
Cardiology Progress Note - Subjective NO complaints from a CV standpoint - Objective Vital Signs Temp Pulse Resp BP BP Pulse Ox 01/03/19 08:36 82 01/03/19 07:49 98.4 F 82 17 173/112 H 94 L 01/03/19 07:30 95 01/03/19 04:24 84 169/91 H 01/03/19 04:00 97.1 F L 85 21 H 169/91 H 95 01/02/19 23:36 96 147/73 H Admit Weight 119 lb 14.4 oz Weight 116 lb 3.2 oz 01/02/19 01/03/19 01/04/19 06:59 06:59 06:59 Intake Total 1199 766.0 622.5 Output Total 2325 1300 Balance -1126 -534.0 622.5 - Physical Examination General/Neuro: alert & oriented x3, NAD Neck: no JVD present Lungs: CTA, unlabored respirations Heart: PMI normal, RRR Abdomen: NT/ND, soft Extremities: + femoral B - Labs Result Diagrams: 01/01/19 05:34 01/03/19 05:01 Troponin/CKMB CK-MB (CK-2) 7.5 ng/mL (0-6.6) H* 12/27/18 05:45 Troponin I 0.056 ng/mL (< 0.028) H 12/27/18 11:41 - Assessment/Plan SOB LBBB NSTEMI COPD Tobacco abuse Previous [place] s/p stnet MIld CM 45-50% NSVT CV meds initiated Lifevest in place Home soon On ASA, coreg
--- NOTE | 2019-01-03 11:22 | PDOC.PN ---
- Subjective Encounter Start Date: 01/03/19 Encounter Start Time: 09:15 Subjective: no nausea/vomiting or abd pain this morning -: at his liq breakfast, wants solid food -: and son at bedside - Objective Resuscitation Status - Order Detail: 12/27/18 08:14 Resuscitation Status Routine Resuscitation Status: FULL: Full Resuscitation MAR Reviewed: Yes Vital Signs & Weight: Vital Signs (12 hours) Temp Pulse Resp BP BP Pulse Ox 01/03/19 08:36 82 01/03/19 07:49 98.4 F 82 17 173/112 H 94 L 01/03/19 07:30 95 01/03/19 04:24 84 169/91 H 01/03/19 04:00 97.1 F L 85 21 H 169/91 H 95 01/02/19 23:36 96 147/73 H Weight Admit Weight 119 lb 14.4 oz Weight 116 lb 3.2 oz I&O: 01/02/19 01/03/19 01/04/19 06:59 06:59 06:59 Intake Total 1199 766.0 622.5 Output Total 2325 1300 Balance -1126 -534.0 622.5 Result Diagrams: 01/01/19 05:34 01/03/19 05:01 Additional Labs: Accuchecks 01/03/19 01/03/19 01/02/19 10:55 05:24 20:30 POC Glucose 252 H 297 H 160 H 01/02/19 17:00 POC Glucose 135 H Phys Exam - Physical Examination HEENT: PERRLA, moist MMs Neck: no JVD, supple Respiratory: no wheezing, no rales Cardiovascular: RRR, no significant murmur Gastrointestinal: soft, non-tender, positive bowel sounds Musculoskeletal: no edema, pulses present Neurological: non-focal, moves all 4 limbs Psychiatric: normal affect, A&O x 3 Dx/Plan (1) CAD (coronary artery disease) Code(s): I25.10 - ATHSCL HEART DISEASE OF [place] CORONARY ARTERY W/O ANG PCTRS Status: Chronic Qualifiers: Coronary Disease-Associated Artery/Lesion type: [place] artery [place] vs. 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 insulin use: with fci use Diabetes mellitus complication status: with other specified complication Qualified Code (s): E11.69 - Type 2 diabetes mellitus with other specified complication; Z79.4 - termite renewal inspector (current) use of insulin (5) HTN (hypertension) Code(s): I10 - ESSENTIAL (PRIMARY) HYPERTENSION Status: Chronic Qualifiers: Hypertension type: essential hypertension Qualified Code(s): I10 - Essential (primary) hypertension (6) PVD (peripheral vascular disease) Code(s): I73.9 - PERIPHERAL VASCULAR DISEASE, UNSPECIFIED Status: Chronic (7) History of right above knee amputation Code(s): Z89.611 - ACQUIRED ABSENCE OF RIGHT LEG ABOVE KNEE Status: Chronic (8) LISBETH (acute kidney injury) Code(s): N17.9 - ACUTE KIDNEY FAILURE, UNSPECIFIED Status: Resolved (9) PUD (peptic ulcer disease) Code(s): K27.9 - PEPTIC ULC, SITE UNSP, UNSP AC OR CHR, W/O HEMOR OR PERF Status: Acute (10) Erosive esophagitis Code(s): K22.10 - ULCER OF ESOPHAGUS WITHOUT BLEEDING Status: Acute - Plan is on protonix bid, movantik, counselled to amb in hallway today -: start all oral meds as before, coreg, asp, crestor -: to start entresto from am once he can eat/drink well -: lantus, nebs and pulmicort inhaler. Hold lasix for now -: I have given complete updates to pt/ and son at bedside * . Is on reglan for possible gastroparesis, may dc or change to oral in am on prn basis. May dc movantik after he has good BM, restrict narcotics on discharge. Bowel regimen to continue. May dc in am if stable and eating well. Needs close monitoring of renal function with in 1 week if entresto is restarted (lisbeth was due to poor oral intake). Review of Systems - Medications/Allergies Allergies/Adverse Reactions: Allergies Allergy/AdvReac Type Severity Reaction Status Date / Time morphine AdvReac Severe Verified 09/07/17 19:40 lorazepam [From Ativan] AdvReac Verified 01/01/19 11:43 Medications: Current Medications Acetaminophen (Tylenol) 650 mg PO Q4H PRN PRN Reason: Headache/Fever/Mild Pain (1-3) Last Admin: 01/03/19 06:02 Dose: 650 mg Acetaminophen (Tylenol) 650 mg [place] Q4H PRN PRN Reason: Headache/Fever or Pain Hydrocodone Bitart/Acetaminophen ([place] 10/325) 1 tab PO Q4H PRN PRN Reason: Mild-Moderate Pain (1-5) Last Admin: 01/03/19 07:54 Dose: 1 tab Albuterol/Ipratropium (Duoneb) 3 ml NEB [id number] [facility] Last Admin: 01/03/19 07:29 Dose: Not Given Albuterol/Ipratropium (Duoneb) 3 ml NEB [id number] PRN PRN Reason: SOB &/or Wheezing Aspirin (Ecotrin) 81 mg PO DAILY [facility] Last Admin: 01/03/19 08:34 Dose: 81 mg Bisacodyl (Dulcolax) 10 mg [place] DAILYPRN PRN PRN Reason: Constipation Budesonide (Pulmicort Neb Solution) 0.25 mg INH BID-RT [facility] Last Admin: 01/03/19 07:29 Dose: Not Given Carvedilol (Coreg) 25 mg PO BID-WM [facility] Last Admin: 01/03/19 08:33 Dose: 25 mg Dextrose/Water (Dextrose 50%) 25 gm SLOW IVP PRN PRN PRN Reason: Hypoglycemia Docusate Sodium (Colace) 100 mg PO BID [facility] Last Admin: 01/03/19 08:35 Dose: 100 mg Glucagon (Glucagon) 1 mg IM PRN PRN PRN Reason: Hypoglycemia Hydralazine HCl (Apresoline) 10 mg SLOW IVP Q4H PRN PRN Reason: Hypertension Last Admin: 01/01/19 07:40 Dose: 10 mg Hydralazine HCl (Apresoline) 10 mg SLOW IVP 0300,0900,1500,2100 [facility] Last Admin: 01/03/19 08:36 Dose: 10 mg Dextrose/Water (D5w) 1,000 mls @ 0 mls/hr IV .Q0M PRN PRN Reason: Hypoglycemia Insulin Glargine 26 units/ (Miscellaneous Medication) 0.26 mls @ 0 mls/hr SC [facility] Last Admin: 01/02/19 21:09 Dose: Not Given Insulin Human Lispro (Humalog) 0 units SC .MILD SLIDING SCALE PRN PRN Reason: Mild Correctional Scale Last Admin: 01/03/19 08:38 Dose: 4 unit Loratadine (Claritin) 10 mg PO DAILY [facility] Last Admin: 01/03/19 08:35 Dose: 10 mg Magnesium Hydroxide (Milk Of Magnesium) 30 ml PO DAILYPRN PRN PRN Reason: Constipation Metoclopramide HCl (Reglan) 10 mg IVP Q8HR [facility] Last Admin: 01/03/19 06:00 Dose: 10 mg Miscellaneous Medication (Movantik) 25 mg PO DAILY[facility] Last Admin: 01/03/19 08:33 Dose: 25 mg Nitroglycerin (Nitrostat) 0.4 mg SL Q5MIN PRN PRN Reason: Chest Pain Nitroglycerin (Nitro-Bid 2% Ointment) 2 inch TOP Q6HR [facility] Last Admin: 01/03/19 06:01 Dose: Not Given Ondansetron HCl (Zofran) 4 mg IVP Q6H PRN PRN Reason: Nausea/Vomiting Last Admin: 01/01/19 18:35 Dose: 4 mg Pantoprazole Sodium (Protonix) 40 mg PO BID [facility] Last Admin: 01/03/19 08:35 Dose: 40 mg Rosuvastatin Calcium (Crestor) 20 mg PO [facility] Last Admin: 01/02/19 21:08 Dose: 20 mg Sodium Chloride (Flush - Normal Saline) 10 ml IVF Q12HR [facility] Last Admin: 01/03/19 08:36 Dose: 10 ml Sodium Chloride (Flush - Normal Saline) 10 ml IVF PRN PRN PRN Reason: Saline Flush Last Admin: 01/02/19 06:41 Dose: 10 ml Sodium Chloride (Normal Saline Pf) 10 ml FS PRN PRN PRN Reason: RECONSTITUTION Last Admin: 01/02/19 08:52 Dose: 10 ml Temazepam (Restoril) 15 mg PO [facility] Last Admin: 01/02/19 21:10 Dose: 15 mg
[2019-01-03] MEDS ORDERED: Polyethylene Glycol 3350 17 GM Packet PO SCH (13:30)
--- NOTE | 2019-01-03 13:39 | PRG ---
DATE OF SERVICE: 01/03/2019 SUBJECTIVE: Mr. Herrera is feeling better. His NG tube is out. He is having no further vomiting. He is sleepy when not stimulated for the most part. He has had no bowel movement for the last couple of days. PHYSICAL EXAMINATION: VITAL SIGNS: Temperature 98.4, pulse 65, and blood pressure 99/56. GENERAL: He is in no acute distress. Alert and oriented x3. EYES: Have no scleral icterus. NEUROLOGIC: Reveals no asterixis. LUNGS: Clear to auscultation bilaterally. HEART: Regular rate and rhythm without murmur. ABDOMEN: Soft, nontender, nondistended. Bowel sounds present. EXTREMITIES: No lower extremity edema. LABORATORY DATA: No new labs today. IMPRESSION: 1. Severe grade D circumferential erosive esophagitis throughout the esophagus. Biopsies obtained. 2. Gastric ulcerations and gastric distention. I suspect he has gastroparesis leading to severe esophagitis. This also would explain the gastric distention without obstructive process around the pylorus. He also has significant ulcerations in the duodenum as well, so some ischemic component is possible. He has underlying chronic constipation and use of hydrocodone. RECOMMENDATIONS: 1. He is doing better with Reglan and now the NG tube is out. We will advance his diet, although plan for a low fiber diet in addition to the heart healthy diet to assist with gastric emptying. 2. Treatment of the constipation will also be an important prior to this. We will start MiraLAX every day. 3. Proton pump inhibitor twice daily. 4. Discontinue meloxicam. Job ID: [id number]
[2019-01-03] MEDS: Temazepam 15 MG CAP PO SCH (20:03)
[2019-01-03] MEDS: Rosuvastatin 20 MG TAB PO SCH (20:04)
[2019-01-03] MEDS: Insulin Glargine 26 UNITS in Pre-Filled Syringe 1 EACH SC SCH (21:41)
[2019-01-04] MEDS: hydrALAZINE 20 MG/ML VIAL SLOW IVP SCH ×2 (03:19→09:26)
[2019-01-04] MEDS: Metoclopramide HCl 10 MG/2 ML VIAL IVP SCH (06:26)
[2019-01-04] MEDS: Nitroglycerin 2% Ointment 1 INCH/1 GM Packet TOP SCH ×2 (06:35→11:04)
[2019-01-04 06:59] LABS: Anion Gap 13 mmol/L (10-20); BUN (Urea Nitrogen) 19 mg/dL (8.4-25.7); Calc. Creatinine Clearance 62 mL/min (70-130); Calcium 8.7 mg/dL (7.8-10.44); Carbon Dioxide 30 mmol/L (22-29); Chloride 93 mmol/L (98-107); Estimated GFR-MDRD 81; Glucose 160 mg/dL (70-105); Potassium 3.1 mmol/L (3.5-5.1); Sodium 133 mmol/L (136-145)
[2019-01-04] MEDS: Budesonide 0.25 MG/2 ML NEB INH SCH (07:23)
[2019-01-04] MEDS ORDERED: hydrALAZINE 25 MG TAB PO SCH (09:00)
[2019-01-04] MEDS ORDERED: Polyethylene Glycol 3350 17 GM Packet PO SCH (09:00)
--- NOTE | 2019-01-04 09:24 | PDOC.PN ---
- Subjective Encounter Start Date: 01/04/19 Encounter Start Time: 09:22 Feels well. No complaints. Ate breakfast well. - Objective Resuscitation Status - Order Detail: 12/27/18 08:14 Resuscitation Status Routine Resuscitation Status: FULL: Full Resuscitation Vital Signs & Weight: Vital Signs (12 hours) Temp Pulse Resp BP BP Pulse Ox 01/04/19 07:23 82 16 94 L 01/04/19 07:18 82 18 94 L 01/04/19 07:07 98.5 F 75 18 175/79 H 99 01/04/19 03:19 98.1 F 73 16 140/78 140/78 94 L 01/03/19 21:45 65 138/75 Weight Admit Weight 119 lb 14.4 oz Weight 116 lb 3.2 oz I&O: 01/03/19 01/04/19 01/05/19 06:59 06:59 06:59 Intake Total 766.0 1702.5 Output Total 1300 1650 Balance -534.0 52.5 Result Diagrams: 01/01/19 05:34 01/04/19 06:25 Additional Labs: Accuchecks 01/04/19 01/03/19 01/03/19 05:35 20:15 16:47 POC Glucose 203 H 177 H 166 H 01/03/19 10:55 POC Glucose 252 H Phys Exam - Physical Examination Constitutional: NAD Respiratory: no wheezing Bibasilar rales. Cardiovascular: RRR, no significant murmur, no rub Gastrointestinal: soft, non-tender, no distention, positive bowel sounds Musculoskeletal: no edema RAKA Neurological: non-focal Psychiatric: normal affect, A&O x 3 Skin: no rash, normal turgor Dx/Plan (1) Acute on chronic systolic heart failure, NYHA class 3 Code(s): I50.23 - ACUTE ON CHRONIC SYSTOLIC (CONGESTIVE) HEART FAILURE Status : Acute Comment: ef of 25% (2) LISBETH (acute kidney injury) Code(s): N17.9 - ACUTE KIDNEY FAILURE, UNSPECIFIED Status: Resolved (3) Chronic obstructive pulmonary disease with acute exacerbation Code(s): J44.1 - CHRONIC OBSTRUCTIVE PULMONARY DISEASE W (ACUTE) EXACERBATION Status: Acute (4) Erosive esophagitis Code(s): K22.10 - ULCER OF ESOPHAGUS WITHOUT BLEEDING Status: Acute (5) HTN (hypertension) Code(s): I10 - ESSENTIAL (PRIMARY) HYPERTENSION Status: Chronic Qualifiers: Hypertension type: essential hypertension Qualified Code(s): I10 - Essential (primary) hypertension (6) CAD (coronary artery disease) Code(s): I25.10 - ATHSCL HEART DISEASE OF [place] CORONARY ARTERY W/O ANG PCTRS Status: Chronic Qualifiers: Coronary Disease-Associated Artery/Lesion type: [place] artery [place] vs. 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9 - PEPTIC ULC, SITE UNSP, UNSP AC OR CHR, W/O HEMOR OR PERF Status: Acute (12) Gastroparesis Code(s): K31.84 - GASTROPARESIS Status: Acute (13) Hypokalemia Code(s): E87.6 - HYPOKALEMIA Status: Acute (14) Cardiomyopathy Code(s): I42.9 - CARDIOMYOPATHY, UNSPECIFIED Status: Acute - Plan * Replace potassium * Discussed with Dr. Newby, cardiology. Changing hydralazine to po. * Will watch with advanced diet today and ensure he is managing po meds adequately. * Continue PPI, Low fiber diet and bowel regimen. * [facility] is in place. * Anticipate discharge tomorrow.
[2019-01-04] MEDS: Docusate 100 MG CAP PO SCH (09:28)
[2019-01-04] MEDS: Carvedilol 25 MG TAB PO SCH (09:28)
[2019-01-04] MEDS: Aspirin 81 mg Enteric Coated Tablet PO SCH (09:28)
[2019-01-04] MEDS: Loratadine 10 MG TAB PO SCH (09:29)
[2019-01-04] MEDS ORDERED: Potassium Chloride 20 MEQ TAB PO SCH (09:30)
[2019-01-04] MEDS: HumaLOG 300 UNITS/3 ML VIAL SC PRN (09:31)
[2019-01-04] MEDS: Potassium Chloride 20 MEQ in Premix Bag 1 BAG IVPB SCH ×3 (10:58→12:36)
[2019-01-04 12:52] VITALS: BP 168/74; TEMP 97.7
--- NOTE | 2019-01-04 13:32 | PRG ---
DATE OF SERVICE: 01/04/2019 It was notified by the patient's nurse that he was upset and wanted to speak with his doctor again. I spoke with the charge nurse and with patient's daughter. The patient's daughter indicated the patient has had similar situations in the past. Talked to the nurse, the patient had some inability to swallow the potassium pill and was converted to IV and the IV was burning his arm. The patient reports that he has received IV potassium since he has been here before this episode and it never burned his arm before, so he thinks it was done inappropriately or at an abnormal rate. He is concerned, because he has been told his ulcers were the result of him having been on aspirin when he has actually not been on aspirin or Plavix for a number of months, because they were discontinued for a dental procedure. He states that he was given steroids again this morning and he believes that his blood sugars were going up because of being on steroids. Apparently, he is referring to the inhaled steroids since he is not getting anything p.o. The patient reports that he feels like things in this hospital in general are going downhill, but it is bad for him. He states that he feels like he is getting sicker since he has been here and he believes that the ulcer disease in his GI tract is something that started since he arrived to this hospital, because he actually came in for shortness of breath. He believes it was related to vomiting associated with contrast. He also relates that when he was here previously number of years ago for pancreatitis that he was placed in a coma for 4 months and that no one moved his leg and that ultimately resulted in a clot that led to his right [id number] amputation. He reports that his medical home is actually [facility] and from this point forward, he will be going there. I tried to explain the patient the potassium certainly can be challenging to swallow the pill form and that it is occasionally uncomfortable through the IV and that adjustments were made to address that. I reassured him that the ulcer disease appeared to be something that developed prior to him coming in given the extent and severity. He states that in the past, Dr. Leung had him on PPI for ulcer disease. He also reports that he is not taking any meloxicam in home either. I explained that there were certainly other reasons why this type of thing might occur and that a gastrin level had been ordered. Ultimately agreed to review the patient's medications top to bottom to ensure he was not getting anything he should not. Reviewing his medicines, the only thing that is persistent that may need to be discontinued is the nitroglycerin ointment, which was discussed with the charge nurse and determined that his steroids are in the inhaled form, not the oral steroids which should have negligible effect on his blood sugars. The patient's nurses asked for a new nurse to cover the patient in order to try to help facilitate appropriate communication and interaction. The patient had indicated to the nurse that he was going home today. I reiterated in my discussion with him that the plan was to ensure he tolerated the p.o.'s well today and anticipate discharge in the morning. Certainly, not beyond the realms of possibility that he could go later today if either he chooses to do so on his own or if he tolerates the medications adequately. Job ID: [id number] MTDD
--- NOTE | 2019-01-04 14:43 | PRG ---
DATE OF SERVICE: 01/04/2019 SUBJECTIVE: Mr. Herrera is tolerating a solid diet well today. OBJECTIVE: VITAL SIGNS: Temperature is 97.7, pulse 73, and blood pressure 168/74. GENERAL: He is in no acute distress. Awake and alert. LUNGS: Clear to auscultation bilaterally. HEART: Regular rate and rhythm. ABDOMEN: Soft, nontender, nondistended. Bowel sounds are present. EXTREMITIES: No lower extremity edema. IMPRESSION: 1. Severe erosive esophagitis. 2. Gastric ulcerations and duodenal ulcerations. 3. Gastric distention on presentation. I suspect he has underlying gastroparesis potentially compounded by chronic opioid use. This would explain the gastric distention and severe ulceration of the esophagus. I will plan on treating this empirically over the next month to see if it helps healing of the esophagitis. 4. Chronic constipation. RECOMMENDATIONS: 1. Proton pump inhibitor twice daily. 2. We will give Reglan before meals 3 times a day over the next month. 3. Continue MiraLAX daily and Movantik daily combination. 4. Follow up in GI clinic to evaluate response of his symptoms to treatment with a proton pump inhibitors and treatment of the constipation and opioid-induced constipation as well. 5. Smoking cessation is advised. 6. Gastrin level has been drawn and is pending. 7. The patient will call to schedule a followup in GI clinic. Job ID: [id number]
--- NOTE | 2019-01-05 13:37 | DIS ---
DATE OF ADMISSION: 12/28/2018 DATE OF DISCHARGE: 01/04/2019 DISCHARGE DIAGNOSES: 1. Acute decompensated systolic heart failure. 2. Bnv-FY-[id number] elevation myocardial infarction, type 2. 3. New left bundle-branch block. 4. Coronary artery disease. 5. Cardiomyopathy with an EF of 20% to 25%. 6. Severe chronic obstructive pulmonary disease. 7. Ongoing tobacco abuse. 8. Hypertension. 9. Hyperlipidemia. 10. Diabetes mellitus. 11. Splenic infarction. 12. Severe erosive esophagitis. 13. Gastric ulcerations. 14. Duodenal ulcerations. 15. Constipation. 16. Gastroparesis. 17. Peripheral vascular disease, status post right above-knee amputation. HISTORY OF PRESENT ILLNESS: This patient is a 58 yo male who presented to the emergency department with the complaint of shortness of breath. He had a known past history of coronary artery disease with drug-eluting stent placed in 2016 in the RCA as well as a bare-metal stent placed in 2015 in the RCA. He had also had a history of complete heart block that had resolved. The patient also had a history of a prior colon resection for what sounds like diverticular disease with transient colostomy with subsequent reversal and a history of necrotizing pancreatitis which had resulted in short-term renal failure, on dialysis, which had resolved. The patient was noted to have a prior echocardiogram in August 2017 primarily revealing diastolic dysfunction with relatively preserved EF and initially was felt to be more in diastolic heart failure based on chest x-ray showing some pulmonary vascular congestion as well as severe COPD. BNP was elevated at 3289. HOSPITAL COURSE: The patient was admitted to the hospital and subsequently seen in consultation by Cardiology, who noted the patient's left bundle-branch block had not been present on their previous evaluations. The patient underwent an echocardiogram, which now revealed an ejection fraction down to 20% to 25%. Given these findings, he then underwent a heart catheterization, which revealed a 30% stenosis of the LMCA, 50% stenosis of the proximal LAD, 50% of the proximal circumflex, 90% of the mid circumflex, left mid RCA was 30%, 2nd acute marginal 100%, distal RCA 20%, mid RCA 20% and noted that there was a previous stent in the mid RCA proximal subsection and mid RCA as well as the distal subsection. The patient was felt to be most appropriately medically managed. After the catheterization, the patient subsequently developed some abdominal distention. He had a CT scan of the abdomen which showed abnormal gastric distention as well as possible splenic infarction. In reviewing the CT with Radiology, this does appear to be more wedge shaped in nature and the patient does have splenic artery calcifications making this more consistent with the splenic infarction rather than a mass-type lesion. The patient had consultation from GI because of the gastric distention. He subsequently underwent endoscopy, which revealed severe erosive esophagitis, grade D, circumferentially throughout the esophagus as well as ulcerations of the fundus and cardia of the stomach with diffuse erythematous gastritis. There were multiple ulcerations throughout the first and second portions of the duodenum. The patient was placed on a high-dose PPI. Also appeared that he had some likely gastroparesis and was started on Reglan. Dr. Veliz was concerned that the patient's constipation could be impacting his gastric distention as well and placed him on aggressive bowel regimen. Of note, the patient's biopsies all returned showing inflammatory changes without evidence of Helicobacter or atypia. Also of note, the patient's gastrin level returned at 530. I discussed this with Dr. Veliz, who agrees this is not significant and once the patient was able to go back to regular diet and transition back over to oral medications, his blood pressure remained somewhat high and his medicines were adjusted by Cardiology. The patient became increasingly frustrated with his stay at the hospital and was eager to discharge and felt like he was getting sicker the longer he stayed and was convinced that he had been told he was going to be discharged by Cardiology. I did review this with Cardiology and GI. Ultimately, they were in agreement with discharging the patient, given his blood pressure is in the tolerable range. PHYSICAL EXAMINATION: On the day of discharge, VITAL SIGNS: Temperature was 97.7, pulse 73, respirations 18, O2 saturation 93 % on room air, BP 168/74. GENERAL: The patient was awake, alert, oriented. He was clearly upset at times , but did his best to be cooperative. HEENT: PERRL. No OP lesions. HEART: Regular rate and rhythm. LUNGS: Clear. ABDOMEN: Soft, nontender. EXTREMITIES: Had no significant edema. Right AKA stump was healthy. DISPOSITION: The patient is discharged to home. ACTIVITY: As tolerated. DIET: He will be on a diabetic heart healthy, low acid, low residual diet. MEDICATIONS: Will include; 1. Carvedilol 25 mg b.i.d. with meals. 2. Docusate 100 mg b.i.d. 3. Hydralazine 25 mg b.i.d. 4. Reglan 10 mg t.i.d. with meals. 5. Protonix 40 mg b.i.d. 6. Polyethylene glycol (MiraLAX) 17 g p.o. b.i.d. 7. Sertraline 100 mg daily. 8. Insulin 26 units subcu at bedtime. 9. Restoril 15 mg at bedtime. 10. Cyclobenzaprine 5 mg t.i.d. p.r.n. 11. [place] 10/325 p.r.n. 12. Crestor 10 mg at bedtime. 13. Aspirin 81 mg daily. 14. CoQ10 200 mg daily. 15. Zyrtec 10 mg daily. 16. Guaifenesin 600 mg q.12. 17. Nitrostat p.r.n. The patient is to discontinue Mobic, omeprazole, and metoprolol. The patient was initially prescribed Movantik as well; however, insurance would not cover that. Therefore, the decision was made by Dr. Veliz to have the patient double up on the MiraLAX. FOLLOWUP: The patient is to follow up with Dr. Greg Garcia in 1-2 weeks. He is also to follow up with Dr. Newby in Cardiology and Dr. Veliz in GI in a couple of weeks as well. He can return to the hospital should he have any problems prior to that time, although he made it fairly clear that he would be going to [facility] in the future. Job ID: [id number] [facility]
== END 2019-01-04 14:37 | disposition home or self-care (01) | DRG 281 ==
LOC: ERS 05:15 → 2SW 09:56 → OBSVTOIN 12-28 14:14 → 2NO 12-28 21:16
PROVIDERS: ADMIT Internal Medicine; ATTEND Internal Medicine
PROC: 4A023N7 Measurement of Cardiac Sampling and Pressure, Left Heart, Percutaneous Approach (ICD-10-PCS; 2018-12-30)
PROC: B2111ZZ Fluoroscopy of Multiple Coronary Arteries using Low Osmolar Contrast (ICD-10-PCS; 2018-12-30)
PROC: B2151ZZ Fluoroscopy of Left Heart using Low Osmolar Contrast (ICD-10-PCS; 2018-12-30)
PROC: 0DB98ZX Excision of Duodenum, Via Natural or Artificial Opening Endoscopic, Diagnostic (ICD-10-PCS; principal; 2019-01-02)
PROC: 0DB78ZX Excision of Stomach, Pylorus, Via Natural or Artificial Opening Endoscopic, Diagnostic (ICD-10-PCS; 2019-01-02)
PROC: 0DB58ZX Excision of Esophagus, Via Natural or Artificial Opening Endoscopic, Diagnostic (ICD-10-PCS; 2019-01-02)
DX: I11.0 Hypertensive heart disease with heart failure (principal); I21.A1 Myocardial infarction type 2; N17.9 Acute kidney failure, unspecified; I25.10 Atherosclerotic heart disease of native coronary artery without angina pectoris; J44.9 Chronic obstructive pulmonary disease, unspecified; E11.51 Type 2 diabetes mellitus with diabetic peripheral angiopathy without gangrene; E78.5 Hyperlipidemia, unspecified; F41.9 Anxiety disorder, unspecified; F32.9 Major depressive disorder, single episode, unspecified; F17.210 Nicotine dependence, cigarettes, uncomplicated; K26.9 Duodenal ulcer, unspecified as acute or chronic, without hemorrhage or perforation; K20.9 Esophagitis, unspecified; K25.9 Gastric ulcer, unspecified as acute or chronic, without hemorrhage or perforation; I50.23 Acute on chronic systolic (congestive) heart failure; I44.7 Left bundle-branch block, unspecified; E11.43 Type 2 diabetes mellitus with diabetic autonomic (poly)neuropathy; K31.84 Gastroparesis; E87.6 Hypokalemia; I25.5 Ischemic cardiomyopathy; Z79.82 Long term (current) use of aspirin; Z79.4 Long term (current) use of insulin; Z89.611 Acquired absence of right leg above knee; Z95.5 Presence of coronary angioplasty implant and graft
CPT/HCPCS: 36415; 36416; 71045; 74177; 76700; 76942; 80048; 80053; 80074; 81003; 82553; 82570; 82941; 83690; 83880; 84484; 85025; 85347; 87040; 87070; 87086; 87205; 87804; 88305; 88312; 88313; 93005; 93010; 93306; 93458; 93798; 94640; 94760; 96365; 96375; 99152; 99153; 99406; C1769; C9113; J0360; J0696; J1100; J1644; J1825; J1940; J2001; J2060; J2250; J2405; J2550; J2720; J2765; J2930; J3010; J3480; J7050; J7620; J7626; Q9966; Q9967

== ENCOUNTER 2019-02-19 13:04 | Emergency (ER) | payer MEDICARE ==
[2019-02-19 14:05] LABS: #Eosinphils 0.1 thou/uL (0.0-0.7); #Lymphocytes 1.3 thou/uL (1.20-3.40); #Monocytes 0.4 thou/uL (0.11-0.59); #Neutrophils 3.4 thou/uL (1.40-6.50); %Basophils 0.5 % (0.0-1.0); %Eosinophils 1.6 % (0.0-10.0); %Lymphocytes 25.1 % (21.0-51.0); %Neutrophils 65.8 % (42.0-75.0); Mean Corpuscular Volume 94.1 fL (78.0-98.0); Platelet Count 138 thou/uL (130-400); RBC Distribution Width 12.1 % (11.5-14.5); Red Blood Cell (RBC) Count 4.39 mill/uL (4.70-6.10); White Blood Cell (WBC) Count 5.2 thou/uL (4.8-10.8)
[2019-02-19 14:31] LABS: ALT (SGPT) 8 U/L (8-55); AST (SGOT) 13 U/L (5-34); Alkaline Phosphatase 92 U/L (40-150); Anion Gap 12 mmol/L (10-20); BUN (Urea Nitrogen) 20 mg/dL (8.4-25.7); Bilirubin, Total 0.4 mg/dL (0.2-1.2); Calc. Creatinine Clearance 0 mL/min (70-130); Calcium 9.5 mg/dL (7.8-10.44); Carbon Dioxide 23 mmol/L (22-29); Chloride 102 mmol/L (98-107); Estimated GFR-MDRD 59; Globulin 3.3 g/dL (2.4-3.5); Potassium 4.2 mmol/L (3.5-5.1); Protein, Total 7.3 g/dL (6.0-8.3); Sodium 133 mmol/L (136-145)
[2019-02-19 14:36] LABS: Glucose 51 mg/dL (70-105)
[2019-02-19 14:52] LABS: Bilirubin Negative (Negative); Blood, Urine Negative (Negative); Clarity Clear (Clear); Glucose, Urine (Dipstick) Normal (Negative); Leukocyte Negative Leu/uL (Negative); Nitrite Negative (Negative); Protein, Urine (Dipstick) 20 mg/dL (Neg-Trace); Urobilinogen Normal mg/dL (Less than 2)
== END 2019-02-19 15:55 | disposition home or self-care (01) ==
LOC: ERS 13:04
DX: E86.0 Dehydration (principal); E11.649 Type 2 diabetes mellitus with hypoglycemia without coma; Z71.6 Tobacco abuse counseling; E78.5 Hyperlipidemia, unspecified; I10 Essential (primary) hypertension; F32.9 Major depressive disorder, single episode, unspecified; F41.9 Anxiety disorder, unspecified; F17.210 Nicotine dependence, cigarettes, uncomplicated; Z79.899 Other long term (current) drug therapy
CPT/HCPCS: 36415; 36416; 80053; 81003; 82550; 85025; 93005; 96360; 99406

== ENCOUNTER 2019-04-27 13:25 | Emergency (ER) | payer MEDICARE ==
[2019-04-27 14:10] LABS: #Lymphocytes 0.9 thou/uL (1.20-3.40); #Monocytes 0.5 thou/uL (0.11-0.59); #Neutrophils 4.7 thou/uL (1.40-6.50); %Basophils 0.5 % (0.0-1.0); %Eosinophils 0.6 % (0.0-10.0); %Lymphocytes 15.2 % (21.0-51.0); %Monocytes 7.4 % (0.0-10.0); %Neutrophils 76.4 % (42.0-75.0); Hemoglobin 16.1 g/dL (14.0-18.0); Mean Corpuscular HGB CONC 33.9 g/dL (32.0-36.0); Mean Corpuscular Hemoglobin 31.5 pg (27.0-31.0); Mean Corpuscular Volume 93.1 fL (78.0-98.0); Mean Platelet Volume 8.1 fL (7.4-10.4); Platelet Count 105 thou/uL (130-400); RBC Distribution Width 12.6 % (11.5-14.5); Red Blood Cell (RBC) Count 5.12 mill/uL (4.70-6.10); White Blood Cell (WBC) Count 6.1 thou/uL (4.8-10.8)
--- NOTE | 2019-04-27 14:10 | CT ---
CT Cervical Spine WO Con Indication: Trauma; found on the ground by the son with concern for fall and neck injury COMPARISON: None. FINDINGS: Acute fracture/subluxation: None. Spinal alignment: No acute malalignment. Craniocervical junction: Within normal limits. Vertebral body heights: Maintained. Cervical spine degenerative change: There is moderate to severe multilevel spondylosis of the cervica l spine. Lung apices: There is moderate emphysema IMPRESSION: No acute osseous abnormality.
--- NOTE | 2019-04-27 14:15 | CT ---
CT BRAIN WITHOUT CONTRAST: Date: 04/27/19 HISTORY: Trauma, fall, headache. FINDINGS: Comparison made with exam of 12/29/08. No evidence of infarct, hemorrhage, midline shift, or abnormal extra-axial fluid collections are seen . The ventricular size is normal and the basilar cisterns are patent. The bony calvarium is intact. T he visualized paranasal sinuses and mastoid air cells are well aerated. IMPRESSION: No CT evidence of acute intracranial process. POS: OFF
[2019-04-27 14:28] LABS: ALT (SGPT) 9 U/L (8-55); AST (SGOT) 17 U/L (5-34); Albumin 4.2 g/dL (3.5-5.0); Alkaline Phosphatase 86 U/L (40-150); Anion Gap 10 mmol/L (10-20); BUN (Urea Nitrogen) 15 mg/dL (8.4-25.7); Bilirubin, Total 0.4 mg/dL (0.2-1.2); Calc. Creatinine Clearance 0 mL/min (70-130); Calcium 9.7 mg/dL (7.8-10.44); Carbon Dioxide 26 mmol/L (22-29); Chloride 101 mmol/L (98-107); Estimated GFR-MDRD 68; Globulin 3.1 g/dL (2.4-3.5); Glucose 105 mg/dL (70-105); Protein, Total 7.3 g/dL (6.0-8.3); Sodium 133 mmol/L (136-145)
== END 2019-04-27 14:49 | disposition home or self-care (01) ==
LOC: ERS 13:25
DX: E11.649 Type 2 diabetes mellitus with hypoglycemia without coma (principal); I25.2 Old myocardial infarction; F41.9 Anxiety disorder, unspecified; F32.9 Major depressive disorder, single episode, unspecified; F17.210 Nicotine dependence, cigarettes, uncomplicated
CPT/HCPCS: 36415; 36416; 70450; 72125; 80053; 84484; 85025; 93005

== ENCOUNTER 2019-05-16 13:30 | Emergency (ER) | payer MEDICARE ==
[2019-05-16] MEDS ORDERED: Ketorolac Tromethamine 30 MG/ML VIAL ONE (14:46)
--- NOTE | 2019-05-16 15:15 | RAD ---
LEFT INDEX FINGER 3 VIEWS: Date: 05/16/19 HISTORY: Pain x2 weeks. FINDINGS: Mild soft tissue swelling. Joint spaces preserved. Mild degenerative changes in distal interphalangea l joint space. No fractures. No radiopaque foreign body. IMPRESSION: Nonspecific soft tissue swelling. Correlate clinically. POS: H
[2019-05-16 15:50] LABS: #Basophils 0.1 thou/uL (0.0-0.2); #Eosinphils 0.1 thou/uL (0.0-0.7); #Lymphocytes 1.9 thou/uL (1.20-3.40); #Monocytes 0.7 thou/uL (0.11-0.59); #Neutrophils 3.8 thou/uL (1.40-6.50); %Basophils 0.9 % (0.0-1.0); %Eosinophils 1.2 % (0.0-10.0); %Lymphocytes 29.6 % (21.0-51.0); %Monocytes 10.2 % (0.0-10.0); %Neutrophils 58.1 % (42.0-75.0); Hemoglobin 13.9 g/dL (14.0-18.0); Mean Corpuscular HGB CONC 34.3 g/dL (32.0-36.0); Mean Corpuscular Hemoglobin 31.6 pg (27.0-31.0); Mean Corpuscular Volume 92.2 fL (78.0-98.0); Mean Platelet Volume 7.6 fL (7.4-10.4); Platelet Count 148 thou/uL (130-400); RBC Distribution Width 12.3 % (11.5-14.5); Red Blood Cell (RBC) Count 4.41 mill/uL (4.70-6.10); White Blood Cell (WBC) Count 6.6 thou/uL (4.8-10.8)
== END 2019-05-16 16:46 | disposition home or self-care (01) ==
LOC: ERS 13:30
DX: L03.012 Cellulitis of left finger (principal); I25.2 Old myocardial infarction; E11.9 Type 2 diabetes mellitus without complications; E78.5 Hyperlipidemia, unspecified; I10 Essential (primary) hypertension; F41.9 Anxiety disorder, unspecified; F32.9 Major depressive disorder, single episode, unspecified; F17.210 Nicotine dependence, cigarettes, uncomplicated
CPT/HCPCS: 36415; 85025; 85652; 86140; 96372; J1885

== ENCOUNTER 2019-05-25 13:44 | Observation (INO) | payer MEDICARE ==
[~2019-05-25 13:44] MED LIST: Ketorolac Tromethamine 30 MG/ML VIAL ONE; Lidocaine 1% PF 5 ML VIAL ONE; Ondansetron PF 4 MG/2 ML Vial ONE; PROPOFOL 200 MG/20 ML VIAL ONE
[2019-05-25] MEDS ORDERED: Fentanyl 100 MCG/2 ML VIAL ONE (13:48)
[2019-05-25] MEDS ORDERED: Midazolam HCl 2 mg/2 ml Vial ONE (13:48)
[2019-05-25] MEDS ORDERED: Lidocaine 2% Jelly 5 ML TUBE ONE (13:48)
[2019-05-25 17:40] LABS: Anion Gap 13 mmol/L (10-20); BUN (Urea Nitrogen) 15 mg/dL (8.4-25.7); Calc. Creatinine Clearance 0 mL/min (70-130); Carbon Dioxide 27 mmol/L (22-29); Chloride 99 mmol/L (98-107); Estimated GFR-MDRD 74; Glucose 173 mg/dL (70-105); Potassium 4.5 mmol/L (3.5-5.1); Sodium 134 mmol/L (136-145)
[2019-05-25] MEDS ORDERED: Sodium Chloride 0.9% 10 ML ONE (19:46)
[2019-05-25] MEDS ORDERED: Bupivacaine PF 0.5% 30 ML VIAL ONE (19:46)
[2019-05-25] MEDS ORDERED: Bacitracin Zinc Ointment 30 gm TUBE ONE (19:46)
[2019-05-25] MEDS ORDERED: HYDROmorphone 2 MG/ML VIAL SLOW IVP PRN (21:22)
[2019-05-25] MEDS ORDERED: Promethazine HCl 25 MG/ML VIAL SLOW IVP PRN (21:22)
[2019-05-25] MEDS ORDERED: Morphine Sulfate 2 MG/ML SYRINGE SLOW IVP PRN (21:22)
[2019-05-25] MEDS ORDERED: Promethazine HCl 25 MG/ML VIAL IM PRN (21:22)
[2019-05-25] MEDS ORDERED: Ondansetron HCl/PF 4 MG/2 ML Vial IVP PRN (21:22)
[2019-05-25] MEDS ORDERED: PACU-Morphine 4MG/ML VIAL SLOW IVP PRN (21:22)
[2019-05-25] MEDS ORDERED: traMADol HCl 50 MG TAB PO PRN (21:53)
[2019-05-25] MEDS ORDERED: Milk Of Magnesia 30 ML UDCUP PO PRN (21:53)
[2019-05-25] MEDS ORDERED: Acetaminophen 325 MG TAB PO PRN (21:53)
[2019-05-25] MEDS ORDERED: Communication Order-Pharmacy FS SCH (22:00)
[2019-05-25] MEDS ORDERED: Morphine 2 MG/ML SYRINGE IVP PRN (22:15)
[2019-05-25 23:49] VITALS: BMI 16.4
[2019-05-26] MEDS ORDERED: Labetalol HCl 100 MG/20 ML VIAL SLOW IVP PRN (01:58)
[2019-05-26] MEDS ORDERED: Promethazine HCl 25 MG/ML VIAL IM PRN (01:59)
[2019-05-26] MEDS ORDERED: Labetalol HCl 100 MG/20 ML VIAL SLOW IVP SCH (02:00)
[2019-05-26] MEDS: hydrALAZINE 25 MG TAB PO SCH ×2 (04:04→17:08)
[2019-05-26 06:26] LABS: #Eosinphils 0.1 thou/uL (0.0-0.7); #Lymphocytes 1.5 thou/uL (1.20-3.40); #Monocytes 0.4 thou/uL (0.11-0.59); #Neutrophils 2.4 thou/uL (1.40-6.50); %Basophils 0.9 % (0.0-1.0); %Eosinophils 1.5 % (0.0-10.0); %Monocytes 8.8 % (0.0-10.0); %Neutrophils 53.8 % (42.0-75.0); Mean Corpuscular HGB CONC 33.8 g/dL (32.0-36.0); Mean Corpuscular Hemoglobin 31.8 pg (27.0-31.0); Mean Corpuscular Volume 93.8 fL (78.0-98.0); Mean Platelet Volume 7.9 fL (7.4-10.4); Platelet Count 121 thou/uL (130-400); RBC Distribution Width 12.4 % (11.5-14.5); White Blood Cell (WBC) Count 4.4 thou/uL (4.8-10.8)
[2019-05-26] MEDS: Carvedilol 25 MG TAB PO SCH ×2 (08:11→17:09)
[2019-05-26] MEDS ORDERED: TETANUS AND DIPHTHERIA TOX/PF 0.5 ML DISP.SYRIN IM SCH (09:00)
[2019-05-26] MEDS ORDERED: Vancomycin HCl 500 MG in Sodium Chloride 0.9% 100 ML IVPB SCH ×2 (09:00→12:00)
[2019-05-26] MEDS ORDERED: Aspirin 81 mg Enteric Coated Tablet PO SCH (09:00)
[2019-05-26] MEDS ORDERED: NIFEdipine XL 30 MG TAB PO SCH (09:00)
[2019-05-26] MEDS ORDERED: hydrALAZINE 20 MG/ML VIAL SLOW IVP PRN (11:14)
--- NOTE | 2019-05-26 13:55 | MRI ---
MRI LEFT INDEX DIGIT: Date: 05/26/19 PROVIDED CLINICAL HISTORY: Osteomyelitis. FINDINGS: Correlation made with the radiographs performed 05/26/19. Evaluation is limited by patient motion and field of view chosen. The sagittal images do not include the index digit. On the coronal STIR sequence, there is evidence for diffuse increased signal intensity involving the index digit distal phalanx. There are patchy foci of signal alteration on fluid sensitive sequences i nvolving the subcortical bone about the second MCP joint. No definite regional joint effusion is evid ent. No evidence for significant regional tenosynovitis. Nonspecific fluid signal intensity is noted involving the subcutaneous adipose layer at the dorsum of the hand. Alignment appears anatomic. Joint spaces appear preserved. IMPRESSION: 1. Limited study. Signal alteration on fluid sensitive sequences involving the index digit distal ph alanx may reflect osteomyelitis in the appropriate clinical context. 2. Nonspecific subcortical signal alteration about the second MCP joint, correlating with areas of e rosive change on radiographs. Correlate with concerns for inflammatory or metabolic arthritis. POS: OFF
[2019-05-26 15:15] VITALS: BP 172/75; TEMP 98.3
[2019-05-26] MEDS ORDERED: HumaLOG 300 UNITS/3 ML VIAL SC PRN ×2 (18:32)
[2019-05-26] MEDS ORDERED: Dextrose 5% in Water 1,000 ML IV PRN (18:32)
[2019-05-26] MEDS ORDERED: Dextrose 50% Abboject 50 ML SYRINGE SLOW IVP PRN (18:32)
--- NOTE | 2019-05-26 19:40 | CON ---
DATE OF CONSULTATION: PRIMARY CARE PHYSICIAN: Dr. Greg Garcia. REASON FOR CONSULTATION: Medical management. HISTORY OF PRESENT ILLNESS: Mr. Herrera is a 59-year-old man, who is status post incision and drainage of wound involving the left index finger. The patient underwent the procedure on 05/25/2019. He apparently presented to the emergency department on 05/19/2019, with pain and swelling involving the left index finger over the course of 2 weeks with worsening pain. The patient apparently had been seen by Dr. Sharma and was referred to a hand specialist. His case was discussed between the ED physician and Dr. Mojica, who had advised discharging the patient on Augmentin with followup as an outpatient. He is now here after undergoing I and D and consultation has been placed for medical management of his comorbidities, which include FL, type 2 diabetes, hyperlipidemia, and hypertension. On assessment of the patient, he expressed being angry about the way of this hospital system turner. He stated "your system is stupid" and asked me to leave him alone. When asked what was frustrating him, he states he was asked to give a list of home medications. "I've been here multiple times, and he will need to stop being lazy and get my medicine list from the emergency department." I explained meds are routinely verified when patients arrive to the floor to ensure there has not been changes to medications as often times happen especially during recent visits and illnesses or hospitalizations. The patient became angry and stated "you better leave before you piss me off." REVIEW OF SYSTEMS: Unable to obtain. PHYSICAL EXAMINATION: GENERAL: The patient appears well developed, well nourished, resting comfortably in bed. He was in no apparent distress. VITAL SIGNS: Temperature 98.3, pulse 56, respirations 16, O2 saturation 93% on room air, and blood pressure 172/75. HEENT: Normocephalic and atraumatic. Dressing in place in his left hand. PAST MEDICAL HISTORY: 1. History of FL. 2. Type 2 diabetes. 3. Hyperlipidemia. 4. Hypertension. 5. External defibrillator. 6. Anxiety. 7. Depression. PAST SURGICAL HISTORY: 1. Right leg amputation. 2. Colon surgery x3. 3. Cardiac stents x2. 4. Cholecystectomy. SOCIAL HISTORY: The patient reportedly drinks alcohol socially and is a current smoker. He smokes one pack per day for the last 30 years. ALLERGIES: 1. LORAZEPAM. 2. MORPHINE. CURRENT MEDICATIONS: Unable to verify. INVESTIGATIONS: The patient has undergone an MRI of his hand on 05/26/2019, showing changes that could reflect osteomyelitis involving the index to distal phalanx in the left hand, nonspecific subcortical signal alteration about the second MCP joint correlating with areas of erosive change on x-rays. Concern for inflammatory or metabolic arthritis. LABORATORY STUDIES: Done today showed a white count of 4.4, hemoglobin 13, hematocrit 38.5. Chemistries done yesterday showed sodium level of 134, potassium 4.5, chloride 99, BUN 15, creatinine 1.02. GFR 74, glucose 173, and calcium 10. IMPRESSION AND PLAN: Mr. Herrera is a 59-year-old gentleman, who is status post I and D of the left index finger, who has been receiving IV antibiotics with vancomycin. Dr. Mojica did reconcile some of his home medications, but apparently has been difficult to verify home medications. The patient refusing to be assessed and states he is adamant about going home regardless of any recommendations and has asked me to leave. Unable to provide much of plan at this time, but happy to see the patient if further input needed. Per nurse, the patient is being discharged by Dr. Mojica today. The patient's case was discussed with Dr. Coto, who is aware of above. Job ID: [id number] MTDD
--- NOTE | 2019-05-27 13:52 | OP ---
DATE OF PROCEDURE: 05/25/2019 PREOPERATIVE DIAGNOSIS: Left index finger abscess. POSTOPERATIVE DIAGNOSIS: Left index finger abscess. PROCEDURE PERFORMED: Incision and drainage abscess, left index finger. ANESTHESIA: General LMA technique anesthesia by [employer] Anesthesia. INDICATION FOR PROCEDURE: The patient was found to have abscess on clinical examination and resolved with IV antibiotics to include Augmentin. DESCRIPTION OF PROCEDURE: After successful anesthesia listed above, limb was prepped and draped. Time-out was done appropriately, we identified the left index finger. Tourniquet was inflated to 250 mmHg pressure. Then we made a zigzag incision along the infection. It was carried down through skin and subcutaneous tissue, and draining the abscess with moderate amount of mucopurulence. We irrigated with 2 L normal saline using bulb syringe pressure with antibiotic inside. Released the tourniquet and there was excellent hemostasis. We then packed the wound with normal saline soaked gauze. We planned for dressing change on the floor. He went to recovery room without evidence of anesthetic or operative complication. Cultures were taken and sent to the lab. Job ID: [id number]
[2019-05-31 08:10] LABS: Fungus Stain Final report (.)
[2019-06-03 09:11] LABS: Fungus Stain Final report (.)
== END 2019-05-26 18:51 | disposition home or self-care (01) ==
LOC: SDC 13:44 → SURG A 21:59
PROVIDERS: ADMIT Orthopaedic Surgery Hand Surgery; ATTEND Orthopaedic Surgery Hand Surgery
PROC: 0H9GXZZ Drainage of Left Hand Skin, External Approach (ICD-10-PCS; principal; 2019-05-25)
DX: L02.512 Cutaneous abscess of left hand (principal); B95.7 Other staphylococcus as the cause of diseases classified elsewhere; B96.89 Other specified bacterial agents as the cause of diseases classified elsewhere; I25.10 Atherosclerotic heart disease of native coronary artery without angina pectoris; I25.2 Old myocardial infarction; K21.9 Gastro-esophageal reflux disease without esophagitis; I11.0 Hypertensive heart disease with heart failure; I50.9 Heart failure, unspecified; F41.9 Anxiety disorder, unspecified; F32.9 Major depressive disorder, single episode, unspecified; F17.210 Nicotine dependence, cigarettes, uncomplicated; Z88.5 Allergy status to narcotic agent; Z88.8 Allergy status to other drugs, medicaments and biological substances; Z95.5 Presence of coronary angioplasty implant and graft; Z98.890 Other specified postprocedural states
CPT/HCPCS: 26010; 73221; 80048; 85025; 87070; 87075; 87076; 87077; 87102; 87186; 87205; 87206; 96372; 96374; 96375; G0378 ×2; 36415; J0360; J0690; J1885; J2001; J2175; J2250; J2405; J2550; J2704; J3010; J3370; J3490; S0020

== ENCOUNTER → 2019-06-20 | Day surgery (SDC) | payer MEDICARE ==
[2019-06-17 09:04] VITALS: BMI 16.4
[~2019-06-20] MED LIST changes: +Fentanyl 100 MCG/2 ML VIAL ONE; +HYDROcodone/Acetaminophen 10/325 mg Tablet ONE; +Iopamidol 370 76% 100 ML VIAL ONE; -Ketorolac Tromethamine 30 MG/ML VIAL ONE; +Lidocaine 1% (PF) 30 ML VIAL ONE; -Lidocaine 1% PF 5 ML VIAL ONE; +Midazolam HCl 2 mg/2 ml Vial ONE; -Ondansetron PF 4 MG/2 ML Vial ONE; -PROPOFOL 200 MG/20 ML VIAL ONE
[2019-06-20 09:08] LABS: #Eosinphils 0.1 thou/uL (0.0-0.7); #Lymphocytes 1.7 thou/uL (1.20-3.40); #Monocytes 0.5 thou/uL (0.11-0.59); #Neutrophils 3.8 thou/uL (1.40-6.50); %Basophils 0.6 % (0.0-1.0); %Eosinophils 1.5 % (0.0-10.0); %Lymphocytes 27.5 % (21.0-51.0); %Monocytes 8.7 % (0.0-10.0); %Neutrophils 61.6 % (42.0-75.0); Hemoglobin 14.2 g/dL (14.0-18.0); Mean Corpuscular HGB CONC 34.2 g/dL (32.0-36.0); Mean Corpuscular Hemoglobin 31.7 pg (27.0-31.0); Mean Corpuscular Volume 92.7 fL (78.0-98.0); Mean Platelet Volume 7.8 fL (7.4-10.4); Platelet Count 135 thou/uL (130-400); RBC Distribution Width 11.7 % (11.5-14.5); Red Blood Cell (RBC) Count 4.48 mill/uL (4.70-6.10); White Blood Cell (WBC) Count 6.2 thou/uL (4.8-10.8)
[2019-06-20 09:17] LABS: Anion Gap 12 mmol/L (10-20); BUN (Urea Nitrogen) 16 mg/dL (8.4-25.7); Calc. Creatinine Clearance 43 mL/min (70-130); Calcium 9.1 mg/dL (7.8-10.44); Carbon Dioxide 28 mmol/L (22-29); Chloride 100 mmol/L (98-107); Estimated GFR-MDRD 60; Glucose 196 mg/dL (70-105); Potassium 4.7 mmol/L (3.5-5.1); Sodium 135 mmol/L (136-145)
--- NOTE | 2019-06-20 17:08 | OP ---
DATE OF PROCEDURE: 06/20/2019 PREOPERATIVE DIAGNOSIS: Bilateral hand ischemia. POSTOPERATIVE DIAGNOSIS: Bilateral hand ischemia. PROCEDURES PERFORMED: 1. Ultrasound-guided left common femoral artery access. 2. Arteriogram. 3. Right radial/brachial/axillary/subclavian artery angiograms. 4. Left radial/brachial/axillary/subclavian artery angiograms. TOTAL CONTRAST: 44. TOTAL FLUORO TIME: 9.3 minutes. DESCRIPTION OF PROCEDURE: After consent was obtained, the patient was brought to the microbiology lab analyst, placed in supine position on the microbiology lab analyst table. Appropriate central line and monitors were placed. IV sedation was begun with 1 mg Versed/50 mcg fentanyl. Using ultrasound guidance, the left groin was anesthetized. Left common femoral artery was accessed with micropuncture needle and wire. This was confirmed on fluoroscopy. The sheath was then used to dilate the tract. The micropuncture wire was exchanged for a short J-wire and a 5-Kinyarwanda sheath. The pigtail catheter was passed over a Bentson guidewire into the ascending aorta. Hand-injected aortogram was performed with elimination of the aorta showing a normal branch pattern with no obstructive disease. An angled Vert catheter and Bentson guidewire were used to access the left subclavian artery. The catheter was placed in the left subclavian artery and hand-injected arteriogram performed showing no obstructive disease. Catheter was advanced over the guidewire down into the axillary artery. Hand-injected arteriogram was performed showing no obstructive disease. The catheter was advanced into the brachial artery and hand-injected arteriogram performed showing no obstructive disease. There was an occluded ulnar artery. The radial artery passed down to the wrist and terminated in collaterals. The radial artery was then accessed and hand-injected arteriogram was performed with mag view of the hand. The radial artery collaterals passed into the hand and filled the arch. There was slow flow into the hand arch. The catheter was withdrawn back into the aortic arch and the subclavian artery access. Hand-injected arteriogram was performed in the subclavian artery showing no obstructive disease. Catheter was advanced over guidewire into the axillary artery. Hand-injected arteriogram was performed showing no obstructive disease. The catheter was passed over the guidewire into the brachial artery and hand-injected arteriogram performed showing no obstructive disease. Radial artery was accessed. The ulnar artery was occluded. Hand-injected arteriogram was performed showing a similar pattern to the left side with radial artery patent down to the wrist with collaterals filling the arch in the hand. Catheters, guidewires, and sheaths were removed and manual pressure held for hemostasis. The patient will be observed here for 4 hours prior to discharge. Job ID: [id number]
== END ==
LOC: CCL 07:54
PROVIDERS: ATTEND Thoracic Surgery (Cardiothoracic Vascular Surgery)
DX: I99.8 Other disorder of circulatory system (principal); Z79.4 Long term (current) use of insulin; Z79.51 Long term (current) use of inhaled steroids; Z79.899 Other long term (current) drug therapy; Z88.5 Allergy status to narcotic agent
CPT/HCPCS: 36217; 36415; 75716; 76942; 80048; 85025; 99152; 99153; C1769; J1644; J2001; J2250; J3010; Q9967

== ENCOUNTER 2019-10-17 21:20 | Inpatient (IN) | payer MEDICARE ==
[2019-10-17] MEDS ORDERED: Acetaminophen 325 MG TAB PO PRN (23:02)
[2019-10-17] MEDS ORDERED: Dextrose 50% Abboject 50 ML SYRINGE SLOW IVP PRN (23:27)
[2019-10-17] MEDS ORDERED: Dextrose 5% in Water 1,000 ML IV PRN (23:27)
[2019-10-17] MEDS ORDERED: predniSONE 20 MG TAB PO SCH (23:30)
--- NOTE | 2019-10-17 23:39 | PDOC.FPRHP ---
- History of Present Illness Chief Complaint: Pneumonia, COPD History of Present Illness: Pt is a 59 yo male who presents as a lateral transfer from [place], [place]. He was being treated for pneumonia. He initially was seen by a primary care provider who sent him to the emergency department. He had been febrile, wheezing, and experienced worsening shortness of breath. Subsequently he was hospitalized for pneumonia noted by the emergency department physician. He was started on ceftriaxone and azithromycin. No steroids were initiated. While under care he was given lasix, deshpande catheter placed. Pt denies heart failure, LE edema. He stopped smoking 6 weeks ago after 40 years, 1.5 ppd at most. He states he feels a little better from his initial hospitalization on Thursday but is not at baseline. He feels like he is short of breath at rest and worse with ambulation. Unable to walk short distances without shortness of breath. Pt does has a R AKA. He sees Dr. Richradson, pulmonology. He recently had surgery on his L hand resulting in an unhealing wound. PCP: Jose - Allergies/Adverse Reactions Allergies Allergy/AdvReac Type Severity Reaction Status Date / Time morphine AdvReac Severe Verified 10/18/19 01:28 - Home Medications Medication Instructions Recorded Confirmed Type Insulin Glargine [Lantus Vial] 15 units SQ HS 11/14/13 10/18/19 History Sertraline HCl [Zoloft] 100 mg PO DAILY 11/14/13 10/18/19 History Temazepam [Restoril] 15 mg PO HS PRN 11/14/13 10/18/19 History HYDROcodone Bit/APAP 10/325 [Viola] 1 tab PO ASDIR PRN 01/15/17 10/18/19 History Carvedilol [Coreg] 25 mg PO BID-WM #60 tab 01/04/19 10/18/19 Rx Atorvastatin Calcium 10 mg PO DAILY 06/17/19 10/18/19 History Fluticasone/Umeclidin/Vilanter 1 puff PO DAILY 06/17/19 10/18/19 History [Trelegy Ellipta 100-62.5-25] Pantoprazole [Protonix] 40 mg PO BID 06/17/19 10/18/19 History Aspirin [Ecotrin] 81 mg PO DAILY 10/18/19 10/18/19 History Budesonide [Pulmicort Flexhaler] 90 mcg IH BID 10/18/19 10/18/19 History Gabapentin 100 mg PO TID PRN 10/18/19 10/18/19 History Metoclopramide HCl [Reglan] 10 mg PO TID 10/18/19 10/18/19 History hydrALAZINE [Apresoline] 50 mg PO TID 10/18/19 10/18/19 History - History PMHx: DM, HLD, CAD, COPD, HTN, hx of pancreatitis resulting in an induced coma for 4 months. During this coma he sustained a blood clot resulting in R AKA. PSHx: R AKA, Cholecystectomy, 3 colon surgeries - unsure etiology FHx: non-contributory Social: pt quit smoking 6 weeks ago and smoked for 40 years, 1.5 packs per day; quit alcohol 10 years ago, no drugs - Review of Systems General: denies: fever/chills, weight/appetite/sleep changes Eyes: denies: eye pain, vision changes ENT: denies: nasal congestion, rhinorrhea Respiratory: reports: cough, shortness of breath, exercise intolerance. denies : congestion Cardiovascular: denies: chest pain, palpitation, edema Gastrointestinal: denies: nausea, vomiting, diarrhea, constipation Genitourinary: denies: incontinence, dysuria Skin: denies: rashes, lesions Musculoskeletal: denies: pain, tenderness Neurological: denies: numbness, syncope Psychological: denies: anxiety, depression - Vital signs BP: 133/79 HR: 79 RR: 12 Tmax: 98.1 Pox: 91% on 3L Wt: 49 kg - Physical Exam Constitutional: NAD, awake, alert and oriented HEENT: PERRLA, EOMI Neck: FROM, no JVD Chest: no-tender to palpation, no lesions Heart: RRR, normal S1/S2 Lungs: no retractions -Lungs: Poor air movement bilaterally and worse in the bases, wheezing appreciated diffusely with expiration Abdomen: soft, non-tender, no masses/distention Musculoskeletal: normal structure, normal tone Neurological: no focal deficit, CN II-XII intact Skin: no rash/lesions, good turgor Heme/Lymphatic: no purpura, no petechia Psychiatric: normal mood and affect, intact recent and remote memory FMR H&P: Results - Labs Result Diagrams: 10/18/19 05:18 10/18/19 05:18 FMR H&P: A/P - Problem List (1) Chronic obstructive pulmonary disease with acute exacerbation Status: Acute Code(s): J44.1 - CHRONIC OBSTRUCTIVE PULMONARY DISEASE W (ACUTE ) EXACERBATION (2) Gastroparesis Status: Acute Code(s): K31.84 - GASTROPARESIS (3) Hypokalemia Status: Acute Code(s): E87.6 - HYPOKALEMIA (4) DM2 (diabetes mellitus, type 2) Status: Chronic Qualifiers: Diabetes mellitus snf insulin use: with supervisor intermediates use Diabetes mellitus complication status: with other specified complication Qualified Code (s): E11.69 - Type 2 diabetes mellitus with other specified complication; Z79.4 - ferry terminal agent (current) use of insulin (5) HTN (hypertension) Status: Chronic Code(s): I10 - ESSENTIAL (PRIMARY) HYPERTENSION Qualifiers: Hypertension type: essential hypertension Qualified Code(s): I10 - Essential (primary) hypertension (6) History of right above knee amputation Status: Chronic Code(s): Z89.611 - ACQUIRED ABSENCE OF RIGHT LEG ABOVE KNEE - Plan Pt is a 59 yo male here for: # COPD Exacerbation vs Pneumonia - will perform med rec and restart home meds - duonebs scheduled and prn - CXR pending - prednisone 40 mg daily - initiated levaquin, d/c azithromycin and ceftriaxone from outside hospital - CBC in am - abg pending - procal pending # Hypokalemia - monitor # Hypomag - monitor # DM II - hyperglycemia protocol initiated - continue home meds # Hypoglycemia - pt had episode of hypoglycemia on admission requiring OJ, D50 bolus. - monitor at this time # HTN - continue home meds # HLD - continue home meds # CAD # LBBB - continue home meds - stable # Hx of HFrEF, EF 20-25%, s/p stent placement. Pt was not discharged with an SAKINA-I, diuretic on 2019 admission. On 2019 admission he had cath revealing occlusion, prior stent and team opted to medically manage. - monitor - BNP pending, pt was given lasix at [facility] - echo pending # Remove Deshpande Cath # Tobacco Abuse Hx - encourage cessation # Gastroporesis - continue home meds # GERD - continue home meds # Anxiety/Depression - continue home meds # L Hand Lesion - wound care consulted Fluids: SL Diet: CC VTE: Lovenox Code: Full Dispo: Admit to inpt medical FMR H&P: Upper Level - Pertinent history 59 year old male presents as transfer from [place] per his request for treatment of his COPD exacerbation and possible PNA. Patient states that he had a productive cough, dyspnea on exertion, and wheezing for the last week. He went to his PCP, but they were unable to do a CXR, so they sent him to [facility] ED. He was admitted for COPD exacerbation on Thursday. Patient states he received "poor" care over there and requested to be transferred to [facility]. He states his Graphics Software Engineer, Dr. Richardson, is over here. Patient states that he does feel he is improving. Patient was hospitalized with PNA several years ago. He was sent home with oxygen at that time to use on a PRN basis. He states that he has never used the oxygen. Patient states that he also experienced fever over the last week. He denies chest pain or palpitations. Patient has history of HFrEF with EF 25% noted 01/04/2019 in discharge summary. He personally denied history of CHF. Patient came in with LBBB during that admission. He got cardiac cath at that time. He was medically managed at that time. Patient has history of gastric and duodenol ulcers. - Pertinent findings General: Alert and oriented x3. No acute distress. HEENT: MMM Card: RRR, No appreciable murmur Resp: Wheezes noted anteriorly, decreased breath sounds throughout, worse in posterior bases Abd: Soft, nontender, nondistended Ext: No cyanosis or edema of left lower extremity. AKA of right lower extremity. Skin: No rashes or lesions. - Plan Date/Time: 10/17/19 2930 IAnila, have evaluated this patient and agree with findings/plan as outlined by internal wholesaler resident. Pertinent changes/additions are listed here. Acute hypoxic respiratory failure 2/2 COPD exacerbation - Maintain O2 88-92% - ABG pending - CXR pending; cannot view CXR done at outside facility, but patient was being treated for suspected PNA - Levoquin 750 mg x5 days, prednisone 40 mg daily x5 days, Duonebs q4h - Procalcitonin pending HFrEF - EF 25% on echo done 12/2018 - Patient not on optimal medical therapy for HF - Will start SAKINA-I - Continue ASA, Statin, BB - Patient may benefit from lifevest pending repeat echo; upon review of records , it appears patient was discharged wit - Lasix PRN for symptoms of overload DM type II - Continue home lantus - CC diet - [facility] accuchecks HTN - Continue home medications DVT PPX: Lovenox Code Status: Full code Dispo: Admit to medical. Anticipate LOS >48 hours. Addendum - Attending - Attending Attestation Date/Time: 10/18/19 3730 I personally evaluated the patient and discussed the management with Dr. Gasca /Bry. I agree with the History, Examination, Assessment and Plan documented above with any addition or exceptions noted below. Patient here for non-improving pneumonia. However, he has no evidence of pneumonia. This is likely COPD flare. He is still requiring O2. Levaquin, steroids, neb treatments. Wean O2 as tolerated. No indication for pulmonology consult at this time.
--- NOTE | 2019-10-17 23:58 | RAD ---
Portable frontal chest radiograph: 10/17/2019 COMPARISON: 12/28/2018 HISTORY: Pneumonia FINDINGS: Coarse increased linear interstitial density again noted, similar when compared to the prio r examination. There is atherosclerotic calcification of the aortic arch. No pneumothorax, pleural fluid, focal consolidation, or alveolar edema. IMPRESSION: Coarse increased linear interstitial density noted bilaterally. No focal consolidation or alveolar edema.
[2019-10-18 00:05] LABS: Actual Bicarbonate (HCO3a) 26.1 mEq/L (22-28); Base Excess (BEa) -0.5 mEq/L (-2.0 to +3.0); CO2 Tension 51.2 mmHg (35.0-45.0); Calcium, Ionized 1.14 mmol/L (1.12-1.30); Carboxyhemoglobin (COHb) 2.7 gm% (0.0-3.0); Hemoglobin (Hb) 11.8 g/dL (14.0-18.0); O2 Tension (PaO2) 76.1 mmHg (> 80.0); pH, Arterial 7.33 (7.35-7.45)
[2019-10-18 00:10] LABS: Puncture Site LBA
[2019-10-18 01:00] VITALS: BMI 16.1
[2019-10-18] MEDS ORDERED: Nitroglycerin 0.4 MG TAB (25 Tab Bottle) SL PRN (01:20)
[2019-10-18] MEDS: Carvedilol 25 MG TAB PO SCH ×2 (04:53→17:13)
[2019-10-18] MEDS: HumaLOG 300 UNITS/3 ML VIAL SC PRN ×7 (04:54→18:45)
[2019-10-18] MEDS: HYDROcodone/Acetaminophen 10/325 mg Tablet PO PRN ×3 (05:26→21:26)
[2019-10-18] MEDS ORDERED: Insulin Glargine 15 UNITS in Pre-Filled Syringe 1 EACH SC SCH (05:30)
[2019-10-18 05:31] LABS: #Basophils 0.2 thou/uL (0.0-0.2); #Lymphocytes 0.3 thou/uL (1.20-3.40); #Monocytes 0.2 thou/uL (0.11-0.59); #Neutrophils 7.8 thou/uL (1.40-6.50); %Basophils 1.8 % (0.0-1.0); %Monocytes 2.8 % (0.0-10.0); %Neutrophils 92.3 % (42.0-75.0); Hemoglobin 12.5 g/dL (14.0-18.0); Mean Corpuscular HGB CONC 31.3 g/dL (32.0-36.0); Mean Corpuscular Hemoglobin 30.3 pg (27.0-31.0); Mean Platelet Volume 8.8 fL (7.4-10.4); Platelet Count 145 thou/uL (130-400); RBC Distribution Width 12.3 % (11.5-14.5); Red Blood Cell (RBC) Count 4.12 mill/uL (4.70-6.10); White Blood Cell (WBC) Count 8.5 thou/uL (4.8-10.8)
[2019-10-18 05:52] LABS: ALT (SGPT) 7 U/L (8-55); AST (SGOT) 9 U/L (5-34); Alkaline Phosphatase 81 U/L (40-110); Anion Gap 11 mmol/L (10-20); BUN (Urea Nitrogen) 12 mg/dL (8.4-25.7); Bilirubin, Total 0.4 mg/dL (0.2-1.2); Calc. Creatinine Clearance 52 mL/min (70-130); Calcium 8.4 mg/dL (7.8-10.44); Carbon Dioxide 28 mmol/L (22-29); Chloride 96 mmol/L (98-107); Estimated GFR-MDRD 77; Globulin 3.4 g/dL (2.4-3.5); Magnesium 1.6 mg/dL (1.6-2.6); Potassium 3.9 mmol/L (3.5-5.1); Protein, Total 6.4 g/dL (6.0-8.3); Sodium 131 mmol/L (136-145)
[2019-10-18 05:58] LABS: Glucose 558 mg/dL (70-105)
[2019-10-18 06:06] LABS: Phosphorus 2.5 mg/dL (2.3-4.7)
[2019-10-18] MEDS ORDERED: Arformoterol 15 MCG/2 ML NEB NEB SCH (06:30)
[2019-10-18] MEDS: Mometasone 100 MCG HFA INHALER INH SCH ×2 (06:57→18:15)
[2019-10-18] MEDS: predniSONE 20 MG TAB PO SCH (08:53)
[2019-10-18] MEDS: Lisinopril 10 MG TAB PO SCH (08:53)
[2019-10-18] MEDS: hydrALAZINE 25 MG TAB PO SCH ×3 (08:53→21:22)
[2019-10-18] MEDS: Aspirin 81 mg Enteric Coated Tablet PO SCH (08:54)
[2019-10-18] MEDS: Atorvastatin Calcium 10 MG TAB PO SCH (08:54)
[2019-10-18] MEDS: Enoxaparin Sodium 40 MG/0.4 ML SYRINGE SC SCH (08:54)
[2019-10-18] MEDS: Gabapentin 100 MG CAP PO SCH ×3 (08:54→21:22)
[2019-10-18] MEDS: Metoclopramide HCl 10 MG TAB PO SCH ×3 (08:54→21:22)
[2019-10-18] MEDS: Ubidecarenone 50 MG CAP PO SCH (08:54)
[2019-10-18] MEDS ORDERED: Mometasone Furoate 120 PUFF 220 MCG INH SCH (18:30)
[2019-10-18] MEDS: Insulin Glargine 15 UNITS in Pre-Filled Syringe 1 EACH SC SCH (21:41)
[2019-10-19] MEDS: HYDROcodone/Acetaminophen 10/325 mg Tablet PO PRN ×5 (00:17→21:02)
[2019-10-19] MEDS: HumaLOG 300 UNITS/3 ML VIAL SC PRN ×2 (04:29→21:03)
--- NOTE | 2019-10-19 05:54 | PDOC.FM ---
- Subjective Subjective: Pt is doing well this morning and near baseline. No acute events overnight. Pt did not received lantus last night but was due to miscommunication as patient is getting both short and long acting insulin and pt did not understanding difference. Explained this AM and pt agreeable to Lantus. Pt states breathing is near baseline, has home O2 and states he will start to use. No CP, fever/ chills, n/v. Tolerating PO well and voiding and stooling without difficulty. Pt does not ambulate much at home 2/2 R AKA, but does use crutches and has home powerchair. - Objective MAR Reviewed: Yes Vital Signs & Weight: Vital Signs (12 hours) Temp Pulse Resp BP Pulse Ox 10/19/19 03:17 82 16 92 L 10/18/19 22:55 86 16 93 L 10/18/19 21:22 84 10/18/19 21:05 98.2 F 84 20 168/63 H 92 L 10/18/19 20:00 96 10/18/19 18:14 85 16 92 L Weight Admit Weight 46.72 kg Weight 46.72 kg I&O: 10/17/19 10/18/19 10/19/19 06:59 06:59 06:59 Output Total 350 Balance -350 Result Diagrams: 10/19/19 05:49 10/19/19 05:49 Phys Exam - Physical Examination Constitutional: NAD (resting comfortably in bed, good spirits) HEENT: moist MMs Neck: supple Respiratory: no rales, no rhonchi decreased aeration throughout, mild end-exp wheeze Cardiovascular: RRR, no significant murmur, no rub Gastrointestinal: soft, non-tender, no distention, positive bowel sounds R AKA, no s/s of infection. Neurological: non-focal, moves all 4 limbs Psychiatric: normal affect, A&O x 3 Deviation from normal: L finger wound, chronic in nature per pt, no erythema, drainage, warmth. -: Dressing in place Dx/Plan (1) Chronic obstructive pulmonary disease with acute exacerbation Code(s): J44.1 - CHRONIC OBSTRUCTIVE PULMONARY DISEASE W (ACUTE) EXACERBATION Status: Acute (2) CAD (coronary artery disease) Code(s): I25.10 - ATHSCL HEART DISEASE OF [place] CORONARY ARTERY W/O ANG PCTRS Status: Chronic Qualifiers: Coronary Disease-Associated Artery/Lesion type: [place] artery [place] vs. transplanted heart: [place] heart Associated angina: without angina Qualified Code(s): I25.10 - Atherosclerotic heart disease of [place] coronary artery without angina pectoris (3) DM2 (diabetes mellitus, type 2) Status: Chronic Qualifiers: Diabetes mellitus tank terminal gauger insulin use: with tank terminal gauger use Diabetes mellitus complication status: with other specified complication Qualified Code (s): E11.69 - Type 2 diabetes mellitus with other specified complication; Z79.4 - intermediate (current) use of insulin (4) HTN (hypertension) Code(s): I10 - ESSENTIAL (PRIMARY) HYPERTENSION Status: Chronic Qualifiers: Hypertension type: essential hypertension Qualified Code(s): I10 - Essential (primary) hypertension - Plan Plan: 59yo CM with h/o COPD and CAD presents with COPD exacerbation #Acute hypoxic respiratory failure 2/2 COPD exacerbation - Initially on up to 4L NC, this morning able to down titrate to 0.5L and satting 88-90% - Pt has home O2 but has not been using, likely will need to cont to use - CXR - no acute CP process or focal consolidation - Levoquin 750 mg x5 days (Day 2), prednisone 40 mg daily x5 days (Day 2), Duonebs q4h schd with prn - Procalcitonin 0.04, WBC 8.5 - Clinically improved this morning and pt states nearing baseline. CM consulted for assistance with HH as patient has limited mobility due to R AKA, COPD, and uncontrolled DM. Would benefit from home PT/Woundcare/OT - nearing discharge, will need continued close OP f/u with PCP and pulm #h/o HFrEF - EF 25% on echo done 12/2018. Repeat Echo this admission EF 55-60% with hypokinetic apex - Started SAKINA-I at this admission. Cont home ASA, Statin, BB - No s/s of CHf exacerbation at this time, euvolemic on exam, will cont to monitor and consider prn lasix if warranted #CAD - LBBB on EKG, no acute changes, no CP. Will cont to monitor and cont home meds #DM type II, uncontrolled - Cont home lantus, refused last night, will give this AM - BG 200-500, cont moderate SS, likely will need increased lantus dose however difficult to titrate with missed doses. Needs close OP f/u - CC diet. [facility] accuchecks - no further episodes of hypoglycemia, will monitor #HTN - Continue home medications, addition of SAKINA this hospitalization. BP still not at goal, may need increased to 20mg lisinopril but will need OP f/u for adjustments, cont to monitor at this time # HLD - continue home meds # Tobacco Abuse Hx - encourage cessation, pt states he is quitting # GERD - continue home meds # Anxiety/Depression - continue home meds # L Hand Lesion - wound care consulted, pt states from peripheral artery disease and he is s/p arterial grafting # Right AKA - from previous blood clot per pt, PT consulted, CM for HH Fluids: SL Diet: CC VTE: Lovenox Code: Full Dispo: Admit to inpt medical, cont current management and monitor resp status. Anticipate discharge today vs tomorrow pending clinical course. Addendum - Attending - Attending Attestation Date/Time: 10/19/19 3435 I personally evaluated the patient and discussed the management with Dr. Rea. I agree with the History, Examination, Assessment and Plan documented above with any addition or exceptions noted below. Patient doing well. Almost off supplemental O2. He continues on treatment for acute on chronic hypoxia from COPD. He reports he has an oxygen concentrator at home as he has previously been on O2 therapy. We will send paperwork to get him portable tanks. He absolutely qualifies for O2 therapy based on room air sats. Otherwise he is feeling well. Needs improved glycemic control but his insulin admin thus far has been inconsistent.
[2019-10-19 06:12] LABS: #Lymphocytes 0.9 thou/uL (1.20-3.40); #Monocytes 0.4 thou/uL (0.11-0.59); #Neutrophils 6.5 thou/uL (1.40-6.50); %Basophils 0.2 % (0.0-1.0); %Eosinophils 0.1 % (0.0-10.0); %Lymphocytes 11.8 % (21.0-51.0); %Monocytes 4.8 % (0.0-10.0); %Neutrophils 83.1 % (42.0-75.0); Hemoglobin 11.1 g/dL (14.0-18.0); Mean Corpuscular HGB CONC 32.7 g/dL (32.0-36.0); Mean Corpuscular Hemoglobin 31.6 pg (27.0-31.0); Mean Corpuscular Volume 96.6 fL (78.0-98.0); Mean Platelet Volume 8.7 fL (7.4-10.4); Platelet Count 131 thou/uL (130-400); RBC Distribution Width 12.2 % (11.5-14.5); Red Blood Cell (RBC) Count 3.51 mill/uL (4.70-6.10); White Blood Cell (WBC) Count 7.8 thou/uL (4.8-10.8)
[2019-10-19] MEDS: Mometasone 100 MCG HFA INHALER INH SCH ×2 (06:27→18:07)
[2019-10-19 06:34] LABS: ALT (SGPT) 7 U/L (8-55); AST (SGOT) 6 U/L (5-34); Albumin 2.7 g/dL (3.5-5.0); Alkaline Phosphatase 63 U/L (40-110); Anion Gap 12 mmol/L (10-20); BUN (Urea Nitrogen) 17 mg/dL (8.4-25.7); Bilirubin, Total 0.3 mg/dL (0.2-1.2); Calc. Creatinine Clearance 60 mL/min (70-130); Calcium 8.6 mg/dL (7.8-10.44); Carbon Dioxide 30 mmol/L (22-29); Chloride 97 mmol/L (98-107); Estimated GFR-MDRD Greater than 90; Globulin 3.1 g/dL (2.4-3.5); Glucose 349 mg/dL (70-105); Potassium 3.3 mmol/L (3.5-5.1); Protein, Total 5.8 g/dL (6.0-8.3); Sodium 136 mmol/L (136-145)
[2019-10-19] MEDS ORDERED: Insulin Glargine 15 UNITS in Pre-Filled Syringe 1 EACH SC SCH (07:00)
[2019-10-19] MEDS: Ubidecarenone 50 MG CAP PO SCH (07:24)
[2019-10-19] MEDS: Aspirin 81 mg Enteric Coated Tablet PO SCH (07:24)
[2019-10-19] MEDS: Enoxaparin Sodium 40 MG/0.4 ML SYRINGE SC SCH (07:24)
[2019-10-19] MEDS: Atorvastatin Calcium 10 MG TAB PO SCH (07:25)
[2019-10-19] MEDS: Carvedilol 25 MG TAB PO SCH ×2 (07:25→16:43)
[2019-10-19] MEDS: hydrALAZINE 25 MG TAB PO SCH ×3 (07:25→20:59)
[2019-10-19] MEDS: Gabapentin 100 MG CAP PO SCH ×3 (07:25→21:50)
[2019-10-19] MEDS: predniSONE 20 MG TAB PO SCH (07:25)
[2019-10-19] MEDS: Metoclopramide HCl 10 MG TAB PO SCH ×3 (07:26→20:45)
[2019-10-19] MEDS: Lisinopril 10 MG TAB PO SCH (07:26)
--- NOTE | 2019-10-19 11:49 | PDOC.BPN ---
- Brief Progress Note Pt evaluated for home O2. Desat to 82% on RA at rest. Pt has chronic COPD and has home O2 machine but has never used. Pt needs to continue home O2 and arrange for portable O2 for continuous 2L NC to keep sats 88-92%. CM consulted for assistance.
[2019-10-19] MEDS ORDERED: Tamsulosin HCl 0.4 MG CAP PO SCH (13:15)
[2019-10-19] MEDS: Insulin Glargine 15 UNITS in Pre-Filled Syringe 1 EACH SC SCH (21:02)
[2019-10-20] MEDS: HYDROcodone/Acetaminophen 10/325 mg Tablet PO PRN ×6 (00:32→22:45)
--- NOTE | 2019-10-20 05:38 | PDOC.FM ---
- Subjective Subjective: Doing well this morning, no acute events overnight. SOB much improved and states breathing at baseline. No fever/chills, CP, n/v. Deshpande placed yesterday 2 /2 bladder scan demonstrating >999cc and feeling of pressure, hesitation. Pt states he had a deshpande many years ago, but had been doing well since until hospitalization in [place]. Had deshpande placed there that was removed upon transfer. Since hospitilization here, was able to void but slowly unable to with increased pressure and pain. Pain and pressure relieved with deshpande placement. States no hesitation or nocturia at home. Pt was also denied home O2 but approved for HH who can re-eval pt for home O2 once completed abx and steroids. Pt states he plans to [place] pay for portable O2 tank in meantime. Tolerating PO well and He is eager for discharge when appropriate. - Objective MAR Reviewed: Yes Vital Signs & Weight: Vital Signs (12 hours) Temp Pulse Resp BP Pulse Ox 10/20/19 02:06 84 16 95 10/20/19 00:00 147/79 H 10/19/19 21:32 78 16 96 10/19/19 20:59 78 10/19/19 20:00 97 10/19/19 19:51 98 F 78 18 189/97 H 96 10/19/19 18:06 85 16 95 Weight Admit Weight 46.72 kg Weight 46.72 kg I&O: 10/18/19 10/19/19 10/20/19 06:59 06:59 06:59 Intake Total 720 Output Total 350 Balance -350 720 Result Diagrams: 10/20/19 05:47 10/20/19 05:47 Phys Exam - Physical Examination Constitutional: NAD (resting comfortably, good spirits) HEENT: moist MMs Neck: supple Respiratory: no wheezing, no rales, no rhonchi, clear to auscultation bilateral (slight decreased aeration throughout but overall much improved from admission) Cardiovascular: RRR, no significant murmur, no rub Gastrointestinal: soft, non-tender, no distention, positive bowel sounds Deshpande in place - dark, yellow urine R AKA Neurological: moves all 4 limbs Psychiatric: normal affect, A&O x 3 Dx/Plan (1) Chronic obstructive pulmonary disease with acute exacerbation Code(s): J44.1 - CHRONIC OBSTRUCTIVE PULMONARY DISEASE W (ACUTE) EXACERBATION Status: Acute (2) CAD (coronary artery disease) Code(s): I25.10 - ATHSCL HEART DISEASE OF [place] CORONARY ARTERY W/O ANG PCTRS Status: Chronic Qualifiers: Coronary Disease-Associated Artery/Lesion type: [place] artery [place] vs. transplanted heart: [place] heart Associated angina: without angina Qualified Code(s): I25.10 - Atherosclerotic heart disease of [place] coronary artery without angina pectoris (3) DM2 (diabetes mellitus, type 2) Status: Chronic Qualifiers: Diabetes mellitus care home insulin use: with medical terminologist use Diabetes mellitus complication status: with other specified complication Qualified Code (s): E11.69 - Type 2 diabetes mellitus with other specified complication; Z79.4 - termination clerk (current) use of insulin (4) HTN (hypertension) Code(s): I10 - ESSENTIAL (PRIMARY) HYPERTENSION Status: Chronic Qualifiers: Hypertension type: essential hypertension Qualified Code(s): I10 - Essential (primary) hypertension - Plan Plan: 59yo CM with h/o COPD and CAD presents with COPD exacerbation #Acute hypoxic respiratory failure 2/2 COPD exacerbation, improving - Initially on up to 4L NC, able to down titrate to 2L this AM and satting mid- 90s - Pt has home O2 but has not been using, RA at rest was 82% on testing yesterday , pt will need to cont to use supp O2 at home however was denied by insurance for re-eval after acute COPD exacerbation - CXR - no acute CP process or focal consolidation - Levoquin 750 mg x5 days (Day 3/5), prednisone 40 mg daily x5 days (Day 3/5), Duonebs q4h schd with prn - Procalcitonin 0.04, WBC 8.5 - Much improved this morning and near baseline. CM consulted for HH and has arranged for at home upon discharge. - nearing discharge from respiratory standpoint, will need continued close OP f/ u with PCP and pulm #Urinary retention - Had deshpande in [place], progressive worsening of retention this hospilization , deshpande placed 10/18 - Started on flomax - Will try bladder training this AM and consider urology consult for eval vs discharge with follow for OP urology f/u #h/o HFrEF - EF 25% on echo done 12/2018. Repeat Echo this admission EF 55-60% with hypokinetic apex - Started SAKINA-I at this admission. Cont home ASA, Statin, BB - No s/s of CHf exacerbation at this time, euvolemic on exam, no s/s of acute CHF exacerbation #CAD - LBBB on EKG, no acute changes, no CP. Will cont to monitor and cont home meds #DM type II, uncontrolled - Cont home lantus 15u - BG 200-400, cont moderate SS, Will consider increase Lantus by 2u this Am to 17u daily. Needs close OP f/u and likely further titration. - CC diet. [facility] accuchecks - no further episodes of hypoglycemia, will monitor #HTN - Continue home medications, addition of SAKINA this hospitalization, increased this AM to 20mg lisinopril as BP still not at goal. Cont to monitor and will need close OP f/u # HLD - continue home meds # Tobacco Abuse Hx - encourage cessation, pt states he is quitting # GERD - continue home meds # Anxiety/Depression - continue home meds # L Hand Lesion - wound care consulted, pt states from peripheral artery disease and he is s/p arterial grafting # Right AKA - from previous blood clot per pt, PT consulted, CM for HH Fluids: SL Diet: CC VTE: Lovenox Code: Full Dispo: Admit to inpt medical, cont current management and monitor resp status. Newly developed urinary rentention. Consider urology consult. Anticipate discharge today vs tomorrow pending clinical course. Addendum - Attending - Attending Attestation Date/Time: 10/20/19 9445 I personally evaluated the patient and discussed the management with Dr. Rea. I agree with the History, Examination, Assessment and Plan documented above with any addition or exceptions noted below.
[2019-10-20] MEDS ORDERED: Potassium Chloride 20 MEQ TAB PO SCH ×2 (05:45→07:00)
[2019-10-20 06:09] LABS: #Lymphocytes 1.5 thou/uL (1.20-3.40); #Monocytes 0.5 thou/uL (0.11-0.59); #Neutrophils 5.1 thou/uL (1.40-6.50); %Basophils 0.2 % (0.0-1.0); %Eosinophils 0.1 % (0.0-10.0); %Lymphocytes 21.4 % (21.0-51.0); %Monocytes 7.6 % (0.0-10.0); %Neutrophils 70.8 % (42.0-75.0); Hemoglobin 10.6 g/dL (14.0-18.0); Mean Corpuscular HGB CONC 33.1 g/dL (32.0-36.0); Mean Corpuscular Hemoglobin 31.6 pg (27.0-31.0); Mean Corpuscular Volume 95.6 fL (78.0-98.0); Mean Platelet Volume 8.1 fL (7.4-10.4); Platelet Count 140 thou/uL (130-400); RBC Distribution Width 12.1 % (11.5-14.5); Red Blood Cell (RBC) Count 3.37 mill/uL (4.70-6.10); White Blood Cell (WBC) Count 7.1 thou/uL (4.8-10.8)
[2019-10-20 06:34] LABS: ALT (SGPT) 7 U/L (8-55); AST (SGOT) 9 U/L (5-34); Albumin 2.6 g/dL (3.5-5.0); Alkaline Phosphatase 66 U/L (40-110); Anion Gap 7 mmol/L (10-20); BUN (Urea Nitrogen) 18 mg/dL (8.4-25.7); Bilirubin, Total 0.3 mg/dL (0.2-1.2); Calc. Creatinine Clearance 66 mL/min (70-130); Calcium 8.7 mg/dL (7.8-10.44); Carbon Dioxide 35 mmol/L (22-29); Chloride 98 mmol/L (98-107); Estimated GFR-MDRD Greater than 90; Globulin 2.8 g/dL (2.4-3.5); Glucose 65 mg/dL (70-105); Potassium 3.7 mmol/L (3.5-5.1); Protein, Total 5.4 g/dL (6.0-8.3); Sodium 136 mmol/L (136-145)
[2019-10-20 06:44] LABS: Magnesium 1.6 mg/dL (1.6-2.6); Phosphorus 3.8 mg/dL (2.3-4.7)
[2019-10-20] MEDS: Mometasone 100 MCG HFA INHALER INH SCH ×2 (07:09→19:54)
[2019-10-20] MEDS: Ubidecarenone 50 MG CAP PO SCH (08:55)
[2019-10-20] MEDS: Aspirin 81 mg Enteric Coated Tablet PO SCH (08:56)
[2019-10-20] MEDS: Metoclopramide HCl 10 MG TAB PO SCH ×3 (08:56→20:09)
[2019-10-20] MEDS: hydrALAZINE 25 MG TAB PO SCH ×3 (08:58→22:31)
[2019-10-20] MEDS: Tamsulosin HCl 0.4 MG CAP PO SCH (08:59)
[2019-10-20] MEDS: Gabapentin 100 MG CAP PO SCH ×3 (09:00→20:09)
[2019-10-20] MEDS: Lisinopril 20 MG TAB PO SCH (09:00)
[2019-10-20] MEDS: Atorvastatin Calcium 10 MG TAB PO SCH (09:00)
[2019-10-20] MEDS: Carvedilol 25 MG TAB PO SCH ×2 (09:00→18:09)
[2019-10-20] MEDS: predniSONE 20 MG TAB PO SCH (09:00)
[2019-10-20] MEDS: Enoxaparin Sodium 40 MG/0.4 ML SYRINGE SC SCH (09:01)
[2019-10-20] MEDS: HumaLOG 300 UNITS/3 ML VIAL SC PRN ×3 (13:08→23:59)
[2019-10-20] MEDS ORDERED: Melatonin 3 MG TAB PO PRN (13:16)
[2019-10-20] MEDS: hydrOXYzine Pamoate 25 mg Capsule PO PRN ×2 (14:22→22:41)
--- NOTE | 2019-10-20 16:25 | PDOC.BPN ---
- Brief Progress Note Called to examine pt as has had increased SOB, increased O2 requirement to 3L, and episodes of diaphoresis, and increased anxiety throughout the day. Vitals taken at time of examine, pt afebrile, HR 70s, SBP 160s, 95% on 3L, RR low 20s. BG 200s. Pt diaphoretic. Lungs tight with decreased aeration and slight end-exp wheeze, heart RRR, no LE edema. Euvolemic on exam. Abd benign. Bedside CXR obtained with no focal acute CPP, await official read by radiologist. Due to change in status will obtain CBC, CMP, Procal, Trop, BNP, D-dimer and EKG. Pt has been getting steroids and states is very anxious, sxs improved with Vistaril. Will await results, suspect component of anxiety and steroid SE but will r/o other causes first.
--- NOTE | 2019-10-20 16:26 | RAD ---
XR Chest 1 View Portable HISTORY: Worsening shortness of breath, COPD exacerbation COMPARISON: 10/17/2019 FINDINGS: The heart size is normal. The lungs are well expanded without focal areas of consolidation, pneumothorax or pleural effusions. IMPRESSION: No radiographic evidence of acute cardiopulmonary process.
[2019-10-20 16:39] LABS: #Lymphocytes 0.5 thou/uL (1.20-3.40); #Monocytes 0.3 thou/uL (0.11-0.59); #Neutrophils 5.6 thou/uL (1.40-6.50); %Basophils 0.3 % (0.0-1.0); %Eosinophils 0.2 % (0.0-10.0); %Lymphocytes 8.1 % (21.0-51.0); %Monocytes 4.9 % (0.0-10.0); %Neutrophils 86.4 % (42.0-75.0); Hemoglobin 12.4 g/dL (14.0-18.0); Mean Corpuscular HGB CONC 32.6 g/dL (32.0-36.0); Mean Corpuscular Hemoglobin 31.5 pg (27.0-31.0); Mean Corpuscular Volume 96.7 fL (78.0-98.0); Platelet Count 156 thou/uL (130-400); Red Blood Cell (RBC) Count 3.94 mill/uL (4.70-6.10); White Blood Cell (WBC) Count 6.5 thou/uL (4.8-10.8)
[2019-10-20 17:07] LABS: ALT (SGPT) 9 U/L (8-55); AST (SGOT) 10 U/L (5-34); Albumin 2.9 g/dL (3.5-5.0); Alkaline Phosphatase 77 U/L (40-110); Anion Gap 11 mmol/L (10-20); BUN (Urea Nitrogen) 16 mg/dL (8.4-25.7); Bilirubin, Total 0.3 mg/dL (0.2-1.2); Calc. Creatinine Clearance 55 mL/min (70-130); Calcium 8.5 mg/dL (7.8-10.44); Carbon Dioxide 33 mmol/L (22-29); Chloride 97 mmol/L (98-107); Estimated GFR-MDRD 82; Globulin 2.9 g/dL (2.4-3.5); Glucose 217 mg/dL (70-105); Potassium 4.3 mmol/L (3.5-5.1); Protein, Total 5.8 g/dL (6.0-8.3); Sodium 137 mmol/L (136-145)
[2019-10-20 17:10] LABS: Troponin I 0.173 ng/mL (< 0.028)
[2019-10-20] MEDS ORDERED: Furosemide 20 MG/2 ML VIAL SLOW IVP SCH (18:00)
[2019-10-20] MEDS ORDERED: Enoxaparin Sodium 40 MG/0.4 ML SYRINGE SC SCH (18:00)
[2019-10-20 18:08] LABS: CKMB 2.7 ng/mL (0-6.6)
[2019-10-20] MEDS ORDERED: Nitroglycerin 2% Ointment 1 INCH/1 GM Packet TOP SCH (19:30)
[2019-10-20] MEDS ORDERED: Clopidogrel Bisulfate 300 MG TAB PO SCH (19:30)
[2019-10-20] MEDS ORDERED: Enoxaparin Sodium 30 MG/0.3 ML SYRINGE SC SCH (20:00)
[2019-10-20] MEDS: Insulin Glargine 15 UNITS in Pre-Filled Syringe 1 EACH SC SCH (22:30)
--- NOTE | 2019-10-20 23:31 | CON ---
DATE OF CONSULTATION: 10/20/2019 REASON FOR CONSULTATION: Shortness of breath, abnormal EKG. 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 Herrera is a pleasant 59-year-old gentleman with history of COPD as well as congestive heart failure and coronary artery disease, admitted with difficulty breathing and now is a very abnormal EKG. Mr. Herrera initially thought he had influenza as someone in the family had influenza, but he was tested for that and did not have that. He has been treated for couple days here in the hospital for COPD, but today his breathing worsened. He did not have any chest pain or pressure. EKG was very abnormal as will be outlined below. He is not having chest pain, but he does feel short of breath. The patient otherwise has been doing fair. He said he stopped smoking a month ago. MEDICATION: At home, he is taking aspirin. He is taking low-dose atorvastatin. His blood pressure has been elevated. He has also been put on lisinopril, as well as prednisone. REVIEW OF SYSTEMS: CONSTITUTIONAL: He feels hot. VISION: No changes. HEARING: No changes. PULMONARY: No cough or wheezing. GASTROINTESTINAL: No nausea, vomiting, or diarrhea. SKIN: No rashes. NEUROLOGIC: No unilateral weakness or numbness. PSYCHIATRIC: No unusual depression or anxiety. HEMATOLOGIC: No unusual bruising. GENITOURINARY: No burning with urination. PHYSICAL EXAMINATION: GENERAL: This is a thin 59-year-old gentleman, 5 feet 7 inches tall, 103 pounds. HEENT: Eyes, sclerae nonicteric. Mouth, mucous membranes moist. NECK: Supple. No lymphadenopathy. LUNGS: Clear. CARDIAC: Normal S1, normal S2. There is no murmur, rub, or gallop. ABDOMEN: Soft, nontender. EXTREMITIES: No clubbing or cyanosis. There is no edema. He has had a previous amputation of the right lower extremity. EKG does reveal a right bundle-branch block with T-wave inversion in the anterior leads. There was T-wave inversions on the as well, but they are deeper now. Looking at old EKGs, he did not have these changes. In one of his EKGs, he actually had a left bundle-branch block. Troponin level 0.17. Previous troponin level in december of 2018, 0.051. At that time, he did not have significant obstruction as catheterization. I did review previous catheterization films and note catheterization done in December of 2018, he had nonobstructive disease in his LAD and diffuse disease in his marginal branch of his circumflex and [id number] in-stent restenosis throughout a long area of stenting in the right coronary, but no obstructions. He had depressed left ventricular function at that time. ASSESSMENT: 1. Possible anginal equivalent causing difficulty breathing. 2. Chronic obstructive pulmonary disease is improved. PLAN: 1. He is to be on enoxaparin. 2. Nitrates. 3. Would likely proceed back to cardiac catheterization lab tomorrow. Dr. Newby to see patient in the morning. Job ID: [id number]
[2019-10-21 04:49] LABS: #Lymphocytes 1.1 thou/uL (1.20-3.40); #Monocytes 0.5 thou/uL (0.11-0.59); #Neutrophils 4.9 thou/uL (1.40-6.50); %Basophils 0.2 % (0.0-1.0); %Eosinophils 0.1 % (0.0-10.0); %Lymphocytes 16.7 % (21.0-51.0); %Monocytes 7.9 % (0.0-10.0); Hemoglobin 10.6 g/dL (14.0-18.0); Mean Corpuscular HGB CONC 33.6 g/dL (32.0-36.0); Mean Corpuscular Hemoglobin 32.2 pg (27.0-31.0); Mean Corpuscular Volume 95.6 fL (78.0-98.0); Mean Platelet Volume 8.7 fL (7.4-10.4); Platelet Count 139 thou/uL (130-400); RBC Distribution Width 11.9 % (11.5-14.5); Red Blood Cell (RBC) Count 3.29 mill/uL (4.70-6.10); White Blood Cell (WBC) Count 6.5 thou/uL (4.8-10.8)
[2019-10-21 05:16] LABS: ALT (SGPT) 7 U/L (8-55); AST (SGOT) 8 U/L (5-34); Albumin 2.5 g/dL (3.5-5.0); Alkaline Phosphatase 59 U/L (40-110); Anion Gap 9 mmol/L (10-20); BUN (Urea Nitrogen) 17 mg/dL (8.4-25.7); Bilirubin, Total 0.3 mg/dL (0.2-1.2); Calc. Creatinine Clearance 58 mL/min (70-130); Calcium 8.2 mg/dL (7.8-10.44); Carbon Dioxide 33 mmol/L (22-29); Chloride 94 mmol/L (98-107); Estimated GFR-MDRD 87; Globulin 2.8 g/dL (2.4-3.5); Glucose 304 mg/dL (70-105); Potassium 3.9 mmol/L (3.5-5.1); Protein, Total 5.3 g/dL (6.0-8.3); Sodium 132 mmol/L (136-145)
[2019-10-21] MEDS: Mometasone 100 MCG HFA INHALER INH SCH ×2 (05:49→23:38)
[2019-10-21] MEDS: Carvedilol 25 MG TAB PO SCH ×2 (05:56→17:24)
[2019-10-21] MEDS: Nitroglycerin 2% Ointment 1 INCH/1 GM Packet TOP SCH ×3 (05:56→21:10)
[2019-10-21] MEDS: Aspirin 81 mg Enteric Coated Tablet PO SCH (05:57)
[2019-10-21] MEDS: predniSONE 20 MG TAB PO SCH (05:57)
[2019-10-21] MEDS: hydrALAZINE 25 MG TAB PO SCH ×3 (05:57→19:50)
[2019-10-21] MEDS: Lisinopril 20 MG TAB PO SCH (05:57)
[2019-10-21] MEDS: Gabapentin 100 MG CAP PO SCH ×3 (05:57→19:51)
[2019-10-21] MEDS: Metoclopramide HCl 10 MG TAB PO SCH ×3 (05:57→19:51)
[2019-10-21] MEDS: Tamsulosin HCl 0.4 MG CAP PO SCH (05:58)
--- NOTE | 2019-10-21 07:43 | PDOC.FM ---
Addendum entered and electronically signed by Jose Juan Rea MD 10/21/19 08:27 : Pt also with QT prolongation on 12-lead EKG. Avoid QT prolonging medications. Original Note: - Subjective Subjective: Doing well this morning, no acute events overnight. Feeling better overall. No CP. No further episodes of diaphoresis or dyspnea. No fever/chills, n/v or pain. - Objective MAR Reviewed: Yes Vital Signs & Weight: Vital Signs (12 hours) Temp Pulse Resp BP Pulse Ox 10/21/19 07:42 95 10/21/19 05:57 91 10/21/19 05:51 95 10/21/19 05:49 95 10/21/19 03:20 98 F 91 18 175/91 H 95 10/21/19 00:00 95 10/20/19 23:42 72 178/84 H 10/20/19 22:31 83 10/20/19 19:56 96 10/20/19 19:55 95 10/20/19 19:54 96 Weight Admit Weight 46.72 kg Weight 46.72 kg I&O: 10/20/19 10/21/19 10/22/19 06:59 06:59 06:59 Intake Total 720 480 Output Total 1110 Balance 720 -630 Result Diagrams: 10/21/19 03:59 10/21/19 03:59 EKG Reviewed by me: Yes (Tele: 29 beat PAT otherwise NSR) Phys Exam - Physical Examination Constitutional: NAD (resting comfortable, good spirits, hungry) HEENT: PERRLA, moist MMs Neck: supple Respiratory: no rales, no rhonchi, clear to auscultation bilateral Improved, slight wheeze, better aeration, still decreased throughout Cardiovascular: RRR, no significant murmur, no rub Gastrointestinal: soft, non-tender, no distention, positive bowel sounds Musculoskeletal: no edema, pulses present R AKA Psychiatric: normal affect, A&O x 3 Dx/Plan (1) Chronic obstructive pulmonary disease with acute exacerbation Code(s): J44.1 - CHRONIC OBSTRUCTIVE PULMONARY DISEASE W (ACUTE) EXACERBATION Status: Acute (2) CAD (coronary artery disease) Code(s): I25.10 - ATHSCL HEART DISEASE OF [place] CORONARY ARTERY W/O ANG PCTRS Status: Chronic Qualifiers: Coronary Disease-Associated Artery/Lesion type: [place] artery [place] vs. transplanted heart: [place] heart Associated angina: without angina Qualified Code(s): I25.10 - Atherosclerotic heart disease of [place] coronary artery without angina pectoris (3) DM2 (diabetes mellitus, type 2) Status: Chronic Qualifiers: Diabetes mellitus correction insulin use: with correction use Diabetes mellitus complication status: with other specified complication Qualified Code (s): E11.69 - Type 2 diabetes mellitus with other specified complication; Z79.4 - FPC (current) use of insulin (4) HTN (hypertension) Code(s): I10 - ESSENTIAL (PRIMARY) HYPERTENSION Status: Chronic Qualifiers: Hypertension type: essential hypertension Qualified Code(s): I10 - Essential (primary) hypertension - Plan Plan: 59yo CM with h/o COPD and CAD presents with COPD exacerbation #Elevated troponin - Episode of dyspnea, increase O2, and diaphoresis on 10/19, CXR, EKG, and labs obtained - EKG with RBBB and T wave inversions, deeper than on previous - Trop 0.173 -> 0.170. BNP 1061 -> 1625 - Given Lasix 20mg IV x1 - Cardiology consulted, Dr. Junior, apprec recs. Given th lovenox, transferred to tele for monitoring, known to Dr Newby, considering heart cath - PAT on tele overnight, likely 2/2 COPD - No CP and sxs of dyspnea and diaphoresis improved, cont to monitor and await cards recs #Acute hypoxic respiratory failure 2/2 COPD exacerbation, improving - Initially on up to 4L NC, able to down titrate to 2L and satting mid-90s - Pt has home O2 but has not been using, RA at rest was 82% on testing, pt will need to cont to use supp O2 at home however was denied by insurance for re-eval after acute COPD exacerbation - CXR - no acute CP process or focal consolidation - s/p Levaquin. Prednisone 40mg daily, consider discontinuation today as have had >5d. cont Duonebs q6h with q2h prn - Exam improved this morning with better aeration and only slight wheeze - Procalcitonin 0.04, WBC 8.5 - CM consulted for HH and has arranged for at home upon discharge. #Elevated D-dimer - 1.21, has been on ppx lovenox since admit, no tachycardia, and O2 sat stable - low suspicion for PE at this time, consider CTA if change in clinical status #Urinary retention - Had deshpande in [place], progressive worsening of retention this hospitalization, deshpande placed 10/18 - Started on flomax - Urology, Dr. Morataya, consulted, apprec recs #h/o HFrEF and CAD - EF 25% on echo done 12/2018. Repeat Echo this admission EF 55-60% with hypokinetic apex - Started SAKINA-I at this admission. Cont home ASA, Statin, BB - No s/s of CHf exacerbation at this time, euvolemic on exam, no s/s of acute CHF exacerbation, give 1 dose lasix, cards consulted #DM type II, uncontrolled - Cont home lantus 15u - BG 200-400, with occasional episodes of hypoglycemia. Cont moderate SS, Will consider increase Lantus by 2u to 17u qhs. Needs close OP f/u and likely further titration. - CC diet. [facility] accuchecks - TSH WNL #HTN - Continue home medications, addition of SAKINA this hospitalization, increased 30mg lisinopril as BP still not at goal. Cont to monitor and will need close OP f/u # HLD - continue home meds # Tobacco Abuse Hx - encourage cessation, pt states he quit last month. 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 Newly developed urinary rentention, awaiting uro recs. Elevated trop and EKG changes, awaiting cards recs. Respiratory status improved. PT/OT/CM consulted for assistance with placement. Addendum - Attending - Attending Attestation Date/Time: 10/21/19 7354 I personally evaluated the patient and discussed the management with Dr. Rea. I agree with the History, Examination, Assessment and Plan documented above with any addition or exceptions noted below.
[2019-10-21] MEDS ORDERED: Lisinopril 10 MG TAB PO SCH (08:15)
[2019-10-21] MEDS: HYDROcodone/Acetaminophen 10/325 mg Tablet PO PRN ×3 (08:58→19:50)
[2019-10-21] MEDS ORDERED: Clopidogrel Bisulfate 75 MG TAB PO SCH (09:00)
[2019-10-21] MEDS ORDERED: Lisinopril 20 MG TAB PO SCH (09:00)
[2019-10-21] MEDS ORDERED: Enoxaparin Sodium 40 MG/0.4 ML SYRINGE SC SCH (09:00)
[2019-10-21] MEDS: hydrOXYzine Pamoate 25 mg Capsule PO PRN ×2 (10:45→13:54)
[2019-10-21] MEDS ORDERED: Communication Order-Pharmacy FS SCH (12:45)
[2019-10-21] MEDS: Ubidecarenone 50 MG CAP PO SCH (13:12)
[2019-10-21] MEDS: Sodium Chloride 0.9% 1,000 ML IV SCH ×2 (13:32→23:28)
[2019-10-21] MEDS ORDERED: Heparin 0 ML ONE (15:10)
[2019-10-21] MEDS ORDERED: Lidocaine 1% (PF) 30 ML VIAL ONE (15:10)
[2019-10-21] MEDS ORDERED: Iopamidol 370 76% 50 ML VIAL FS ONE (15:49)
[2019-10-21] MEDS ORDERED: Iopamidol 370 76% 100 ML VIAL ONE (15:49)
[2019-10-21] MEDS ORDERED: Heparin 10,000 UNITS/1 ML VIAL ONE (15:54)
[2019-10-21] MEDS ORDERED: Fentanyl 100 MCG/2 ML VIAL ONE (15:55)
[2019-10-21] MEDS ORDERED: Midazolam HCl 2 mg/2 ml Vial ONE (15:56)
[2019-10-21] MEDS ORDERED: Acetaminophen/Codeine 30-300mg Tablet PO PRN ×2 (16:39)
[2019-10-21] MEDS ORDERED: Sodium Chloride 0.9% 200 ML IV PRN (16:39)
[2019-10-21] MEDS ORDERED: Nitroglycerin 0.4 MG TAB (25 Tab Bottle) SL PRN (16:39)
[2019-10-21] MEDS: Atorvastatin Calcium 10 MG TAB PO SCH (19:51)
[2019-10-21] MEDS ORDERED: Insulin Glargine 17 UNITS in Pre-Filled Syringe 1 EACH SC SCH (21:00)
[2019-10-21] MEDS: Simethicone Chewable 80 MG TAB PO PRN (21:10)
[2019-10-21] MEDS ORDERED: hydrALAZINE 20 MG/ML VIAL SLOW IVP PRN (23:14)
[2019-10-22] MEDS: hydrOXYzine Pamoate 25 mg Capsule PO PRN ×2 (00:48→21:11)
[2019-10-22] MEDS: Simethicone Chewable 80 MG TAB PO PRN ×2 (00:48→12:10)
[2019-10-22 04:52] LABS: #Lymphocytes 1.5 thou/uL (1.20-3.40); #Monocytes 0.5 thou/uL (0.11-0.59); #Neutrophils 3.5 thou/uL (1.40-6.50); %Basophils 0.2 % (0.0-1.0); %Eosinophils 0.2 % (0.0-10.0); %Lymphocytes 27.3 % (21.0-51.0); %Monocytes 8.9 % (0.0-10.0); %Neutrophils 63.4 % (42.0-75.0); Hemoglobin 10.5 g/dL (14.0-18.0); Mean Corpuscular HGB CONC 33.1 g/dL (32.0-36.0); Mean Corpuscular Volume 96.7 fL (78.0-98.0); Mean Platelet Volume 8.2 fL (7.4-10.4); Platelet Count 138 thou/uL (130-400); RBC Distribution Width 11.8 % (11.5-14.5); Red Blood Cell (RBC) Count 3.27 mill/uL (4.70-6.10); White Blood Cell (WBC) Count 5.5 thou/uL (4.8-10.8)
[2019-10-22 05:34] LABS: ALT (SGPT) 8 U/L (8-55); AST (SGOT) 8 U/L (5-34); Albumin 2.6 g/dL (3.5-5.0); Alkaline Phosphatase 60 U/L (40-110); Anion Gap 12 mmol/L (10-20); BUN (Urea Nitrogen) 19 mg/dL (8.4-25.7); Bilirubin, Total 0.2 mg/dL (0.2-1.2); Calc. Creatinine Clearance 54 mL/min (70-130); Calcium 8.1 mg/dL (7.8-10.44); Carbon Dioxide 29 mmol/L (22-29); Chloride 95 mmol/L (98-107); Estimated GFR-MDRD 80; Globulin 2.7 g/dL (2.4-3.5); Glucose 432 mg/dL (70-105); Potassium 4.1 mmol/L (3.5-5.1); Protein, Total 5.3 g/dL (6.0-8.3); Sodium 132 mmol/L (136-145)
[2019-10-22] MEDS ORDERED: Ondansetron ODT 4 MG TAB PO PRN (06:02)
[2019-10-22] MEDS: Nitroglycerin 2% Ointment 1 INCH/1 GM Packet TOP SCH ×3 (06:14→21:20)
[2019-10-22] MEDS: HumaLOG 300 UNITS/3 ML VIAL SC PRN ×2 (06:15→12:10)
[2019-10-22] MEDS: HYDROcodone/Acetaminophen 10/325 mg Tablet PO PRN ×2 (06:41→12:10)
--- NOTE | 2019-10-22 07:09 | PDOC.FM ---
- Subjective Subjective: Had heart cath yesterday, tolerated well, told he had severe multi-vessel disease and could possibly be candidate for CABG and CV surg has been consulted. Overnight had 1 episode of elevated BP, controlled with prn hydralazine. BG control improved during day but higher last night requiring SS. Anxiety controlled with prn vistaril. This morning, no n/v, CP, dyspnea, abd pain. Had BM. Tolerating PO. Deshpande in place. Eager to speak with CV surg. - Objective MAR Reviewed: Yes Vital Signs & Weight: Vital Signs (12 hours) Temp Pulse Resp BP BP Pulse Ox 10/22/19 05:00 98.7 F 80 18 167/76 H 97 10/22/19 00:09 84 134/73 10/21/19 19:56 97.5 F L 78 18 197/93 H 100 10/21/19 19:50 197/93 H Weight Admit Weight 46.72 kg Weight 46.72 kg I&O: 10/21/19 10/22/19 10/23/19 06:59 06:59 06:59 Intake Total 480 360 Output Total 1110 800 Balance -630 -440 Result Diagrams: 10/22/19 04:39 10/22/19 04:39 EKG Reviewed by me: Yes (no acute events) Phys Exam - Physical Examination Constitutional: NAD (resting comfortably, good spirits, slightly anxious) HEENT: moist MMs Neck: supple Respiratory: no wheezing, no rales, no rhonchi, clear to auscultation bilateral improved this morning, decreased aerationg [place] Cardiovascular: RRR, no significant murmur, no rub Gastrointestinal: soft, non-tender, no distention, positive bowel sounds Musculoskeletal: no edema R aka Psychiatric: normal affect (anxious at time), A&O x 3 Dx/Plan (1) Chronic obstructive pulmonary disease with acute exacerbation Code(s): J44.1 - CHRONIC OBSTRUCTIVE PULMONARY DISEASE W (ACUTE) EXACERBATION Status: Acute (2) CAD (coronary artery disease) Code(s): I25.10 - ATHSCL HEART DISEASE OF [place] CORONARY ARTERY W/O ANG PCTRS Status: Chronic Qualifiers: Coronary Disease-Associated Artery/Lesion type: [place] artery [place] vs. 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: with laborer marine terminal use Diabetes mellitus complication status: with other specified complication Qualified Code (s): E11.69 - Type 2 diabetes mellitus with other specified complication; Z79.4 - shelter (current) use of insulin (4) HTN (hypertension) Code(s): I10 - ESSENTIAL (PRIMARY) HYPERTENSION Status: Chronic Qualifiers: Hypertension type: essential hypertension Qualified Code(s): I10 - Essential (primary) hypertension - Plan Plan: 59yo CM with h/o COPD and CAD presents with COPD exacerbation #Multi-vessel CAD with Elevated troponin - Episode of dyspnea, increase O2, and diaphoresis on 10/19, CXR, EKG, and labs obtained - EKG with RBBB and T wave inversions, deeper than on previous EKG - Trop 0.173 -> 0.170. BNP 1061 -> 1625 - Given Lasix 20mg IV x1 - Cardiology consulted, Dr. Junior, apprec recs. Given th lovenox, transferred to tele for monitoring, known to Dr Newby, heart cath on 10/20, awaiting official report but pt states multi-vessel disease, CV surg (Dr. Ramirez) consulted for possible surgical intervention, apprec recs and assistance. - No CP and sxs of dyspnea and diaphoresis improved, cont to monitor and await cards/CV recs #Acute hypoxic respiratory failure 2/2 COPD exacerbation, improving - Initially on up to 4L NC, able to down titrate to 2L and satting mid-90s - Pt has home O2 but has not been using, RA at rest was 82% on testing, pt will need to cont to use supp O2 at home however was denied by insurance for re-eval after acute COPD exacerbation - CXR - no acute CP process or focal consolidation - s/p Levaquin and Prednisone course. Cont Duonebs q6h with q2h prn - Exam improved this morning with better aeration - Procalcitonin 0.04, WBC 8.5 - CM consulted for HH and has arranged for discharge. #Elevated D-dimer - 1.21, has been on ppx lovenox since admit, no tachycardia, and O2 sat stable - low suspicion for PE at this time, consider CTA if change in clinical status #QT prolongation - On SSRI, will monitor on tele, avoid other QT prolonging medications #Urinary retention - Had deshpande in [place], progressive worsening of retention this hospitalization, deshpande placed 10/18 - Started on flomax - Urology, Dr. Morataya, consulted, apprec recs #h/o HFrEF and CAD - EF 25% on echo done 12/2018. Repeat Echo this admission EF 55-60% with hypokinetic apex - Started SAKINA-I at this admission. Cont home ASA, Statin, BB - No s/s of CHF exacerbation at this time, euvolemic on exam, no s/s of acute CHF exacerbation, give 1 dose lasix, cards consulted #DM type II, uncontrolled - Cont home lantus 15u - BG 100s-400s, no further hypoglycemia. Cont moderate SS, Increased lantus to 17u last night, will monitor today and consider increase dose to 20u this PM. Needs close OP f/u and likely further titration. - CC diet. [facility] accuchecks - TSH WNL #HTN - Continue home medications, addition of SAKINA this hospitalization, will increase to 40mg daily. Cont to monitor and will need close OP f/u # HLD - continue home meds # Tobacco Abuse Hx - encourage cessation, pt states he quit last month. # GERD - continue home meds # Anxiety/Depression - continue Zoloft. Vistaril prn. 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 Newly developed urinary rentention, awaiting uro recs. Elevated trop and EKG changes, Multi-vessel disease on cath. Awaiting CV surg recs. Respiratory status improved. PT/OT/CM consulted for assistance with placement.
[2019-10-22] MEDS: Mometasone 100 MCG HFA INHALER INH SCH ×2 (07:29→19:17)
[2019-10-22] MEDS: Sodium Chloride 0.9% 1,000 ML IV SCH ×2 (08:21→20:51)
[2019-10-22] MEDS: Metoclopramide HCl 10 MG TAB PO SCH ×3 (08:25→20:53)
[2019-10-22] MEDS: Aspirin 81 mg Enteric Coated Tablet PO SCH (08:25)
[2019-10-22] MEDS: Lisinopril 20 MG TAB PO SCH (08:25)
[2019-10-22] MEDS: Ubidecarenone 50 MG CAP PO SCH (08:25)
[2019-10-22] MEDS: Gabapentin 100 MG CAP PO SCH ×3 (08:25→20:53)
[2019-10-22] MEDS: hydrALAZINE 25 MG TAB PO SCH ×3 (08:25→20:53)
[2019-10-22] MEDS: Tamsulosin HCl 0.4 MG CAP PO SCH (08:26)
[2019-10-22] MEDS: Carvedilol 25 MG TAB PO SCH ×2 (08:26→16:43)
--- NOTE | 2019-10-22 10:23 | CON ---
DATE OF CONSULTATION: HISTORY OF PRESENT ILLNESS: This is a 59-year-old gentleman who was hospitalized in [place] with treatment for pneumonia with antibiotics. He was then transferred here for further care where he was treated with oral steroids and nebulizer treatments and gradual improvement in his symptoms. He does have a history of COPD and sees Dr. Richardson, and does have a smoking history of up to 2 packs a day, having only quit about in the past 2 to 3 months. He was noted to have an abnormal EKG with T-wave inversions on admission and his troponin had bumped slightly. He had a history of coronary artery disease, undergoing emergency right coronary stent in [address] Newby. He has a longstanding history of peripheral vascular disease, having undergone embolectomy of the right common femoral artery followed by a BKA and AKA amputation by Dr. Sharma. He then underwent a left femoral to popliteal bypass with saphenous vein by Dr. Sharma for worsening claudication. He has had a history of ischemic ulcers on his hand, dating back several years, and most recently had debridement of his left index finger in an attempt at bypass of his upper extremity vessels in [place], and this was not able to be done, although he did have the surgery. PAST MEDICAL HISTORY: Otherwise includes: 1. Hypertension. 2. Diabetes mellitus. 3. History of pancreatitis. 4. Diverticular disease. PAST SURGICAL HISTORY: Includes: 1. Surgical treatment for necrotizing pancreatitis and pseudocyst drainage. 2. He has had right femoral embolectomy. 3. BK and AK amputation. 4. He has had a left fem-pop bypass with saphenous vein. 5. Had a colostomy and colostomy closure for diverticular disease. 6. He has had some sort of attempted vascular procedure on his left forearm, most recently in [place]. 7. He has had a remote cholecystectomy. SOCIAL HISTORY: The patient is nonambulatory, get surrounding with a wheelchair. He was smoking up until 6 weeks ago, 2 packs a day by his account. He is accompanied by his . PHYSICAL EXAMINATION: GENERAL: He is a small statured gentleman with strands. VITAL SIGNS: Recorded height 5 feet 7 inches, recorded weight of 103 pounds, blood pressure 160/70. NECK: No carotid bruits. LUNGS: Clear to auscultation anteriorly. CARDIAC: No murmurs. Regular rate and rhythm. ABDOMEN: Nontender. EXTREMITIES: He has palpable femoral pulses as well as a good pulse in his left femoral-popliteal graft and a good posterior tibial pulse. He has a dressing on his left hand and has healed incisions on his left forearm. DIAGNOSTIC STUDIES: Cardiac catheterization was reviewed and he has about 30% to 40% left main, 70% LAD, which seems to have progressed somewhat from a cardiac catheterization in December of last year. He has circumflex disease of about 60% to 70% to a small OM and his right coronary artery is totally stented with some mild in-stent stenosis. His EKG shows a right bundle-branch block with T-wave inversion. Cardiac echo, EF 55%. DISCUSSION: The patient could potentially have a BRAGG bypass graft to the LAD and perhaps a saphenous vein graft to the small OM, if his saphenous vein in his left lower leg was usable, whether this would be done this admission or after his upper respiratory symptoms have completely cleared would be another option. I will discuss the case further with Dr. Sharma when he returns from the weekend and leave final decisions . Job ID: [id number]
[2019-10-22] MEDS ORDERED: Enoxaparin Sodium 30 MG/0.3 ML SYRINGE SC SCH (11:15)
[2019-10-22] MEDS ORDERED: Enoxaparin Sodium 40 MG/0.4 ML SYRINGE SC SCH (12:00)
--- NOTE | 2019-10-22 13:45 | PDOC.CPN ---
- Subjective Date: 10/22/19 Time: 13:00 Interval history: Patient upset. Will not tell me why. Will not admit to symptoms. Does report weakness today. - Review of Systems General: denies: fever/chills, weight/appetite/sleep changes, night sweats, fatigue Respiratory: denies: cough, congestion, shortness of breath, exercise intolerance Cardiovascular: denies: chest pain, palpitation, edema, paroxysmal nocturnal dyspnea, orthopnea Gastrointestinal: denies: nausea, vomiting, diarrhea, constipation, abd pain, GI bleeding Musculoskeletal: denies: pain, tenderness, stiffness, swelling, arthritis/ arthralgias Neurological: reports: weakness - Objective Allergies/Adverse Reactions: Allergies Allergy/AdvReac Type Severity Reaction Status Date / Time morphine AdvReac Severe Verified 10/18/19 01:28 Visit Medications: Current Medications Acetaminophen (Tylenol) 650 mg PO Q4H PRN PRN Reason: Headache/Fever/Mild Pain (1-3) Acetaminophen/Codeine Phosphate (Tylenol #3) 1 tab PO Q4H PRN PRN Reason: Mild Pain (1-3) Acetaminophen/Codeine Phosphate (Tylenol #3) 2 tab PO Q4H PRN PRN Reason: Moderate Pain (4-6) Hydrocodone Bitart/Acetaminophen ([place] 10/325) 1 tab PO 5XD PRN PRN Reason: Moderate Pain (4-6) Last Admin: 10/22/19 12:10 Dose: 1 tab Albuterol/Ipratropium (Duoneb) 3 ml NEB Q4H PRN PRN Reason: SOB &/or Wheezing Last Admin: 10/20/19 13:53 Dose: 3 ml Albuterol/Ipratropium (Duoneb) 3 ml NEB [id number] [facility] Last Admin: 10/22/19 13:27 Dose: 3 ml Aspirin (Ecotrin) 81 mg PO DAILY [facility] Last Admin: 10/22/19 08:25 Dose: 81 mg Atorvastatin Calcium (Lipitor) 10 mg PO HS [facility] Last Admin: 10/21/19 19:51 Dose: 10 mg Carvedilol (Coreg) 25 mg PO BID-WM [facility] Last Admin: 10/22/19 08:26 Dose: 25 mg Coenzyme Q10 (Coenzyme Q10) 200 mg PO DAILY [facility] Last Admin: 10/22/19 08:25 Dose: 200 mg Dextrose/Water (Dextrose 50%) 25 gm SLOW IVP PRN PRN PRN Reason: Hypoglycemia Last Admin: 10/17/19 23:26 Dose: 25 gm Enoxaparin Sodium (Lovenox) 40 mg SC 0900 [facility] Stop: 10/24/19 09:01 Gabapentin (Neurontin) 100 mg PO TID [facility] Last Admin: 10/22/19 08:25 Dose: 100 mg Glucagon (Glucagon) 1 mg IM PRN PRN PRN Reason: Hypoglycemia Hydralazine HCl (Apresoline) 50 mg PO TID [facility] Last Admin: 10/22/19 08:25 Dose: 50 mg Hydralazine HCl (Apresoline) 10 mg SLOW IVP Q4H PRN PRN Reason: SBP Greater Than 180 Last Admin: 10/21/19 23:35 Dose: 10 mg Hydroxyzine Pamoate (Vistaril) 25 mg PO TID PRN PRN Reason: Anxiety/Insomnia Last Admin: 10/22/19 00:48 Dose: 25 mg Dextrose/Water (D5w) 1,000 mls @ 0 mls/hr IV .Q0M PRN PRN Reason: Hypoglycemia Sodium Chloride (Normal Saline 0.9%) 1,000 mls @ 100 mls/hr IV .Q10H [facility] Last Admin: 10/22/19 08:21 Dose: Not Given Sodium Chloride (Normal Saline 0.9%) 200 mls @ 0 mls/hr IV PRN PRN PRN Reason: SBP < 90 Insulin Glargine 20 units/ (Miscellaneous Medication) 0.2 mls @ 0 mls/hr SC [facility] Insulin Human Lispro (Humalog) 0 units SC .BEDTIME SLIDING SC PRN PRN Reason: Bedtime Correctional Scale Last Admin: 10/20/19 23:59 Dose: 5 unit Insulin Human Lispro (Humalog) 0 units SC .MODERATE SLIDING SC PRN; Protocol PRN Reason: MODERATE SLIDING SCALE Last Admin: 10/22/19 12:10 Dose: 2 unit Lisinopril (Zestril) 40 mg PO DAILY [facility] Last Admin: 10/22/19 08:25 Dose: 40 mg Melatonin (Melatonin) 3 mg PO HS PRN PRN Reason: Insomnia Last Admin: 10/22/19 00:48 Dose: 3 mg Metoclopramide HCl (Reglan) 10 mg PO TID [facility] Last Admin: 10/22/19 08:25 Dose: 10 mg Mometasone Furoate (Asmanex Hfa 100 Mcg) 1 puff INH BID-RT [facility] Last Admin: 10/22/19 07:29 Dose: 1 puff Nitroglycerin (Nitro-Bid 2% Ointment) 1 inch TOP Q8HR [facility] Last Admin: 10/22/19 06:14 Dose: Not Given Nitroglycerin (Nitrostat) 0.4 mg SL Q5MIN PRN PRN Reason: Chest Pain Ondansetron HCl (Zofran Odt) 4 mg PO Q6H PRN PRN Reason: Nausea/Vomiting Last Admin: 10/22/19 06:15 Dose: 4 mg Pantoprazole Sodium (Protonix) 40 mg PO DAILY [facility] Last Admin: 10/22/19 08:26 Dose: 40 mg Sertraline HCl (Zoloft) 100 mg PO DAILY [facility] Last Admin: 10/22/19 08:26 Dose: 100 mg Simethicone (Mylicon Chewable) 80 mg PO PCHS PRN PRN Reason: Gas Pain Last Admin: 10/22/19 12:10 Dose: 80 mg Tamsulosin HCl (Flomax) 0.4 mg PO DAILY [facility] Last Admin: 10/22/19 08:26 Dose: 0.4 mg Vital Signs & Weight: Vital Signs Temp Pulse Resp BP BP Pulse Ox 10/22/19 13:27 65 12 10/22/19 11:55 97.7 F 73 16 137/65 95 10/22/19 08:15 98.1 F 77 18 156/73 H 95 10/22/19 07:29 79 16 10/22/19 07:22 96 10/22/19 07:20 79 12 10/22/19 05:00 98.7 F 80 18 167/76 H 97 Admit Weight 103 lb Weight 103 lb - Physical Exam General: alert & oriented x3, no apparent distress HEENT: mucus membranes moist Extremities: no cyanosis, other: (Right AKA) Musculoskeletal: other (in wheelchair) - Labs Result Diagrams: 10/22/19 04:39 10/22/19 04:39 Troponin/CKMB CK-MB (CK-2) 2.7 ng/mL (0-6.6) 10/20/19 16:29 Troponin I 0.170 ng/mL (< 0.028) H 10/20/19 19:08 - Assessment/Plan Assessment/Plan: 1. Multivessel CAD 2. Hx severe PAD s/p right BKA and AKA 3. Hx heavy tobacco abuse At this time he's frustrated and does not give much information. Says he wants to leave. has questions about ECHO. Answered. Will continue to monitor for now. Plan for possible recovery from URI and outpatient CABG.
--- NOTE | 2019-10-22 15:21 | PRG ---
DATE OF SERVICE: 10/22/2019 Please see note from Dr. Jose Juan Rea, for which I agree. The patient was seen, evaluated, discussed, and examined with residents by bedside. This gentleman initially came in with a COPD exacerbation, was found to have urinary retention issues, catheters in, and subsequently then had an MN basically, and he is scheduled for likely coronary artery bypass graft surgery. CV surgery is taking a look at him. I am not sure what we are doing about the peripheral artery disease in the left hand that led to an ischemic finger. He states he is feeling okay. Breathing okay. I am just waiting to see what Cardiovascular Surgery says. Today, his chest is clear, regular rate and rhythm, and no edema. We will get him supportive care until the surgeon's decide. Job ID: [id number]
[2019-10-22] MEDS: Atorvastatin Calcium 10 MG TAB PO SCH (20:53)
[2019-10-22] MEDS: Insulin Glargine 20 UNITS in Pre-Filled Syringe 1 EACH SC SCH (21:07)
[2019-10-22] MEDS ORDERED: Dicyclomine 10 MG CAP PO SCH (22:00)
[2019-10-23] MEDS: HYDROcodone/Acetaminophen 10/325 mg Tablet PO PRN ×4 (00:09→19:40)
[2019-10-23] MEDS: Temazepam 15 MG CAP PO PRN ×2 (00:09→19:41)
[2019-10-23] MEDS: Nitroglycerin 2% Ointment 1 INCH/1 GM Packet TOP SCH ×3 (06:25→19:44)
[2019-10-23] MEDS: Sodium Chloride 0.9% 1,000 ML IV SCH (06:25)
--- NOTE | 2019-10-23 06:49 | PDOC.FM ---
- Subjective Subjective: Doing well this morning, no acute events overnight. Breathing near baseline per pt. No CP, SOB, fever/chills. Tolerating PO well. States he has talked to CV surg and cards and awaiting final recommendations regarding surgery, pt states that either way he plans on talking to surgeon about going home to fully recover from hospitalization prior to possible CABG, encouraged to discussed with CV/Cards teams. Deshpande in place. - Objective MAR Reviewed: Yes Vital Signs & Weight: Vital Signs (12 hours) Temp Pulse Resp BP BP Pulse Ox 10/23/19 05:02 99 F 73 14 136/68 94 L 10/23/19 01:14 96 10/22/19 20:53 65 128/59 L 10/22/19 20:00 98.0 F 65 16 128/59 L 96 10/22/19 19:22 94 L 10/22/19 19:19 96 10/22/19 19:17 96 Weight Admit Weight 46.72 kg Weight 46.72 kg I&O: 10/21/19 10/22/19 10/23/19 06:59 06:59 06:59 Intake Total 446 454 3614 Output Total 8975 585 5819 Balance -630 -440 -180 Result Diagrams: 10/22/19 04:39 10/22/19 04:39 EKG Reviewed by me: Yes (Tele: NSR, no acute events) Phys Exam - Physical Examination Constitutional: NAD (resting comfortably, good spirits) HEENT: moist MMs Neck: supple Respiratory: no wheezing, no rales, no rhonchi decreased aeration throughout, but improved Cardiovascular: RRR, no significant murmur, no rub Gastrointestinal: soft, non-tender, no distention, positive bowel sounds R AKA Psychiatric: normal affect, A&O x 3 Dx/Plan (1) Chronic obstructive pulmonary disease with acute exacerbation Code(s): J44.1 - CHRONIC OBSTRUCTIVE PULMONARY DISEASE W (ACUTE) EXACERBATION Status: Acute (2) CAD (coronary artery disease) Code(s): I25.10 - ATHSCL HEART DISEASE OF [place] CORONARY ARTERY W/O ANG PCTRS Status: Chronic Qualifiers: Coronary Disease-Associated Artery/Lesion type: [place] artery [place] vs. transplanted heart: [place] heart Associated angina: without angina Qualified Code(s): I25.10 - Atherosclerotic heart disease of [place] coronary artery without angina pectoris (3) DM2 (diabetes mellitus, type 2) Status: Chronic Qualifiers: Diabetes mellitus termite exterminator helper insulin use: with termite exterminator helper use Diabetes mellitus complication status: with other specified complication Qualified Code (s): E11.69 - Type 2 diabetes mellitus with other specified complication; Z79.4 - long-term (current) use of insulin (4) HTN (hypertension) Code(s): I10 - ESSENTIAL (PRIMARY) HYPERTENSION Status: Chronic Qualifiers: Hypertension type: essential hypertension Qualified Code(s): I10 - Essential (primary) hypertension - Plan Plan: 59yo CM with h/o COPD and CAD presents with COPD exacerbation #Multi-vessel CAD with Elevated troponin - Episode of dyspnea, increase O2, and diaphoresis on 10/19, CXR, EKG, and labs obtained - EKG with RBBB and T wave inversions, deeper than on previous EKG - Trop 0.173 -> 0.170. BNP 1061 -> 1625. Given lasix 20mg IV x1. - Cardiology consulted, Dr. Junior, apprec recs. Given th lovenox, transferred to tele for monitoring, known to Dr Newby, heart cath on 10/20, multi-vessel disease, CV surg (Dr. Ramirez) consulted for possible surgical intervention, apprec recs and assistance. - No CP and sxs of dyspnea and diaphoresis improved, cont to monitor and await cards/CV recs #Acute hypoxic respiratory failure 2/2 COPD exacerbation, improving - Initially on up to 4L NC, able to down titrate to 2L and satting mid-90s - Pt has home O2 but has not been using, RA at rest was 82% on testing, pt will need to cont to use supp O2 at home however was denied by insurance for re-eval after acute COPD exacerbation - CXR - no acute CP process or focal consolidation - s/p Levaquin and Prednisone course. Will change duonebs to prn. - Exam improved this morning with better aeration - Procalcitonin 0.04, WBC 8.5 - CM consulted for HH and has arranged for discharge. #Elevated D-dimer - 1.21, has been on ppx lovenox since admit, no tachycardia, and O2 sat stable - low suspicion for PE at this time, consider CTA if change in clinical status #QT prolongation - On SSRI, will monitor on tele, avoid other QT prolonging medications #Urinary retention - Had deshpande in [place], progressive worsening of retention this hospitalization, deshpande placed 10/18 - Started on flomax - Urology, Dr. Morataya, consulted, apprec recs #h/o HFrEF and CAD - EF 25% on echo done 12/2018. Repeat Echo this admission EF 55-60% with hypokinetic apex - Started SAKINA-I at this admission. Cont home ASA, Statin, BB - No s/s of CHF exacerbation at this time, euvolemic on exam, no s/s of acute CHF exacerbation, give 1 dose lasix, cards consulted #DM type II, uncontrolled - BG 100s-300s, no further hypoglycemia. Cont moderate SS, Increased lantus to 20u last night, BG control improved, will monitor today and provide appropriate adjustments, Needs close OP f/u and likely further titration. - CC diet. [facility] accuchecks - TSH WNL #HTN - Continue home medications, addition of SAKINA this hospitalization, increased to 40mg daily, 1 episode of hypotension, will monitor and consider decrease back to 30mg daily. Cont to monitor and will need close OP f/u # HLD - continue home meds # Tobacco Abuse Hx - encourage cessation, pt states he quit last month. # GERD - continue home meds # Anxiety/Depression - continue Zoloft. Vistaril prn. 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 Newly developed urinary rentention, awaiting uro recs. Elevated trop and EKG changes, Multi-vessel disease on cath. Awaiting CV surg recs. Respiratory status improved. Dispo pending CV surg plan.
[2019-10-23] MEDS: Ubidecarenone 50 MG CAP PO SCH (09:29)
[2019-10-23] MEDS: Tamsulosin HCl 0.4 MG CAP PO SCH (09:29)
[2019-10-23] MEDS: Aspirin 81 mg Enteric Coated Tablet PO SCH (09:29)
[2019-10-23] MEDS: Metoclopramide HCl 10 MG TAB PO SCH ×3 (09:29→19:41)
[2019-10-23] MEDS: Gabapentin 100 MG CAP PO SCH ×3 (09:29→19:42)
[2019-10-23] MEDS: Carvedilol 25 MG TAB PO SCH ×2 (09:30→15:59)
[2019-10-23] MEDS: hydrALAZINE 25 MG TAB PO SCH ×3 (09:30→19:41)
[2019-10-23] MEDS: Lisinopril 20 MG TAB PO SCH (09:30)
[2019-10-23] MEDS: Enoxaparin Sodium 40 MG/0.4 ML SYRINGE SC SCH (09:32)
[2019-10-23] MEDS: Dicyclomine 10 MG CAP PO SCH ×4 (09:32→19:41)
[2019-10-23] MEDS: Mometasone 100 MCG HFA INHALER INH SCH ×2 (10:50→19:30)
--- NOTE | 2019-10-23 11:17 | CON ---
DATE OF CONSULTATION: Please see note from Dr. Jose Juan Rea for which I agree. The patient seen, evaluated, discussed with the residents by bedside. Basically, this gentleman is stable, still has the catheter in for urinary retention, so a urologist has seen him for that. We are also waiting on both Cardiology and Cardiovascular Surgery's recommendations proceed with a coronary artery bypass graft surgery at this admission or not. Since we get that information, we are going to be more ready to potentially send him out, but for now supportive care and continue same cardiac medications, hypertension medications, lipid medications. We are also adjusting Lantus to hyperglycemia. Job ID: [id number]
--- NOTE | 2019-10-23 13:00 | PDOC.CPN ---
- Subjective Date: 10/23/19 Time: 09:45 Interval history: Feels much better today. no complaints - Review of Systems General: denies: fever/chills, weight/appetite/sleep changes, night sweats, fatigue Respiratory: denies: cough, congestion, shortness of breath, exercise intolerance Cardiovascular: denies: chest pain, palpitation, edema, paroxysmal nocturnal dyspnea, orthopnea Gastrointestinal: denies: nausea, vomiting, diarrhea, constipation, abd pain, GI bleeding Musculoskeletal: denies: pain, tenderness, stiffness, swelling, arthritis/ arthralgias Neurological: denies: numbness, syncope, seizure, weakness - Objective Allergies/Adverse Reactions: Allergies Allergy/AdvReac Type Severity Reaction Status Date / Time morphine AdvReac Severe Verified 10/18/19 01:28 Visit Medications: Current Medications Acetaminophen (Tylenol) 650 mg PO Q4H PRN PRN Reason: Headache/Fever/Mild Pain (1-3) Acetaminophen/Codeine Phosphate (Tylenol #3) 1 tab PO Q4H PRN PRN Reason: Mild Pain (1-3) Acetaminophen/Codeine Phosphate (Tylenol #3) 2 tab PO Q4H PRN PRN Reason: Moderate Pain (4-6) Last Admin: 10/22/19 19:55 Dose: 2 tab Hydrocodone Bitart/Acetaminophen ([place] 10/325) 1 tab PO 5XD PRN PRN Reason: Moderate Pain (4-6) Last Admin: 10/23/19 06:21 Dose: 1 tab Albuterol/Ipratropium (Duoneb) 3 ml NEB Q4H PRN PRN Reason: SOB &/or Wheezing Last Admin: 10/20/19 13:53 Dose: 3 ml Aspirin (Ecotrin) 81 mg PO DAILY [facility] Last Admin: 10/23/19 09:29 Dose: 81 mg Atorvastatin Calcium (Lipitor) 10 mg PO HS [facility] Last Admin: 10/22/19 20:53 Dose: 10 mg Carvedilol (Coreg) 25 mg PO BID-WM [facility] Last Admin: 10/23/19 09:30 Dose: 25 mg Coenzyme Q10 (Coenzyme Q10) 200 mg PO DAILY [facility] Last Admin: 10/23/19 09:29 Dose: 200 mg Dextrose/Water (Dextrose 50%) 25 gm SLOW IVP PRN PRN PRN Reason: Hypoglycemia Last Admin: 10/17/19 23:26 Dose: 25 gm Dicyclomine HCl (Bentyl) 10 mg PO QID [facility] Last Admin: 10/23/19 09:32 Dose: 10 mg Enoxaparin Sodium (Lovenox) 40 mg SC 09 [facility] Stop: 10/24/19 09:01 Last Admin: 10/23/19 09:32 Dose: 40 mg Gabapentin (Neurontin) 100 mg PO TID [facility] Last Admin: 10/23/19 09:29 Dose: 100 mg Glucagon (Glucagon) 1 mg IM PRN PRN PRN Reason: Hypoglycemia Hydralazine HCl (Apresoline) 50 mg PO TID [facility] Last Admin: 10/23/19 09:30 Dose: 50 mg Hydralazine HCl (Apresoline) 10 mg SLOW IVP Q4H PRN PRN Reason: SBP Greater Than 180 Last Admin: 10/21/19 23:35 Dose: 10 mg Hydroxyzine Pamoate (Vistaril) 25 mg PO TID PRN PRN Reason: Anxiety/Insomnia Last Admin: 10/22/19 21:11 Dose: 25 mg Dextrose/Water (D5w) 1,000 mls @ 0 mls/hr IV .Q0M PRN PRN Reason: Hypoglycemia Sodium Chloride (Normal Saline 0.9%) 200 mls @ 0 mls/hr IV PRN PRN PRN Reason: SBP < 90 Insulin Glargine 20 units/ (Miscellaneous Medication) 0.2 mls @ 0 mls/hr SC HS [facility] Last Admin: 10/22/19 21:07 Dose: Not Given Insulin Human Lispro (Humalog) 0 units SC .BEDTIME SLIDING SC PRN PRN Reason: Bedtime Correctional Scale Last Admin: 10/20/19 23:59 Dose: 5 unit Insulin Human Lispro (Humalog) 0 units SC .MODERATE SLIDING SC PRN; Protocol PRN Reason: MODERATE SLIDING SCALE Last Admin: 10/22/19 12:10 Dose: 2 unit Lisinopril (Zestril) 40 mg PO DAILY [facility] Last Admin: 10/23/19 09:30 Dose: 40 mg Melatonin (Melatonin) 3 mg PO HS PRN PRN Reason: Insomnia Last Admin: 10/22/19 00:48 Dose: 3 mg Metoclopramide HCl (Reglan) 10 mg PO TID [facility] Last Admin: 10/23/19 09:29 Dose: 10 mg Mometasone Furoate (Asmanex Hfa 100 Mcg) 1 puff INH BID-RT [facility] Last Admin: 10/23/19 10:50 Dose: 1 puff Nitroglycerin (Nitro-Bid 2% Ointment) 1 inch TOP Q8HR [facility] Last Admin: 10/23/19 06:25 Dose: Not Given Nitroglycerin (Nitrostat) 0.4 mg SL Q5MIN PRN PRN Reason: Chest Pain Ondansetron HCl (Zofran Odt) 4 mg PO Q6H PRN PRN Reason: Nausea/Vomiting Last Admin: 10/22/19 06:15 Dose: 4 mg Pantoprazole Sodium (Protonix) 40 mg PO DAILY [facility] Last Admin: 10/23/19 09:28 Dose: 40 mg Sertraline HCl (Zoloft) 100 mg PO DAILY [facility] Last Admin: 10/23/19 09:29 Dose: 100 mg Simethicone (Mylicon Chewable) 80 mg PO PCHS PRN PRN Reason: Gas Pain Last Admin: 10/22/19 12:10 Dose: 80 mg Tamsulosin HCl (Flomax) 0.4 mg PO DAILY [facility] Last Admin: 10/23/19 09:29 Dose: 0.4 mg Temazepam (Restoril) 15 mg PO HSPRN PRN PRN Reason: Insomnia Last Admin: 10/23/19 00:09 Dose: 15 mg Vital Signs & Weight: Vital Signs Temp Pulse Resp BP Pulse Ox 10/23/19 10:50 75 16 10/23/19 09:30 75 10/23/19 08:00 98.3 F 75 17 153/74 H 92 L 10/23/19 05:02 99 F 73 14 136/68 94 L 10/23/19 01:14 96 Admit Weight 103 lb Weight 103 lb - Physical Exam General: alert & oriented x3, appears well HEENT: mucus membranes moist Cardiac: regular rate and rhythm Lungs: no wheeze, rales, rhonchi Neuro: grossly intact Abdomen: unremarkable, soft Extremities: no cyanosis, no edema Skin: clear - Labs Result Diagrams: 10/22/19 04:39 10/22/19 04:39 Troponin/CKMB CK-MB (CK-2) 2.7 ng/mL (0-6.6) 10/20/19 16:29 Troponin I 0.170 ng/mL (< 0.028) H 10/20/19 19:08 - Assessment/Plan Assessment/Plan: 1. Multivessel CAD 2. Hx severe PAD s/p right BKA and AKA 3. Hx heavy tobacco abuse Patient with improved symptoms today. Emotionally not as angry. Await Dr. Sharma tomorrow to determine if CABG planned.
[2019-10-23] MEDS: HumaLOG 300 UNITS/3 ML VIAL SC PRN (13:12)
[2019-10-23] MEDS: Atorvastatin Calcium 10 MG TAB PO SCH (19:41)
[2019-10-23] MEDS: hydrOXYzine Pamoate 25 mg Capsule PO PRN (19:42)
[2019-10-23] MEDS ORDERED: Insulin Glargine 15 UNITS in Pre-Filled Syringe 1 EACH SC SCH (22:00)
[2019-10-23] MEDS: Insulin Glargine 20 UNITS in Pre-Filled Syringe 1 EACH SC SCH (22:18)
[2019-10-24] MEDS: HYDROcodone/Acetaminophen 10/325 mg Tablet PO PRN ×2 (03:07→09:05)
[2019-10-24 04:40] LABS: #Eosinphils 0.1 thou/uL (0.0-0.7); #Lymphocytes 1.2 thou/uL (1.20-3.40); #Monocytes 0.5 thou/uL (0.11-0.59); #Neutrophils 3.1 thou/uL (1.40-6.50); %Basophils 0.7 % (0.0-1.0); %Eosinophils 1.1 % (0.0-10.0); %Lymphocytes 25.3 % (21.0-51.0); %Monocytes 9.9 % (0.0-10.0); Hemoglobin 9.7 g/dL (14.0-18.0); Mean Corpuscular HGB CONC 32.3 g/dL (32.0-36.0); Mean Corpuscular Hemoglobin 31.2 pg (27.0-31.0); Mean Corpuscular Volume 96.5 fL (78.0-98.0); Mean Platelet Volume 8.1 fL (7.4-10.4); Platelet Count 144 thou/uL (130-400); RBC Distribution Width 11.7 % (11.5-14.5); White Blood Cell (WBC) Count 4.9 thou/uL (4.8-10.8)
[2019-10-24 05:07] LABS: Anion Gap 7 mmol/L (10-20); BUN (Urea Nitrogen) 15 mg/dL (8.4-25.7); Calc. Creatinine Clearance 49 mL/min (70-130); Calcium 7.9 mg/dL (7.8-10.44); Carbon Dioxide 32 mmol/L (22-29); Chloride 94 mmol/L (98-107); Estimated GFR-MDRD 72; Glucose 367 mg/dL (70-105); Potassium 4.3 mmol/L (3.5-5.1); Sodium 129 mmol/L (136-145)
[2019-10-24] MEDS: Nitroglycerin 2% Ointment 1 INCH/1 GM Packet TOP SCH ×2 (06:09→12:03)
--- NOTE | 2019-10-24 06:37 | PDOC.FM ---
- Subjective Subjective: Doing well this morning, no acute events overnight. Pleasant and eager to speak with CV surg team regarding possible CABG and plan. No fever/chills, CP, SOB, n/ v. Tolerating PO well. Does state has had decreased PO intake just from lack of appetite. Deshpande in place. No hypoglycemia episodes. - Objective MAR Reviewed: Yes Vital Signs & Weight: Vital Signs (12 hours) Temp Pulse Resp BP BP Pulse Ox 10/24/19 04:00 98.2 F 66 18 142/65 H 92 L 10/23/19 20:00 98.7 F 73 16 132/60 96 10/23/19 19:41 71 132/60 10/23/19 19:30 77 18 95 Weight Admit Weight 46.72 kg Weight 46.72 kg I&O: 10/22/19 10/23/19 10/24/19 06:59 06:59 06:59 Intake Total 360 1320 840 Output Total 800 1500 750 Balance -440 -180 90 Result Diagrams: 10/24/19 03:57 10/24/19 03:57 EKG Reviewed by me: Yes (Teke: NSR, no acute events) Phys Exam - Physical Examination Constitutional: NAD (resting comfortably, good spirits, pleasant) HEENT: moist MMs Neck: supple Respiratory: no rales, no rhonchi, clear to auscultation bilateral Very slight wheeze, tight but stable exam Cardiovascular: RRR, no significant murmur, no rub Gastrointestinal: soft, non-tender, no distention, positive bowel sounds Deshpande in place, straw-colored urine Musculoskeletal: no edema R AKA Neurological: non-focal Psychiatric: normal affect, A&O x 3 Dx/Plan (1) Chronic obstructive pulmonary disease with acute exacerbation Code(s): J44.1 - CHRONIC OBSTRUCTIVE PULMONARY DISEASE W (ACUTE) EXACERBATION Status: Acute (2) CAD (coronary artery disease) Code(s): I25.10 - ATHSCL HEART DISEASE OF [place] CORONARY ARTERY W/O ANG PCTRS Status: Chronic Qualifiers: Coronary Disease-Associated Artery/Lesion type: [place] artery [place] vs. transplanted heart: nond[place] heart Associated angina: without angina Qualified Code(s): I25.10 - Atherosclerotic heart disease of [place] coronary artery without angina pectoris (3) DM2 (diabetes mellitus, type 2) Status: Chronic Qualifiers: Diabetes mellitus ferry terminal agent insulin use: with ferry terminal agent use Diabetes mellitus complication status: with other specified complication Qualified Code (s): E11.69 - Type 2 diabetes mellitus with other specified complication; Z79.4 - long-term (current) use of insulin (4) HTN (hypertension) Code(s): I10 - ESSENTIAL (PRIMARY) HYPERTENSION Status: Chronic Qualifiers: Hypertension type: essential hypertension Qualified Code(s): I10 - Essential (primary) hypertension - Plan Plan: 59yo CM with h/o COPD and CAD presents with COPD exacerbation and found to have multivessel CAD #Multi-vessel CAD with Elevated troponin - Episode of dyspnea, increase O2, and diaphoresis on 10/19, CXR, EKG, and labs obtained - EKG with RBBB and T wave inversions, deeper than on previous EKG - Trop 0.173 -> 0.170. BNP 1061 -> 1625. Given lasix 20mg IV x1. - Cardiology consulted, Dr. Junior, apprec recs. Given th lovenox, transferred to [facility] for monitoring, known to Dr Newby, heart cath on 10/20, multi-vessel disease, CV surg (Dr. Ramirez) consulted for possible surgical intervention, apprec recs and assistance. - No CP and sxs of dyspnea and diaphoresis improved, cont to monitor and await cards/CV recs #Acute hypoxic respiratory failure 2/2 COPD exacerbation, at baseline - Initially on up to 4L NC, able to down titrate to 3L and satting mid-90s. Goal of 88-92% - Pt has home O2 but has not been using, RA at rest was 82% on testing, pt will need to cont to use supp O2 at home however was denied by insurance. Will re- eval as pt is off abx and steroids at this time. - CXR - no acute CP process or focal consolidation - s/p Levaquin and Prednisone course. Guonebs prn. - Exam improved stable - Procalcitonin 0.04, WBC 8.5 - CM consulted for HH and has arranged for discharge, apprec assistance #Hyponatremia - Na 132 -> 129 - decreased PO intake, suspected hypovolemic hyponatremia as off fluids past few days - consider NS fluid bolus and monitoring #Elevated D-dimer - 1.21, has been on ppx lovenox since admit, no tachycardia, and O2 sat stable - low suspicion for PE at this time, consider CTA if change in clinical status #QT prolongation - On SSRI, will monitor on tele, avoid other QT prolonging medications #Urinary retention - Had deshpande in [place], progressive worsening of retention this hospitalization, deshpande placed 10/18 - Started on flomax - Urology, Dr. Morataya, consulted, apprec recs #h/o HFrEF and CAD - EF 25% on echo done 12/2018. Repeat Echo this admission EF 55-60% with hypokinetic apex - Started SAKINA-I at this admission. Cont home ASA, Statin, BB - No s/s of CHF exacerbation at this time, euvolemic on exam, no s/s of acute CHF exacerbation, give 1 dose lasix, cards consulted #DM type II, uncontrolled - BG 300s, no further hypoglycemia. Cont moderate SS, Lantus 16u daily, will monitor today and provide appropriate adjustments, Needs close OP f/u and likely further titration. - CC diet. [facility] accuchecks - TSH WNL #HTN - Continue home medications, addition of SAKINA this hospitalization, increased to 40mg daily, Bp at goal. Cont to monitor and will need close OP f/u # HLD - continue home meds # Tobacco Abuse Hx - encourage cessation, pt states he quit last month. # GERD - continue home meds # Anxiety/Depression - continue Zoloft. Vistaril prn. 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 Newly developed urinary rentention, awaiting uro recs. Elevated trop and EKG changes, Multi-vessel disease on cath. Awaiting CV surg recs. Respiratory status improved. Dispo pending CV surg plan. Addendum - Attending - Attending Attestation Date/Time: 10/24/19 [id number] I personally evaluated the patient and discussed the management with Dr. Rea. I agree with the History, Examination, Assessment and Plan documented above with any addition or exceptions noted below.
[2019-10-24] MEDS: Mometasone 100 MCG HFA INHALER INH SCH (07:33)
[2019-10-24] MEDS ORDERED: Sodium Chloride 0.9% 1,000 ML IV SCH (08:45)
[2019-10-24] MEDS: Enoxaparin Sodium 40 MG/0.4 ML SYRINGE SC SCH (09:03)
[2019-10-24] MEDS: Aspirin 81 mg Enteric Coated Tablet PO SCH (09:03)
[2019-10-24] MEDS: Dicyclomine 10 MG CAP PO SCH (09:03)
[2019-10-24] MEDS: Ubidecarenone 50 MG CAP PO SCH (09:03)
[2019-10-24] MEDS: Lisinopril 20 MG TAB PO SCH (09:04)
[2019-10-24] MEDS: Tamsulosin HCl 0.4 MG CAP PO SCH (09:04)
[2019-10-24] MEDS: Gabapentin 100 MG CAP PO SCH ×2 (09:05→15:43)
[2019-10-24] MEDS: Metoclopramide HCl 10 MG TAB PO SCH ×2 (09:06→15:43)
[2019-10-24] MEDS: hydrALAZINE 25 MG TAB PO SCH ×2 (09:06→15:43)
[2019-10-24] MEDS: HumaLOG 300 UNITS/3 ML VIAL SC PRN ×2 (09:07→12:02)
[2019-10-24] MEDS: Carvedilol 25 MG TAB PO SCH (09:07)
[2019-10-24 15:57] VITALS: BP 134/68; TEMP 98
[2019-10-24] MEDS ORDERED: Insulin Glargine 16 UNITS in Pre-Filled Syringe 1 EACH SC SCH (21:00)
[2019-10-24] MEDS ORDERED: Insulin Glargine 15 UNITS in Pre-Filled Syringe 1 EACH SC SCH (21:00)
[2019-10-25] MEDS ORDERED: Finasteride 5 MG TAB PO SCH (09:00)
--- NOTE | 2019-10-25 15:04 | DIS ---
DATE OF ADMISSION: 10/17/2019 DATE OF DISCHARGE: 10/24/2019 RESIDENT: Jose Juan Rea MD ADMITTING ATTENDING: Martir Mckoy MD DISCHARGE ATTENDING: Martir Mckoy MD. CONSULTS: 1. Cardiology, Dr. Junior. 2. Cardiovascular Surgery, Dr. Ramirez. 3. Urology, Dr. Morataya. PROCEDURES: 1. Indwelling Hopkins catheter placed on 10/19/2019. 2. Cardiac catheterization performed on 10/21/2019, demonstrating left main and three-vessel coronary artery disease, moderately impaired ventricular function. 3. Chest x-ray on 10/17/2019, demonstrating coarse increased linear interstitial density noted bilaterally. No focal consolidation or alveolar edema. 4. Chest x-ray on 10/20/2019, demonstrating no radiographic evidence of acute cardiopulmonary disease. 5. Echocardiogram on 10/18/2019, demonstrating EF 55% to 60%. Mild concentric left ventricular hypertrophy with hypokinetic apex. PRIMARY DIAGNOSES: 1. Acute hypoxic respiratory failure secondary to chronic obstructive pulmonary disease exacerbation. 2. Multi-vessel coronary artery disease with elevated troponin. 3. Hyponatremia. 4. QT prolongation. 5. Urinary retention. SECONDARY DIAGNOSES: 1. Heart failure with reduced ejection fraction and coronary artery disease. 2. Uncontrolled insulin-dependent type 2 diabetic. 3. Hypertension. 4. Hyperlipidemia. 5. History of tobacco abuse. 6. Gastroesophageal reflux disease. 7. Anxiety and depression. 8. Peripheral vascular disease, status post right AKA. DISCHARGE MEDICATIONS: 1. Zoloft 100 mg p.o. daily. 2. Restoril 10 mg p.o. at bedtime p.r.n. 3. [place] 10 one tablet as directed p.r.n. 4. Coreg 25 mg p.o. b.i.d. 5. Atorvastatin 10 mg p.o. daily. 6. Trelegy Ellipta one puff p.o. daily. 7. Protonix 40 mg p.o. b.i.d. 8. Gabapentin 100 mg p.o. t.i.d. p.r.n. 9. Reglan 10 mg p.o. t.i.d. p.r.n. 10. Pulmicort 90 mcg inhalation b.i.d. 11. Aspirin 81 mg p.o. daily. 12. Hydralazine 50 mg p.o. t.i.d. 13. Proscar 5 mg p.o. daily. 14. Vistaril 25 mg p.o. t.i.d. p.r.n. anxiety. 15. Lantus 16 units subcu daily at night. 16. Lisinopril 40 mg p.o. daily. 17. Flomax 0.4 mg p.o. daily. 18. Cefzil 500 mg p.o. daily x7 days. DISCONTINUED MEDICATIONS: Lantus 15 units subcu at bedtime. HISTORY OF PRESENT ILLNESS AND HOSPITAL COURSE: The patient is a 59-year-old male with history of COPD, peripheral vascular disease, and insulin-dependent type 2 diabetic, who presented as a transfer from [place], [place], where he was being treated for a pneumonia. Initially seen by his primary care doctors and sent into the emergency department. He had been febrile, having increased shortness of breath and wheeze, started on ceftriaxone and azithromycin and steroids were initiated. Hopkins catheter was placed. He had minimal improvement throughout his hospitalization the subsequent 2-3 days. He is known to Dr. Richardson, his pickle sorter, and was transferred to [facility] for further management. Acute hypoxic respiratory failure secondary to COPD exacerbation: It appears that the patient did not have an acute bacterial pneumonia. His chest x-ray did not show any acute cardiopulmonary process or focal consolidation. Procalcitonin was negative at 0.04. White blood cell count was 8.5, he was afebrile. The patient states that approximately a week and a half prior to presentation, his son-in-law had the flu. He subsequently developed flu-like illness and he was recovered from this when the COPD exacerbation flared. The patient was continued on Levaquin and prednisone and finished a complete antibiotic and steroid course. He was given DuoNeb scheduled initially and these were able to be spaced out p.r.n. at the time of discharge. The patient initially was desatting into the low 80s on room air. After successful treatment of his COPD exacerbation on the day of discharge, a home O2 eval was performed and the patient was able to sat mid upper 90s on room air and thus did not appear to require home oxygen at this time. At the time of discharge, the patient was stable, saturating well on room air and appeared to be at his baseline COPD status or near that. The patient was instructed to use p.r.n. DuoNebs at home and follow up with his pickle sorter and PCP as previously directed. Multi-vessel coronary artery disease and elevated troponin: On the day of 10/19, the patient had multiple episodes of dyspnea, increased O2 requirement, and feelings of chest tightness. Then, a chest x-ray was obtained that did not show any acute cardiopulmonary process. EKG was obtained that showed a stable left and right bundle branch block; however, T-wave inversions in the lateral leads that appeared worsened from previous EKGs for comparison. He had an elevated troponin at 0.173. These were trended and stable at 0.17. BNP was slightly elevated, it was 1061 at time of discharge, and this increased to 1625 on 10/19, the day of his acute event. He was given one dose of Lasix. He was given a dose of therapeutic Lovenox and transferred to telemetry for further monitoring. On telemetry, he continued to have mild events; however, these did taper off. Cardiology took him for heart catheterization that showed severe multivessel coronary artery disease and thus Cardiovascular Surgery was consulted. CV Surgery evaluated the patient and stated the patient would likely be a candidate for CABG. However, with a long discussion with the patient regarding the risks, benefits, and alternatives, the patient stated that he would like to be discharged home to fully recover from his COPD exacerbation and then follow up with CV Surgery in approximately 1 week for likely planning of CABG. The patient did not have any acute events on tele and at the time of discharge was having no diaphoresis, chest pain, or shortness of breath. Part of his diaphoresis, shortness of breath was also attributed to acute flares of his anxiety and this was improved with p.r.n. Vistaril. It was also noted the patient had QT prolongation and thus the QT prolonging drugs were avoided and will need to continue to be avoided in the future. Hyponatremia: The patient had a sodium of 129 at time of discharge. He was given IV fluids and this will need to be trended as an outpatient. Elevated D-dimer and his D-dimer was elevated at 1.21, is likely due to his chronic cardiac disease and lung disease. He was not tachycardic and not requiring any supplemental O2 past his acute event and he was able to be weaned off O2 that he has very low suspicion of PE and no CTA was obtained. Urinary retention: The patient had a Hopkins catheter placed in [place]. This was removed at the time of transfer, however, had to be replaced due to urinary retention. Dr. Morataya of Urology was contacted who recommended continuation of Hopkins upon discharge with addition of Flomax and Proscar with antibiotic coverage and follow up with him within one week of discharge. These instructions were given to the patient who voiced agreement and understanding. The patient has history of heart failure with reduced ejection fraction, coronary artery disease per above. An echo performed in December of 2018 showed an EF of 25%. A repeat echocardiogram at this hospitalization showed an EF of 55% to 60% with a hypokinetic apex. He was started on SAKINA on this hospitalization and continued on his home statin, beta rachel, and aspirin. Did not appear any acute CHF exacerbation and he will need to continue to be monitored as outpatient. Uncontrolled insulin-dependent type 2 diabetic: The patient had labile blood glucose and his insulin was uptitrated to 16 units daily of his long-acting Lantus. This will need to be continued at home and he will need continued close outpatient followup for this titration. Hypertension: The patient had elevated blood pressure throughout his hospitalization, an SAKINA inhibitor was added and his blood pressure was at goal at the time of discharge and will need to be continued to follow as an outpatient. In regard to the patient's chronic medical conditions, his home medications were continued. At the time of discharge, the patient appeared near his baseline, saturating well on room air. Having no chest pains or acute symptoms. Discharge plan with appropriate followup was discussed with the patient who was agreement understanding of this plan and was eager for discharge. All questions were answered appropriately. DISPOSITION: Stable. DISCHARGE INSTRUCTIONS: 1. Location: Home. 2. Diet: Heart healthy, low-sodium, diabetic. 3. Activity: As tolerated. 4. Followup: The patient should follow up with CV Surgery, Dr. Sharma within one week of discharge. The patient should follow up with Urology, Dr. Morataya within one week of discharge. The patient should follow with the primary care physician within one week of discharge. The patient should follow up with Pulmonology within 1-2 weeks of discharge. Job ID: [id number]
== END 2019-10-24 17:14 | disposition home health service (06) | DRG 189 ==
LOC: T4-A 21:20 → 2NO 10-20 18:58
PROVIDERS: ADMIT Family Medicine; ATTEND Family Medicine
PROC: 4A023N7 Measurement of Cardiac Sampling and Pressure, Left Heart, Percutaneous Approach (ICD-10-PCS; principal; 2019-10-21)
PROC: B2111ZZ Fluoroscopy of Multiple Coronary Arteries using Low Osmolar Contrast (ICD-10-PCS; 2019-10-21)
PROC: B2151ZZ Fluoroscopy of Left Heart using Low Osmolar Contrast (ICD-10-PCS; 2019-10-21)
DX: J96.01 Acute respiratory failure with hypoxia (principal); J44.1 Chronic obstructive pulmonary disease with (acute) exacerbation; E87.1 Hypo-osmolality and hyponatremia; N17.9 Acute kidney failure, unspecified; I45.2 Bifascicular block; I50.22 Chronic systolic (congestive) heart failure; I25.10 Atherosclerotic heart disease of native coronary artery without angina pectoris; I45.81 Long QT syndrome; R79.89 Other specified abnormal findings of blood chemistry; E11.65 Type 2 diabetes mellitus with hyperglycemia; I11.0 Hypertensive heart disease with heart failure; E78.5 Hyperlipidemia, unspecified; K21.9 Gastro-esophageal reflux disease without esophagitis; F41.9 Anxiety disorder, unspecified; F32.9 Major depressive disorder, single episode, unspecified; E11.51 Type 2 diabetes mellitus with diabetic peripheral angiopathy without gangrene; R33.9 Retention of urine, unspecified; E87.6 Hypokalemia; E11.43 Type 2 diabetes mellitus with diabetic autonomic (poly)neuropathy; K31.84 Gastroparesis; E83.42 Hypomagnesemia; E78.00 Pure hypercholesterolemia, unspecified; Z79.4 Long term (current) use of insulin; Z87.891 Personal history of nicotine dependence; Z89.611 Acquired absence of right leg above knee
CPT/HCPCS: 36415; 36416; 71045; 80048; 80053; 82553; 82805; 83735; 83880; 84100; 84145; 84443; 84484; 85025; 85347; 85379; 93005; 93010; 93306; 93458; 93798; 94640; 94760; 99152; 99153; C1769; J0360; J1644; J1650; J1815; J1940; J2001; J2250; J3010; J7512; J7620; Q0162; Q0177; Q9967

== ENCOUNTER 2019-10-26 09:19 | Inpatient (IN) | payer MEDICARE ==
[2019-10-26] MEDS ORDERED: PHENYLEPHRINE-NS 100 MCG/ML 10 ML SYRINGE ONE (10:11)
[2019-10-26] MEDS ORDERED: Succinylcholine Chloride 20 MG/ML 10 ml SYRINGE FS ONE (10:11)
[2019-10-26] MEDS ORDERED: Lidocaine 1% PF 5 ML VIAL ONE (10:11)
[2019-10-26] MEDS ORDERED: Rocuronium Bromide 10 MG/ML (10ML VIAL) ONE (10:11)
[2019-10-26] MEDS ORDERED: PROPOFOL 200 MG/20 ML VIAL ONE (10:11)
[2019-10-26] MEDS ORDERED: Glycopyrrolate 0.2 MG/ML 5 ML SYRINGE ONE (10:11)
[2019-10-26] MEDS ORDERED: Ondansetron PF 4 MG/2 ML Vial ONE ×2 (10:27→11:31)
[2019-10-26 10:50] LABS: #Lymphocytes 1.2 thou/uL (1.20-3.40); #Monocytes 0.7 thou/uL (0.11-0.59); #Neutrophils 9.3 thou/uL (1.40-6.50); %Basophils 0.1 % (0.0-1.0); %Eosinophils 0.3 % (0.0-10.0); %Lymphocytes 10.3 % (21.0-51.0); %Monocytes 6.1 % (0.0-10.0); %Neutrophils 83.2 % (42.0-75.0); Hemoglobin 12.1 g/dL (14.0-18.0); Mean Corpuscular HGB CONC 32.7 g/dL (32.0-36.0); Mean Corpuscular Hemoglobin 31.5 pg (27.0-31.0); Mean Corpuscular Volume 96.2 fL (78.0-98.0); Mean Platelet Volume 8.2 fL (7.4-10.4); Platelet Count 212 thou/uL (130-400); Red Blood Cell (RBC) Count 3.85 mill/uL (4.70-6.10); White Blood Cell (WBC) Count 11.2 thou/uL (4.8-10.8)
[2019-10-26 11:04] LABS: ALT (SGPT) 11 U/L (8-55); AST (SGOT) 10 U/L (5-34); Albumin 2.9 g/dL (3.5-5.0); Alkaline Phosphatase 83 U/L (40-110); Anion Gap 17 mmol/L (10-20); BUN (Urea Nitrogen) 20 mg/dL (8.4-25.7); Bilirubin, Total 0.7 mg/dL (0.2-1.2); Calc. Creatinine Clearance 0 mL/min (70-130); Calcium 8.7 mg/dL (7.8-10.44); Carbon Dioxide 31 mmol/L (22-29); Chloride 88 mmol/L (98-107); Estimated GFR-MDRD 66; Globulin 3.4 g/dL (2.4-3.5); Glucose 387 mg/dL (70-105); Lipase 51 U/L (8-78); Potassium 5.2 mmol/L (3.5-5.1); Protein, Total 6.3 g/dL (6.0-8.3); Sodium 131 mmol/L (136-145)
--- NOTE | 2019-10-26 11:06 | RAD ---
EXAM: Single view of the chest HISTORY: Cough COMPARISON: 10/20/2019 FINDINGS: Single view of the chest shows a normal sized cardiomediastinal silhouette. There is no grant dence of consolidation, mass, or pleural effusion. Degenerative changes are seen in the spine. IMPRESSION: No evidence of acute cardiopulmonary disease
[2019-10-26 11:13] LABS: Bacteria/HPF None Seen HPF (None Seen); Bilirubin 1+ (Negative); Blood, Urine 1+ (Negative); Clarity Clear (Clear); Glucose, Urine (Dipstick) Greater than 1000 mg/dL (Negative); Leukocyte Negative Leu/uL (Negative); Nitrite Negative (Negative); Protein, Urine (Dipstick) 600 mg/dL (Neg-Trace); RBC/HPF 21-50 HPF (0-3); Squamous Epithelial 0-3 HPF (0-3); Urobilinogen 3 mg/dL (Less than 2)
[2019-10-26 11:26] LABS: CKMB 2.6 ng/mL (0-6.6)
[2019-10-26] MEDS ORDERED: Promethazine HCl 25 MG/ML VIAL ONE ×2 (12:11→14:00)
--- NOTE | 2019-10-26 13:30 | CT ---
EXAM: CTA of the chest and abdomen/pelvis HISTORY: Chest pain and back pain; nausea and vomiting. Recent heart catheterization COMPARISON: CT abdomen/pelvis 12/31/2018 TECHNIQUE: Multiple contiguous axial images were obtained a CTA of the chest and abdomen/pelvis with contrast per aortic dissection protocol. Sagittal and coronal 3-D MIP reformats were performed. FINDINGS: HEART: Normal in size without focal cardiac abnormality. PULMONARY ARTERIES: Normal in caliber without filling defects to suggest pulmonary emboli. MEDIASTINUM: Slightly prominent hilar lymph nodes measuring up to 8 mm in short diameter. LUNGS: No focal infiltrates or suspicious masses. Emphysematous changes. Calcified granuloma in the l eft lower lobe. PLEURAL SPACE: No pleural effusion or pneumothorax. CHEST AND ABDOMINAL WALL SOFT TISSUES: Unremarkable LIVER: Unremarkable. GALLBLADDER: Removed. KIDNEYS: Unremarkable. SPLEEN: Stable wedge-shaped area of hypoperfusion of the midportion of the spleen. PANCREAS: There is a stable 4.1 cm cystic lesion associated with the body of the pancreas which is at rophic.. BOWEL: Unremarkable. PERITONEUM: There is high density scattered throughout the lower abdomen which is greater on the left . This likely represents blood. This high density may extend back to the posterior aspect of the left common femoral artery. This may represent dissection of blood in an extraperitoneal location zunilda ng the space of [place]. There is a 2.2 cm nonspecific mass in the right upper quadrant of the abdomen between the liver and right kidney with a peripheral rim of calcification. RETROPERITONEUM: No lymphadenopathy BONES: Degenerative changes in the spine. PELVIS: There is a Hopkins catheter in the urinary bladder. The bladder is displaced to the right by th e hematoma mentioned above. ASCENDING THORACIC AORTA: Normal caliber without evidence of dissection or aneurysmal dilatation. DESCENDING THORACIC AORTA: Normal caliber without evidence of dissection or aneurysmal dilatation. ABDOMINAL AORTA: Normal caliber without evidence of dissection or aneurysmal dilatation. CELIAC TRUNK: Moderate atherosclerotic disease at the ostium. SMA: Mild atherosclerotic disease at the ostium. MERLY: Moderate diffuse atherosclerotic disease RENAL ARTERIES: Bilateral single renal arteries with mild bilateral calcified atherosclerotic disease COMMON ILIAC ARTERIES: Moderate diffuse atherosclerotic disease in the left common iliac artery with a stent in the external iliac artery. There is a 1.4 cm area of collection of contrast anterior to the stent which may represent a pseudoaneurysm. There appears to be communication with this pseudoane urysm and the distal external iliac artery just distal to the stent. Occlusion of the right common iliac artery. Postsurgical changes seen in both inguinal regions. There is slight enlargement of the left common fe moral artery. Minimal flow is seen in the right leg. IMPRESSION: 1. No evidence of thoracic or abdominal aortic aneurysm or dissection 2. There appears to be hematoma in the left lower abdomen. This appears to come from the left common femoral artery. There is also an apparent pseudoaneurysm of the left external iliac artery adjacent to a stent 2. Nonspecific stable mass between the liver and right kidney. 4. Stable cystic lesion within the pancreas.
[2019-10-26] MEDS ORDERED: Fentanyl 100 MCG/2 ML VIAL ONE ×2 (14:00→16:58)
[2019-10-26] MEDS ORDERED: Iopamidol 370 76% 100 ML VIAL ONE (14:52)
[2019-10-26] MEDS ORDERED: Protamine Sulfate 50 MG/5 ML VIAL ONE (15:45)
[2019-10-26] MEDS ORDERED: Heparin 5,000 UNITS/ML VIAL ONE (15:45)
--- NOTE | 2019-10-26 16:10 | ULT ---
Doppler arterial evaluation of the left lower extremity INDICATION: Left lower extremity hematoma TECHNIQUE: Spectral Doppler arterial evaluation of the left lower extremity was performed. Grayscale and color Doppler images were also obtained. Comparisons are made with a CTA of the chest, abdomen and pelvis dated October 26, 2019 FINDINGS: There is a 3.2 x 1.6 x 1.8 cm hematoma within the left inguinal region. There is an antegra de monophasic waveform seen within the left external iliac artery. There is a tardus parvus type waveform within the left common femoral artery and left proximal profunda femoral artery with no appr eciable dopplerable flow within the proximal to mid and distal left SFA. There is minimal antegrade flow within the left popliteal artery. No appreciable flow within the anterior tibial, posterior or d orsal aspect disorder. IMPRESSION: 1. Findings suspicious for proximal high-grade stenosis, cephalad to the left common femoral artery. There is slow tardus parvus type waveform in left common femoral artery and proximal left profunda femoral artery. Complete occlusion of the left superficial femoral artery, anterior tibial artery, po sterior tibial artery and dorsalis pedis artery. 2. Left inguinal subcutaneous hematoma measuring 3.2 cm.
--- NOTE | 2019-10-26 17:01 | CON ---
DATE OF CONSULTATION: HISTORY OF PRESENT ILLNESS: Mr. Herrera came in today with abdominal complaints. He has had nausea, vomiting, and left lower quadrant abdominal pain. His penis and scrotum have become ecchymotic after his catheterization last week. He was recently hospitalized in [place] for pneumonia and transferred here when he had a positive troponin. Underwent cardiac catheterization and has needed coronary artery bypass grafting. He has a history of peripheral vascular disease, status post right above-knee amputation and a left common femoral endarterectomy with femoral to popliteal bypass utilizing saphenous vein. He had a CT scan of his abdomen and pelvis performed in the emergency department, which is showing a left retroperitoneal hematoma with active extravasation of blood from his cath site. I have been asked to see him for further treatment. PAST MEDICAL HISTORY: 1. Peripheral vascular disease. 2. History of pancreatitis. 3. Coronary artery disease. 4. Hypertension. 5. Diabetes mellitus. 6. History of diverticular disease. PAST SURGICAL HISTORY: 1. Surgical treatment of necrotizing pancreatitis and pseudocyst drainage. 2. Right femoral embolectomy. 3. Left iliac stenting and left femoral-popliteal with femoral endarterectomy. 4. Right BKA and AKA amputations. 5. Some sort of vascular procedure, which was attempted in [place] on his left forearm and fingers. SOCIAL HISTORY: He is nonambulatory. For the most part, getting around in a wheelchair, but occasionally uses crutches. He quit smoking when he began to have trouble with his hands from a vascular standpoint. PHYSICAL EXAMINATION: GENERAL: This is an ill-appearing gentleman. VITAL SIGNS: His blood pressure is 106/75. LUNGS: Have rhonchi bilaterally. HEART: Rhythm is regular without murmur. ABDOMEN: Soft. He has tenderness over the left lower quadrant. GENITOURINARY: He has ecchymotic penis and scrotum. The stick site was above the incision for his femoral-popliteal and active extravasation appears to be around the level of the inguinal ligament on CT scan. ASSESSMENT AND PLAN: We will plan for femoral pseudoaneurysm repair in the operating room this evening. He appears to be dry right now. His hemoglobin is up 3 g from his discharge hemoglobin at 12.1. His discharge hemoglobin was 9.7. His BUN is 20 and his creatinine is 1.1. We will plan to hydrate him and get him back to the operating room as soon as possible. Job ID: [id number]
[2019-10-26] MEDS ORDERED: Bupivacaine PF 0.5% 30 ML VIAL ONE (17:26)
[2019-10-26 18:47] LABS: Bacteria/HPF None Seen HPF (None Seen); Bilirubin Negative (Negative); Blood, Urine Trace (Negative); Clarity Clear (Clear); Glucose, Urine (Dipstick) Greater than 1000 mg/dL (Negative); Leukocyte Negative Leu/uL (Negative); Nitrite Negative (Negative); Protein, Urine (Dipstick) 300 mg/dL (Neg-Trace); Squamous Epithelial 0-3 HPF (0-3); WBC/HPF 0-3 HPF (0-3)
[2019-10-26] MEDS ORDERED: Dextrose 50% Abboject 50 ML SYRINGE SLOW IVP PRN (19:23)
[2019-10-26] MEDS ORDERED: Gabapentin 100 MG CAP PO PRN (19:23)
[2019-10-26] MEDS ORDERED: hydrOXYzine Pamoate 25 mg Capsule PO PRN (19:23)
[2019-10-26] MEDS ORDERED: Dextrose 5% in Water 1,000 ML IV PRN (19:23)
[2019-10-26] MEDS ORDERED: Atorvastatin Calcium 10 MG TAB PO SCH (21:00)
[2019-10-26] MEDS ORDERED: Famotidine 20 MG TAB PO SCH (21:00)
[2019-10-26] MEDS ORDERED: BUDESONIDE 90 MCG IH SCH (21:00)
[2019-10-26] MEDS: Metoclopramide HCl 10 MG TAB PO SCH (21:31)
[2019-10-26] MEDS: HumaLOG 300 UNITS/3 ML VIAL SC PRN (21:32)
[2019-10-26] MEDS ORDERED: Insulin Glargine 8 UNITS in Pre-Filled Syringe 1 EACH SC SCH (22:00)
[2019-10-26] MEDS ORDERED: CEFAZOLIN 1 GM VIAL SLOW IVP SCH (22:00)
--- NOTE | 2019-10-26 22:08 | PDOC.FPRHP ---
- History of Present Illness Chief Complaint: CV Surg consulted FM team for medical management History of Present Illness: Keith Herrera is a 59 year old M with a PMH of PVD s/p right AKA, Uncontrolled insulin dep type 2 DM, HTN, COPD, HFrEF (last echo early 2019 showed EF 55-60%) , GERD, CAD was admitted for right femoral pseudoaneurysm repair. He went to the ED due to left lower abdominal pain, n/v and swelling and bruising to suprapubic area and penis. Dr. Sharma admitted patient and took his for pseudoaneurysm repair. He recently had left common femoral endarterectomy with femoral to popliteal bypass utilizing saphenous vein. Patient states that the surgery tonight went well. He complains of some continued abdominal pain. Denies any fever, chills, chest pain, dyspnea, palpitations. In regards to his chronic medical conditions, he states that his blood sugars have been labile at home and he sometime takes 8 U lantus at night and other times, takes 16 U lantus at night. Denies any polyuria, polydipsia, polyphagia. - Allergies/Adverse Reactions Allergies Allergy/AdvReac Type Severity Reaction Status Date / Time morphine AdvReac Severe Verified 10/18/19 01:28 - Home Medications Medication Instructions Recorded Confirmed Type Sertraline HCl [Zoloft] 100 mg PO DAILY 11/14/13 10/27/19 History Temazepam [Restoril] 15 mg PO HS PRN 11/14/13 10/27/19 History HYDROcodone Bit/APAP 10/325 [[place]] 1 tab PO ASDIR PRN 01/15/17 10/27/19 History Carvedilol [Coreg] 25 mg PO BID-WM #60 tab 01/04/19 10/27/19 Rx Atorvastatin Calcium 10 mg PO DAILY 06/17/19 10/27/19 History Gabapentin 100 mg PO TID PRN 10/18/19 10/27/19 History Metoclopramide HCl [Reglan] 10 mg PO TID 10/18/19 10/27/19 History hydrALAZINE [Apresoline] 50 mg PO TID 10/18/19 10/27/19 History Cefprozil [Cefzil] 500 mg PO DAILY #7 tab 10/24/19 10/27/19 Rx Finasteride [Proscar] 5 mg PO DAILY #30 tab 10/24/19 10/27/19 Rx Insulin Glargine [Lantus Vial] 16 units SC HS vial 10/24/19 10/27/19 Rx Lisinopril [Zestril] 40 mg PO DAILY #30 tab 10/24/19 10/27/19 Rx Tamsulosin HCl [Flomax] 0.4 mg PO DAILY #30 cap 10/24/19 10/27/19 Rx Pantoprazole [Protonix] 40 mg PO BID PRN 10/27/19 10/27/19 History hydrOXYzine Pamoate [Hydroxyzine 25 mg PO DAILY 10/27/19 10/27/19 History Pamoate] - History PMHx: CAD s/p IN and Stent, HTN, DM2, COPD, HFpEF (last echo 55-60%), GERD PSHx: femoral pseudoaneurysm repair, L common femoral endarterectomy, right AKA , right femoral embolectomy FHx: noncontributory Social: 40 pk year smoking history-quit, denies alcohol, drug - Review of Systems General: denies: fever/chills, weight/appetite/sleep changes, fatigue ENT: denies: nasal congestion, rhinorrhea Respiratory: denies: cough, congestion, shortness of breath Cardiovascular: denies: chest pain, palpitation, edema Gastrointestinal: reports: nausea, vomiting, abdominal pain. denies: diarrhea Genitourinary: denies: dysuria, polyuria Skin: reports: other (suprapubic bruising). denies: rashes, lesions Musculoskeletal: denies: pain, tenderness Neurological: denies: syncope, seizure Psychological: denies: anxiety, depression - Vital signs BP: 103/67 HR: 82 RR: 16 Tmax: 97.9 Pox: 100% on RA Wt: 52 kg - Physical Exam Constitutional: NAD, awake, alert and oriented, well developed HEENT: normocephalic and atraumatic, PERRLA, EOMI, MMM Neck: supple, FROM Heart: RRR, normal S1/S2, no murmurs/rubs/gallops Lungs: CTAB, no respiratory distress, good air movement, no rales/rhonchi Abdomen: soft, bowel sounds present -Abdomen: diffuse ttp, no rigidity or guarding Musculoskeletal: normal structure, normal tone Neurological: no focal deficit, CN II-XII intact Skin: capillary refill <2 seconds, other (ecchymoses to suprapubic, penis and testicles) Heme/Lymphatic: no unusual bruising or bleeding, no purpura Psychiatric: normal mood and affect, good judgment and insight, intact recent and remote memory FMR H&P: Results - Labs Result Diagrams: 10/27/19 03:21 10/27/19 03:21 Lab results: WBC 11.2 thou/uL (4.8-10.8) H 10/26/19 10:32 Hgb 12.1 g/dL (14.0-18.0) L 10/26/19 10:32 Hct 37.1 % (42.0-52.0) L 10/26/19 10:32 MCV 96.2 fL (78.0-98.0) 10/26/19 10:32 Plt Count 212 thou/uL (130-400) 10/26/19 10:32 Neutrophils % 83.2 % (42.0-75.0) H 10/26/19 10:32 Sodium 131 mmol/L (136-145) L 10/26/19 10:32 Potassium 5.2 mmol/L (3.5-5.1) H 10/26/19 10:32 Chloride 88 mmol/L (98-107) L 10/26/19 10:32 Carbon Dioxide 31 mmol/L (22-29) H 10/26/19 10:32 BUN 20 mg/dL (8.4-25.7) 10/26/19 10:32 Creatinine 1.13 mg/dL (0.7-1.3) 10/26/19 10:32 Glucose 387 mg/dL (70-105) H 10/26/19 10:32 Lactic Acid 1.8 mmol/L (0.5-2.2) 10/26/19 10:32 Calcium 8.7 mg/dL (7.8-10.44) 10/26/19 10:32 Total Bilirubin 0.7 mg/dL (0.2-1.2) 10/26/19 10:32 AST 10 U/L (5-34) 10/26/19 10:32 ALT 11 U/L (8-55) 10/26/19 10:32 Alkaline Phosphatase 83 U/L (40-110) 10/26/19 10:32 CK-MB (CK-2) 2.6 ng/mL (0-6.6) 10/26/19 10:32 B-Natriuretic Peptide 1795.2 pg/mL (0-100) H 10/26/19 10:32 Serum Total Protein 6.3 g/dL (6.0-8.3) 10/26/19 10:32 Albumin 2.9 g/dL (3.5-5.0) L 10/26/19 10:32 Lipase 51 U/L (8-78) 10/26/19 10:32 Urine Ketones 40 mg/dL (Negative) A 10/26/19 17:51 Urine Blood Trace (Negative) A 10/26/19 17:51 Urine Nitrite Negative (Negative) 10/26/19 17:51 Ur Leukocyte Esterase Negative Sherie/uL (Negative) 10/26/19 17:51 Urine RBC 11-20 HPF (0-3) A 10/26/19 17:51 Urine WBC 0-3 HPF (0-3) 10/26/19 17:51 Ur Squamous Epith Cells 0-3 HPF (0-3) 10/26/19 17:51 Urine Bacteria None Seen HPF (None Seen) 10/26/19 17:51 - Radiology Interpretation Chest x-ray Status: image reviewed by me, report reviewed by me (no evidence of active cardiopulmonary disease) CT scan - abdomen Status: image reviewed by me, report reviewed by me (left retroperitoneal hematoma with active extravasation at cath site) FMR H&P: A/P - Problem List (1) Femoral artery pseudo-aneurysm, left Current Visit: Yes Status: Acute Code(s): I72.4 - ANEURYSM OF ARTERY OF LOWER EXTREMITY (2) COPD (chronic obstructive pulmonary disease) Current Visit: Yes Status: Chronic (3) (HFpEF) heart failure with preserved ejection fraction Current Visit: Yes Status: Chronic Code(s): I50.30 - UNSPECIFIED DIASTOLIC ( CONGESTIVE) HEART FAILURE (4) PUD (peptic ulcer disease) Current Visit: No Status: Chronic Code(s): K27.9 - PEPTIC ULC, SITE UNSP, UNSP AC OR CHR, W/O HEMOR OR PERF (5) CAD (coronary artery disease) Current Visit: No Status: Chronic Code(s): I25.10 - ATHSCL HEART DISEASE OF [place] CORONARY ARTERY W/O ANG PCTRS Qualifiers: Coronary Disease-Associated Artery/Lesion type: [place] artery [place] vs. transplanted heart: [place] heart Associated angina: without angina Qualified Code(s): I25.10 - Atherosclerotic heart disease of [place] coronary artery without angina pectoris Comment: for medical mgmt (6) DM2 (diabetes mellitus, type 2) Current Visit: No Status: Chronic Qualifiers: Diabetes mellitus correction insulin use: with rat exterminator use Diabetes mellitus complication status: with other specified complication Qualified Code (s): E11.69 - Type 2 diabetes mellitus with other specified complication; Z79.4 - intermediate manager (current) use of insulin (7) HTN (hypertension) Current Visit: No Status: Chronic Code(s): I10 - ESSENTIAL (PRIMARY) HYPERTENSION Qualifiers: Hypertension type: essential hypertension Qualified Code(s): I10 - Essential (primary) hypertension (8) PVD (peripheral vascular disease) Current Visit: No Status: Chronic Code(s): I73.9 - PERIPHERAL VASCULAR DISEASE, UNSPECIFIED - Plan 1) Left femoral pseudoaneurysm: - s/p repair done by Dr. Sharma - management/pain control per primary team - consulted FM team for medical management - admitted to ICU for post CV surg 2) DM2 insulin dependent, uncontrolled: - continue home lantus regimen - SSI - accuchecks ACHS 3) HTN - continue home meds - continue to monitors closely in ICU 4) CAD - continue home meds 5) GERD - complains for epigastric pain, acid reflux - continue home protonix 6) HFpEF - last echo a couple months ago showed EF 55-60% - no s/s fluid overload - continue to monitor I/Os - continue current regimen 7) Chronic back pain - on norco at home - will continue 8) PVD - increase to high intensity statin CODE STATUS: FULL PCP: Jazmine Addendum - Attending - Attending Attestation Date/Time: 10/27/19 2739 I personally evaluated the patient and discussed the management with Dr. Zabala. I agree with the History, Examination, Assessment and Plan documented above with any addition or exceptions noted below. See my event note for details.
--- NOTE | 2019-10-26 22:20 | PDOC.EVN ---
Addendum - Attending - Attending Attestation Date/Time: 10/26/19 5806 I personally evaluated the patient and discussed the management with Dr. Zabala I agree with the History, Examination, Assessment and Plan documented above with any addition or exceptions noted below. 59 yo WM hx PVD, HTN, IDDM. Admitted for repair of femoral pseudoaneurysm. Consulted for chronic medical problem management. Will restart home medications and monitor glucose. Adjust insulin for in hospital goal of < 160. Increase lipitor to 40 mg HS as he needs high intensity. Will help arranged outpatient follow up.
[2019-10-26] MEDS: Fentanyl 100 MCG/2 ML VIAL SLOW IVP PRN (23:21)
[2019-10-26] MEDS ORDERED: Lidocaine 2% Viscous Solution 10 ML, Aluminum & Magnesium Hydroxide 30 ML SSW SCH (23:30)
[2019-10-27] MEDS: Sodium Chloride 0.9% 1,000 ML IV SCH ×2 (00:46→08:07)
[2019-10-27] MEDS: CEFAZOLIN 2 GM in Premix Bag 1 BAG IVPB SCH ×3 (00:46→17:19)
[2019-10-27] MEDS: Fentanyl 100 MCG/2 ML VIAL SLOW IVP PRN (02:52)
[2019-10-27] MEDS: HumaLOG 300 UNITS/3 ML VIAL SC PRN ×4 (03:25→17:14)
[2019-10-27 04:17] LABS: Anion Gap 14 mmol/L (10-20); BUN (Urea Nitrogen) 34 mg/dL (8.4-25.7); Calc. Creatinine Clearance 48 mL/min (70-130); Calcium 7.6 mg/dL (7.8-10.44); Carbon Dioxide 27 mmol/L (22-29); Chloride 96 mmol/L (98-107); Estimated GFR-MDRD 61; Glucose 405 mg/dL (70-105); Potassium 4.8 mmol/L (3.5-5.1); Sodium 132 mmol/L (136-145)
[2019-10-27] MEDS ORDERED: Bisacodyl 10 MG SUPP PR PRN (05:47)
[2019-10-27] MEDS ORDERED: Bisacodyl 5 MG TAB PO PRN (05:47)
[2019-10-27] MEDS ORDERED: Milk Of Magnesia 30 ML UDCUP PO PRN (05:47)
[2019-10-27] MEDS ORDERED: Magnesium Citrate 300 ML BOT PO PRN (05:47)
[2019-10-27 06:22] LABS: Band 16 % (5-11); Hemoglobin 7.9 g/dL (14.0-18.0); Lymphocytes 5 % (21-51); MDiff Complete? YES; Mean Corpuscular HGB CONC 32.6 g/dL (32.0-36.0); Mean Corpuscular Hemoglobin 31.3 pg (27.0-31.0); Mean Corpuscular Volume 96.2 fL (78.0-98.0); Mean Platelet Volume 8.6 fL (7.4-10.4); Monocytes 5 % (0-10); Neutrophil 74 % (42-75); Platelet Count 192 thou/uL (130-400); RBC Distribution Width 12.3 % (11.5-14.5); Red Blood Cell (RBC) Count 2.51 mill/uL (4.70-6.10); White Blood Cell (WBC) Count 20.1 thou/uL (4.8-10.8)
--- NOTE | 2019-10-27 06:25 | PDOC.FM ---
- Subjective Subjective: Mr. Herrera is a pleasant gentleman who states that he did well overnight. This morning, he denies chest pain, SOB, dizziness, or weakness. He does reports some abdominal soreness this AM but states the pain is well controlled. He states he just woke up and his GERD is not acting up just yet but he believes it will be a concern today. He states he had nothing to eat overnight. He reports normally taking 10 units of lantus at home but was recently discharged on 16 units of lantus. He is agreeable to working on his blood sugar while he is here and understands the importance of good blood glucose control and healing. - Objective MAR Reviewed: Yes Vital Signs & Weight: Vital Signs (12 hours) Temp Pulse Resp Pulse Ox 10/27/19 03:03 100 10/27/19 00:04 87 16 100 10/26/19 20:00 97.9 F 100 Weight Weight 52.1 kg Most Recent Monitor Data Heart Rate from ECG 92 NIBP 152/76 NIBP BP-Mean 101 Respiration from ECG 20 SpO2 99 I&O: 10/25/19 10/26/19 10/27/19 06:59 06:59 06:59 Intake Total 30 Output Total 295 Balance -265 Result Diagrams: 10/27/19 03:21 10/27/19 03:21 Phys Exam - Physical Examination Constitutional: NAD HEENT: PERRLA, moist MMs Neck: no JVD, full ROM Good air movement, very coarse breath sounds in the bases Cardiovascular: RRR, no significant murmur, no rub Gastrointestinal: soft, no distention Pt has no peritoneal signs, mild tenderness to palpation on the left Musculoskeletal: no edema, pulses present AKA on the right Neurological: moves all 4 limbs Psychiatric: A&O x 3 Skin: cap refill <2 seconds Dx/Plan (1) Femoral artery pseudo-aneurysm, left Code(s): I72.4 - ANEURYSM OF ARTERY OF LOWER EXTREMITY Status: Acute (2) (HFpEF) heart failure with preserved ejection fraction Code(s): I50.30 - UNSPECIFIED DIASTOLIC (CONGESTIVE) HEART FAILURE Status: Chronic (3) COPD (chronic obstructive pulmonary disease) Status: Chronic (4) DM2 (diabetes mellitus, type 2) Status: Chronic Qualifiers: Diabetes mellitus terminal manager insulin use: with terminal manager use Diabetes mellitus complication status: with other specified complication Qualified Code (s): E11.69 - Type 2 diabetes mellitus with other specified complication; Z79.4 - terminal block assembler (current) use of insulin (5) HTN (hypertension) Code(s): I10 - ESSENTIAL (PRIMARY) HYPERTENSION Status: Chronic Qualifiers: Hypertension type: essential hypertension Qualified Code(s): I10 - Essential (primary) hypertension (6) History of right above knee amputation Code(s): Z89.611 - ACQUIRED ABSENCE OF RIGHT LEG ABOVE KNEE Status: Chronic - Plan Plan: This is a 59 male with a pmh of AKA, IDDM2 poorly controlled, HTN, COPD, HFpEF, GERD, CAD Left femoral pseudoaneurysm -POD [address] Sharma -Management/pain control per primary team IDDM2, uncontrolled -Continue home lantus regimen, will adjust based on sugars -SSI, ACHS accuchecks, hypoglycemia protocol -Pts sugars are severely elevated overnight. Per checkout, pt refused total dose of lantus. -Per patient and residents, pt's sugar is quite labile. Will attempt to control sugar with a goal of under 160 mg/dL -Will proceed with BID dosing as he is hesitant to have high doses of insulin at one time HTN -Continue home carvedilol CAD -Continue ASA and atorvastatin GERD -Continue home protonix HFpEF -Echo on 10/18/19 shows EF of 55-60% with mild left ventricular hypertrophy -Continue monitoring I&)s Chronic back pain -Continue home norco PVD -Continue atorvastatin Addendum - Attending - Attending Attestation Date/Time: 10/27/19 5317 I personally evaluated the patient and discussed the management with Dr. Barahona. I agree with the History, Examination, Assessment and Plan documented above with any addition or exceptions noted below.
[2019-10-27 07:00] LABS: Hemoglobin A1c 9.7 % (4.0-6.0)
[2019-10-27] MEDS: Metoclopramide HCl 10 MG TAB PO SCH ×4 (07:20→21:57)
[2019-10-27] MEDS: Ondansetron PF 4 MG/2 ML Vial IVP PRN ×2 (07:21→17:19)
--- NOTE | 2019-10-27 07:45 | RAD ---
EXAM: Single view of the chest HISTORY: Pneumonia COMPARISON: 10/26/2019 FINDINGS: Single view of the chest shows a normal sized cardiomediastinal silhouette. Subtle increas ed interstitial markings are present. Atelectasis is seen in the left costophrenic angle. There is no evidence of consolidation, mass, or pleural effusion. The bones are unremarkable. IMPRESSION: No evidence of acute cardiopulmonary disease
[2019-10-27] MEDS: Mometasone 100 MCG HFA INHALER INH SCH ×2 (08:06→18:26)
[2019-10-27] MEDS: Finasteride 5 MG TAB PO SCH (08:17)
[2019-10-27] MEDS: HYDROcodone/Acetaminophen 10/325 mg Tablet PO PRN ×2 (08:18→17:50)
[2019-10-27] MEDS: Aspirin 81 mg Enteric Coated Tablet PO SCH (08:19)
[2019-10-27] MEDS: Tamsulosin HCl 0.4 MG CAP PO SCH (08:19)
[2019-10-27] MEDS: Carvedilol 25 MG TAB PO SCH ×2 (08:20→17:19)
[2019-10-27] MEDS ORDERED: Magnesium Citrate 300 ML BOT ONE (09:44)
[2019-10-27] MEDS: Insulin Glargine 6 UNITS in Pre-Filled Syringe 1 EACH SC SCH (09:50)
[2019-10-27] MEDS ORDERED: Insulin Glargine 16 UNITS in Pre-Filled Syringe 1 EACH SC SCH (21:00)
[2019-10-27] MEDS ORDERED: Insulin Glargine 8 UNITS in Pre-Filled Syringe 1 EACH SC SCH (21:00)
[2019-10-27] MEDS: Atorvastatin Calcium 40 MG TAB PO SCH (21:57)
[2019-10-27] MEDS: Insulin Glargine 10 UNITS in Pre-Filled Syringe 1 EACH SC SCH (21:57)
[2019-10-28] MEDS ORDERED: Sodium Chloride 0.9% 10 ML ONE (00:48)
[2019-10-28] MEDS: CEFAZOLIN 2 GM in Premix Bag 1 BAG IVPB SCH ×3 (00:50→18:27)
[2019-10-28] MEDS: HYDROcodone/Acetaminophen 10/325 mg Tablet PO PRN ×4 (00:51→18:29)
[2019-10-28 04:40] LABS: #Lymphocytes 1.5 thou/uL (1.20-3.40); #Monocytes 1.1 thou/uL (0.11-0.59); #Neutrophils 11.1 thou/uL (1.40-6.50); %Lymphocytes 10.7 % (21.0-51.0); %Monocytes 7.8 % (0.0-10.0); %Neutrophils 81.4 % (42.0-75.0); Hemoglobin 6.1 g/dL (14.0-18.0); Mean Corpuscular HGB CONC 32.9 g/dL (32.0-36.0); Mean Corpuscular Hemoglobin 32.1 pg (27.0-31.0); Mean Corpuscular Volume 97.3 fL (78.0-98.0); Mean Platelet Volume 8.1 fL (7.4-10.4); Platelet Count 133 thou/uL (130-400); RBC Distribution Width 12.4 % (11.5-14.5); Red Blood Cell (RBC) Count 1.89 mill/uL (4.70-6.10); White Blood Cell (WBC) Count 13.6 thou/uL (4.8-10.8)
[2019-10-28 05:00] LABS: Anion Gap 9 mmol/L (10-20); BUN (Urea Nitrogen) 29 mg/dL (8.4-25.7); Calc. Creatinine Clearance 54 mL/min (70-130); Calcium 7.2 mg/dL (7.8-10.44); Carbon Dioxide 27 mmol/L (22-29); Chloride 99 mmol/L (98-107); Estimated GFR-MDRD 70; Glucose 111 mg/dL (70-105); Potassium 3.8 mmol/L (3.5-5.1); Sodium 131 mmol/L (136-145)
--- NOTE | 2019-10-28 06:19 | PDOC.FM ---
- Subjective Subjective: Pt denies any needs this morning. He denies any complaints. He states his abdomen is still sore. - Objective MAR Reviewed: Yes Vital Signs & Weight: Vital Signs (12 hours) Temp Pulse Resp BP Pulse Ox 10/28/19 04:42 99.0 F 758 H 18 150/72 H 92 L 10/27/19 23:58 98.3 F 78 20 134/60 96 10/27/19 23:52 16 10/27/19 20:45 63 20 94/50 L 93 L 10/27/19 20:25 98.4 F 62 20 88/51 L 86 L 10/27/19 18:26 76 20 97 10/27/19 18:25 76 20 97 Weight Weight 52.1 kg Most Recent Monitor Data Heart Rate from ECG 69 NIBP 89/55 NIBP BP-Mean 66 Respiration from ECG 16 SpO2 100 I&O: 10/26/19 10/27/19 10/28/19 06:59 06:59 06:59 Intake Total 30 2171 Output Total 405 625 Balance -375 1546 Result Diagrams: 10/28/19 04:03 10/28/19 04:03 Phys Exam - Physical Examination Constitutional: NAD HEENT: moist MMs Neck: no JVD Respiratory: no wheezing, clear to auscultation bilateral Cardiovascular: RRR, no significant murmur Gastrointestinal: soft Mild tenderness over the LLQ Musculoskeletal: no edema, pulses present Neurological: moves all 4 limbs Psychiatric: A&O x 3 Skin: cap refill <2 seconds Dx/Plan (1) Femoral artery pseudo-aneurysm, left Code(s): I72.4 - ANEURYSM OF ARTERY OF LOWER EXTREMITY Status: Acute (2) (HFpEF) heart failure with preserved ejection fraction Code(s): I50.30 - UNSPECIFIED DIASTOLIC (CONGESTIVE) HEART FAILURE Status: Chronic (3) COPD (chronic obstructive pulmonary disease) Status: Chronic (4) DM2 (diabetes mellitus, type 2) Status: Chronic Qualifiers: Diabetes mellitus care home insulin use: with care home use Diabetes mellitus complication status: with other specified complication Qualified Code (s): E11.69 - Type 2 diabetes mellitus with other specified complication; Z79.4 - retirement (current) use of insulin (5) HTN (hypertension) Code(s): I10 - ESSENTIAL (PRIMARY) HYPERTENSION Status: Chronic Qualifiers: Hypertension type: essential hypertension Qualified Code(s): I10 - Essential (primary) hypertension (6) History of right above knee amputation Code(s): Z89.611 - ACQUIRED ABSENCE OF RIGHT LEG ABOVE KNEE Status: Chronic - Plan Plan: This is a 59 male with a pmh of AKA, IDDM2 poorly controlled, HTN, COPD, HFpEF, GERD, CAD Left femoral pseudoaneurysm -POD [address] Sharma -Management/pain control per primary team IDDM2, uncontrolled -Continue home lantus regimen, will adjust based on sugars -SSI, ACHS accuchecks, hypoglycemia protocol -Pts sugars are improving. He is still requiring large amounts of short acting insulin -Per patient and residents, pt's sugar is quite labile. Will attempt to control sugar with a goal of under 160 mg/dL -Will proceed with BID dosing as he is hesitant to have high doses of insulin at one time HTN -Continue home carvedilol CAD -Continue ASA and atorvastatin GERD -Continue home protonix HFpEF -Echo on 10/18/19 shows EF of 55-60% with mild left ventricular hypertrophy -Continue monitoring I&)s Chronic back pain -Continue home norco PVD -Continue atorvastatin Anemia, acute blood loss -Appears he will be receiving transfusion today Addendum - Attending - Attending Attestation Date/Time: 10/28/19 1557 I personally evaluated the patient and discussed the management with Dr. Cantrell. I agree with the History, Examination, Assessment and Plan documented above with any addition or exceptions noted below.
--- NOTE | 2019-10-28 07:14 | CON ---
DATE OF CONSULTATION: HISTORY OF PRESENT ILLNESS: Keith Herrera is a 59-year-old male who lives over in the [facility]. He says he was recently in the hospital over there with a pneumonia. He was admitted this admission for pseudoaneurysm repair. He has undergone that successfully. He has coronary disease and he is being considered for surgery in the future. He has one leg. He just quit smoking 6 weeks ago. His only complaint when I saw him today, was the TV set in the room. He reportedly is marginally medically compliant with management of his insulin and diabetes, and only recently quit smoking, as mentioned. PAST MEDICAL HISTORY: 1. Remarkable for history of coronary stenting. 2. Hypertension. 3. Diabetes. 4. COPD. 5. Reflux disease. 6. History of common femoral endarterectomy on the left. 7. Right AKA. 8. History of right femoral embolectomy. FAMILY HISTORY: Negative for lung disease in early age. SOCIAL HISTORY: 40+ pack-year history of smoking, quit 6 weeks ago, he says. Denies drinking or drug use. REVIEW OF SYSTEMS: Otherwise negative. PHYSICAL EXAMINATION: VITAL SIGNS: Blood pressure 102/58, heart rate 74, respiratory rate 15, oximetry is 95%. HEENT: Pupils are equal. Sclerae are anicteric. NECK: Supple. LUNGS: Clear. HEART: Regular rhythm. ABDOMEN: Mildly tender. EXTREMITIES: Warm. IMPRESSION: 1. Chronic obstructive pulmonary disease, clinically stable. 2. Status post femoral pseudoaneurysm repair while he was in ICU. Job ID: [id number]
[2019-10-28] MEDS: Mometasone 100 MCG HFA INHALER INH SCH ×2 (07:23→18:45)
[2019-10-28] MEDS: Metoclopramide HCl 10 MG TAB PO SCH ×3 (07:41→23:25)
[2019-10-28] MEDS: Fentanyl 100 MCG/2 ML VIAL SLOW IVP PRN (07:52)
[2019-10-28] MEDS ORDERED: Gaviscon Tablet PO PRN (08:50)
[2019-10-28] MEDS ORDERED: Gaviscon Tablet PO SCH (09:00)
[2019-10-28] MEDS: Tamsulosin HCl 0.4 MG CAP PO SCH ×2 (09:30→10:00)
[2019-10-28] MEDS: Aspirin 81 mg Enteric Coated Tablet PO SCH ×2 (09:30→09:58)
[2019-10-28] MEDS: Finasteride 5 MG TAB PO SCH ×2 (09:30→09:59)
[2019-10-28] MEDS: Carvedilol 25 MG TAB PO SCH ×2 (09:30→18:26)
[2019-10-28] MEDS: Insulin Glargine 6 UNITS in Pre-Filled Syringe 1 EACH SC SCH (09:30)
[2019-10-28] MEDS ORDERED: Furosemide 20 MG/2 ML VIAL SLOW IVP SCH (10:30)
[2019-10-28] MEDS ORDERED: Ondansetron PF 4 MG/2 ML Vial IVP SCH (10:45)
[2019-10-28] MEDS: Ondansetron PF 4 MG/2 ML Vial IVP PRN (12:02)
--- NOTE | 2019-10-28 12:07 | PQF ---
CLINICAL DOCUMENTATION IMPROVEMENT CLARIFICATION FORM: ICD-10 Updated PLEASE DO AN ADDENDUM TO THE PROGRESS NOTE WITH ANY DOCUMENTATION UPDATES OR ADDITIONS AND CARRY THROUGH TO DC SUMMARY. THANK YOU. DATE: 10/28/19 ATTN: DR. SAXENA Please exercise your independent, professional judgment in responding to the clarification form. Clinical indicators are provided on the bottom of this form for your review Please check appropriate box(s): HEART FAILURE: ACUITY: [ ] Acute [ ] Acute on Chronic [ x ] Chronic [ ] Other diagnosis [ ] Unable to determine In addition, please specify: Present on Admission (POA): [ x ] Yes [ ] No [ ] Unable to determine For continuity of documentation, please document condition throughout progress notes and discharge summary. Thank You. CLINICAL INDICATORS - SIGNS / SYMPTOMS / LABS / RESULTS AND LOCATION IN EMR BNP 10/25: 1795.2 RISKS: HYPERTENSION H/O DIASTOLIC CHF TREATMENT: LASIX IVP (10/27) COREG (10/26-PRESENT) MONITORING I&Os (PROGRESS NOTE 10/27) (This form is maintained as a part of the permanent medical record) 2014 [employer] All Rights Reserved [place] [email or web address] Office: [phone] [facility] HOSPITALRachelle
--- NOTE | 2019-10-28 18:25 | RAD ---
EXAM: Single view of the chest HISTORY: Shortness of breath COMPARISON: 10/27/2019 FINDINGS: Single view of the chest shows a normal sized cardiomediastinal silhouette. Atelectasis is seen in both lung bases. There is no evidence of consolidation, mass, or pleural effusion. Degenerative changes are seen in the spine. IMPRESSION: Bibasilar atelectasis
--- NOTE | 2019-10-28 18:49 | ULT ---
EXAM: LEFT LOWER EXTREMITY VENOUS ULTRASOUND WITH DOPPLER: 10/28/19 HISTORY: Left lower extremity pain and edema. Swelling. COMPARISON: None. TECHNIQUE: Leung scale, color flow, Doppler imaging with spectral waveform analysis is performed in the left lowe r extremity deep venous system. FINDINGS: There is compressibility, presence of flow, and augmentation of the common femoral vein, femoral vein , and popliteal vein. Flow in the greater saphenous vein, profunda femoral vein. Flow and augmentatio n of the posterior tibial vein. IMPRESSION: No evidence of thrombus in the left lower extremity deep venous system. POS: PPP
[2019-10-28] MEDS: Insulin Glargine 10 UNITS in Pre-Filled Syringe 1 EACH SC SCH (23:21)
[2019-10-28] MEDS: Atorvastatin Calcium 40 MG TAB PO SCH (23:25)
[2019-10-29] MEDS: CEFAZOLIN 2 GM in Premix Bag 1 BAG IVPB SCH ×3 (00:53→16:42)
[2019-10-29 04:55] LABS: Anion Gap 12 mmol/L (10-20); BUN (Urea Nitrogen) 23 mg/dL (8.4-25.7); Calc. Creatinine Clearance 65 mL/min (70-130); Calcium 7.3 mg/dL (7.8-10.44); Carbon Dioxide 26 mmol/L (22-29); Chloride 97 mmol/L (98-107); Estimated GFR-MDRD 84; Glucose 96 mg/dL (70-105); Potassium 3.7 mmol/L (3.5-5.1); Sodium 131 mmol/L (136-145)
[2019-10-29 05:01] LABS: #Monocytes 0.8 thou/uL (0.11-0.59); #Neutrophils 7.5 thou/uL (1.40-6.50); %Eosinophils 0.1 % (0.0-10.0); %Lymphocytes 11.1 % (21.0-51.0); %Monocytes 8.8 % (0.0-10.0); Band 8 % (5-11); Hemoglobin 8.1 g/dL (14.0-18.0); Hypochromia MODERATE=16-30 cells (100X) (0-5/hpf); Lymphocytes 14 % (21-51); MDiff Complete? YES; Mean Corpuscular HGB CONC 33.7 g/dL (32.0-36.0); Mean Corpuscular Hemoglobin 31.6 pg (27.0-31.0); Mean Corpuscular Volume 93.7 fL (78.0-98.0); Monocytes 6 % (0-10); Neutrophil 72 % (42-75); Platelet Count 105 thou/uL (130-400); Platelet Morphology Comment Appears Decreased; RBC Distribution Width 13.8 % (11.5-14.5); Red Blood Cell (RBC) Count 2.58 mill/uL (4.70-6.10); White Blood Cell (WBC) Count 9.4 thou/uL (4.8-10.8)
[2019-10-29] MEDS: HYDROcodone/Acetaminophen 10/325 mg Tablet PO PRN (06:17)
--- NOTE | 2019-10-29 07:28 | PDOC.FM ---
- Subjective Subjective: This morning patient states he is feeling more short of breath than yesterday. States he has pain at surgical site at L groin. He denies pain. There were no acute events overnight. He also complains of increased swelling and bruising around his testicles. - Objective Vital Signs & Weight: Vital Signs (12 hours) Temp Pulse Resp BP Pulse Ox 10/29/19 07:19 98.4 F 18 174/80 H 96 10/29/19 03:07 98.2 F 71 20 129/65 98 10/29/19 00:36 12 Weight Weight 53.8 kg Most Recent Monitor Data Heart Rate from ECG 69 NIBP 89/55 NIBP BP-Mean 66 Respiration from ECG 16 SpO2 100 I&O: 10/28/19 10/29/19 10/30/19 06:59 06:59 06:59 Intake Total 2411 700 Output Total 950 Balance 1461 700 Result Diagrams: 10/29/19 04:08 10/29/19 04:08 Phys Exam - Physical Examination Constitutional: NAD HEENT: PERRLA, moist MMs crackles at bases bilaterally Cardiovascular: RRR, no significant murmur mild distension at LLQ, tender to palpation swollen testicles with bruising Musculoskeletal: pulses present Neurological: non-focal, moves all 4 limbs Psychiatric: normal affect, A&O x 3 Skin: no rash, cap refill <2 seconds Dx/Plan (1) Femoral artery pseudo-aneurysm, left Code(s): I72.4 - ANEURYSM OF ARTERY OF LOWER EXTREMITY Status: Acute (2) (HFpEF) heart failure with preserved ejection fraction Code(s): I50.30 - UNSPECIFIED DIASTOLIC (CONGESTIVE) HEART FAILURE Status: Chronic (3) COPD (chronic obstructive pulmonary disease) Status: Chronic (4) Acute on chronic systolic heart failure, NYHA class 3 Code(s): I50.23 - ACUTE ON CHRONIC SYSTOLIC (CONGESTIVE) HEART FAILURE Status : Acute (5) Cardiomyopathy Code(s): I42.9 - CARDIOMYOPATHY, UNSPECIFIED Status: Acute (6) Chronic obstructive pulmonary disease with acute exacerbation Code(s): J44.1 - CHRONIC OBSTRUCTIVE PULMONARY DISEASE W (ACUTE) EXACERBATION Status: Acute - Plan Plan: This is a 59 male with a pmh of AKA, IDDM2 poorly controlled, HTN, COPD, HFpEF, GERD, CAD Left femoral pseudoaneurysm -POD [address] Sharma -Management/pain control per primary team Suspected volume overload - s/p 2 U PRBC yesterday - CXR shows atelectasis, swollen testicles - will add one time dose 40mg IV lasix this AM and f/u CXR this afternoon HFrEF -Echo on 10/18/19 shows EF of 55-60% with mild left ventricular hypertrophy, Cath 10/16 showed EF 30% -Continue monitoring I&Os - added 40mg IV dose lasix this AM - Cardiology consulted recs appreciated IDDM2, uncontrolled -Continue home lantus regimen, will adjust based on sugars -SSI, ACHS accuchecks, hypoglycemia protocol -sugars are improving HTN -Continue home carvedilol CAD -Continue atorvastatin GERD -Continue home protonix Chronic back pain -Continue home norco PVD -Continue atorvastatin Anemia, acute blood loss -Appears he will be receiving transfusion today Addendum - Attending - Attending Attestation Date/Time: 10/29/19 1341 I personally evaluated the patient and discussed the management with [William] I agree with the History, Examination, Assessment and Plan documented above with any addition or exceptions noted below. Continue to monitor 1 more night to ensure stable and may go to inpatient rehab vs home.
[2019-10-29] MEDS ORDERED: Furosemide 40 MG/4 ML VIAL SLOW IVP SCH (07:30)
[2019-10-29] MEDS: Mometasone 100 MCG HFA INHALER INH SCH ×2 (07:44→18:24)
[2019-10-29] MEDS: Aspirin 81 mg Enteric Coated Tablet PO SCH (08:04)
[2019-10-29] MEDS: Tamsulosin HCl 0.4 MG CAP PO SCH (08:04)
[2019-10-29] MEDS: HYDROcodone/Acetaminophen 10/325 mg Tablet PO SCH ×4 (08:05→20:50)
[2019-10-29] MEDS: Metoclopramide HCl 10 MG TAB PO SCH ×3 (08:05→20:48)
[2019-10-29] MEDS: Carvedilol 25 MG TAB PO SCH ×2 (08:05→16:42)
[2019-10-29] MEDS: Finasteride 5 MG TAB PO SCH (08:05)
[2019-10-29] MEDS: Insulin Glargine 6 UNITS in Pre-Filled Syringe 1 EACH SC SCH (08:06)
--- NOTE | 2019-10-29 12:15 | RAD ---
PORTABLE CHEST: HISTORY: Fluid overload. COMPARISON: Prior day's study. FINDINGS: Heart size appears borderline with atherosclerotic change of the aorta. Bibasilar lung changes are s imilar to the prior exam given differences in technique. Pulmonary vessels do not appear engorged. IMPRESSION: Stable bibasilar lung change. POS: [facility]
[2019-10-29] MEDS: Atorvastatin Calcium 40 MG TAB PO SCH (20:48)
[2019-10-29] MEDS: Lisinopril 5 MG TAB PO SCH (20:49)
[2019-10-29] MEDS: Insulin Glargine 10 UNITS in Pre-Filled Syringe 1 EACH SC SCH (20:51)
[2019-10-29] MEDS: Temazepam 15 MG CAP PO PRN (20:54)
[2019-10-30] MEDS: CEFAZOLIN 2 GM in Premix Bag 1 BAG IVPB SCH ×2 (01:52→08:44)
[2019-10-30] MEDS: HYDROcodone/Acetaminophen 10/325 mg Tablet PO SCH ×3 (01:53→08:42)
[2019-10-30 05:23] VITALS: BMI 18.8
[2019-10-30] MEDS ORDERED: Furosemide 40 MG/4 ML VIAL SLOW IVP SCH (06:00)
--- NOTE | 2019-10-30 07:32 | PDOC.FM ---
- Subjective Subjective: This morning patient states his breathing is easier. The patient states his abdominal pain is improved. He denies chest pain or shortness of breath. He states that he would like to pursue inpatient rehab. Few PVCs noted on tele overnight. - Objective Vital Signs & Weight: Vital Signs (12 hours) Temp Pulse Resp BP BP Pulse Ox 10/30/19 07:23 65 16 10/30/19 04:00 99.4 F 74 18 147/70 H 97 10/30/19 03:08 99.4 F 74 18 147/70 H 97 10/29/19 23:47 70 12 95 10/29/19 23:43 98.9 F 72 14 140/75 99 10/29/19 20:49 76 114/59 L 10/29/19 20:00 99.4 F 76 18 114/59 L 89 L Weight Weight 54.703 kg Most Recent Monitor Data Heart Rate from ECG 69 NIBP 89/55 NIBP BP-Mean 66 Respiration from ECG 16 SpO2 100 I&O: 10/29/19 10/30/19 10/31/19 06:59 06:59 06:59 Intake Total 700 1720 Output Total 3025 Balance 700 -1305 Result Diagrams: 10/30/19 08:25 10/30/19 08:25 Phys Exam - Physical Examination Constitutional: NAD HEENT: PERRLA, moist MMs Respiratory: no wheezing, clear to auscultation bilateral Cardiovascular: RRR, no significant murmur Gastrointestinal: non-tender, positive bowel sounds testicles will swelling and bruising tender to palpation on LLQ Musculoskeletal: no edema Psychiatric: normal affect, A&O x 3 Dx/Plan (1) Femoral artery pseudo-aneurysm, left Code(s): I72.4 - ANEURYSM OF ARTERY OF LOWER EXTREMITY Status: Acute (2) (HFpEF) heart failure with preserved ejection fraction Code(s): I50.30 - UNSPECIFIED DIASTOLIC (CONGESTIVE) HEART FAILURE Status: Chronic (3) COPD (chronic obstructive pulmonary disease) Status: Chronic (4) Acute on chronic systolic heart failure, NYHA class 3 Code(s): I50.23 - ACUTE ON CHRONIC SYSTOLIC (CONGESTIVE) HEART FAILURE Status : Acute (5) Cardiomyopathy Code(s): I42.9 - CARDIOMYOPATHY, UNSPECIFIED Status: Acute (6) Chronic obstructive pulmonary disease with acute exacerbation Code(s): J44.1 - CHRONIC OBSTRUCTIVE PULMONARY DISEASE W (ACUTE) EXACERBATION Status: Acute - Plan Plan: This is a 59 male with a pmh of AKA, IDDM2 poorly controlled, HTN, COPD, HFpEF, GERD, CAD Left femoral pseudoaneurysm -POD [address] Sharma, ok for discharge per Dr. Sharma Suspected volume overload - s/p 2 U PRBC 10/29 - CXR showed atelectasis, swollen testicles - lasix 40mg IV one time daily HFrEF - Echo on 10/18/19 shows EF of 55-60% with mild left ventricular hypertrophy, Cath 10/16 showed EF 30% - Continue monitoring I&Os - Cardiology consulted recs appreciated, cardiology did not rec lifevest at last d/c IDDM2, uncontrolled - Continue home lantus regimen, will adjust based on sugars -SSI, ACHS accuchecks, hypoglycemia protocol -sugars are improving HTN -Continue home carvedilol CAD -Continue atorvastatin GERD -Continue home protonix Chronic back pain -Continue home norco PVD -Continue atorvastatin Anemia, acute blood loss -received 2U PRBC 09/29 - AM CBC pending Dispo: pending placement at inpatient rehab Addendum - Attending - Attending Attestation Date/Time: 10/30/19 8807 I personally evaluated the patient and discussed the management with [William] I agree with the History, Examination, Assessment and Plan documented above with any addition or exceptions noted below. planning for t/f to inpatient rehab
[2019-10-30] MEDS: Mometasone 100 MCG HFA INHALER INH SCH ×2 (07:58→19:04)
[2019-10-30] MEDS: Tamsulosin HCl 0.4 MG CAP PO SCH (08:41)
[2019-10-30] MEDS: Finasteride 5 MG TAB PO SCH (08:41)
[2019-10-30] MEDS: Carvedilol 25 MG TAB PO SCH ×2 (08:41→17:56)
[2019-10-30] MEDS: Metoclopramide HCl 10 MG TAB PO SCH ×3 (08:41→20:49)
[2019-10-30] MEDS: Lisinopril 5 MG TAB PO SCH (08:41)
[2019-10-30] MEDS: Aspirin 81 mg Enteric Coated Tablet PO SCH (08:41)
[2019-10-30] MEDS: Insulin Glargine 6 UNITS in Pre-Filled Syringe 1 EACH SC SCH (08:51)
[2019-10-30 08:56] LABS: Hemoglobin 8.9 g/dL (14.0-18.0); Mean Corpuscular HGB CONC 32.9 g/dL (32.0-36.0); Mean Corpuscular Hemoglobin 31.5 pg (27.0-31.0); Mean Corpuscular Volume 95.9 fL (78.0-98.0); Mean Platelet Volume 8.4 fL (7.4-10.4); Platelet Count 100 thou/uL (130-400); RBC Distribution Width 13.8 % (11.5-14.5); Red Blood Cell (RBC) Count 2.81 mill/uL (4.70-6.10); White Blood Cell (WBC) Count 7.7 thou/uL (4.8-10.8)
[2019-10-30 08:57] LABS: Anion Gap 11 mmol/L (10-20); BUN (Urea Nitrogen) 16 mg/dL (8.4-25.7); Calc. Creatinine Clearance 68 mL/min (70-130); Calcium 7.6 mg/dL (7.8-10.44); Carbon Dioxide 30 mmol/L (22-29); Chloride 97 mmol/L (98-107); Estimated GFR-MDRD 86; Glucose 133 mg/dL (70-105); Potassium 3.7 mmol/L (3.5-5.1); Sodium 134 mmol/L (136-145)
--- NOTE | 2019-10-30 14:40 | PDOC.BPN ---
- Brief Progress Note Discussed case with on-call special tester Patient did not require lifevest at time a discharge last admission Will follow up with patient's primary Sciences Dean Dr. Newby, tomorrow to confirm patient does not need lifevest
[2019-10-30] MEDS: Temazepam 15 MG CAP PO PRN (20:48)
[2019-10-30] MEDS: HYDROcodone/Acetaminophen 10/325 mg Tablet PO PRN (20:48)
[2019-10-30] MEDS: Lisinopril 10 MG TAB PO SCH (20:49)
[2019-10-30] MEDS: Atorvastatin Calcium 40 MG TAB PO SCH (20:49)
[2019-10-30] MEDS: Insulin Glargine 10 UNITS in Pre-Filled Syringe 1 EACH SC SCH (20:50)
--- NOTE | 2019-10-31 06:12 | PDOC.FM ---
- Subjective Subjective: Mr. Herrera reports feeling well this morning. He has no concerns this morning. He seemed to be unaware of the plan for inpatient rehab though family member in room acknowledged this was the plan. Denies CP, SOB. - Objective Vital Signs & Weight: Vital Signs (12 hours) Temp Pulse Resp BP BP BP Pulse Ox 10/31/19 03:07 99.2 F 69 16 168/76 H 99 10/31/19 00:08 70 12 10/31/19 00:00 99.6 F 78 18 131/65 92 L 10/30/19 20:49 146/71 H 10/30/19 19:50 99.2 F 70 18 146/71 H 93 L 10/30/19 18:57 71 16 Weight Weight 54.703 kg Most Recent Monitor Data Heart Rate from ECG 69 NIBP 89/55 NIBP BP-Mean 66 Respiration from ECG 16 SpO2 100 I&O: 10/29/19 10/30/19 10/31/19 06:59 06:59 06:59 Intake Total 700 1720 700 Output Total 3025 1350 Balance 700 -1305 -650 Result Diagrams: 10/30/19 08:25 10/30/19 08:25 Phys Exam - Physical Examination Constitutional: NAD course breath sounds Cardiovascular: RRR, no significant murmur Gastrointestinal: soft Left side tender with light palpation - patient refused further exam. Refused lifting gown for visual exam as well. Musculoskeletal: no edema Neurological: non-focal Skin: normal turgor Dx/Plan (1) Femoral artery pseudo-aneurysm, left Code(s): I72.4 - ANEURYSM OF ARTERY OF LOWER EXTREMITY Status: Acute (2) (HFpEF) heart failure with preserved ejection fraction Code(s): I50.30 - UNSPECIFIED DIASTOLIC (CONGESTIVE) HEART FAILURE Status: Chronic (3) COPD (chronic obstructive pulmonary disease) Status: Chronic (4) Acute on chronic systolic heart failure, NYHA class 3 Code(s): I50.23 - ACUTE ON CHRONIC SYSTOLIC (CONGESTIVE) HEART FAILURE Status : Acute (5) Cardiomyopathy Code(s): I42.9 - CARDIOMYOPATHY, UNSPECIFIED Status: Acute (6) Chronic obstructive pulmonary disease with acute exacerbation Code(s): J44.1 - CHRONIC OBSTRUCTIVE PULMONARY DISEASE W (ACUTE) EXACERBATION Status: Acute - Plan Plan: This is a 59 male with a pmh of AKA, IDDM2 poorly controlled, HTN, COPD, HFpEF, GERD, CAD Left femoral pseudoaneurysm -POD [address] Sharma, ok for discharge per Dr. Sharma Suspected volume overload, improved - s/p 2 U PRBC 10/29 - CXR showed atelectasis, swollen testicles - s/p lasix 40mg IV HFrEF - Echo on 10/18/19 shows EF of 55-60% with mild left ventricular hypertrophy, Cath 10/16 showed EF 30% - Continue monitoring I&Os - Cardiology consulted recs appreciated, cardiology did not rec lifevest at last d/c IDDM2, uncontrolled - Continue home lantus regimen, will adjust based on sugars -SSI, ACHS accuchecks, hypoglycemia protocol -sugars are improving HTN -Continue home carvedilol CAD -Continue atorvastatin GERD -Continue home protonix Chronic back pain -Continue home norco PVD -Continue atorvastatin Anemia, acute blood loss -received 2U PRBC 09/29, Hgb 8.9 on recheck Dispo: pending placement at inpatient rehab Addendum - Attending - Attending Attestation Date/Time: 11/01/19 0200 I personally evaluated the patient and discussed the management with Dr. Salinas on 10/31/2019 I agree with the History, Examination, Assessment and Plan documented above with any addition or exceptions noted below - Patient denies complaints. Afebrile VSS. A/P: 1) S/P pseudoaneurysm - stable per CV surgery. 2) Deconditioning - discussed with patient recomendation for rehab/PT. Discussed options for inpatient rehab in order to improve upper body strength and core prior to further surgery. Patient also asked about home health with physical therapy. DIscussed differences ins ervices. Questions also answered by Dr. Sharma. Patient will consider an dlet team know in AM. 3) DM- stable.
[2019-10-31] MEDS: Mometasone 100 MCG HFA INHALER INH SCH ×2 (08:09→18:45)
[2019-10-31] MEDS: Finasteride 5 MG TAB PO SCH (08:59)
[2019-10-31] MEDS: Tamsulosin HCl 0.4 MG CAP PO SCH (08:59)
[2019-10-31] MEDS: Carvedilol 25 MG TAB PO SCH ×2 (08:59→16:18)
[2019-10-31] MEDS: Aspirin 81 mg Enteric Coated Tablet PO SCH (08:59)
[2019-10-31] MEDS: HYDROcodone/Acetaminophen 10/325 mg Tablet PO PRN ×4 (09:00→23:34)
[2019-10-31] MEDS: Lisinopril 10 MG TAB PO SCH ×2 (09:01→19:57)
[2019-10-31] MEDS: Metoclopramide HCl 10 MG TAB PO SCH ×3 (09:01→19:57)
[2019-10-31] MEDS ORDERED: Amlodipine 10 MG TAB PO SCH (11:16)
[2019-10-31] MEDS ORDERED: Acetaminophen 500 MG TAB PO PRN (11:27)
[2019-10-31] MEDS: Insulin Glargine 6 UNITS in Pre-Filled Syringe 1 EACH SC SCH (12:25)
[2019-10-31] MEDS: Atorvastatin Calcium 40 MG TAB PO SCH (19:57)
[2019-10-31] MEDS: Insulin Glargine 10 UNITS in Pre-Filled Syringe 1 EACH SC SCH (19:58)
[2019-10-31] MEDS: Temazepam 15 MG CAP PO PRN (23:34)
--- NOTE | 2019-11-01 06:46 | PDOC.FM ---
- Subjective Subjective: Patient reports feeling well this morning. He has no complaint. Denies SOB, difficulty breathing. Deshpande was removed yesterday and has had urinary retention since. Nursing as followed with bladders scans and in and out cath. Tried to replace deshpande this am and unsuccessful with clots clogging deshpande tube stopping flow. - Objective Vital Signs & Weight: Vital Signs (12 hours) Temp Pulse Resp BP BP BP Pulse Ox 11/01/19 05:01 98.5 F 73 17 176/85 H 95 10/31/19 23:11 71 16 95 10/31/19 19:57 135/75 10/31/19 19:45 99.0 F 65 20 135/75 96 Weight Weight 55.429 kg Most Recent Monitor Data Heart Rate from ECG 69 NIBP 89/55 NIBP BP-Mean 66 Respiration from ECG 16 SpO2 100 I&O: 10/30/19 10/31/19 11/01/19 06:59 06:59 06:59 Intake Total 1720 940 295 Output Total 3025 2020 692 Balance -1305 -1085 -180 Result Diagrams: 10/30/19 08:25 10/30/19 08:25 Phys Exam - Physical Examination Constitutional: NAD Respiratory: no wheezing, clear to auscultation bilateral Cardiovascular: RRR, no significant murmur Gastrointestinal: positive bowel sounds Musculoskeletal: no edema Neurological: non-focal Skin: normal turgor Dx/Plan (1) Femoral artery pseudo-aneurysm, left Code(s): I72.4 - ANEURYSM OF ARTERY OF LOWER EXTREMITY Status: Acute (2) (HFpEF) heart failure with preserved ejection fraction Code(s): I50.30 - UNSPECIFIED DIASTOLIC (CONGESTIVE) HEART FAILURE Status: Chronic (3) COPD (chronic obstructive pulmonary disease) Status: Chronic (4) Acute on chronic systolic heart failure, NYHA class 3 Code(s): I50.23 - ACUTE ON CHRONIC SYSTOLIC (CONGESTIVE) HEART FAILURE Status : Acute (5) Cardiomyopathy Code(s): I42.9 - CARDIOMYOPATHY, UNSPECIFIED Status: Acute (6) Chronic obstructive pulmonary disease with acute exacerbation Code(s): J44.1 - CHRONIC OBSTRUCTIVE PULMONARY DISEASE W (ACUTE) EXACERBATION Status: Acute - Plan Plan: This is a 59 male with a pmh of AKA, IDDM2 poorly controlled, HTN, COPD, HFpEF, GERD, CAD Left femoral pseudoaneurysm, postop -okay for discharge per Dr. Sharma Suspected volume overload, improved - s/p 2 U PRBC 10/29 - CXR showed atelectasis, swollen testicles - s/p lasix 40mg IV HFrEF - Echo on 10/18/19 shows EF of 55-60% with mild left ventricular hypertrophy, Cath 10/16 showed EF 30% - Continue monitoring I&Os - Cardiology consulted, no lifevest needed for d/c IDDM2, uncontrolled -SSI, ACHS accuchecks, hypoglycemia protocol -sugars are improving HTN -Continue home carvedilol CAD -Continue atorvastatin GERD -Continue home protonix Chronic back pain -Continue home norco PVD -Continue atorvastatin Anemia, acute blood loss -received 2U PRBC 09/29, Hgb 8.9 on recheck Dispo: Not candidate for inpatient rehab and has refused all PT and therapies in hospital. Dr. Sharma has discussed options with patient. Patient says that he plans to go home for discharge. Addendum - Attending - Attending Attestation Date/Time: 11/01/19 0270 I personally evaluated the patient and discussed the management with Dr. Salinas I agree with the History, Examination, Assessment and Plan documented above with any addition or exceptions noted below - Patient denies any pain in groin. Still would prefer to go home with Home health and PT rather than inpatient rehab. Afebrile VSS. A/O: 1) S/p pseudoaneurysm repair- stable. 2) Urinary retention- urology called as nurse was unable to pass catheter. 3) Deconditioning- will plan to d/c home with home health once urinary issues resolved. 4) DM- stable.
[2019-11-01] MEDS: Mometasone 100 MCG HFA INHALER INH SCH ×2 (08:38→19:44)
[2019-11-01] MEDS ORDERED: Lisinopril 10 MG TAB PO SCH (08:41)
[2019-11-01] MEDS: HumaLOG 300 UNITS/3 ML VIAL SC PRN (09:35)
[2019-11-01] MEDS: Finasteride 5 MG TAB PO SCH (09:35)
[2019-11-01] MEDS: Tamsulosin HCl 0.4 MG CAP PO SCH (09:37)
[2019-11-01] MEDS: Carvedilol 25 MG TAB PO SCH ×2 (09:37→16:23)
[2019-11-01] MEDS: Lisinopril 20 MG TAB PO SCH ×2 (09:37→12:16)
[2019-11-01] MEDS: Amlodipine 10 MG TAB PO SCH (09:38)
[2019-11-01] MEDS: Metoclopramide HCl 10 MG TAB PO SCH ×3 (09:39→23:58)
[2019-11-01] MEDS: Insulin Glargine 6 UNITS in Pre-Filled Syringe 1 EACH SC SCH (09:39)
[2019-11-01] MEDS: Aspirin 81 mg Enteric Coated Tablet PO SCH (09:39)
[2019-11-01] MEDS: HYDROcodone/Acetaminophen 10/325 mg Tablet PO PRN ×4 (09:45→23:58)
--- NOTE | 2019-11-01 18:31 | CON ---
DATE OF CONSULTATION: 11/01/2019 CONSULTING: Family Medicine. CONSULTED: Dr. Buitrago. REASON FOR CONSULTATION: Urinary retention and scrotal swelling. HISTORY OF PRESENT ILLNESS: Mr. Herrera is a 59-year-old white male with history of peripheral vascular disease, who recently underwent a femoral endarterectomy and femoropopliteal bypass surgery. His postoperative course was complicated with a pseudoaneurysm, which bled. He was taken on this admission to the operating room, where he underwent emergent repair of his femoral pseudoaneurysm, which resulted in significant bleeding around his groin area. This was done by Dr. Sharma. The patient has been admitted to the hospital postoperatively for recovery by the Family Medicine Service. While in the hospital, the patient did initially have a catheter. This was removed and the patient was able to void only a small amount. He subsequently did not void at all, requiring an in-and-out catheterization. It has now been approximately over 12 hours since his last void. A bladder scan done earlier this morning demonstrated between 200 to 300 mL, although the patient states that he is starting to feel distended and somewhat full and still having not been able to urinate. Of note, the patient does have a known history of BPH and takes tamsulosin and finasteride at home. He reports that on this regimen, he has been urinating well without any difficulty. He does note that he has become significantly weakened after his hospitalization and surgery. He is also apparently refusing to comply with physical therapy and not performing any type of exercises currently. He also states it has been approximately 2 to 3 days since his last bowel movement. He does not endorse any prior history of gross hematuria, urinary tract infections, incontinence, or previous urologic surgeries. ALLERGIES: MORPHINE. HOME MEDICATIONS: 1. Zoloft. 2. Temazepam. 3. [place] 10/325 mg. 4. Carvedilol. 5. Atorvastatin. 6. Gabapentin. 7. Reglan. 8. Hydralazine. 9. Cefzil. 10. Finasteride. 11. Insulin Lantus. 12. Lisinopril. 13. Flomax. 14. Protonix. 15. Hydroxyzine. PAST MEDICAL HISTORY: 1. Coronary artery disease, status post myocardial infarction and stenting. 2. Hypertension. 3. Type 2 diabetes mellitus, suboptimally controlled. 4. COPD. 5. Gastroesophageal reflux disease. 6. Peripheral vascular disease. 7. BPH. PAST SURGICAL HISTORY: 1. Femoral pseudoaneurysm repair. 2. Left common femoral endarterectomy. 3. Right [id number] amputation. 4. Right femoral embolectomy. 5. Left femoropopliteal bypass surgery. FAMILY HISTORY: Noncontributory. SOCIAL HISTORY: The patient has a 12-dtgq-owvm of smoking, but apparently quit. He denies alcohol or illicit drug use. REVIEW OF SYSTEMS: A 12-point review of system was reviewed and negative other than some abdominal pain and discomfort in the suprapubic area. PHYSICAL EXAMINATION: VITAL SIGNS: Temperature 98.8, pulse 66, respirations 16, blood pressure 164/77, saturations 94% on room air. GENERAL: No apparent distress, communicative and alert, well-nourished, well-developed, relatively thin, answering questions appropriately. HEENT: Normocephalic and atraumatic. Pupils are symmetric and round. Nonicteric. Trachea midline. Moist mucous membranes. CARDIOVASCULAR: Regular rate and rhythm. Normal S1 and S2. Symmetric pulses in the upper extremities. CHEST: No increased work of breathing. Symmetric expansion. LUNGS: Clear anteriorly. ABDOMEN: Soft, mildly protuberant. No masses. Tenderness to palpation in the suprapubic area. There is ecchymosis on the lower abdomen. No obvious organomegaly, although exam is somewhat limited by abdominal distention. There is a well-healed lower midline incision without hernia. GENITOURINARY: The patient's penis is somewhat edematous with ecchymosis around the glans and on the ventral aspect of the penis. There is some mild penile edema. The scrotum is moderately edematous with scrotal wall thickening and diffusely and significantly ecchymotic in a dark maroon color. There is also bruising and ecchymosis along the inguinal regions and inner thighs, consistent with prior bleed from the patient's pseudoaneurysm. Meatus appears patent. EXTREMITIES: No cyanosis or edema of the left lower extremity. The right extremity has an AKA. The stump appears well healed. There is clubbing of the upper extremities. MUSCULOSKELETAL: No obvious joint deformities or joint erythema noted other than previously noted AKA. Full range of motion. SKIN: Warm and dry. No rashes or lesions. Good turgor. PSYCHIATRIC: Alert and oriented x3. Appropriate mood and affect. NEUROLOGIC: Cranial nerves 2 through 12 are grossly intact. No focal or sensory or motor deficits identified. LABORATORY EVALUATION: Full set of labs is in the [facility] system, which I have reviewed. Of note, the patient's white count is currently 7.7, hemoglobin of 8.9. Creatinine of 0.9. Urinalysis from October 25 demonstrates greater than 1000 glucose, 300 protein, 11 to 20 rbc's, nitrite negative, no bacteria. PROCEDURE: I discussed catheterization with the patient since he is having abdominal discomfort and fullness as well as not having voided in almost a day. The patient agreed to catheterization. A 16-[place] coude catheter was chosen for catheterization. The patient was prepped and draped in usual sterile fashion. Coude catheter was placed with relative ease into the patient's bladder with 800 mL of joel colored urine released, 10 mL of sterile water placed into the balloon. The catheter was secured to [employer] on the patient's right leg. ASSESSMENT AND PLAN: A 59-year-old white male with significant BPH and urinary retention with failed attempts at catheterization by the nursing staff previously. The patient had not voided in over a day and was in urinary retention. This has been alleviated with a catheter. I suspect the majority of the patient's urinary retention currently is coming from neurogenic bladder weakness from debilitation and deconditioning. Physical therapy will be the best regimen to improve the patient's bladder contractility, which should allow for normal urination again. Alleviation of constipation should also assist in the patient's urination. I would recommend he remain on his finasteride and Flomax, keep the catheter in for at least 7 days to allow decompression of the bladder and recovery of bladder function. After which time, we can attempt a voiding trial in the office. If the patient does not participate in physical therapy and remains weak, there is a high probability he will remain in urinary retention. Also, the patient is planning to undergo a coronary artery bypass grafting in the future, apparently in about three weeks or so. There is a good possibility that either the patient will keep the catheter until that time if he is not regaining his strength or he will go back into urinary retention after his coronary artery bypass grafting. We will manage his urinary retention at that time if it occurs postoperatively with a catheter again. Ultimately, we may discuss transurethral resection of the prostate or UroLift in the future to improve the patient's urination once his strength returns and his cardiac issues have been resolved. This can be done on an outpatient basis. As of this time, there does not appear to be anything further that needs to be done with this patient other than maintenance of good bowel movements, continuation of his home BPH medications, and indwelling catheter for at least 7 days. I have provided my card for followup. They will contact me for a voiding trial in about 1 week. Job ID: [id number]
[2019-11-01] MEDS: Atorvastatin Calcium 40 MG TAB PO SCH (23:57)
[2019-11-01] MEDS: Insulin Glargine 10 UNITS in Pre-Filled Syringe 1 EACH SC SCH (23:59)
[2019-11-02 04:47] LABS: Anion Gap 10 mmol/L (10-20); BUN (Urea Nitrogen) 9 mg/dL (8.4-25.7); Calc. Creatinine Clearance 89 mL/min (70-130); Calcium 7.7 mg/dL (7.8-10.44); Carbon Dioxide 25 mmol/L (22-29); Chloride 99 mmol/L (98-107); Estimated GFR-MDRD Greater than 90; Glucose 79 mg/dL (70-105); Potassium 4.3 mmol/L (3.5-5.1); Sodium 130 mmol/L (136-145)
--- NOTE | 2019-11-02 06:32 | PDOC.FM ---
- Subjective Subjective: Mr. Herrera was upset this morning. Says that he cannot get rest as people are always checking on him. He expressed frustration. He has O2 requirement, not required before. He refuses to use incentive spirometer or work with PT. - Objective MAR Reviewed: Yes Vital Signs & Weight: Vital Signs (12 hours) Temp Pulse Resp BP Pulse Ox 11/02/19 03:03 99.1 F 65 17 155/74 H 92 L 11/02/19 01:17 91 L 11/02/19 01:14 75 14 95 11/02/19 00:00 99.2 F 11/01/19 20:13 99 F 60 18 137/72 97 11/01/19 20:00 97 11/01/19 19:49 95 11/01/19 19:47 63 16 95 11/01/19 19:44 63 16 95 Weight Weight 54.839 kg Most Recent Monitor Data Heart Rate from ECG 69 NIBP 89/55 NIBP BP-Mean 66 Respiration from ECG 16 SpO2 100 I&O: 10/31/19 11/01/19 11/02/19 06:59 06:59 06:59 Intake Total 940 295 350 Output Total 2024 945 638 Balance -1085 -180 -450 Result Diagrams: 10/30/19 08:25 11/02/19 03:52 Phys Exam - Physical Examination Respiratory: no wheezing, clear to auscultation bilateral Cardiovascular: RRR, no significant murmur Musculoskeletal: no edema Neurological: non-focal Psychiatric: normal affect Skin: normal turgor Dx/Plan (1) Femoral artery pseudo-aneurysm, left Code(s): I72.4 - ANEURYSM OF ARTERY OF LOWER EXTREMITY Status: Acute (2) (HFpEF) heart failure with preserved ejection fraction Code(s): I50.30 - UNSPECIFIED DIASTOLIC (CONGESTIVE) HEART FAILURE Status: Chronic (3) COPD (chronic obstructive pulmonary disease) Status: Chronic (4) Acute on chronic systolic heart failure, NYHA class 3 Code(s): I50.23 - ACUTE ON CHRONIC SYSTOLIC (CONGESTIVE) HEART FAILURE Status : Acute (5) Cardiomyopathy Code(s): I42.9 - CARDIOMYOPATHY, UNSPECIFIED Status: Acute (6) Chronic obstructive pulmonary disease with acute exacerbation Code(s): J44.1 - CHRONIC OBSTRUCTIVE PULMONARY DISEASE W (ACUTE) EXACERBATION Status: Acute - Plan Plan: This is a 59 male with a pmh of AKA, IDDM2 poorly controlled, HTN, COPD, HFpEF, GERD, CAD Left femoral pseudoaneurysm, postop -okay for discharge per Dr. Sharma Suspected volume overload, improved - s/p 2 U PRBC 10/29 - CXR showed atelectasis, swollen testicles - s/p lasix 40mg IV HFrEF - Echo on 10/18/19 shows EF of 55-60% with mild left ventricular hypertrophy, Cath 10/16 showed EF 30% - Continue monitoring I&Os - Cardiology consulted, no lifevest needed for d/c IDDM2, uncontrolled -SSI, ACHS accuchecks, hypoglycemia protocol -sugars are improving O2 requirement - likely 2/2 atelectasis from patient not getting out of bed, refusing PT and IS Urinary retention - deshpande in place with follow up in 1 wk planned w/ Dr. Buitrago HTN -Continue home carvedilol CAD -Continue atorvastatin GERD -Continue home protonix Chronic back pain -Continue home norco PVD -Continue atorvastatin Anemia, acute blood loss -received 2U PRBC 09/29, Hgb 8.9 on recheck Dispo: Plan for discharge today home with HH, pending weaning off O2. Addendum - Attending - Attending Attestation Date/Time: 11/02/19 2218 I personally evaluated the patient and discussed the management with Dr. Salinas I agree with the History, Examination, Assessment and Plan documented above with any addition or exceptions noted below - Patient without complaints. Deshpande placed for urinary retention yesterday and tolerating well. Afebrile VSS. PLan to d/c home today. [facility] for home health and home O2. Follow-up with specialists as schedule/recommended.
[2019-11-02] MEDS: Mometasone 100 MCG HFA INHALER INH SCH ×2 (07:09→18:25)
[2019-11-02] MEDS ORDERED: Polyethylene Glycol 3350 17 GM Packet PO SCH (09:00)
[2019-11-02] MEDS: Carvedilol 25 MG TAB PO SCH ×2 (09:06→17:16)
[2019-11-02] MEDS: Finasteride 5 MG TAB PO SCH (09:07)
[2019-11-02] MEDS: Amlodipine 10 MG TAB PO SCH (09:07)
[2019-11-02] MEDS: Aspirin 81 mg Enteric Coated Tablet PO SCH (09:07)
[2019-11-02] MEDS: Insulin Glargine 6 UNITS in Pre-Filled Syringe 1 EACH SC SCH (09:07)
[2019-11-02] MEDS: Lisinopril 20 MG TAB PO SCH ×2 (09:09→19:49)
[2019-11-02] MEDS: HYDROcodone/Acetaminophen 10/325 mg Tablet PO PRN ×3 (09:11→18:30)
[2019-11-02] MEDS: Tamsulosin HCl 0.4 MG CAP PO SCH (09:11)
[2019-11-02] MEDS: Metoclopramide HCl 10 MG TAB PO SCH ×3 (09:11→19:49)
[2019-11-02] MEDS: Temazepam 15 MG CAP PO PRN (10:06)
[2019-11-02 15:28] VITALS: BP 128/61
[2019-11-02 17:22] VITALS: TEMP 98.2
[2019-11-02] MEDS: Atorvastatin Calcium 40 MG TAB PO SCH (19:49)
[2019-11-02] MEDS: Insulin Glargine 10 UNITS in Pre-Filled Syringe 1 EACH SC SCH (19:50)
--- NOTE | 2019-11-03 09:58 | PQF ---
CLINICAL DOCUMENTATION IMPROVEMENT CLARIFICATION FORM: ICD-10 Updated PLEASE DO AN ADDENDUM TO THE PROGRESS NOTE WITH ANY DOCUMENTATION UPDATES OR ADDITIONS AND CARRY THROUGH TO DC SUMMARY. THANK YOU. DATE: 11/03/19 ATTN: DR. RAMIRES Please exercise your independent, professional judgment in responding to the clarification form. Clinical indicators are provided on the bottom of this form for your review Please check appropriate box(s): [ x ] Hyponatremia please specify etiology, if known [ ] Hyponatremia due to SIADH (Syndrome of Inappropriate Secretion of Antidiuretic Hormone) [ ] Other diagnosis [ ] Unable to determine In addition, please specify: Present on Admission (POA): [ x ] Yes [ ] No [ ] Unable to determine CLINICAL INDICATORS - SIGNS / SYMPTOMS / LABS / RESULTS AND LOCATION IN EMR 10/26: NA+ 132 10/27: NA+ 131 11/01 NA+ 130 RISKS: IV LASIX (10/27) TREATMENT: IV FLUIDS (NURSE NOTE 10/26) SERIAL LABS (This form is maintained as a part of the permanent medical record) 2014 [employer] All Rights Reserved [email or web address] Office: [phone] [email or web address]
--- NOTE | 2019-11-03 10:11 | PQF ---
CLINICAL DOCUMENTATION IMPROVEMENT CLARIFICATION FORM: ICD-10 Updated PLEASE DO AN ADDENDUM TO THE PROGRESS NOTE WITH ANY DOCUMENTATION UPDATES OR ADDITIONS AND CARRY THROUGH TO DC SUMMARY. THANK YOU. DATE: 11/03/19 ATTN: DR. RAMIRES Please exercise your independent, professional judgment in responding to the clarification form. Clinical indicators are provided on the bottom of this form for your review Please check appropriate box(s): Conflicting documentation was noted in the Medical Record, please clarify if patient is being treated/monitored for: [ ] DIASTOLIC CHF [ ] ACUTE [ ] CHRONIC [ ] ACUTE ON CHRONIC [ x] SYSTOLIC CHF [ ] ACUTE [ X ] CHRONIC [ ] ACUTE ON CHRONIC [ ] COMBINED [ ] ACUTE [ ] CHRONIC [ ] ACUTE ON CHRONIC [ ] Other diagnosis [ ] Unable to determine In addition, please specify: Present on Admission (POA): [ x ] Yes [ ] No [ ] Unable to determine For continuity of documentation, please document condition throughout progress notes and discharge summary. Thank You. CLINICAL INDICATORS - SIGNS / SYMPTOMS/ LABS / RESULTS AND LOCATION IN EMR PROGRESS NOTE 10/28: CHRONIC DIASTOLIC CHF PROGRESS NOTE 10/29: ACUTE ON CHRONIC SYSTOLIC CHF RISKS: HYPERTENSION H/O DIASTOLIC CHF TREATMENT: LASIX IVP (10/27) COREG (10/26-PRESENT) MONITORING I&Os (PROGRESS NOTE 10/27) (This form is maintained as a part of the permanent medical record) 2014 [employer]. All Rights Reserved CHEYENNE [email or web address] Office: [phone] [facility]OSPITALRachelle
--- NOTE | 2019-11-03 12:08 | OP ---
DATE OF PROCEDURE: 10/26/2019 PREOPERATIVE DIAGNOSIS: Bleeding left femoral pseudoaneurysm, post cardiac catheterization. PROCEDURE PERFORMED: Open repair of left femoral artery laceration. ANESTHESIA: General endotracheal. ESTIMATED BLOOD LOSS: Less than 100. DESCRIPTION OF PROCEDURE: After consent was obtained, the patient was brought to the operating room and placed in supine position on the operating room table. Appropriate central line and monitors were placed, and general endotracheal anesthesia was induced. The left groin and abdomen were prepped and draped in usual sterile fashion. Transverse incision was made over the area identified on ultrasound of bleeding. Dissection down under the inguinal ligament was obtained with electrocautery. Once the area was exposed on the anterior wall of the femoral artery, the Kittner dissector was used to hold pressure while 5-0 Prolene was used to repair the artery. Once artery was repaired, the wound was copiously irrigated, closed in layers and Dermabond applied to skin. The patient tolerated the procedure well, was awakened, extubated, and transferred to the recovery room in stable condition. Job ID: [id number]
--- NOTE | 2019-11-03 12:08 | DIS ---
DATE OF ADMISSION: 10/26/2019 DATE OF DISCHARGE: 11/02/2019 RESIDENT: Ladan Salinas DO. ADMITTING ATTENDING: Erick Coley MD DISCHARGE ATTENDING: Annette Garrido MD CONSULTS: 1. Cardiovascular Surgery, Dr. Sharma. 2. Pulmonology, Dr. Bangura. 3. Urology, Dr. Buitrago. PROCEDURES: Left femoral pseudoaneurysm repair on 10/26/2019. PRIMARY DIAGNOSES: 1. Left femoral pseudoaneurysm, status post repair by Dr. Sharma. 2. Heart failure with reduced ejection fraction. 3. Insulin-dependent diabetes type 2. 4. Oxygen requirement. 5. Urinary retention. 6. Hypertension. 7. Coronary artery disease. 8. Gastroesophageal reflux disease. 9. Chronic back pain. 10. Peripheral vascular disease. 11. Anemia due to acute blood loss. DISCHARGE MEDICATIONS: 1. Sertraline 100 mg p.o. daily. 2. Restoril 15 mg p.o. at bedtime p.r.n. 3. Igo 10 mg/325 mg one tab p.o. as directed p.r.n. 4. Carvedilol 25 mg p.o. b.i.d. 5. Gabapentin 100 mg p.o. t.i.d. p.r.n. 6. Reglan 10 mg p.o. t.i.d. 7. Finasteride 5 mg p.o. daily. 8. Insulin glargine 6 units subcu q.a.m., 10 units subcu at bedtime. 9. Tamsulosin 0.4 mg p.o. daily. 10. Pantoprazole 40 mg p.o. b.i.d. p.r.n. 11. Hydroxyzine 25 mg p.o. daily. 12. Amlodipine 30 mg p.o. daily. 13. Aspirin 81 mg p.o. daily. 14. Atorvastatin 40 mg p.o. at bedtime. 15. Lisinopril 20 mg p.o. b.i.d. DISCONTINUED MEDICATIONS: 1. Cefzil 500 mg p.o. daily #7. 2. Lisinopril 40 mg p.o. daily. 3. Insulin glargine 16 units subcu at bedtime. 4. Hydralazine 50 mg p.o. t.i.d. 5. Atorvastatin 10 mg p.o. daily. HISTORY OF PRESENT ILLNESS: A 59-year-old male with past medical history of peripheral vascular disease, status post right AKA; uncontrolled diabetes, insulin dependent; hypertension; heart failure with reduced ejection fraction, was admitted for femoral pseudoaneurysm repair. He was initially admitted to the ICU postsurgical and then was transferred to telemetry floor for further recovery. His chronic medical problems were controlled. He was recommended to have a CABG procedure by Dr. Sharma, however, the patient is not a current surgical candidate due to his physical deconditioning. Throughout hospitalization, the patient refused to work with any physical therapy. He refused to use incentive spirometry and he did not want to go to inpatient rehab as recommended. He preferred to go home to build up his strength. At end of hospitalization, the patient had continued urinary retention with catheter removal. Dr. Buitrago saw patient and replaced the catheter with plan to follow up in 7 days in office for a voiding trial. Dr. Sharma signed off the case. The patient was discharged home. DISPOSITION: Guarded. DISCHARGE INSTRUCTIONS: 1. Location: Home with home health and supplemental oxygen. This is likely due to atelectasis as the patient was sedentary throughout hospitalization. 2. Diet: Diabetic. 3. Activity: As tolerated. 4. Follow up with Dr. Buitrago, Urology in 7 days. 5. Follow up with PCP who is Dr. Garcia within 7 days. 6. Follow up with Cardiovascular Surgery, Dr. Sharma in 1 month. Job ID: [id number]
== END 2019-11-02 08:15 | disposition home or self-care (01) | DRG 253 ==
LOC: ERS 09:19 → CCU 18:07 → 2NO 10-27 20:49
PROVIDERS: ADMIT Family Medicine; ATTEND Family Medicine
PROC: 04QL0ZZ Repair Left Femoral Artery, Open Approach (ICD-10-PCS; principal; 2019-10-26)
DX: I72.4 Aneurysm of artery of lower extremity (principal); D62 Acute posthemorrhagic anemia; I42.9 Cardiomyopathy, unspecified; J44.1 Chronic obstructive pulmonary disease with (acute) exacerbation; J98.11 Atelectasis; I50.22 Chronic systolic (congestive) heart failure; E87.1 Hypo-osmolality and hyponatremia; Z89.611 Acquired absence of right leg above knee; K21.9 Gastro-esophageal reflux disease without esophagitis; I25.10 Atherosclerotic heart disease of native coronary artery without angina pectoris; I25.2 Old myocardial infarction; Z87.891 Personal history of nicotine dependence; I11.0 Hypertensive heart disease with heart failure; K27.9 Peptic ulcer, site unspecified, unspecified as acute or chronic, without hemorrhage or perforation; I73.9 Peripheral vascular disease, unspecified; E11.51 Type 2 diabetes mellitus with diabetic peripheral angiopathy without gangrene; Z79.4 Long term (current) use of insulin; M54.9 Dorsalgia, unspecified; G89.29 Other chronic pain; E11.649 Type 2 diabetes mellitus with hypoglycemia without coma; Z88.5 Allergy status to narcotic agent; R33.9 Retention of urine, unspecified
CPT/HCPCS: 36415; 36416; 36430; 71045; 71275; 74174; 80048; 80053; 81003; 81015; 82553; 82947; 83036; 83605; 83690; 83880; 84484; 85025; 85027; 86850; 86870; 86900; 86901; 86922; 87086; 93005; 93923; 96365; 96366; 96375; 96376; J0690; J1644; J1815; J1940; J2001; J2405; J2550; J2704; J2720; J3010; J7620; P9016; Q0177; Q9967; S0020

== ENCOUNTER 2020-04-18 14:23 | Inpatient (IN) | payer MEDICARE, OTHER ==
--- NOTE | 2020-04-18 15:05 | CT ---
CT BRAIN WITHOUT CONTRAST: HISTORY: Right-sided numbness and tingling Comparison 04/27/2019 FINDINGS: No evidence of acute transcortical infarct, hemorrhage, midline shift or abnormal extra-axial fluid c ollections is seen. The ventricular size is appropriate and the basilar cisterns are patent. The bony calvarium is intact. The visualized paranasal sinuses and mastoid air cells are well aerated. There is a small focal area of decreased attenuation in the left thalamus which is new since last exa m. This is suspicious for an age-indeterminate infarction. IMPRESSION: Findings suspicious for an age-indeterminate nonhemorrhagic left thalamic infarction.
[2020-04-18 15:21] LABS: #Eosinphils 0.1 thou/uL (0.0-0.7); #Lymphocytes 2.1 thou/uL (1.20-3.40); #Monocytes 0.3 thou/uL (0.11-0.59); #Neutrophils 2.9 thou/uL (1.40-6.50); %Basophils 0.2 % (0.0-1.0); %Eosinophils 1.2 % (0.0-10.0); %Lymphocytes 38.8 % (21.0-51.0); %Monocytes 6.4 % (0.0-10.0); %Neutrophils 53.4 % (42.0-75.0); Mean Corpuscular HGB CONC 34.1 g/dL (32.0-36.0); Mean Corpuscular Hemoglobin 31.4 pg (27.0-31.0); Mean Corpuscular Volume 92.1 fL (78.0-98.0); Mean Platelet Volume 8.9 fL (7.4-10.4); Platelet Count 117 thou/uL (130-400); RBC Distribution Width 12.3 % (11.5-14.5); Red Blood Cell (RBC) Count 4.46 mill/uL (4.70-6.10); White Blood Cell (WBC) Count 5.4 thou/uL (4.8-10.8)
[2020-04-18] MEDS ORDERED: Aspirin Chewable 81 MG TAB ONE (15:27)
[2020-04-18 15:37] LABS: ALT (SGPT) 7 U/L (8-55); AST (SGOT) 10 U/L (5-34); Albumin 3.9 g/dL (3.4-4.8); Alkaline Phosphatase 85 U/L (40-110); Anion Gap 12 mmol/L (10-20); BUN (Urea Nitrogen) 19 mg/dL (8.4-25.7); Bilirubin, Total 0.4 mg/dL (0.2-1.2); Calc. Creatinine Clearance 0 mL/min (70-130); Calcium 8.9 mg/dL (7.8-10.44); Carbon Dioxide 26 mmol/L (23-31); Chloride 96 mmol/L (98-107); Estimated GFR-MDRD 55; Glucose 303 mg/dL (80-115); Potassium 4.9 mmol/L (3.5-5.1); Protein, Total 6.9 g/dL (5.8-8.1); Sodium 129 mmol/L (136-145)
[2020-04-18 16:22] LABS: CKMB 2.4 ng/mL (0-6.6)
[2020-04-18] MEDS ORDERED: Dextrose 5% in Water 1,000 ML IV PRN (18:20)
[2020-04-18] MEDS ORDERED: HumaLOG 300 UNITS/3 ML VIAL SC PRN ×2 (18:20)
[2020-04-18] MEDS ORDERED: Acetaminophen 325 MG TAB PO PRN (18:20)
[2020-04-18] MEDS ORDERED: Dextrose 50% Abboject 50 ML SYRINGE SLOW IVP PRN (18:20)
[2020-04-18 19:28] LABS: Troponin I 0.034 ng/mL (< 0.028)
[2020-04-18] MEDS: Sodium Chloride 0.9% 1,000 ML IV SCH (19:44)
[2020-04-18 19:59] VITALS: BMI 16.7
--- NOTE | 2020-04-18 20:04 | PDOC.HHP ---
Hospitalist HPI - History of Present Illness Right arm and leg numbness History of Present Illness: PCP: Dr. Garcia Patient is a 60-year-old male past medical history significant for diabetes type 2, hyperlipidemia, hypertension, right AKA. Patient presents to the ER today after having right-sided facial, leg and arm numbness. He states that this started approximately 4 days ago but he was unable to make an appointment with his physician until today. When he presented to the physician's office instructed him to come to the ER after completing an EKG. Patient denies any chest pain, shortness of breath, abdominal pain, dizziness, elevated blood pressures or sugars. Patient states he has been compliant with his medications. Patient not very contributory to interview or assessment, states we should have all the information we need to know. ED Course: Today in the ER they completed lab work, brain CT, EKG. Patient was administered 1 L of normal saline and aspirin 325 mg. Hospitalist ROS - Review of Systems Constitutional: denies: fever, chills, sweats, weakness, malaise, other Eyes: denies: pain, vision change, conjunctivae inflammation, eyelid inflammation, redness, other ENT: denies: ear pain, ear discharge, nose pain, nose discharge, nose congestion , mouth pain, mouth swelling, throat pain, throat swelling, other Respiratory: denies: cough, dry, shortness of breath, hemoptysis, SOB with excertion, pleuritic pain, sputum, wheezing, other Cardiovascular: denies: chest pain, palpitations, orthopnea, paroxysmal noc. dyspnea, edema, light headedness, other Gastrointestinal: denies: nausea, vomiting, abdominal pain, diarrhea, constipation, melena, hematochezia, other Genitourinary: denies: dysuria, frequency, incontinence, hematuria, retention, other Musculoskeletal: denies: neck pain, shoulder pain, arm pain, back pain, hand pain, leg pain, foot pain, other Skin: denies: rash, lesions, dominique, bruising, other Neurological: reports: numbness (To right leg and arm) All other systems reviewed; all pertinent +/- noted in HPI/Subj - Medication Medications: Allergies: lorazepam, morphine Current Medications: finasteride ThuApr 18, 2020 14:54 CHEYENNE Martin, Thomas tablet : Strength - 5 mg : ORAL Patient Dose: 5 mg Oral once a day. Lantus U-100 Insulin ThuApr 18, 2020 14:54 CHEYENNE Martin Daylee solution : Strength - 100 unit/mL : SUBCUTANEOUS Patient Dose: 16 units Subcutaneous once a day (at bedtime). lisinopril ThuApr 18, 2020 14:54 CHEYENNE Martin Daylee tablet : Strength - 40 mg : ORAL Patient Dose: 40 mg Oral once a day. tamsulosin ThuApr 18, 2020 14:54 CHEYENNE Martin Daylee capsule : Strength - 0.4 mg : ORAL Patient Dose: 0.4 mg Oral once a day. sertraline ThuApr 18, 2020 14:54 CHEYENNE Martin Daylee tablet : Strength - 100 mg : ORAL Patient Dose: 100 mg Oral once a day. temazepam ThuApr 18, 2020 14:54 CHEYENNE Martin Daylee capsule : Strength - 15 mg : ORAL Patient Dose: 15 mg Oral once a day (at bedtime). Spring ThuApr 18, 2020 14:54 CHEYENNE Martin Daylee tablet : Strength - 10 mg-325 mg : ORAL Patient Dose: 1 tab(s) Oral As Needed. atorvastatin ThuApr 18, 2020 14:54 CHEYENNE Martin Daylee tablet : Strength - 10 mg : ORAL Patient Dose: 10 mg Oral once a day. Trelegy Ellipta ThuApr 18, 2020 14:54 CHEYENNE Martin Daylee blister with device : Strength - 100 mcg-62.5 mcg-25 mcg/actuation : INHALATION Patient Dose: 1 puff(s) Oral once a day. pantoprazole oral ThuApr 18, 2020 14:54 CHEYENNE Martin Daylee tablet,delayed release (DR/EC) : Strength - 40 mg : ORAL Patient Dose: 40 mg Oral 2 times a day. metoclopramide oral ThuApr 18, 2020 14:54 CHEYENNE Martin Daylee tablet : Strength - 10 mg : ORAL Patient Dose: 10 mg Oral 3 times a day. hydrALAZINE oral ThuApr 18, 2020 14:54 CHEYENNE Martin Daylee tablet : Strength - 50 mg : ORAL Patient Dose: 50 mg Oral 3 times a day. cyclobenzaprine ThuApr 18, 2020 14:55 CHEYENNE Martin Daylee tablet : Strength - 5 mg : ORAL Patient Dose: once a day. carvedilol ThuApr 18, 2020 15:37 CHEYENNE Martin, Thomas tablet : Strength - 25 mg : ORAL Patient Dose: 3.12 mg Oral once a day. Hospitalist History - Past Medical History Source: patient Cardiac: reports: HTN, [place], Hyperlipidemia Endocrine: reports: Diabetes - Past Surgical History Past Surgical History: reports: Cholecystectomy, Other Other Surgical History: Right AKA, colon surgery x3, cardiac stents x2 - Family History Family History: reports: no pertinent history - Social History Smoking Status: Current every day smoker Tobacco Type: cigarettes Alcohol: reports: None Drugs: reports: none - Exam General Appearance: NAD, awake alert ENT: normocephalic atraumatic, moist mucosa Heart: RRR, no murmur, no gallops, no rubs, normal peripheral pulses Respiratory: CTAB, no wheezes, no rales, no ronchi, normal chest expansion Gastrointestinal: soft, non-tender, non-distended, normal bowel sounds Extremities: no edema Extremities - other findings: Right AKA Neurological - other findings: Patient with facial, right arm, right leg sensory deficit Psychiatric - other findings: Hostile during interview and assessment Hospitalist Results - Labs Result Diagrams: 04/18/20 15:09 04/18/20 15:09 Lab results: WBC 5.4 thou/uL (4.8-10.8) 04/18/20 15:09 Hgb 14.0 g/dL (14.0-18.0) 04/18/20 15:09 Hct 41.1 % (42.0-52.0) L 04/18/20 15:09 MCV 92.1 fL (78.0-98.0) 04/18/20 15:09 Plt Count 117 thou/uL (130-400) L 04/18/20 15:09 Neutrophils % 53.4 % (42.0-75.0) 04/18/20 15:09 Sodium 129 mmol/L (136-145) L 04/18/20 15:09 Potassium 4.9 mmol/L (3.5-5.1) 04/18/20 15:09 Chloride 96 mmol/L (98-107) L 04/18/20 15:09 Carbon Dioxide 26 mmol/L (23-31) 04/18/20 15:09 BUN 19 mg/dL (8.4-25.7) 04/18/20 15:09 Creatinine 1.32 mg/dL (0.7-1.3) H 04/18/20 15:09 Glucose 303 mg/dL (80-115) H 04/18/20 15:09 Calcium 8.9 mg/dL (7.8-10.44) 04/18/20 15:09 Total Bilirubin 0.4 mg/dL (0.2-1.2) 04/18/20 15:09 AST 10 U/L (5-34) 04/18/20 15:09 ALT 7 U/L (8-55) L 04/18/20 15:09 Alkaline Phosphatase 85 U/L (40-110) 04/18/20 15:09 CK-MB (CK-2) 2.4 ng/mL (0-6.6) 04/18/20 15:09 Troponin I 0.034 ng/mL (< 0.028) H 04/18/20 18:50 Serum Total Protein 6.9 g/dL (5.8-8.1) 04/18/20 15:09 Albumin 3.9 g/dL (3.4-4.8) 04/18/20 15:09 Laboratory Tests 04/18/20 15:09 CK-MB (CK-2) 2.4 Troponin I 0.038 H - EKG Interpretation EKG: SR RBB 63bpm - Radiology Interpretation CT scan - head Status: report reviewed by me Additional Comment: IMPRESSION: Findings suspicious for an age-indeterminate nonhemorrhagic left thalamic infarction. 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 Echo and carotid Doppler FLP in a.m. Start aspirin Stroke team Hyponatremia Start IV fluids Recheck labs in a.m. Elevated troponin Telemetry Continue to trend troponins Denies any chest pain shortness of breath Diabetes type 2 Monitor Accu-Cheks AC at bedtime Mild sliding scale insulin Hyperlipidemia FLP in a.m. Restart home medications Hypertension Monitor vital signs every 4 hours Restart home medications once reconciled GI and VTE prophylaxis ordered CODE STATUS: Full Surrogate decision: Scott Newman
[2020-04-18 20:42] LABS: Amphetamine Not Detected (NotDetected); Benzodiazepine Screen Detected (NotDetected); Cocaine Metabolite Screen Not Detected (NotDetected); Medtox Reader # READER 1; Methamphetamine Not Detected (NotDetected); Opiate Screen Detected (NotDetected); Phencyclidine (PCP) Not Detected (NotDetected); THC/Cannabinoid Screen Not Detected (NotDetected)
[2020-04-18 20:43] LABS: Barbiturates Screen Not Detected (NotDetected); Medtox Control Line Valid? VALID (VALID); Methadone Not Detected (NotDetected); Oxycodone Screen Not Detected (NotDetected); Tricyclic Screen Not Detected (NotDetected)
[2020-04-18] MEDS ORDERED: Famotidine 20 MG TAB PO SCH (21:00)
[2020-04-18] MEDS ORDERED: HYDROcodone/Acetaminophen 10/325 mg Tablet PO SCH (21:00)
[2020-04-18] MEDS ORDERED: Atorvastatin Calcium 40 MG TAB PO SCH (21:00)
[2020-04-18 22:14] LABS: Troponin I 0.037 ng/mL (< 0.028)
--- NOTE | 2020-04-18 22:42 | ULT ---
ULTRASOUND DOPPLER DUPLEX CAROTID: DATE: 04/18/2020 10:14 PM HISTORY: Stroke: 60-year-old male with CVA TECHNIQUE: Grayscale, color-flow, and spectral analysis, of major arteries of neck. FINDINGS: RIGHT: Atherosclerotic plaque:Moderate plaque throughout common carotid and proximal portions of internal ca rotid and external carotid. Peak systolic and end diastolic velocities: CCA:75 cm/s, 15 cm/s ICA:110 cm/s, 35 cm/s ICA/CCA ratio:1.4 Vertebral artery flow:Antegrade LEFT: Atherosclerotic plaque:Moderate plaque throughout common carotid and proximal portions of internal ca rotid and external carotid Peak systolic and end diastolic velocities: CCA:80 cm/s, 15 cm/s ICA:90 cm/s, 25 cm/s ICA/CCA ratio:1.1 Vertebral artery flow:Antegrade IMPRESSION: 1) extensive atherosclerosis of bilateral common carotid, external carotid, and internal carotid peter papi. 2) no evidence of hemodynamically significant stenosis.
[2020-04-18] MEDS ORDERED: hydrALAZINE 20 MG/ML VIAL SLOW IVP PRN (23:47)
[2020-04-19 06:09] LABS: #Eosinphils 0.1 thou/uL (0.0-0.7); #Lymphocytes 1.6 thou/uL (1.20-3.40); #Monocytes 0.2 thou/uL (0.11-0.59); #Neutrophils 1.8 thou/uL (1.40-6.50); %Basophils 0.7 % (0.0-1.0); %Eosinophils 1.9 % (0.0-10.0); %Monocytes 6.3 % (0.0-10.0); %Neutrophils 48.1 % (42.0-75.0); Hemoglobin 12.9 g/dL (14.0-18.0); Mean Corpuscular HGB CONC 33.2 g/dL (32.0-36.0); Mean Corpuscular Hemoglobin 30.9 pg (27.0-31.0); Mean Corpuscular Volume 93.1 fL (78.0-98.0); Mean Platelet Volume 8.5 fL (7.4-10.4); Platelet Count 107 thou/uL (130-400); RBC Distribution Width 12.5 % (11.5-14.5); Red Blood Cell (RBC) Count 4.16 mill/uL (4.70-6.10); White Blood Cell (WBC) Count 3.8 thou/uL (4.8-10.8)
[2020-04-19 06:27] LABS: Anion Gap 10 mmol/L (10-20); BUN (Urea Nitrogen) 15 mg/dL (8.4-25.7); Calc. Creatinine Clearance 54 mL/min (70-130); Calcium 8.4 mg/dL (7.8-10.44); Carbon Dioxide 24 mmol/L (23-31); Cardiac Risk 3.8 (Less than 4.5); Chloride 104 mmol/L (98-107); Cholesterol 96 mg/dl (< 200 Desired); Estimated GFR-MDRD 77; Glucose 208 mg/dL (80-115); HDL Cholesterol 25 mg/dL (>60 Neg Risk); LDL Cholesterol, Calculated 53 mg/dL; Potassium 4.6 mmol/L (3.5-5.1); Sodium 133 mmol/L (136-145); Triglycerides 91 mg/dL (Less than 150)
[2020-04-19] MEDS ORDERED: Temazepam 15 MG CAP PO PRN (08:01)
[2020-04-19] MEDS ORDERED: Aspirin 81 mg Enteric Coated Tablet PO SCH ×2 (09:00)
[2020-04-19] MEDS ORDERED: Enoxaparin Sodium 40 MG/0.4 ML SYRINGE SC SCH (09:00)
[2020-04-19] MEDS ORDERED: Lisinopril 20 MG TAB PO SCH (09:00)
[2020-04-19] MEDS ORDERED: Carvedilol 25 MG TAB PO SCH (09:00)
[2020-04-19] MEDS ORDERED: HYDROcodone/Acetaminophen 10/325 mg Tablet PO SCH (09:00)
[2020-04-19] MEDS ORDERED: Tamsulosin HCl 0.4 MG CAP PO SCH (09:00)
--- NOTE | 2020-04-19 09:55 | MRI ---
MRI of thebrain without contrast: 04/19/2020 COMPARISON:None available HISTORY:Right-sided weakness, assess for acute infarction TECHNIQUE: Multiplanar multisequence MR imaging of thebrain without contrast Findings:The diffusion weighted imaging demonstrates a focus of acute infarction within the dorsal in ferior aspect of the left thalamus measuring 8 mm. There is corresponding increased T2 and FLAIR signal in this region. Multiple subcentimeter foci of increased T2 and FLAIR signal noted within the lexii as well as the periventricular, deep, and subcortical white matter, evidence of small vessel disease. The axial gradient echo imaging demonstrates no evidence for intracranial hemorrhage. Regional bone marrow signal intensity appears within normal limits. Arterial flow voids at the axial level of the skull base appear grossly unremarkable on the T2-weight ed imaging. Paranasal sinuses and mastoid air cells appear grossly unremarkable. IMPRESSION:8 mm acute infarction of the left thalamus. Small vessel disease. No intracranial hemorrha ge
[2020-04-19] MEDS ORDERED: Gabapentin 100 MG CAP PO SCH ×2 (10:45→15:00)
--- NOTE | 2020-04-19 11:41 | CON ---
NEUROLOGY CONSULTATION DATE OF CONSULTATION: 04/19/2020 REASON FOR CONSULTATION: Right-sided numbness and paresthesias. HISTORY OF PRESENT ILLNESS: Mr. Herrera is a 60-year-old male with history significant for diabetes, hyperlipidemia, hypertension, and right AKA, presented to the emergency room on 04/18/2020 with 3-day history of right-sided numbness and paresthesias. Per patient, the symptoms started 3 to 4 days ago, but he was unable to make his appointment with his primary care physician until yesterday. He presented to the primary care physician's office and complained about right- sided focal paresthesias with numbness and also, there was a concern about EEG, so he was sent to the emergency room for further evaluation. The patient denies nausea, vomiting, headache, chest pain, abdominal pain, dizziness, recent infection or exposure to COVID. In the emergency room, head CT was done, which was negative for acute intracranial pathology. EKG showed normal sinus rhythm. He was given aspirin and was transferred to the stroke floor for further evaluation. ALLERGIES: LORAZEPAM AND MORPHINE. MEDICATIONS: 1. Finasteride 5 mg once daily. 2. Lantus insulin 100 units/mL, 10 units subcutaneous once a day. 3. Lisinopril 40 mg once a day. 4. Tamsulosin 0.4 mg once a day. 5. Sertraline 100 mg once a day. 6. Temazepam 15 mg once a day. 7. Orient 10 mg-325 mg one tablet oral as needed. 8. Atorvastatin 10 mg once a day. 9. Trelegy Ellipta 100 one puff once a day. 10. Pantoprazole 40 mg two times daily. 11. Metoclopramide 10 mg three times a day. 12. Hydralazine 50 mg three times a day. 13. Cyclobenzaprine 5 mg once a day. 14. Carvedilol 25 mg daily. PAST MEDICAL HISTORY: Hypertension, diabetes, hyperlipidemia, and history of myocardial infarction. PAST SURGICAL HISTORY: Cholecystectomy, right AKA, colon surgery x2, and cardiac stents x2. FAMILY HISTORY: No family history of stroke. SOCIAL HISTORY: The patient smokes. He is a current smoker. Denies alcohol or illegal drug use. REVIEW OF SYSTEMS: Constitutional: denies: fever, chills, sweats, weakness, malaise, other Eyes: denies: pain, vision change, conjunctivae inflammation, eyelid inflammation, redness, other ENT: denies: ear pain, ear discharge, nose pain, nose discharge, nose congestion , mouth pain, mouth swelling, throat pain, throat swelling, other Respiratory: denies: cough, dry, shortness of breath, hemoptysis, SOB with excertion, pleuritic pain, sputum, wheezing, other Cardiovascular: denies: chest pain, palpitations, orthopnea, paroxysmal noc. dyspnea, edema, light headedness, other Gastrointestinal: denies: nausea, vomiting, abdominal pain, diarrhea, constipation, melena, hematochezia, other Genitourinary: denies: dysuria, frequency, incontinence, hematuria, retention, other Musculoskeletal: denies: neck pain, shoulder pain, arm pain, back pain, hand pain, leg pain, foot pain, other Skin: denies: rash, lesions, dominique, bruising, other Neurological: reports: numbness (To right leg and arm) All other systems reviewed; all pertinent +/- noted in HPI/Subj - Exam General Appearance: NAD, awake alert ENT: normocephalic atraumatic, moist mucosa Heart: RRR, no murmur, no gallops, no rubs, normal peripheral pulses Respiratory: CTAB, no wheezes, no rales, no ronchi, normal chest expansion Gastrointestinal: soft, non-tender, non-distended, normal bowel sounds Extremities: no edema Extremities - other findings: Right AKA Neurological - other findings: Patient with facial, right arm, right leg sensory deficit Psychiatric - Mental status, the patient is alert and oriented to person, place , and time. Speech is clear. Cranial nerves 2 through 12 intact except 5, decreased sensation in the right V1, V2, and V3 distribution. Sensory; decreased sensation to light touch and pinprick in the right upper and right thigh. Right AKA. Motor, muscle tone and bulk are normal. Strength, 5/5 bilaterally. Right AKA. Cerebellar, finger-nose testing intact. Gait deferred due to patient's safety reason. DATA REVIEWED: I reviewed the labs which were significant for hyperglycemia, glucose 303 and hyponatremia, sodium of 129. Creatinine is also 1.32. A head CT showed old left thalamic infarction. 04/18/20 15:09 Lab results: WBC 5.4 thou/uL (4.8-10.8) 04/18/20 15:09 Hgb 14.0 g/dL (14.0-18.0) 04/18/20 15:09 Hct 41.1 % (42.0-52.0) L 04/18/20 15:09 MCV 92.1 fL (78.0-98.0) 04/18/20 15:09 Plt Count 117 thou/uL (130-400) L 04/18/20 15:09 Neutrophils % 53.4 % (42.0-75.0) 04/18/20 15:09 Sodium 129 mmol/L (136-145) L 04/18/20 15:09 Potassium 4.9 mmol/L (3.5-5.1) 04/18/20 15:09 Chloride 96 mmol/L (98-107) L 04/18/20 15:09 Carbon Dioxide 26 mmol/L (23-31) 04/18/20 15:09 BUN 19 mg/dL (8.4-25.7) 04/18/20 15:09 Creatinine 1.32 mg/dL (0.7-1.3) H 04/18/20 15:09 Glucose 303 mg/dL (80-115) H 04/18/20 15:09 Calcium 8.9 mg/dL (7.8-10.44) 04/18/20 15:09 Total Bilirubin 0.4 mg/dL (0.2-1.2) 04/18/20 15:09 AST 10 U/L (5-34) 04/18/20 15:09 ALT 7 U/L (8-55) L 04/18/20 15:09 Alkaline Phosphatase 85 U/L (40-110) 04/18/20 15:09 CK-MB (CK-2) 2.4 ng/mL (0-6.6) 04/18/20 15:09 Troponin I 0.034 ng/mL (< 0.028) H 04/18/20 18:50 Serum Total Protein 6.9 g/dL (5.8-8.1) 04/18/20 15:09 Albumin 3.9 g/dL (3.4-4.8) 04/18/20 15:09 Laboratory Tests 04/18/20 15:09 CK-MB (CK-2) 2.4 Troponin I 0.038 H - EKG Interpretation EKG: SR RBB 63bpm - Radiology Interpretation CT scan - head Status: report reviewed by me Additional Comment: IMPRESSION: Findings suspicious for an age-indeterminate nonhemorrhagic left thalamic infarction. 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 Keith Herrera is a 60-year-old consulted for 4- to 5-day history of focal paresthesias and numbness in the right of the body including facial paresthesias. MRI of the brain reviewed, which was consistent with subacute stroke in the left thalamus. Consider gabapentin 100 mg t.i.d. for neuropathic pain and paresthesias associated with stroke. Permissive control of blood pressure at this time, strict control of blood glucose. Continue home medications. Continue medical management per primary team. Continue aspirin and high-intensity statin for secondary stroke prevention. Carotid Dopplers did not reveal hemodynamically significant stenosis. 2D echo pending. PT/OT. Continue telemetry. Continue home medications. Continue medical management per primary team. Plan discussed with the patient, the nursing staff, and team during the MDR rounds and also with the primary attending, Dr. Coto. Job ID: [id number] [facility] SYSTEMRachelle
[2020-04-19 11:47] VITALS: TEMP 98
[2020-04-19 12:30] LABS: SARS-CoV-2 MS2 Positive; SARS-CoV-2 N Gene Negative; SARS-CoV-2 S Gene Negative; SARS-CoV-2 by NAA Not Detected (NotDetected); SARS-CoV-2 orf1ab Negative
--- NOTE | 2020-04-19 12:50 | EEG ---
DATE OF SERVICE: 04/19/2020 ATTENDING PHYSICIAN: Sandra Gregg MD This EEG was performed using 24-channel [employer] video digital EEG machine with 24-disk electrodes. This was an extended 2 hours 6 minutes of inpatient video EEG recording. Digital analysis of the EEG was done for spike and seizure detection which revealed no abnormalities. BACKGROUND: The posterior background rhythm is 9 to 10 hertz. The background rhythm attenuates with eye opening and enhances with eye closure. HYPERVENTILATION: Not performed. PHOTIC STIMULATION: Bioccipital symmetric driving responses observed. SLEEP: Drowsiness is observed. EEG DIAGNOSIS: Normal awake and drowsy EEG. Job ID: [id number]
[2020-04-19] MEDS: Sodium Chloride 0.9% 1,000 ML IV SCH (14:22)
[2020-04-19 16:03] VITALS: BP 185/76
[2020-04-19] MEDS ORDERED: Mometasone 200 MCG/Formoterol 5 MCG 120 PUFF INHALER INH SCH (18:30)
[2020-04-19] MEDS ORDERED: Atorvastatin Calcium 40 MG TAB PO SCH (21:00)
== END 2020-04-19 14:36 | disposition home health service (06) | DRG 65 ==
LOC: ERS 14:23 → 2SE 18:11
PROVIDERS: ADMIT Internal Medicine; ATTEND Internal Medicine
DX: I63.89 Other cerebral infarction (principal); E87.1 Hypo-osmolality and hyponatremia; G81.91 Hemiplegia, unspecified affecting right dominant side; Z20.828 Contact with and (suspected) exposure to other viral communicable diseases; R40.2362 Coma scale, best motor response, obeys commands, at arrival to emergency department; R40.2142 Coma scale, eyes open, spontaneous, at arrival to emergency department; R40.2252 Coma scale, best verbal response, oriented, at arrival to emergency department; R29.701 NIHSS score 1; E78.5 Hyperlipidemia, unspecified; N52.9 Male erectile dysfunction, unspecified; N18.2 Chronic kidney disease, stage 2 (mild); I12.9 Hypertensive chronic kidney disease with stage 1 through stage 4 chronic kidney disease, or unspecified chronic kidney disease; E11.22 Type 2 diabetes mellitus with diabetic chronic kidney disease; F17.210 Nicotine dependence, cigarettes, uncomplicated; R79.89 Other specified abnormal findings of blood chemistry; E11.69 Type 2 diabetes mellitus with other specified complication; Z88.5 Allergy status to narcotic agent; Z88.8 Allergy status to other drugs, medicaments and biological substances; Z79.4 Long term (current) use of insulin; Z79.899 Other long term (current) drug therapy; I25.2 Old myocardial infarction; Z90.49 Acquired absence of other specified parts of digestive tract; Z89.611 Acquired absence of right leg above knee
CPT/HCPCS: 36415; 36416; 70450; 70551; 80048; 80053; 80061; 80306; 82553; 84484; 85025; 87635; 93005; 93880; 95712; 95819; 95957; J1650; U0003

== ENCOUNTER 2020-08-22 21:36 | Emergency (ER) | payer MEDICARE ==
[~2020-08-22 21:36] MED LIST changes: -Fentanyl 100 MCG/2 ML VIAL ONE; -HYDROcodone/Acetaminophen 10/325 mg Tablet ONE; -Iopamidol 370 76% 100 ML VIAL ONE; +Iopamidol-370 76% 500 ML 1 ML ONE; -Lidocaine 1% (PF) 30 ML VIAL ONE; -Midazolam HCl 2 mg/2 ml Vial ONE
--- NOTE | 2020-08-22 22:34 | ULT ---
Left lower extremity arterial Doppler ultrasound: 08/22/2020 HISTORY: Left lower extremity/left foot numbness, history of right lower extremity amputation TECHNIQUE: Multiplanar grayscale sonographic imaging of the arterial structures of the left lower ext remity obtained with Doppler interrogation including color flow and spectral analysis FINDINGS: There is a monophasic tardus parvus waveform within the left common femoral artery. The lef t superficial femoral artery appears occluded. The left profunda femoral artery is patent demonstrating a monophasic high resistance tardus parvus waveform. Peak systolic velocity (centimeters per second) is approximately 52 within the common femoral artery, 41 within the profunda femoral artery, 21 within the popliteal artery, and 12 in the region of the posterior tibial artery. Anterior tibial artery peak systolic velocity is less than 10. The left popliteal artery is patent demonstrating a high resistance monophasic tardus parvus waveform . The left posterior tibial artery and anterior tibial artery are patent and demonstrate very slow flow with tardus parvus waveforms. IMPRESSION: Abnormal high resistance tardus parvus waveforms within the left lower extremity. This ma y signify severe stenosis proximally within the pelvis or involving the abdominal aorta. The superficial femoral artery appears occluded on the left. There is severe left lower extremity runoff vessel disease. There is slow blood flow throughout the patent arterial structures of the left lower extremity.
--- NOTE | 2020-08-22 22:49 | ULT ---
Left lower extremity venous Doppler ultrasound: 08/22/2020 COMPARISON: None HISTORY: Pain, numbness, assess for DVT TECHNIQUE: Multiplanar grayscale sonographic imaging of the venous structures of the left lower extre mity obtained with color flow and spectral analysis FINDINGS: Left common femoral vein, greater saphenous vein, profunda femoral vein, femoral vein, popl iteal vein, and posterior tibial vein are patent. Normal blood flow, augmentation, and compression within the deep venous system on the left. No evidence for deep venous thrombosis. IMPRESSION: No evidence for deep venous thrombosis of the left lower extremity.
[2020-08-23 00:04] LABS: #Basophils 0.1 thou/uL (0.0-0.2); #Eosinphils 0.1 thou/uL (0.0-0.7); #Lymphocytes 1.7 thou/uL (1.20-3.40); #Monocytes 0.4 thou/uL (0.11-0.59); #Neutrophils 4.4 thou/uL (1.40-6.50); %Eosinophils 1.4 % (0.0-10.0); %Lymphocytes 25.8 % (21.0-51.0); %Monocytes 5.3 % (0.0-10.0); %Neutrophils 66.5 % (42.0-75.0); Hemoglobin 12.7 g/dL (14.0-18.0); Mean Corpuscular HGB CONC 33.6 g/dL (32.0-36.0); Mean Corpuscular Hemoglobin 31.5 pg (27.0-31.0); Mean Corpuscular Volume 93.8 fL (78.0-98.0); Mean Platelet Volume 8.3 fL (7.4-10.4); Platelet Count 98 thou/uL (130-400); RBC Distribution Width 11.9 % (11.5-14.5); Red Blood Cell (RBC) Count 4.03 mill/uL (4.70-6.10); White Blood Cell (WBC) Count 6.6 thou/uL (4.8-10.8)
[2020-08-23 00:17] LABS: PTT 31.2 sec (22.9-36.1); Prothrombin Time 13.4 sec (12.0-14.7)
--- NOTE | 2020-08-23 00:19 | CT ---
CT angiogram of the chest, abdomen, pelvis, and bilateral lower extremities: 08/22/2020 COMPARISON: None HISTORY: Peripheral arterial disease, left lower extremity discoloration, pain and swelling TECHNIQUE: Axial CT imaging at 2.5 mm intervals from the thoracic inlet through the feet with IV cont rast using CT angiogram protocol. Coronal and sagittal 3-D reformatted imaging obtained. FINDINGS: The lung apices/superior aspect of bilateral lungs incompletely imaged on this exam. The anastasiia ng parenchyma demonstrates prominent extensive emphysematous change. The lungs appear hyperinflated. There is a densely calcified mass with adjacent soft tissue density within the superio r segment of the left lower lobe measuring up to 1.4 cm, consistent with a granuloma. Partially imaged lung parenchyma demonstrates no acute abnormality. There is atherosclerotic calcification of the coronary arteries, the ascending aorta, the aortic arch , the imaged proximal great vessels, and the descending thoracic aorta. There is no evidence for dissection or aneurysm of the thoracic aorta. Review of the osseous structures of the chest demonstrate no acute findings. The lack of oral contrast media limits assessment of the bowel. The hepatic parenchyma is diffusely hypodense, suggesting steatosis. Cholecystectomy clips are presen t. There is a nonspecific rim calcified lesion within the right upper quadrant measuring 2.2 cm, unchang ed when compared to CT angiogram of the chest performed 10/26/2019. This lesion is located between the right lobe of the liver and the right kidney and appears unchanged when compared to an abdominal CT performed at 02/25/2018. The exact etiology and origin of this lesion is uncertain. There is a cystic mass in the left upper quadrant posterior to the stomach measuring 4.2 cm, similar when compared to 10/26/2019 CT. This is suspicious for a cystic pancreatic lesion which could signify a neoplastic lesion or a pseudocyst if the patient has a history of prior pancreatitis. This lesion is similar in size when compared to CT abdomen pelvis performed at 12/31/2018. The splenic vein appears occluded in this region. There are multiple varices along the lesser and greater curvature of the stomach. The adrenal glands and kidneys demonstrate no acute findings. There are numerous calcifications assoc iated with both kidneys, primarily on the basis of extensive arterial calcification. Punctate nonobstructing stones cannot be excluded. Evaluation of the bowel is suboptimal without oral contrast media. The rectum is distended and filled with gas. No evidence for bowel obstruction is seen. There is extensive atherosclerotic calcification involving the abdominal aorta and its branches. Ther e is severe stenosis at the origin of the celiac axis with extensive atherosclerotic calcification involving the branches of the celiac axis and multifocal severe stenosis. There is moderate/severe st enosis at the origin of the superior mesenteric artery with extensive atherosclerotic disease involving distal branches of the superior mesenteric artery. There is moderate stenosis at the origin of bilateral renal arteries. The inferior mesenteric artery appears patent. There is no aneurysm or dissection of the abdominal ao rta. There is extensive partially calcified plaque throughout the abdominal aorta. The right common iliac artery is occluded. The right internal iliac artery is occluded. The right ext ernal iliac artery is occluded. The right superficial femoral artery appears occluded with probable minimal blood flow within the right profunda femoral artery. The patient is status post amputation of the right lower extremity in the mid femur region. The left common iliac artery is patent and demonstrates severe multifocal atherosclerotic calcificati on. There is severe stenosis involving the distal aspect of the left common iliac artery. There is a stent within the left external iliac artery which is completely occluded. There is minimal blood fl ow within a severely diseased proximal left internal iliac artery. The left internal iliac artery is occluded proximally. There is minimal blood flow within a severely stenotic left common femoral artery. From the axial level of the acetabular roof through the axial level of the left femoral neck the comm on femoral artery on the left demonstrates markedly severe stenosis. Distal to this the common femoral artery is patent. There appears to be an arterial bypass graft from the level of the left com mon femoral artery extending along the medial aspect of the left thigh extending to the level of the distal left superficial femoral artery bypassing an occluded left superficial femoral artery. The re is minimal blood flow within a severely diseased left profunda femoral artery. The left superficial femoral artery is patent distally. There is moderate stenosis of the distal left superior femoral artery at the axial level of the patella. The left popliteal artery is patent but demonstrates severe stenosis on the basis of partially calcified plaque. The distal aspect of the lef t popliteal artery demonstrates critical stenosis on the basis of calcified plaque on axial image 388, just proximal to the origin of the anterior tibial artery. The left anterior tibial artery demon strates multifocal calcification and appears occluded at its origin. There is critical stenosis involving the tibioperoneal trunk on axial image 401. The peroneal artery on the left demonstrates mu ltifocal severe stenosis but appears patent to the level of the foot. The posterior tibial artery on the left appears occluded at its origin with multifocal calcification. The osseous structures of the left lower extremity demonstrate no acute findings. Imaged portions of the right femur demonstrate significant osteopenia, likely on the basis of disuse. IMPRESSION: 1. Extensive severe atherosclerotic disease as detailed above. 2. Nonspecific stable rim calcified soft tissue lesion between the right lobe of the liver and the ri ght kidney. 3. Cystic lesion in the region of the body of the pancreas/tail of the pancreas within the left upper quadrant as above.
[2020-08-23 00:26] LABS: ALT (SGPT) 7 U/L (8-55); AST (SGOT) 12 U/L (5-34); Albumin 3.3 g/dL (3.4-4.8); Alkaline Phosphatase 94 U/L (40-110); BUN (Urea Nitrogen) 16 mg/dL (8.4-25.7); Bilirubin, Total 0.2 mg/dL (0.2-1.2); Calc. Creatinine Clearance 0 mL/min (70-130); Calcium 8.3 mg/dL (7.8-10.44); Carbon Dioxide 22 mmol/L (23-31); Globulin 2.6 g/dL (2.4-3.5); Glucose 448 mg/dL (80-115); Protein, Total 5.9 g/dL (5.8-8.1)
[2020-08-23 00:30] LABS: Anion Gap 16 mmol/L (10-20); Chloride 92 mmol/L (98-107); Potassium 4.6 mmol/L (3.5-5.1); Sodium 124 mmol/L (136-145)
[2020-08-23] MEDS ORDERED: HYDROcodone/Acetaminophen 10/325 mg Tablet ONE (00:39)
== END 2020-08-23 01:37 | disposition home or self-care (01) ==
LOC: ERS 21:36
DX: E11.51 Type 2 diabetes mellitus with diabetic peripheral angiopathy without gangrene (principal); I25.2 Old myocardial infarction; E78.5 Hyperlipidemia, unspecified; I10 Essential (primary) hypertension; F17.210 Nicotine dependence, cigarettes, uncomplicated; Z79.4 Long term (current) use of insulin; Z79.899 Other long term (current) drug therapy
CPT/HCPCS: 36415; 75635; 80053; 85025; 85610; 85730; 93923; Q9967

== ENCOUNTER 2020-08-27 15:15 | Inpatient (IN) | payer MEDICARE ==
[2020-08-27 16:24] LABS: Hemoglobin 11.4 g/dL (14.0-18.0); Mean Corpuscular HGB CONC 32.5 G/DL (32.0-36.0); Mean Corpuscular Hemoglobin 30.2 PG (27.0-33.0); Mean Corpuscular Volume 93.1 fl (80.0-100.0); Mean Platelet Volume 11.4 fl (7.4-10.4); Platelet Count 100 10x3/uL (130-400); RBC Distribution Width 12.3 % (11.5-14.5); Red Blood Cell (RBC) Count 3.77 10x6/uL (4.40-5.80); White Blood Cell (WBC) Count 6.4 10x3/uL (4.5-11.0)
[2020-08-27 16:37] LABS: Anion Gap 12 mmol/L (10-20); BUN (Urea Nitrogen) 17 mg/dL (8.4-25.7); Calc. Creatinine Clearance 0 mL/min (70-130); Calcium 8.4 mg/dL (7.8-10.44); Carbon Dioxide 26 mmol/L (23-31); Chloride 92 mmol/L (98-107); Glucose 430 mg/dL (80-115); Potassium 4.8 mmol/L (3.5-5.1); Sodium 125 mmol/L (136-145)
[2020-08-28 09:23] VITALS: BMI 16.4
[2020-08-28 18:41] LABS: SARS-CoV-2 PCR by NAA Not Detected (NotDetected)
[2020-08-30] MEDS ORDERED: Midazolam HCl 2 mg/2 ml Vial ONE (06:34)
[2020-08-30] MEDS ORDERED: Fentanyl 100 MCG/2 ML VIAL ONE ×3 (06:35→10:14)
[2020-08-30] MEDS ORDERED: Heparin 5,000 UNITS/ML VIAL ONE (06:39)
[2020-08-30] MEDS ORDERED: Bupivacaine 0.25% HCL 30 ML VIAL ONE (06:39)
[2020-08-30] MEDS ORDERED: Protamine Sulfate 50 MG/5 ML VIAL ONE (06:47)
[2020-08-30] MEDS ORDERED: HYDROmorphone 2 MG/ML VIAL ONE (07:03)
[2020-08-30] MEDS ORDERED: Famotidine/PF 20 mg/2ml Vial ONE (07:04)
[2020-08-30] MEDS ORDERED: Ketamine 50 MG/ML (10ML VIAL) ONE (07:04)
[2020-08-30] MEDS ORDERED: Scopolamine 1.5 mg/72 hour Patch ONE (07:04)
[2020-08-30] MEDS ORDERED: SUGAMMADEX SODIUM 200 MG/2 ML VIAL ONE (07:19)
[2020-08-30] MEDS ORDERED: Bupivacaine PF 0.5% 30 ML VIAL ONE (09:00)
[2020-08-30] MEDS ORDERED: PROPOFOL 200 MG/20 ML VIAL ONE (09:03)
[2020-08-30] MEDS ORDERED: ePHEDrine 50 MG/ML VIAL ONE (09:03)
[2020-08-30] MEDS ORDERED: Lidocaine 1% PF 5 ML VIAL ONE (09:03)
[2020-08-30] MEDS ORDERED: Labetalol HCl 100 MG/20 ML VIAL ONE ×2 (09:03)
[2020-08-30] MEDS ORDERED: Rocuronium Bromide 10 MG/ML (10ML VIAL) ONE (09:03)
[2020-08-30] MEDS ORDERED: Naloxone HCl 0.4 mg/ml Vial ONE (09:03)
--- NOTE | 2020-08-30 09:56 | OP ---
DATE OF PROCEDURE: 08/30/2020 PREOPERATIVE DIAGNOSIS: Peripheral vascular disease. POSTOPERATIVE DIAGNOSIS: Peripheral vascular disease. PROCEDURES PERFORMED: 1. Open femoral artery exposure on the left. 2. Abdominal aortogram. 3. External iliac artery angiogram. 4. External iliac artery percutaneous transluminal angioplasty with a 7 x 40 [place] balloon in multiple locations. 5. Left external iliac artery stenting with a 7 x 40 Innova balloon with post-stent percutaneous transluminal angioplasty with a 7 x 40 balloon taken up to 18 mmHg. 6. Left common femoral artery endarterectomy with patch angioplasty. TOTAL CONTRAST: 30 mL. TOTAL FLUORO TIME: 6 minutes and 11 seconds. ANESTHESIA: General endotracheal, Dr. Wilfredo Pollard. ESTIMATED BLOOD LOSS: 100. DESCRIPTION OF PROCEDURE: After operative consent was obtained, the patient was brought to the operating room and placed in supine position on the operating table. Appropriate central line and monitors were placed and general endotracheal anesthesia was induced. Right radial arterial line was placed via Seldinger technique. Left groin was prepped and draped in the usual sterile fashion. The previous skin incision was opened and extended up over the inguinal ligament. Dissection down through the subcutaneous tissues to the level of the femoral-popliteal graft was obtained with electrocautery. Sharp and electrocautery dissection were used to expose the graft, common femoral artery, and the external iliac artery under the inguinal ligament. The patient was given 5000 units of heparin. The common femoral artery was accessed and a Bentson guidewire was passed under fluoroscopic guidance into the previously placed stent. A 6-[place] sheath was then placed, and using an angled Alvarez catheter, the guidewire was passed up into the aorta. [place] catheter was passed into the aorta. Hand-injected aortogram was performed. This showed an occlusion of the external iliac artery just proximal to the previously placed stent. A 7 x 40 balloon was selected. This was passed into the external iliac artery and inflated in [address] all the way through the previously placed stent. Followup angiogram showed patent iliac artery, but residual stenosis. This was treated with a 7 x 40 Innova stent and posted with a 7 x 40 balloon. Post-stenting angiogram showed an excellent result. Sheath was removed. The external iliac artery was clamped underneath the inguinal ligament just distal to the previously placed stent. The graft and common femoral arteries were clamped. The access site was opened proximally on the common femoral artery all the way to the previously placed stent. The endarterectomy was performed with a significant plaque burden being removed all the way down into the origin of the femoral-popliteal graft. Bovine pericardial patch was sewn in place with running 6-0 Prolene suture. After completion of the patch, antegrade flow was re-established. Protamine was administered. Hemostasis was ensured. There was a strong palpable pulse within the femoral artery and in the graft. The wounds were copiously irrigated, treated with 0.5% Marcaine and closed in layers. Dermabond was applied to skin. The patient was awakened, extubated, transferred to recovery room in stable condition. Needle, sponge, and instrument counts were all reported as correct at the end of the procedure. Job ID: [id number]
[2020-08-30] MEDS ORDERED: Fentanyl 100 MCG/2 ML VIAL SLOW IVP PRN (11:59)
[2020-08-30] MEDS ORDERED: Ondansetron ODT 4 MG TAB PO PRN (11:59)
[2020-08-30] MEDS ORDERED: Acetaminophen 325 MG TAB PO PRN (11:59)
[2020-08-30] MEDS ORDERED: hydrOXYzine 25 MG TAB PO PRN (11:59)
[2020-08-30] MEDS ORDERED: Non-Formulary Item 1 EACH (Fluticasone/Umeclidin/Vilanter [Trelegy Ellipta 100-62.5-25] 1 PO PRN (11:59)
[2020-08-30] MEDS ORDERED: Ondansetron PF 4 MG/2 ML Vial IVP PRN (11:59)
[2020-08-30] MEDS ORDERED: Diphenoxylate HCl/Atropine Tablet PO PRN (11:59)
[2020-08-30] MEDS ORDERED: Temazepam 15 MG CAP PO PRN (11:59)
[2020-08-30] MEDS ORDERED: Cyclobenzaprine 10 MG TAB PO PRN (12:05)
[2020-08-30] MEDS: Gabapentin 100 MG CAP PO SCH ×3 (14:33→20:15)
[2020-08-30] MEDS: CEFAZOLIN 2 GM in Premix Bag 1 BAG IVPB SCH ×2 (14:33→21:13)
[2020-08-30] MEDS: HYDROcodone/Acetaminophen 10/325 mg Tablet PO PRN ×2 (17:28→23:59)
[2020-08-30] MEDS: Mometasone 100 MCG/PUFF (1 INHALER) INH SCH (18:38)
[2020-08-30] MEDS: Sodium Chloride 0.9% 1,000 ML IV SCH ×2 (18:44→21:14)
[2020-08-30] MEDS: hydrALAZINE 25 MG TAB PO SCH (20:14)
[2020-08-30] MEDS: Metoclopramide HCl 10 MG TAB PO SCH (20:15)
[2020-08-30] MEDS ORDERED: Non-Formulary Item 1 EACH (Insulin Glargine,Hum.Rec.Anlog [Lantus Solostar] 100 UNIT/ML P SC SCH (21:00)
[2020-08-30] MEDS ORDERED: Atorvastatin Calcium 40 MG TAB PO SCH (21:00)
[2020-08-30] MEDS ORDERED: Insulin Glargine 13 UNITS in Pre-Filled Syringe 1 EACH SC SCH (21:00)
[2020-08-31] MEDS: HYDROcodone/Acetaminophen 10/325 mg Tablet PO PRN (06:09)
[2020-08-31] MEDS: CEFAZOLIN 2 GM in Premix Bag 1 BAG IVPB SCH (06:38)
--- NOTE | 2020-08-31 06:56 | DIS ---
DATE OF ADMISSION: 08/30/2020 DATE OF DISCHARGE: 08/31/2020 DIAGNOSIS: Peripheral vascular disease. PROCEDURES PERFORMED: Left external iliac artery percutaneous transluminal angioplasty and stenting with left common femoral endarterectomy and patch angioplasty. DESCRIPTION OF HOSPITAL STAY: Mr. Herrera was electively admitted and underwent the above procedures. Postoperatively, he has a palpable pulse in his previously placed femoral to popliteal artery bypass graft. The pain in his left foot is resolved. He is being discharged home today with no changes in his medications other than a reduction in aspirin to 81 mg and Plavix 75 mg daily added to his regimen. Follow up with me in 2 weeks. Job ID: [id number]
[2020-08-31] MEDS: Mometasone 100 MCG/PUFF (1 INHALER) INH SCH (07:50)
[2020-08-31 08:13] VITALS: TEMP 98.4
[2020-08-31] MEDS: hydrALAZINE 25 MG TAB PO SCH (08:22)
[2020-08-31] MEDS: Gabapentin 100 MG CAP PO SCH (08:23)
[2020-08-31] MEDS: Metoclopramide HCl 10 MG TAB PO SCH (08:23)
[2020-08-31 08:24] VITALS: BP 187/89
[2020-08-31] MEDS ORDERED: FLU VACC QS2020-21(6MOS UP)/PF 60 MCG/0.5 ML SYRINGE IM ONE (09:00)
[2020-08-31] MEDS ORDERED: Carvedilol 25 MG TAB PO SCH (09:00)
[2020-08-31] MEDS ORDERED: Aspirin Chewable 81 MG TAB PO SCH ×2 (09:00)
[2020-08-31] MEDS ORDERED: Ubidecarenone 50 MG CAP PO SCH (09:00)
[2020-08-31] MEDS ORDERED: Lisinopril 2.5 MG TAB PO SCH (09:00)
[2020-08-31] MEDS ORDERED: Finasteride 5 MG TAB PO SCH (09:00)
[2020-08-31] MEDS ORDERED: Clopidogrel Bisulfate 75 MG TAB PO SCH (09:00)
[2020-08-31] MEDS ORDERED: Tamsulosin HCl 0.4 MG CAP PO SCH (09:00)
[2020-09-11 13:43] LABS: Actual Bicarbonate (HCO3a) 23.4 mEq/L (22-28); Analyzer IN Cardio OR; Base Excess (BEa) -0.8 mEq/L (-2.0 to +3.0); CO2 Tension 37.3 mmHg (35.0-45.0); Calcium, Ionized (arterial) 1.07 mmol/L (1.12-1.30); Carboxyhemoglobin (COHb) 11.4 gm% (0.0-3.0); O2 Tension (PaO2), arterial 471.8 mmHg (> 80.0); Potassium - ABG Lab 4.29 mmol/L (3.70-5.30); pH, Arterial 7.42 (7.35-7.45)
[2020-09-11 14:04] LABS: Puncture Site Arterial Line
== END 2020-08-31 10:44 | disposition home or self-care (01) | DRG 254 ==
LOC: SURG A 08-30 06:08 → SURG B 08-30 12:18 → EDSTATUS 08-30 15:15
PROVIDERS: ADMIT Thoracic Surgery (Cardiothoracic Vascular Surgery); ATTEND Thoracic Surgery (Cardiothoracic Vascular Surgery)
PROC: 04CL0ZZ Extirpation of Matter from Left Femoral Artery, Open Approach (ICD-10-PCS; principal; 2020-08-30)
PROC: 047J3DZ Dilation of Left External Iliac Artery with Intraluminal Device, Percutaneous Approach (ICD-10-PCS; 2020-08-30)
PROC: 04UY0KZ Supplement Lower Artery with Nonautologous Tissue Substitute, Open Approach (ICD-10-PCS; 2020-08-30)
PROC: B4101ZZ Fluoroscopy of Abdominal Aorta using Low Osmolar Contrast (ICD-10-PCS; 2020-08-30)
PROC: B4171ZZ Fluoroscopy of Left Renal Artery using Low Osmolar Contrast (ICD-10-PCS; 2020-08-30)
DX: E11.51 Type 2 diabetes mellitus with diabetic peripheral angiopathy without gangrene (principal); Z20.822 Contact with and (suspected) exposure to COVID-19; K21.00 Gastro-esophageal reflux disease with esophagitis, without bleeding; I10 Essential (primary) hypertension; F17.210 Nicotine dependence, cigarettes, uncomplicated; I25.10 Atherosclerotic heart disease of native coronary artery without angina pectoris; Z88.5 Allergy status to narcotic agent; Z88.8 Allergy status to other drugs, medicaments and biological substances; Z90.49 Acquired absence of other specified parts of digestive tract; Z79.82 Long term (current) use of aspirin; Z79.899 Other long term (current) drug therapy; Z89.611 Acquired absence of right leg above knee
CPT/HCPCS: 36416; 76000; 80048; 82805; 85027; 86850; 86870; 86880; 86900; 86901; 86905; 86922; 87635; C1725; J0690; J1170; J1644; J1815; J2250; J2310; J2704; J2720; J3010; J3490; S0020; S0028; U0003; U0005

== ENCOUNTER 2020-10-18 16:08 | Inpatient (IN) | payer MEDICARE ==
[2020-10-18 17:16] LABS: #Eosinphils 0.1 thou/uL (0.0-0.7); #Lymphocytes 2.1 thou/uL (1.20-3.40); #Monocytes 0.8 thou/uL (0.11-0.59); #Neutrophils 11.4 thou/uL (1.40-6.50); %Basophils 0.3 % (0.0-1.0); %Eosinophils 0.7 % (0.0-10.0); %Lymphocytes 14.6 % (21.0-51.0); %Monocytes 5.5 % (0.0-10.0); Hemoglobin 15.2 g/dL (14.0-18.0); Mean Corpuscular HGB CONC 32.4 g/dL (32.0-36.0); Mean Corpuscular Hemoglobin 30.6 pg (27.0-31.0); Mean Corpuscular Volume 94.3 fL (78.0-98.0); Mean Platelet Volume 8.4 fL (7.4-10.4); Platelet Count 154 thou/uL (130-400); RBC Distribution Width 11.9 % (11.5-14.5); Red Blood Cell (RBC) Count 4.96 mill/uL (4.70-6.10); White Blood Cell (WBC) Count 14.4 thou/uL (4.8-10.8)
[2020-10-18 17:30] LABS: ALT (SGPT) 9 U/L (8-55); AST (SGOT) 11 U/L (5-34); Alkaline Phosphatase 97 U/L (40-110); Anion Gap 14 mmol/L (10-20); BUN (Urea Nitrogen) 17 mg/dL (8.4-25.7); Bilirubin, Total 0.4 mg/dL (0.2-1.2); Calc. Creatinine Clearance 0 mL/min (70-130); Calcium 8.5 mg/dL (7.8-10.44); Carbon Dioxide 18 mmol/L (23-31); Chloride 101 mmol/L (98-107); Globulin 2.9 g/dL (2.4-3.5); Glucose 176 mg/dL (80-115); Potassium 4.9 mmol/L (3.5-5.1); Protein, Total 5.9 g/dL (5.8-8.1); Sodium 128 mmol/L (136-145)
[2020-10-18 17:31] LABS: Acetaminophen Less than 6.0 mcg/mL (10.0-30.0); Alcohol Less than 10 mg/dL (Less than 10); Magnesium 2.1 mg/dL (1.6-2.6); Salicylate Less than 8.0 mg/dL (15.0-30.0)
[2020-10-18] MEDS ORDERED: Piperacillin/Tazobactam 4.5 GM VIAL ONE (20:53)
[2020-10-18] MEDS ORDERED: HYDROcodone/Acetaminophen 10/325 mg Tablet ONE (21:55)
[2020-10-18] MEDS ORDERED: Acetaminophen 325 MG TAB PO PRN (22:57)
[2020-10-18] MEDS ORDERED: Ondansetron PF 4 MG/2 ML Vial IVP PRN (22:57)
[2020-10-18] MEDS ORDERED: Dextrose 50% Abboject 50 ML SYRINGE SLOW IVP PRN (23:00)
[2020-10-18] MEDS ORDERED: Dextrose 5% in Water 1,000 ML IV PRN (23:00)
[2020-10-18] MEDS ORDERED: HumaLOG 300 UNITS/3 ML VIAL SC PRN (23:00)
[2020-10-18] MEDS ORDERED: hydrALAZINE 20 MG/ML VIAL SLOW IVP PRN (23:12)
[2020-10-19 00:30] VITALS: BMI 17.2
[2020-10-19] MEDS: Sodium Chloride 0.9% 1,000 ML IV SCH ×2 (00:40→08:55)
[2020-10-19] MEDS ORDERED: Temazepam 15 MG CAP PO PRN (02:06)
[2020-10-19] MEDS: HYDROcodone/Acetaminophen 10/325 mg Tablet PO PRN ×2 (02:24→05:30)
[2020-10-19 04:28] LABS: Bacteria/HPF None Seen HPF (None Seen); Bilirubin Negative (Negative); Blood, Urine Trace (Negative); Clarity Clear (Clear); Glucose, Urine (Dipstick) Normal (Negative); Ketone, Urine Negative (Negative); Leukocyte Negative Leu/uL (Negative); Nitrite Negative (Negative); Protein, Urine (Dipstick) 100 mg/dL (Neg-Trace); Squamous Epithelial 0-3 HPF (0-3); Urobilinogen Normal mg/dL (Less than 2); WBC/HPF 0-3 HPF (0-3); pH, Urine 5.5 (5.0-9.0)
[2020-10-19 04:29] LABS: Specific Gravity, Urine 1.043 (1.002-1.036)
[2020-10-19 04:31] LABS: Urine Culture Reflex No No
[2020-10-19] MEDS: Piperacillin/Tazobactam 3.375 GM in Sodium Chloride 0.9% 100 ML IVPB SCH ×4 (05:30→22:33)
[2020-10-19 06:19] LABS: Anion Gap 13 mmol/L (10-20); BUN (Urea Nitrogen) 20 mg/dL (8.4-25.7); Calc. Creatinine Clearance 44 mL/min (70-130); Calcium 7.7 mg/dL (7.8-10.44); Carbon Dioxide 18 mmol/L (23-31); Chloride 102 mmol/L (98-107); Glucose 161 mg/dL (80-115); Potassium 4.2 mmol/L (3.5-5.1); Sodium 129 mmol/L (136-145)
[2020-10-19 07:40] LABS: #Lymphocytes 1.3 thou/uL (1.20-3.40); #Monocytes 0.8 thou/uL (0.11-0.59); #Neutrophils 8.1 thou/uL (1.40-6.50); %Basophils 0.1 % (0.0-1.0); %Eosinophils 0.1 % (0.0-10.0); %Lymphocytes 12.9 % (21.0-51.0); %Monocytes 7.6 % (0.0-10.0); %Neutrophils 79.3 % (42.0-75.0); Hemoglobin 11.8 g/dL (14.0-18.0); MDiff Complete? YES; Mean Corpuscular HGB CONC 33.6 g/dL (32.0-36.0); Mean Corpuscular Hemoglobin 31.8 pg (27.0-31.0); Mean Corpuscular Volume 94.7 fL (78.0-98.0); Mean Platelet Volume 8.4 fL (7.4-10.4); Platelet Count 117 thou/uL (130-400); Platelet Morphology Comment Appears Decreased; Polychromasia SLIGHT = 2-3 cells (100X) (0-2/hpf); Red Blood Cell (RBC) Count 3.71 mill/uL (4.70-6.10); White Blood Cell (WBC) Count 10.2 thou/uL (4.8-10.8)
[2020-10-19] MEDS: hydrALAZINE 25 MG TAB PO SCH ×2 (08:44→20:27)
[2020-10-19] MEDS: Carvedilol 25 MG TAB PO SCH (08:44)
[2020-10-19] MEDS: Lisinopril 2.5 MG TAB PO SCH (08:44)
[2020-10-19] MEDS: Gabapentin 100 MG CAP PO SCH ×3 (08:48→20:25)
[2020-10-19] MEDS: Metoclopramide HCl 10 MG TAB PO SCH ×2 (08:49→20:28)
[2020-10-19] MEDS: Tamsulosin HCl 0.4 MG CAP PO SCH (08:49)
[2020-10-19] MEDS ORDERED: Pantoprazole 40 MG GRANULES PACKET PO SCH ×2 (09:00)
[2020-10-19] MEDS ORDERED: Non-Formulary Item 1 EACH (Cyclobenzaprine Hcl [Cyclobenzaprine Hcl] 5 MG Tablet) PO PRN (10:06)
[2020-10-19] MEDS ORDERED: Non-Formulary Item 1 EACH (Fluticasone/Umeclidin/Vilanter [Trelegy Ellipta 100-62.5-25] 1 PO PRN (10:06)
[2020-10-19] MEDS ORDERED: Cyclobenzaprine 10 MG TAB PO PRN (10:11)
[2020-10-19] MEDS: HYDROcodone/Acetaminophen 10/325 mg Tablet PO SCH ×4 (12:02→23:40)
[2020-10-19] MEDS: Mometasone 100 MCG/PUFF (1 INHALER) INH SCH (19:06)
[2020-10-19] MEDS ORDERED: Atorvastatin Calcium 40 MG TAB PO SCH (21:00)
[2020-10-19] MEDS ORDERED: Insulin Glargine 13 UNITS in Pre-Filled Syringe 1 EACH SC SCH (21:00)
[2020-10-19 23:41] LABS: SARS-CoV-2 PCR by NAA Not Detected (NotDetected)
[2020-10-20] MEDS: Piperacillin/Tazobactam 3.375 GM in Sodium Chloride 0.9% 100 ML IVPB SCH ×2 (06:12→11:25)
[2020-10-20 06:33] LABS: #Eosinphils 0.1 thou/uL (0.0-0.7); #Lymphocytes 1.1 thou/uL (1.20-3.40); #Monocytes 0.4 thou/uL (0.11-0.59); #Neutrophils 4.8 thou/uL (1.40-6.50); %Basophils 0.7 % (0.0-1.0); %Eosinophils 1.4 % (0.0-10.0); %Lymphocytes 16.7 % (21.0-51.0); %Monocytes 6.8 % (0.0-10.0); %Neutrophils 74.4 % (42.0-75.0); Hemoglobin 10.7 g/dL (14.0-18.0); Mean Corpuscular HGB CONC 33.6 g/dL (32.0-36.0); Mean Corpuscular Hemoglobin 31.9 pg (27.0-31.0); Mean Corpuscular Volume 94.8 fL (78.0-98.0); Mean Platelet Volume 8.1 fL (7.4-10.4); Platelet Count 100 thou/uL (130-400); RBC Distribution Width 11.8 % (11.5-14.5); Red Blood Cell (RBC) Count 3.36 mill/uL (4.70-6.10); White Blood Cell (WBC) Count 6.5 thou/uL (4.8-10.8)
[2020-10-20 06:52] LABS: Anion Gap 12 mmol/L (10-20); BUN (Urea Nitrogen) 13 mg/dL (8.4-25.7); Calc. Creatinine Clearance 54 mL/min (70-130); Carbon Dioxide 19 mmol/L (23-31); Chloride 102 mmol/L (98-107); Glucose 159 mg/dL (80-115); Potassium 3.8 mmol/L (3.5-5.1); Sodium 129 mmol/L (136-145)
[2020-10-20] MEDS: HYDROcodone/Acetaminophen 10/325 mg Tablet PO SCH ×2 (08:34→11:24)
[2020-10-20] MEDS: Gabapentin 100 MG CAP PO SCH (08:35)
[2020-10-20] MEDS: Lisinopril 2.5 MG TAB PO SCH (08:35)
[2020-10-20] MEDS: hydrALAZINE 25 MG TAB PO SCH (08:36)
[2020-10-20] MEDS: Metoclopramide HCl 10 MG TAB PO SCH (08:36)
[2020-10-20] MEDS: Carvedilol 25 MG TAB PO SCH (08:36)
[2020-10-20] MEDS: Tamsulosin HCl 0.4 MG CAP PO SCH (08:36)
[2020-10-20] MEDS ORDERED: Enoxaparin Sodium 40 MG/0.4 ML SYRINGE SC SCH (09:00)
[2020-10-20] MEDS ORDERED: Aspirin 325 mg Enteric Coated Tablet PO SCH (09:00)
[2020-10-20] MEDS ORDERED: Clopidogrel Bisulfate 75 MG TAB PO SCH (09:00)
[2020-10-20] MEDS ORDERED: Finasteride 5 MG TAB PO SCH (09:00)
[2020-10-20] MEDS ORDERED: Non-Formulary Item 1 EACH (Ubidecarenone [Co Q-10] 200 MG Capsule) PO SCH (09:00)
[2020-10-20] MEDS: Mometasone 100 MCG/PUFF (1 INHALER) INH SCH (10:20)
[2020-10-20 11:59] VITALS: TEMP 98.6
[2020-10-20 12:56] VITALS: BP 146/76
== END 2020-10-20 13:10 | disposition home or self-care (01) | DRG 872 ==
LOC: ERS 16:08 → T4-A 21:26
PROVIDERS: ADMIT Internal Medicine; ATTEND Internal Medicine
DX: A41.9 Sepsis, unspecified organism (principal); K55.9 Vascular disorder of intestine, unspecified; E87.1 Hypo-osmolality and hyponatremia; I50.32 Chronic diastolic (congestive) heart failure; Z20.822 Contact with and (suspected) exposure to COVID-19; J44.9 Chronic obstructive pulmonary disease, unspecified; I10 Essential (primary) hypertension; E11.51 Type 2 diabetes mellitus with diabetic peripheral angiopathy without gangrene; F41.9 Anxiety disorder, unspecified; F32.9 Major depressive disorder, single episode, unspecified; F17.210 Nicotine dependence, cigarettes, uncomplicated; E78.5 Hyperlipidemia, unspecified; N52.9 Male erectile dysfunction, unspecified; I11.0 Hypertensive heart disease with heart failure; Z88.5 Allergy status to narcotic agent; Z89.611 Acquired absence of right leg above knee; Z95.5 Presence of coronary angioplasty implant and graft; Z90.49 Acquired absence of other specified parts of digestive tract; I25.2 Old myocardial infarction; Z88.8 Allergy status to other drugs, medicaments and biological substances; Z79.899 Other long term (current) drug therapy; Z79.82 Long term (current) use of aspirin; Z79.02 Long term (current) use of antithrombotics/antiplatelets
CPT/HCPCS: 36415; 36416; 71045; 74177; 80048; 80053; 80307; 81001; 83605; 83690; 83735; 83880; 84443; 84484; 85025; 87040; 87045; 87046; 87324; 87427; 87449; 87635; 93005; 96365; J0360; J1650; J1815; J2543; J3490; Q9967; U0003; U0005

== ENCOUNTER 2020-10-22 15:34 | Inpatient (IN) | payer MEDICARE ==
[2020-10-22 16:51] LABS: #Lymphocytes 1.2 thou/uL (1.20-3.40); #Monocytes 0.6 thou/uL (0.11-0.59); #Neutrophils 9.6 thou/uL (1.40-6.50); %Basophils 0.1 % (0.0-1.0); %Eosinophils 0.1 % (0.0-10.0); %Lymphocytes 10.2 % (21.0-51.0); %Neutrophils 84.7 % (42.0-75.0); Hemoglobin 15.8 g/dL (14.0-18.0); Mean Corpuscular HGB CONC 33.4 g/dL (32.0-36.0); Mean Corpuscular Hemoglobin 31.4 pg (27.0-31.0); Mean Corpuscular Volume 94.2 fL (78.0-98.0); Mean Platelet Volume 7.9 fL (7.4-10.4); Platelet Count 186 thou/uL (130-400); Red Blood Cell (RBC) Count 5.02 mill/uL (4.70-6.10); White Blood Cell (WBC) Count 11.3 thou/uL (4.8-10.8)
[2020-10-22 17:18] LABS: ALT (SGPT) 9 U/L (8-55); AST (SGOT) 15 U/L (5-34); Albumin 3.3 g/dL (3.4-4.8); Alkaline Phosphatase 85 U/L (40-110); Anion Gap 21 mmol/L (10-20); BUN (Urea Nitrogen) 16 mg/dL (8.4-25.7); Bilirubin, Total 0.3 mg/dL (0.2-1.2); Calc. Creatinine Clearance 0 mL/min (70-130); Calcium 8.8 mg/dL (7.8-10.44); Carbon Dioxide 22 mmol/L (23-31); Chloride 94 mmol/L (98-107); Globulin 3.4 g/dL (2.4-3.5); Glucose 212 mg/dL (80-115); Potassium 3.9 mmol/L (3.5-5.1); Protein, Total 6.7 g/dL (5.8-8.1); Sodium 133 mmol/L (136-145)
[2020-10-22] MEDS ORDERED: Ondansetron PF 4 MG/2 ML Vial ONE ×2 (17:18→19:29)
[2020-10-22] MEDS ORDERED: hydrALAZINE 20 MG/ML VIAL ONE ×2 (17:24→19:26)
[2020-10-22] MEDS ORDERED: Labetalol HCl 100 MG/20 ML VIAL ONE (17:24)
[2020-10-22] MEDS ORDERED: Octreotide Acetate 1,250 MCG in Sodium Chloride 0.9% 250 ML 250 ML IVPB SCH (19:15)
[2020-10-22] MEDS ORDERED: Fentanyl 100 MCG/2 ML VIAL ONE (19:23)
[2020-10-22] MEDS ORDERED: Octreotide Acetate 50 MCG/ML AMP ONE (19:26)
[2020-10-22] MEDS ORDERED: Pantoprazole 40 MG VIAL ONE (19:26)
[2020-10-22] MEDS ORDERED: Octreotide Acetate 50 MCG/ML AMP SLOW IVP SCH (19:30)
[2020-10-22] MEDS ORDERED: Temazepam 15 MG CAP PO SCH (23:30)
[2020-10-22 23:39] VITALS: BMI 17.2
[2020-10-22] MEDS: hydrALAZINE 20 MG/ML VIAL SLOW IVP PRN (23:47)
[2020-10-23] MEDS: Labetalol HCl 100 MG/20 ML VIAL SLOW IVP PRN ×2 (02:17→07:32)
[2020-10-23] MEDS ORDERED: Piperacillin/Tazobactam 4.5 GM in Sodium Chloride 0.9% 100 ML IVPB SCH (03:00)
[2020-10-23] MEDS ORDERED: Lactated Ringer's 1,000 ML IV SCH (03:45)
[2020-10-23 03:57] LABS: #Lymphocytes 1.5 thou/uL (1.20-3.40); #Monocytes 0.5 thou/uL (0.11-0.59); %Lymphocytes 19.1 % (21.0-51.0); %Monocytes 5.9 % (0.0-10.0); %Neutrophils 74.9 % (42.0-75.0); Hemoglobin 13.7 g/dL (14.0-18.0); Mean Corpuscular HGB CONC 33.6 g/dL (32.0-36.0); Mean Corpuscular Hemoglobin 31.4 pg (27.0-31.0); Mean Corpuscular Volume 93.4 fL (78.0-98.0); Mean Platelet Volume 8.7 fL (7.4-10.4); Platelet Count 170 thou/uL (130-400); Red Blood Cell (RBC) Count 4.38 mill/uL (4.70-6.10)
[2020-10-23] MEDS ORDERED: niCARdipine 25 MG in Sodium Chloride 0.9% 250 ML 250 ML IVPB SCH ×2 (04:00→17:15)
[2020-10-23 04:17] LABS: ALT (SGPT) Less than 7 U/L (8-55); AST (SGOT) 11 U/L (5-34); Albumin 2.8 g/dL (3.4-4.8); Alkaline Phosphatase 69 U/L (40-110); Anion Gap 15 mmol/L (10-20); BUN (Urea Nitrogen) 18 mg/dL (8.4-25.7); Bilirubin, Total 0.3 mg/dL (0.2-1.2); Calc. Creatinine Clearance 47 mL/min (70-130); Calcium 7.8 mg/dL (7.8-10.44); Carbon Dioxide 21 mmol/L (23-31); Chloride 100 mmol/L (98-107); Globulin 2.8 g/dL (2.4-3.5); Glucose 168 mg/dL (80-115); Lipase 26 U/L (8-78); Potassium 3.9 mmol/L (3.5-5.1); Protein, Total 5.6 g/dL (5.8-8.1); Sodium 132 mmol/L (136-145)
[2020-10-23] MEDS ORDERED: Octreotide Acetate 1,250 MCG in Sodium Chloride 0.9% 250 ML 250 ML IVPB SCH (05:00)
[2020-10-23] MEDS: hydrALAZINE 20 MG/ML VIAL SLOW IVP PRN (05:45)
[2020-10-23] MEDS ORDERED: FLU VACC QS2020-21(6MOS UP)/PF 60 MCG/0.5 ML SYRINGE IM ONE (06:15)
[2020-10-23] MEDS ORDERED: Dextrose 50% Abboject 50 ML SYRINGE SLOW IVP PRN (06:57)
[2020-10-23] MEDS ORDERED: Dextrose 5% in Water 1,000 ML IV PRN (06:57)
[2020-10-23] MEDS ORDERED: Acetaminophen 325 MG TAB PO PRN (08:12)
[2020-10-23] MEDS ORDERED: Nitroglycerin 50 MG/250 ML BOT 250 ML IVPB SCH (08:15)
[2020-10-23] MEDS ORDERED: Enoxaparin Sodium 40 MG/0.4 ML SYRINGE SC SCH (09:00)
[2020-10-23] MEDS ORDERED: cloNIDine 0.1mg/24 Hour PATCH TD SCH (09:00)
[2020-10-23] MEDS: HYDROcodone/Acetaminophen 5/325 mg Tablet PO PRN ×2 (09:19→21:00)
[2020-10-23] MEDS: hydrALAZINE 25 MG TAB PO SCH ×2 (09:22→21:01)
[2020-10-23] MEDS: Pantoprazole 40 MG VIAL IVP SCH ×2 (09:27→21:55)
[2020-10-23] MEDS: HYDROmorphone 0.5 MG/0.5 ML SYRINGE SLOW IVP PRN (09:33)
[2020-10-23] MEDS ORDERED: Metoprolol Tartrate 5 MG/5 ML VIAL IVP SCH (10:08)
[2020-10-23] MEDS: Piperacillin/Tazobactam 4.5 GM in Sodium Chloride 0.9% 100 ML IVPB SCH ×2 (11:20→20:57)
[2020-10-23] MEDS ORDERED: Diphenoxylate HCl/Atropine Tablet PO PRN (13:14)
[2020-10-23] MEDS ORDERED: Mometasone 100 MCG/PUFF (1 INHALER) INH PRN (13:43)
[2020-10-23] MEDS ORDERED: PROPOFOL 200 MG/20 ML VIAL ONE (16:17)
[2020-10-23] MEDS ORDERED: Fentanyl 100 MCG/2 ML VIAL ONE (16:50)
[2020-10-23] MEDS ORDERED: Metoclopramide HCl 10 MG/2 ML VIAL IVP SCH (17:00)
[2020-10-23] MEDS ORDERED: cloNIDine 0.1 MG TAB ONE (17:09)
[2020-10-23] MEDS ORDERED: Fosphenytoin Sodium 500 mg/10 ml Vial ONE (17:09)
[2020-10-23] MEDS ORDERED: Non-Formulary Item 1 EACH (Insulin Glargine,Hum.Rec.Anlog [Lantus Solostar] 100 UNIT/ML P SC SCH (21:00)
[2020-10-23] MEDS ORDERED: Metoclopramide HCl 10 MG TAB PO SCH (21:00)
[2020-10-23] MEDS: Gabapentin 100 MG CAP PO SCH ×2 (21:00→21:21)
[2020-10-23] MEDS ORDERED: Insulin Glargine 13 UNITS in Pre-Filled Syringe 1 EACH SC SCH (21:00)
[2020-10-23] MEDS: Cyclobenzaprine 10 MG TAB PO PRN (21:01)
[2020-10-23] MEDS: Atorvastatin Calcium 40 MG TAB PO SCH (21:01)
[2020-10-23] MEDS ORDERED: Temazepam 15 MG CAP ONE (21:26)
[2020-10-23] MEDS: Temazepam 15 MG CAP PO PRN (21:30)
[2020-10-24] MEDS: hydrALAZINE 20 MG/ML VIAL SLOW IVP PRN ×3 (00:10→11:45)
[2020-10-24] MEDS: HYDROmorphone 0.5 MG/0.5 ML SYRINGE SLOW IVP PRN (01:04)
[2020-10-24] MEDS: Piperacillin/Tazobactam 4.5 GM in Sodium Chloride 0.9% 100 ML IVPB SCH ×3 (03:59→21:16)
[2020-10-24 04:00] LABS: Hemoglobin A1c 9.5 % (4.0-6.0)
[2020-10-24] MEDS: Metoclopramide HCl 10 MG/2 ML VIAL IVP SCH ×4 (04:00→21:19)
[2020-10-24 04:12] LABS: #Eosinphils 0.1 thou/uL (0.0-0.7); #Lymphocytes 1.7 thou/uL (1.20-3.40); #Monocytes 0.4 thou/uL (0.11-0.59); #Neutrophils 2.7 thou/uL (1.40-6.50); %Basophils 0.8 % (0.0-1.0); %Eosinophils 2.1 % (0.0-10.0); %Lymphocytes 34.4 % (21.0-51.0); %Monocytes 7.7 % (0.0-10.0); %Neutrophils 55.1 % (42.0-75.0); Hemoglobin 10.2 g/dL (14.0-18.0); Mean Corpuscular HGB CONC 34.2 g/dL (32.0-36.0); Mean Corpuscular Hemoglobin 31.8 pg (27.0-31.0); Mean Corpuscular Volume 93.1 fL (78.0-98.0); Mean Platelet Volume 7.1 fL (7.4-10.4); Platelet Count 131 thou/uL (130-400); RBC Distribution Width 11.8 % (11.5-14.5)
[2020-10-24 04:19] LABS: Anion Gap 11 mmol/L (10-20); BUN (Urea Nitrogen) 14 mg/dL (8.4-25.7); Calc. Creatinine Clearance 55 mL/min (70-130); Calcium 7.4 mg/dL (7.8-10.44); Carbon Dioxide 22 mmol/L (23-31); Chloride 102 mmol/L (98-107); Glucose 82 mg/dL (80-115); Magnesium 1.6 mg/dL (1.6-2.6); Potassium 3.2 mmol/L (3.5-5.1); Sodium 132 mmol/L (136-145)
[2020-10-24 04:21] LABS: Phosphorus 2.4 mg/dL (2.3-4.7)
[2020-10-24] MEDS: Gabapentin 100 MG CAP PO SCH ×3 (08:23→21:17)
[2020-10-24] MEDS: Tamsulosin HCl 0.4 MG CAP PO SCH (08:24)
[2020-10-24] MEDS: Finasteride 5 MG TAB PO SCH (08:24)
[2020-10-24] MEDS: Carvedilol 6.25 MG TAB PO SCH (08:25)
[2020-10-24] MEDS: hydrALAZINE 25 MG TAB PO SCH ×2 (08:27→21:18)
[2020-10-24] MEDS ORDERED: Lisinopril 2.5 MG TAB PO SCH (09:00)
[2020-10-24] MEDS ORDERED: Magnesium Sulfate 4 GM in Sodium Chloride 0.9% 250 ML 250 ML IVPB SCH (09:45)
[2020-10-24] MEDS ORDERED: Potassium Chloride 40 MEQ in Premix Bag 1 BAG IVPB SCH (09:45)
[2020-10-24] MEDS ORDERED: Amlodipine 10 MG TAB PO SCH (09:45)
[2020-10-24] MEDS ORDERED: Lisinopril 20 MG TAB PO SCH (10:00)
[2020-10-24] MEDS: HYDROcodone/Acetaminophen 5/325 mg Tablet PO PRN ×3 (11:42→21:19)
[2020-10-24] MEDS: HumaLOG 300 UNITS/3 ML VIAL SC PRN (11:44)
[2020-10-24] MEDS: Potassium Chloride 20 MEQ in Premix Bag 1 BAG IVPB SCH ×2 (12:09→13:48)
[2020-10-24] MEDS: Atorvastatin Calcium 40 MG TAB PO SCH (21:17)
[2020-10-24] MEDS: Lisinopril 20 MG TAB PO SCH (21:18)
[2020-10-24] MEDS: Cyclobenzaprine 10 MG TAB PO PRN (21:19)
[2020-10-24] MEDS ORDERED: Sodium Chloride 0.9% (PF) 10 ML VIAL FS PRN (21:30)
[2020-10-24] MEDS: Lantus 1000 UNITS/10 ML VIAL SC SCH (22:29)
[2020-10-24] MEDS: Temazepam 15 MG CAP PO PRN (22:30)
[2020-10-25 04:24] LABS: #Eosinphils 0.2 thou/uL (0.0-0.7); #Lymphocytes 1.9 thou/uL (1.20-3.40); #Monocytes 0.3 thou/uL (0.11-0.59); #Neutrophils 2.7 thou/uL (1.40-6.50); %Basophils 0.6 % (0.0-1.0); %Eosinophils 3.4 % (0.0-10.0); %Lymphocytes 37.1 % (21.0-51.0); %Monocytes 6.2 % (0.0-10.0); %Neutrophils 52.7 % (42.0-75.0); Hemoglobin 10.1 g/dL (14.0-18.0); Mean Corpuscular HGB CONC 31.9 g/dL (32.0-36.0); Mean Corpuscular Hemoglobin 29.7 pg (27.0-31.0); Mean Corpuscular Volume 93.4 fL (78.0-98.0); Mean Platelet Volume 7.4 fL (7.4-10.4); Platelet Count 119 thou/uL (130-400); RBC Distribution Width 11.9 % (11.5-14.5); Red Blood Cell (RBC) Count 3.38 mill/uL (4.70-6.10); White Blood Cell (WBC) Count 5.1 thou/uL (4.8-10.8)
[2020-10-25] MEDS: Metoclopramide HCl 10 MG/2 ML VIAL IVP SCH ×4 (04:24→22:00)
[2020-10-25] MEDS: Piperacillin/Tazobactam 4.5 GM in Sodium Chloride 0.9% 100 ML IVPB SCH ×3 (04:24→20:33)
[2020-10-25] MEDS: HYDROcodone/Acetaminophen 5/325 mg Tablet PO PRN ×3 (04:26→22:00)
[2020-10-25 04:29] LABS: Anion Gap 11 mmol/L (10-20); BUN (Urea Nitrogen) 9 mg/dL (8.4-25.7); Calc. Creatinine Clearance 61 mL/min (70-130); Calcium 7.3 mg/dL (7.8-10.44); Carbon Dioxide 21 mmol/L (23-31); Chloride 105 mmol/L (98-107); Glucose 96 mg/dL (80-115); Magnesium 2.3 mg/dL (1.6-2.6); Potassium 3.4 mmol/L (3.5-5.1); Sodium 134 mmol/L (136-145)
[2020-10-25] MEDS: Lisinopril 20 MG TAB PO SCH ×2 (08:17→21:57)
[2020-10-25] MEDS: Carvedilol 6.25 MG TAB PO SCH (08:17)
[2020-10-25] MEDS: Tamsulosin HCl 0.4 MG CAP PO SCH (08:19)
[2020-10-25] MEDS: hydrALAZINE 25 MG TAB PO SCH ×2 (08:33→20:37)
[2020-10-25] MEDS: Gabapentin 100 MG CAP PO SCH ×3 (08:34→20:36)
[2020-10-25] MEDS: Finasteride 5 MG TAB PO SCH (08:36)
[2020-10-25] MEDS: Amlodipine 10 MG TAB PO SCH (08:36)
[2020-10-25] MEDS: Pantoprazole 40 MG VIAL IVP SCH (09:41)
[2020-10-25] MEDS: HumaLOG 300 UNITS/3 ML VIAL SC PRN (12:32)
[2020-10-25] MEDS: hydrALAZINE 20 MG/ML VIAL SLOW IVP PRN ×2 (16:44→19:46)
[2020-10-25 16:47] VITALS: BP 194/95
[2020-10-25] MEDS: Atorvastatin Calcium 40 MG TAB PO SCH (20:37)
[2020-10-25] MEDS: Lantus 1000 UNITS/10 ML VIAL SC SCH (20:38)
[2020-10-25] MEDS: Cyclobenzaprine 10 MG TAB PO PRN (20:38)
[2020-10-25] MEDS: Temazepam 15 MG CAP PO PRN (21:38)
[2020-10-26] MEDS: HYDROmorphone 0.5 MG/0.5 ML SYRINGE SLOW IVP PRN ×2 (01:41→21:52)
[2020-10-26] MEDS: hydrALAZINE 20 MG/ML VIAL SLOW IVP PRN ×2 (03:30→13:08)
[2020-10-26] MEDS: Piperacillin/Tazobactam 4.5 GM in Sodium Chloride 0.9% 100 ML IVPB SCH ×3 (05:08→20:11)
[2020-10-26] MEDS: Metoclopramide HCl 10 MG/2 ML VIAL IVP SCH ×4 (05:09→21:48)
[2020-10-26] MEDS: Pantoprazole 40 MG VIAL IVP SCH (08:48)
[2020-10-26] MEDS: Amlodipine 10 MG TAB PO SCH (08:49)
[2020-10-26] MEDS: Carvedilol 6.25 MG TAB PO SCH (08:49)
[2020-10-26] MEDS: Finasteride 5 MG TAB PO SCH (08:51)
[2020-10-26] MEDS: Gabapentin 100 MG CAP PO SCH ×3 (08:51→21:39)
[2020-10-26] MEDS: Tamsulosin HCl 0.4 MG CAP PO SCH (08:52)
[2020-10-26] MEDS: hydrALAZINE 25 MG TAB PO SCH ×3 (08:52→21:39)
[2020-10-26] MEDS: Lisinopril 20 MG TAB PO SCH ×2 (08:53→21:40)
[2020-10-26] MEDS ORDERED: hydrALAZINE 25 MG TAB PO SCH (09:00)
[2020-10-26] MEDS: Metoprolol Tartrate 5 MG/5 ML VIAL IVP PRN ×2 (10:11→17:07)
[2020-10-26] MEDS: HYDROcodone/Acetaminophen 5/325 mg Tablet PO PRN ×2 (16:20→20:10)
[2020-10-26] MEDS: HumaLOG 300 UNITS/3 ML VIAL SC PRN (17:20)
[2020-10-26] MEDS: Cyclobenzaprine 10 MG TAB PO PRN (21:40)
[2020-10-26] MEDS: Atorvastatin Calcium 40 MG TAB PO SCH (21:40)
[2020-10-26] MEDS: Temazepam 15 MG CAP PO PRN (21:40)
[2020-10-26] MEDS: Lantus 1000 UNITS/10 ML VIAL SC SCH (21:41)
[2020-10-27 03:38] LABS: #Eosinphils 0.2 thou/uL (0.0-0.7); #Lymphocytes 1.6 thou/uL (1.20-3.40); #Monocytes 0.4 thou/uL (0.11-0.59); %Basophils 0.6 % (0.0-1.0); %Eosinophils 3.2 % (0.0-10.0); %Monocytes 7.8 % (0.0-10.0); %Neutrophils 57.4 % (42.0-75.0); Hemoglobin 10.8 g/dL (14.0-18.0); Mean Corpuscular HGB CONC 32.5 g/dL (32.0-36.0); Mean Corpuscular Hemoglobin 30.5 pg (27.0-31.0); Mean Corpuscular Volume 93.9 fL (78.0-98.0); Mean Platelet Volume 7.5 fL (7.4-10.4); Platelet Count 128 thou/uL (130-400); Red Blood Cell (RBC) Count 3.53 mill/uL (4.70-6.10); White Blood Cell (WBC) Count 5.1 thou/uL (4.8-10.8)
[2020-10-27 04:01] LABS: Anion Gap 9 mmol/L (10-20); BUN (Urea Nitrogen) 9 mg/dL (8.4-25.7); Calc. Creatinine Clearance 58 mL/min (70-130); Calcium 7.5 mg/dL (7.8-10.44); Carbon Dioxide 27 mmol/L (23-31); Chloride 103 mmol/L (98-107); Glucose 108 mg/dL (80-115); Potassium 3.2 mmol/L (3.5-5.1); Sodium 136 mmol/L (136-145)
[2020-10-27] MEDS: Metoclopramide HCl 10 MG/2 ML VIAL IVP SCH ×2 (05:48→08:43)
[2020-10-27] MEDS: Piperacillin/Tazobactam 4.5 GM in Sodium Chloride 0.9% 100 ML IVPB SCH (05:52)
[2020-10-27] MEDS: HYDROcodone/Acetaminophen 5/325 mg Tablet PO PRN (05:52)
[2020-10-27 07:11] VITALS: TEMP 97.9
[2020-10-27] MEDS: hydrALAZINE 25 MG TAB PO SCH (08:24)
[2020-10-27] MEDS: Carvedilol 6.25 MG TAB PO SCH (08:26)
[2020-10-27] MEDS: Lisinopril 20 MG TAB PO SCH (08:27)
[2020-10-27] MEDS: Tamsulosin HCl 0.4 MG CAP PO SCH (08:27)
[2020-10-27] MEDS: Gabapentin 100 MG CAP PO SCH (08:28)
[2020-10-27] MEDS: Amlodipine 10 MG TAB PO SCH (08:29)
[2020-10-27] MEDS: Finasteride 5 MG TAB PO SCH (08:29)
[2020-10-27] MEDS: Pantoprazole 40 MG VIAL IVP SCH (08:30)
== END 2020-10-27 11:20 | disposition home or self-care (01) | DRG 74 ==
LOC: ERS 15:34 → IMCU/EMU 18:47 → CCU 10-23 18:46
PROVIDERS: ADMIT Student in an Organized Health Care Education/Training Program; ATTEND Family Medicine
PROC: 0D9680Z Drainage of Stomach with Drainage Device, Via Natural or Artificial Opening Endoscopic (ICD-10-PCS; principal; 2020-10-23)
DX: E11.43 Type 2 diabetes mellitus with diabetic autonomic (poly)neuropathy (principal); K92.2 Gastrointestinal hemorrhage, unspecified; K86.2 Cyst of pancreas; K86.1 Other chronic pancreatitis; E87.1 Hypo-osmolality and hyponatremia; Z20.822 Contact with and (suspected) exposure to COVID-19; I16.0 Hypertensive urgency; K31.84 Gastroparesis; E11.51 Type 2 diabetes mellitus with diabetic peripheral angiopathy without gangrene; J44.9 Chronic obstructive pulmonary disease, unspecified; E86.0 Dehydration; E78.5 Hyperlipidemia, unspecified; N52.9 Male erectile dysfunction, unspecified; M19.90 Unspecified osteoarthritis, unspecified site; F32.9 Major depressive disorder, single episode, unspecified; F41.9 Anxiety disorder, unspecified; E11.22 Type 2 diabetes mellitus with diabetic chronic kidney disease; N18.9 Chronic kidney disease, unspecified; I12.9 Hypertensive chronic kidney disease with stage 1 through stage 4 chronic kidney disease, or unspecified chronic kidney disease; K52.9 Noninfective gastroenteritis and colitis, unspecified; K21.00 Gastro-esophageal reflux disease with esophagitis, without bleeding; E11.69 Type 2 diabetes mellitus with other specified complication; F17.210 Nicotine dependence, cigarettes, uncomplicated; Z89.611 Acquired absence of right leg above knee; Z95.5 Presence of coronary angioplasty implant and graft; Z88.5 Allergy status to narcotic agent; I25.2 Old myocardial infarction; Z79.82 Long term (current) use of aspirin; Z79.4 Long term (current) use of insulin; Z79.899 Other long term (current) drug therapy; Z88.8 Allergy status to other drugs, medicaments and biological substances; Z90.49 Acquired absence of other specified parts of digestive tract
CPT/HCPCS: 36415; 36416; 74177; 80048; 80053; 83036; 83605; 83690; 83735; 84100; 85025; 87040; 96365; 96366; 96375; 96376; C9113; J0360; J1170; J1650; J1815; J2354; J2405; J2543; J2704; J2765; J3010; J3475; J3480; J3490; J7050; Q2009; Q9967

== ENCOUNTER 2021-01-22 13:00 | Inpatient (IN) | payer MEDICARE ==
[2021-01-22] MEDS ORDERED: Nitroglycerin 2% Ointment 1 INCH/1 GM Packet ONE (13:39)
[2021-01-22] MEDS ORDERED: hydrALAZINE 20 MG/ML VIAL ONE (14:29)
[2021-01-22] MEDS ORDERED: Nitroglycerin 50 MG/250 ML BOT 250 ML ONE ×2 (15:08→22:58)
[2021-01-22] MEDS ORDERED: Temazepam 15 MG CAP PO PRN (15:25)
[2021-01-22] MEDS ORDERED: Non-Formulary Item 1 EACH (Fluticasone/Umeclidin/Vilanter [Trelegy Ellipta 100-62.5-25] 1 PO PRN (15:25)
[2021-01-22 15:33] LABS: PTT 29.2 sec (22.9-36.1); Prothrombin Time 13.4 sec (12.0-14.7)
[2021-01-22] MEDS ORDERED: Lisinopril 20 MG TAB PO SCH (16:00)
[2021-01-22] MEDS ORDERED: Tamsulosin HCl 0.4 MG CAP PO SCH (16:00)
[2021-01-22] MEDS: Sodium Chloride 0.9% 1,000 ML IV SCH (17:10)
[2021-01-22 19:33] LABS: SARS-CoV-2 NAA Rapid Test Not Detected (NotDetected)
[2021-01-22] MEDS: Lantus 1000 UNITS/10 ML VIAL SC SCH (21:24)
[2021-01-22] MEDS ORDERED: cloNIDine 0.1 MG TAB ONE (21:27)
[2021-01-22] MEDS ORDERED: Cyclobenzaprine 10 MG TAB ONE (21:28)
[2021-01-22] MEDS: cloNIDine 0.1 MG TAB PO SCH (21:32)
[2021-01-22] MEDS: Lisinopril 20 MG TAB PO SCH (21:32)
[2021-01-22] MEDS ORDERED: Lidocaine 5% Patch TD SCH (22:00)
[2021-01-22] MEDS: Atorvastatin Calcium 40 MG TAB PO SCH (22:28)
[2021-01-22] MEDS: hydrALAZINE 25 MG TAB PO SCH (22:29)
[2021-01-22] MEDS: Metoclopramide HCl 10 MG TAB PO SCH (22:29)
[2021-01-22] MEDS: Nitroglycerin 50 MG/250 ML BOT 250 ML IVPB SCH (23:00)
[2021-01-22 23:35] VITALS: BMI 16.3
[2021-01-23] MEDS: Cyclobenzaprine 10 MG TAB PO PRN (00:17)
[2021-01-23] MEDS: Sodium Chloride 0.9% 1,000 ML IV SCH ×2 (00:19→12:46)
[2021-01-23] MEDS: Gabapentin 100 MG CAP PO SCH ×4 (00:33→23:17)
[2021-01-23] MEDS: HYDROcodone/Acetaminophen 10/325 mg Tablet PO PRN ×4 (00:55→23:18)
[2021-01-23] MEDS: Nitroglycerin 50 MG/250 ML BOT 250 ML IVPB SCH ×2 (03:26→07:47)
[2021-01-23] MEDS: cloNIDine 0.1 MG TAB PO SCH ×3 (07:41→21:21)
[2021-01-23] MEDS: Amlodipine 10 MG TAB PO SCH (07:42)
[2021-01-23] MEDS: Lisinopril 20 MG TAB PO SCH ×2 (07:42→21:21)
[2021-01-23] MEDS: Finasteride 5 MG TAB PO SCH (08:38)
[2021-01-23] MEDS: Metoclopramide HCl 10 MG TAB PO SCH ×2 (08:39→21:21)
[2021-01-23] MEDS: Tamsulosin HCl 0.4 MG CAP PO SCH (08:39)
[2021-01-23] MEDS: hydrALAZINE 25 MG TAB PO SCH ×3 (08:39→21:21)
[2021-01-23] MEDS ORDERED: Iopamidol 370 76% 50 ML VIAL FS ONE (08:50)
[2021-01-23] MEDS ORDERED: Lidocaine 1% (PF) 30 ML VIAL ONE (09:54)
[2021-01-23] MEDS ORDERED: Gentamicin 80 MG/2 ML VIAL ONE (09:54)
[2021-01-23] MEDS ORDERED: CEFAZOLIN 1 GM VIAL ONE (09:54)
[2021-01-23] MEDS ORDERED: Transdermal Patch Removal TOP SCH (10:00)
[2021-01-23] MEDS ORDERED: Fentanyl 100 MCG/2 ML VIAL ONE (10:49)
[2021-01-23] MEDS ORDERED: Midazolam HCl 2 mg/2 ml Vial ONE (10:50)
[2021-01-23] MEDS ORDERED: Acetaminophen/Codeine 30-300mg Tablet PO PRN ×2 (12:07)
[2021-01-23] MEDS ORDERED: Nitroglycerin 50 MG/250 ML BOT 250 ML IVPB SCH (12:10)
[2021-01-23] MEDS ORDERED: Carvedilol 6.25 MG TAB PO SCH (12:15)
[2021-01-23] MEDS: Cephalexin 250 MG CAP PO SCH ×2 (15:07→21:20)
[2021-01-23] MEDS: Carvedilol 25 MG TAB PO SCH ×2 (15:08→21:20)
[2021-01-23] MEDS: Mometasone 200 MCG/Formoterol 5 MCG 120 PUFF INHALER INH SCH (19:39)
[2021-01-23] MEDS: Atorvastatin Calcium 40 MG TAB PO SCH (21:20)
[2021-01-23] MEDS: Lantus 1000 UNITS/10 ML VIAL SC SCH (21:26)
[2021-01-24] MEDS: Mometasone 200 MCG/Formoterol 5 MCG 120 PUFF INHALER INH SCH ×2 (06:56→19:12)
[2021-01-24] MEDS: Carvedilol 25 MG TAB PO SCH ×2 (08:07→16:23)
[2021-01-24] MEDS: HYDROcodone/Acetaminophen 10/325 mg Tablet PO PRN ×2 (08:10→16:24)
[2021-01-24] MEDS: Aspirin 81 mg Enteric Coated Tablet PO SCH (08:11)
[2021-01-24] MEDS: Cephalexin 250 MG CAP PO SCH ×3 (08:11→20:03)
[2021-01-24] MEDS: cloNIDine 0.1 MG TAB PO SCH ×3 (08:11→20:03)
[2021-01-24] MEDS: Gabapentin 100 MG CAP PO SCH ×2 (08:11→16:23)
[2021-01-24] MEDS: Amlodipine 10 MG TAB PO SCH (08:11)
[2021-01-24] MEDS: Metoclopramide HCl 10 MG TAB PO SCH ×2 (08:12→20:03)
[2021-01-24] MEDS: Tamsulosin HCl 0.4 MG CAP PO SCH (08:12)
[2021-01-24] MEDS: Lisinopril 20 MG TAB PO SCH ×2 (08:13→20:03)
[2021-01-24] MEDS: Finasteride 5 MG TAB PO SCH (08:13)
[2021-01-24] MEDS: hydrALAZINE 25 MG TAB PO SCH ×3 (08:14→20:02)
[2021-01-24] MEDS: Polyethylene Glycol 3350 17 GM Packet PO SCH ×2 (14:48→20:02)
[2021-01-24] MEDS: Lantus 1000 UNITS/10 ML VIAL SC SCH (20:02)
[2021-01-24] MEDS: Atorvastatin Calcium 40 MG TAB PO SCH (20:03)
[2021-01-24] MEDS: Cyclobenzaprine 10 MG TAB PO PRN (23:14)
[2021-01-25] MEDS: HYDROcodone/Acetaminophen 10/325 mg Tablet PO PRN ×3 (02:46→21:28)
[2021-01-25] MEDS: Gabapentin 100 MG CAP PO SCH ×3 (02:46→15:51)
[2021-01-25] MEDS: hydrALAZINE 20 MG/ML VIAL SLOW IVP PRN ×2 (04:09→12:30)
[2021-01-25 05:38] LABS: ALT (SGPT) 12 U/L (8-55); AST (SGOT) 14 U/L (5-34); Alkaline Phosphatase 103 U/L (40-110); Anion Gap 9 mmol/L (10-20); BUN (Urea Nitrogen) 15 mg/dL (8.4-25.7); Bilirubin, Total 0.3 mg/dL (0.2-1.2); Calc. Creatinine Clearance 52 mL/min (70-130); Calcium 8.5 mg/dL (7.8-10.44); Carbon Dioxide 24 mmol/L (23-31); Cardiac Risk 2.2 (Less than 4.5); Chloride 101 mmol/L (98-107); Cholesterol 87 mg/dl (< 200 Desired); Globulin 2.8 g/dL (2.4-3.5); Glucose 119 mg/dL (80-115); HDL Cholesterol 40 mg/dL (>60 Neg Risk); LDL Cholesterol, Calculated 36 mg/dL; Potassium 4.3 mmol/L (3.5-5.1); Protein, Total 5.8 g/dL (5.8-8.1); Sodium 130 mmol/L (136-145); Triglycerides 56 mg/dL (Less than 150)
[2021-01-25 06:22] LABS: #Eosinphils 0.1 thou/uL (0.0-0.7); #Lymphocytes 0.9 thou/uL (1.20-3.40); #Monocytes 0.5 thou/uL (0.11-0.59); #Neutrophils 4.4 thou/uL (1.40-6.50); %Basophils 0.4 % (0.0-1.0); %Eosinophils 1.4 % (0.0-10.0); %Lymphocytes 14.7 % (21.0-51.0); %Monocytes 7.7 % (0.0-10.0); %Neutrophils 75.8 % (42.0-75.0); Hemoglobin 12.2 g/dL (14.0-18.0); Mean Corpuscular HGB CONC 32.2 g/dL (32.0-36.0); Mean Corpuscular Hemoglobin 30.6 pg (27.0-31.0); Mean Corpuscular Volume 95.2 fL (78.0-98.0); Mean Platelet Volume 8.4 fL (7.4-10.4); Platelet Count 97 thou/uL (130-400); Platelet Morphology Comment Appears Decreased; RBC Distribution Width 13.1 % (11.5-14.5); Red Blood Cell (RBC) Count 3.98 mill/uL (4.70-6.10); White Blood Cell (WBC) Count 5.8 thou/uL (4.8-10.8)
[2021-01-25] MEDS: Mometasone 200 MCG/Formoterol 5 MCG 120 PUFF INHALER INH SCH ×2 (07:13→19:12)
[2021-01-25] MEDS: Cephalexin 250 MG CAP PO SCH ×3 (08:35→21:27)
[2021-01-25] MEDS: Lisinopril 20 MG TAB PO SCH ×2 (08:35→21:28)
[2021-01-25] MEDS: hydrALAZINE 25 MG TAB PO SCH ×3 (08:35→21:26)
[2021-01-25] MEDS: cloNIDine 0.1 MG TAB PO SCH ×3 (08:35→21:28)
[2021-01-25] MEDS: Aspirin 81 mg Enteric Coated Tablet PO SCH (08:35)
[2021-01-25] MEDS: Carvedilol 25 MG TAB PO SCH ×3 (08:36→21:27)
[2021-01-25] MEDS: Metoclopramide HCl 10 MG TAB PO SCH ×2 (08:36→21:27)
[2021-01-25] MEDS: Tamsulosin HCl 0.4 MG CAP PO SCH (08:36)
[2021-01-25] MEDS: Amlodipine 10 MG TAB PO SCH (08:36)
[2021-01-25] MEDS: Finasteride 5 MG TAB PO SCH (08:36)
[2021-01-25] MEDS: Polyethylene Glycol 3350 17 GM Packet PO SCH ×3 (08:37→21:29)
[2021-01-25 12:02] LABS: Hemoglobin A1c 8.1 % (4.0-6.0)
[2021-01-25] MEDS ORDERED: Dextrose 5% in Water 1,000 ML IV PRN (12:39)
[2021-01-25] MEDS ORDERED: HumaLOG 300 UNITS/3 ML VIAL SC PRN ×2 (12:39)
[2021-01-25] MEDS ORDERED: Dextrose 50% Abboject 50 ML SYRINGE SLOW IVP PRN (12:39)
[2021-01-25] MEDS ORDERED: Enoxaparin Sodium 40 MG/0.4 ML SYRINGE SC SCH (13:45)
[2021-01-25] MEDS: Atorvastatin Calcium 40 MG TAB PO SCH (21:27)
[2021-01-25] MEDS: Lantus 1000 UNITS/10 ML VIAL SC SCH (21:30)
[2021-01-26] MEDS: Gabapentin 100 MG CAP PO SCH ×2 (00:12→09:20)
[2021-01-26] MEDS: Mometasone 200 MCG/Formoterol 5 MCG 120 PUFF INHALER INH SCH (08:34)
[2021-01-26] MEDS ORDERED: NIFEdipine XL 60 MG TAB PO SCH (09:00)
[2021-01-26] MEDS ORDERED: Hydrochlorothiazide 25 MG TAB PO SCH (09:00)
[2021-01-26] MEDS ORDERED: Enoxaparin Sodium 40 MG/0.4 ML SYRINGE SC SCH (09:00)
[2021-01-26] MEDS: Aspirin 81 mg Enteric Coated Tablet PO SCH (09:11)
[2021-01-26] MEDS: cloNIDine 0.1 MG TAB PO SCH (09:11)
[2021-01-26] MEDS: Cephalexin 250 MG CAP PO SCH (09:12)
[2021-01-26] MEDS: Tamsulosin HCl 0.4 MG CAP PO SCH (09:12)
[2021-01-26] MEDS: hydrALAZINE 25 MG TAB PO SCH (09:12)
[2021-01-26] MEDS: Finasteride 5 MG TAB PO SCH (09:12)
[2021-01-26] MEDS: Carvedilol 25 MG TAB PO SCH (09:13)
[2021-01-26] MEDS: Lisinopril 20 MG TAB PO SCH (09:13)
[2021-01-26] MEDS: Polyethylene Glycol 3350 17 GM Packet PO SCH (09:15)
[2021-01-26] MEDS: Metoclopramide HCl 10 MG TAB PO SCH (09:19)
[2021-01-26] MEDS: HYDROcodone/Acetaminophen 10/325 mg Tablet PO PRN (09:20)
[2021-01-26 12:44] VITALS: BP 153/76; TEMP 98.2
== END 2021-01-26 14:40 | disposition home or self-care (01) | DRG 243 ==
LOC: ERS 13:00 → ERHOLD 14:34 → CCU 23:18 → 2NO 01-24 22:50
PROVIDERS: ADMIT Internal Medicine; ATTEND Internal Medicine
PROC: 3E033XZ Introduction of Vasopressor into Peripheral Vein, Percutaneous Approach (ICD-10-PCS; principal; 2021-01-22)
PROC: 0JH606Z Insertion of Pacemaker, Dual Chamber into Chest Subcutaneous Tissue and Fascia, Open Approach (ICD-10-PCS; 2021-01-23)
PROC: 02HK3JZ Insertion of Pacemaker Lead into Right Ventricle, Percutaneous Approach (ICD-10-PCS; 2021-01-23)
PROC: 02H63JZ Insertion of Pacemaker Lead into Right Atrium, Percutaneous Approach (ICD-10-PCS; 2021-01-23)
DX: I44.2 Atrioventricular block, complete (principal); J44.1 Chronic obstructive pulmonary disease with (acute) exacerbation; K56.699 Other intestinal obstruction unspecified as to partial versus complete obstruction; I42.9 Cardiomyopathy, unspecified; E87.0 Hyperosmolality and hypernatremia; I50.32 Chronic diastolic (congestive) heart failure; I13.0 Hypertensive heart and chronic kidney disease with heart failure and stage 1 through stage 4 chronic kidney disease, or unspecified chronic kidney disease; Z20.822 Contact with and (suspected) exposure to COVID-19; E11.43 Type 2 diabetes mellitus with diabetic autonomic (poly)neuropathy; K31.84 Gastroparesis; K59.00 Constipation, unspecified; R00.1 Bradycardia, unspecified; E11.51 Type 2 diabetes mellitus with diabetic peripheral angiopathy without gangrene; I25.10 Atherosclerotic heart disease of native coronary artery without angina pectoris; I44.7 Left bundle-branch block, unspecified; E78.00 Pure hypercholesterolemia, unspecified; I16.0 Hypertensive urgency; N40.0 Benign prostatic hyperplasia without lower urinary tract symptoms; F32.9 Major depressive disorder, single episode, unspecified; M19.90 Unspecified osteoarthritis, unspecified site; F17.210 Nicotine dependence, cigarettes, uncomplicated; I95.9 Hypotension, unspecified; N18.9 Chronic kidney disease, unspecified; E11.22 Type 2 diabetes mellitus with diabetic chronic kidney disease; K59.01 Slow transit constipation; K59.03 Drug induced constipation; T40.2X5A Adverse effect of other opioids, initial encounter; Z89.611 Acquired absence of right leg above knee; Z95.1 Presence of aortocoronary bypass graft; I25.2 Old myocardial infarction; Z88.5 Allergy status to narcotic agent; Z88.8 Allergy status to other drugs, medicaments and biological substances; Z79.899 Other long term (current) drug therapy; Z79.4 Long term (current) use of insulin; Z90.49 Acquired absence of other specified parts of digestive tract; Z95.5 Presence of coronary angioplasty implant and graft; Z86.73 Personal history of transient ischemic attack (TIA), and cerebral infarction without residual deficits; Z87.11 Personal history of peptic ulcer disease
CPT/HCPCS: 0240U; 33208; 36415; 36416; 71045; 75820; 80053; 80061; 83036; 85025; 85610; 85730; 93005; 93010; 93306; 93923; 96365; 96366; 96367; 96375; 97139; 99152; 99153; C1785; C1898; J0360; J0690; J1580; J1650; J1815; J2001; J2250; J3010; Q9967

== ENCOUNTER 2021-02-07 08:16 | Inpatient (IN) | payer MEDICARE ==
[2021-02-07 09:10] LABS: #Lymphocytes 1.3 thou/uL (1.20-3.40); #Neutrophils 15.1 thou/uL (1.40-6.50); %Eosinophils 0.1 % (0.0-10.0); %Lymphocytes 7.3 % (21.0-51.0); %Monocytes 5.5 % (0.0-10.0); %Neutrophils 87.1 % (42.0-75.0); Hemoglobin 14.1 g/dL (14.0-18.0); Mean Corpuscular HGB CONC 33.5 g/dL (32.0-36.0); Mean Corpuscular Hemoglobin 30.7 pg (27.0-31.0); Mean Corpuscular Volume 91.7 fL (78.0-98.0); Mean Platelet Volume 7.4 fL (7.4-10.4); Platelet Count 226 thou/uL (130-400); RBC Distribution Width 12.8 % (11.5-14.5); Red Blood Cell (RBC) Count 4.59 mill/uL (4.70-6.10); White Blood Cell (WBC) Count 17.3 thou/uL (4.8-10.8)
[2021-02-07] MEDS ORDERED: Ondansetron PF 4 MG/2 ML Vial ONE (09:17)
[2021-02-07] MEDS ORDERED: Fentanyl 100 MCG/2 ML VIAL ONE (09:17)
[2021-02-07 09:32] LABS: ALT (SGPT) 8 U/L (8-55); AST (SGOT) 12 U/L (5-34); Albumin 3.3 g/dL (3.4-4.8); Alkaline Phosphatase 92 U/L (40-110); Anion Gap 18 mmol/L (10-20); BUN (Urea Nitrogen) 57 mg/dL (8.4-25.7); Bilirubin, Total 0.3 mg/dL (0.2-1.2); Calc. Creatinine Clearance 0 mL/min (70-130); Calcium 8.4 mg/dL (7.8-10.44); Carbon Dioxide 25 mmol/L (23-31); Chloride 82 mmol/L (98-107); Glucose 468 mg/dL (80-115); Lipase 46 U/L (8-78); Potassium 4.3 mmol/L (3.5-5.1); Protein, Total 6.3 g/dL (5.8-8.1); Sodium 121 mmol/L (136-145)
[2021-02-07] MEDS ORDERED: Piperacillin/Tazobactam 3.375 GM VIAL ONE ×2 (11:12→15:41)
[2021-02-07] MEDS ORDERED: Insulin Regular 300 UNITS/3 ML VIAL ONE (11:40)
[2021-02-07 11:43] LABS: Bacteria/HPF None Seen HPF (None Seen); Bilirubin Negative (Negative); Blood, Urine Negative (Negative); Clarity Clear (Clear); Glucose, Urine (Dipstick) Greater than 1000 mg/dL (Negative); Ketone, Urine 10 mg/dL (Negative); Leukocyte Negative Leu/uL (Negative); Nitrite Negative (Negative); Protein, Urine (Dipstick) 100 mg/dL (Neg-Trace); RBC/HPF 0-3 HPF (0-3); Specific Gravity, Urine 1.028 (1.002-1.036); Squamous Epithelial None Seen HPF (0-3); Urobilinogen Normal mg/dL (Less than 2); WBC/HPF 0-3 HPF (0-3)
[2021-02-07] MEDS ORDERED: Sodium Chloride 0.9% 1,000 ML IV SCH (12:15)
[2021-02-07] MEDS ORDERED: Ondansetron PF 4 MG/2 ML Vial IVP PRN ×2 (12:15→14:34)
[2021-02-07] MEDS ORDERED: Ondansetron ODT 4 MG TAB SL PRN (12:15)
[2021-02-07] MEDS ORDERED: Ondansetron ODT 4 MG TAB PO PRN (14:34)
[2021-02-07] MEDS ORDERED: Dextrose 50% Abboject 50 ML SYRINGE SLOW IVP PRN (14:34)
[2021-02-07] MEDS ORDERED: Acetaminophen 500 MG TAB PO PRN (14:34)
[2021-02-07] MEDS ORDERED: Bisacodyl 5 MG TAB PO PRN (14:34)
[2021-02-07] MEDS ORDERED: Dextrose 5% in Water 1,000 ML IV PRN (14:34)
[2021-02-07] MEDS ORDERED: Magnesium Citrate 300 ML BOT PO SCH (14:34)
[2021-02-07] MEDS ORDERED: HumaLOG 300 UNITS/3 ML VIAL SC PRN (14:34)
[2021-02-07] MEDS ORDERED: Piperacillin/Tazobactam 3.375 GM in Sodium Chloride 0.9% 100 ML IVPB SCH (14:45)
[2021-02-07] MEDS: Gabapentin 100 MG CAP PO SCH ×2 (15:57→21:43)
[2021-02-07] MEDS: Piperacillin/Tazobactam 3.375 GM in Sodium Chloride 0.9% 100 ML IVPB SCH ×2 (15:58→23:59)
[2021-02-07] MEDS: Sodium Chloride 0.9% 1,000 ML IV SCH (15:59)
[2021-02-07] MEDS: HumaLOG 300 UNITS/3 ML VIAL SC PRN (16:15)
[2021-02-07] MEDS ORDERED: Mineral Oil ENEMA PR SCH (16:45)
[2021-02-07 17:17] VITALS: BMI 16.4
[2021-02-07] MEDS: Mometasone 100 MCG/PUFF (1 INHALER) INH SCH (18:44)
[2021-02-07] MEDS ORDERED: Metoclopramide HCl 10 MG TAB PO SCH (21:00)
[2021-02-07] MEDS ORDERED: Famotidine 20 MG TAB PO SCH (21:00)
[2021-02-07] MEDS: Senokot S 8.6-50 MG TAB PO SCH (21:40)
[2021-02-07] MEDS: Atorvastatin Calcium 40 MG TAB PO SCH (21:40)
[2021-02-07] MEDS: Lisinopril 20 MG TAB PO SCH (21:40)
[2021-02-07] MEDS: HYDROcodone/Acetaminophen 10/325 mg Tablet PO SCH (21:40)
[2021-02-07] MEDS: hydrALAZINE 25 MG TAB PO SCH (21:42)
[2021-02-07] MEDS: Carvedilol 25 MG TAB PO SCH (21:43)
[2021-02-07] MEDS: Metoclopramide HCl 10 MG/2 ML VIAL IVP SCH (21:44)
[2021-02-07] MEDS: Lantus 1000 UNITS/10 ML VIAL SC SCH (21:46)
[2021-02-08] MEDS: Sodium Chloride 0.9% 1,000 ML IV SCH (04:28)
[2021-02-08 06:13] LABS: Anion Gap 13 mmol/L (10-20); BUN (Urea Nitrogen) 64 mg/dL (8.4-25.7); Calc. Creatinine Clearance 42 mL/min (70-130); Calcium 7.3 mg/dL (7.8-10.44); Carbon Dioxide 17 mmol/L (23-31); Chloride 94 mmol/L (98-107); Glucose 196 mg/dL (80-115); Potassium 4.2 mmol/L (3.5-5.1); Sodium 120 mmol/L (136-145)
[2021-02-08 06:36] LABS: #Basophils 0.1 thou/uL (0.0-0.2); #Lymphocytes 2.1 thou/uL (1.20-3.40); %Basophils 0.8 % (0.0-1.0); %Eosinophils 0.1 % (0.0-10.0); %Lymphocytes 18.6 % (21.0-51.0); %Monocytes 8.8 % (0.0-10.0); %Neutrophils 71.8 % (42.0-75.0); Hemoglobin 7.9 g/dL (14.0-18.0); Mean Corpuscular HGB CONC 32.8 g/dL (32.0-36.0); Mean Corpuscular Hemoglobin 30.4 pg (27.0-31.0); Mean Corpuscular Volume 92.8 fL (78.0-98.0); Mean Platelet Volume 7.3 fL (7.4-10.4); Platelet Count 153 thou/uL (130-400); RBC Distribution Width 12.4 % (11.5-14.5); Red Blood Cell (RBC) Count 2.59 mill/uL (4.70-6.10); White Blood Cell (WBC) Count 11.1 thou/uL (4.8-10.8)
[2021-02-08] MEDS: HumaLOG 300 UNITS/3 ML VIAL SC PRN (07:00)
[2021-02-08] MEDS: Mometasone 100 MCG/PUFF (1 INHALER) INH SCH ×2 (07:12→19:23)
[2021-02-08] MEDS: Piperacillin/Tazobactam 3.375 GM in Sodium Chloride 0.9% 100 ML IVPB SCH ×2 (08:26→16:50)
[2021-02-08] MEDS: Senokot S 8.6-50 MG TAB PO SCH ×2 (08:27→21:43)
[2021-02-08] MEDS: Finasteride 5 MG TAB PO SCH (08:27)
[2021-02-08] MEDS: Aspirin Chewable 81 MG TAB PO SCH (08:27)
[2021-02-08] MEDS: HYDROcodone/Acetaminophen 10/325 mg Tablet PO SCH ×3 (08:27→21:59)
[2021-02-08] MEDS: hydrALAZINE 25 MG TAB PO SCH ×2 (08:28→21:43)
[2021-02-08] MEDS: Tamsulosin HCl 0.4 MG CAP PO SCH (08:29)
[2021-02-08] MEDS: Carvedilol 25 MG TAB PO SCH ×2 (08:29→22:00)
[2021-02-08] MEDS: Lisinopril 20 MG TAB PO SCH ×2 (08:29→21:43)
[2021-02-08] MEDS: Clopidogrel Bisulfate 75 MG TAB PO SCH (08:29)
[2021-02-08] MEDS: Gabapentin 100 MG CAP PO SCH ×3 (08:29→21:44)
[2021-02-08] MEDS: Metoclopramide HCl 10 MG/2 ML VIAL IVP SCH ×2 (08:30→21:45)
[2021-02-08 10:16] LABS: Hemoglobin 7.8 g/dL (14.0-18.0)
[2021-02-08] MEDS ORDERED: Sodium Chloride 256 MEQ in Sterile Water Injection 936 ML IV SCH (13:00)
[2021-02-08 19:32] LABS: Anion Gap 14 mmol/L (10-20); BUN (Urea Nitrogen) 59 mg/dL (8.4-25.7); Calc. Creatinine Clearance 41 mL/min (70-130); Calcium 7.3 mg/dL (7.8-10.44); Carbon Dioxide 19 mmol/L (23-31); Chloride 96 mmol/L (98-107); Glucose 87 mg/dL (80-115); Potassium 3.7 mmol/L (3.5-5.1); Sodium 125 mmol/L (136-145)
[2021-02-08] MEDS ORDERED: Famotidine 20 MG TAB PO SCH (21:00)
[2021-02-08] MEDS: Atorvastatin Calcium 40 MG TAB PO SCH (21:45)
[2021-02-08] MEDS: Lantus 1000 UNITS/10 ML VIAL SC SCH (21:46)
[2021-02-08 23:38] LABS: Anion Gap 13 mmol/L (10-20); BUN (Urea Nitrogen) 54 mg/dL (8.4-25.7); Calc. Creatinine Clearance 44 mL/min (70-130); Calcium 7.3 mg/dL (7.8-10.44); Carbon Dioxide 20 mmol/L (23-31); Chloride 98 mmol/L (98-107); Glucose 114 mg/dL (80-115); Potassium 3.6 mmol/L (3.5-5.1); Sodium 127 mmol/L (136-145)
[2021-02-09] MEDS: Piperacillin/Tazobactam 3.375 GM in Sodium Chloride 0.9% 100 ML IVPB SCH ×4 (00:14→23:40)
[2021-02-09 04:20] LABS: #Basophils 0.1 thou/uL (0.0-0.2); #Lymphocytes 2.4 thou/uL (1.20-3.40); #Monocytes 0.7 thou/uL (0.11-0.59); #Neutrophils 7.2 thou/uL (1.40-6.50); %Basophils 0.9 % (0.0-1.0); %Eosinophils 0.4 % (0.0-10.0); %Lymphocytes 22.7 % (21.0-51.0); %Monocytes 6.7 % (0.0-10.0); %Neutrophils 69.3 % (42.0-75.0); Hemoglobin 6.9 g/dL (14.0-18.0); Mean Corpuscular HGB CONC 33.9 g/dL (32.0-36.0); Mean Corpuscular Hemoglobin 31.4 pg (27.0-31.0); Mean Corpuscular Volume 92.4 fL (78.0-98.0); Mean Platelet Volume 7.1 fL (7.4-10.4); Platelet Count 163 thou/uL (130-400); RBC Distribution Width 12.5 % (11.5-14.5); Red Blood Cell (RBC) Count 2.19 mill/uL (4.70-6.10); White Blood Cell (WBC) Count 10.5 thou/uL (4.8-10.8)
[2021-02-09 04:38] LABS: Anion Gap 8 mmol/L (10-20); BUN (Urea Nitrogen) 42 mg/dL (8.4-25.7); Calc. Creatinine Clearance 58 mL/min (70-130); Calcium 6.6 mg/dL (7.8-10.44); Carbon Dioxide 21 mmol/L (23-31); Chloride 118 mmol/L (98-107); Sodium 144 mmol/L (136-145)
[2021-02-09 04:43] LABS: Glucose 33 mg/dL (80-115)
[2021-02-09] MEDS ORDERED: Potassium Chloride 20 MEQ TAB PO SCH (05:00)
[2021-02-09 07:56] LABS: Anion Gap 14 mmol/L (10-20); BUN (Urea Nitrogen) 45 mg/dL (8.4-25.7); Calc. Creatinine Clearance 46 mL/min (70-130); Calcium 7.3 mg/dL (7.8-10.44); Carbon Dioxide 20 mmol/L (23-31); Chloride 102 mmol/L (98-107); Glucose 215 mg/dL (80-115); Potassium 3.8 mmol/L (3.5-5.1); Sodium 132 mmol/L (136-145)
[2021-02-09] MEDS: HYDROcodone/Acetaminophen 10/325 mg Tablet PO SCH ×4 (09:12→20:58)
[2021-02-09] MEDS: Aspirin Chewable 81 MG TAB PO SCH (09:12)
[2021-02-09] MEDS: Senokot S 8.6-50 MG TAB PO SCH ×2 (09:14→20:59)
[2021-02-09] MEDS: hydrALAZINE 25 MG TAB PO SCH ×2 (09:15→21:12)
[2021-02-09] MEDS: Lisinopril 20 MG TAB PO SCH ×2 (09:15→20:57)
[2021-02-09] MEDS: Carvedilol 25 MG TAB PO SCH ×2 (09:16→20:56)
[2021-02-09] MEDS: Gabapentin 100 MG CAP PO SCH ×3 (09:16→20:58)
[2021-02-09] MEDS: Tamsulosin HCl 0.4 MG CAP PO SCH (09:16)
[2021-02-09] MEDS: Clopidogrel Bisulfate 75 MG TAB PO SCH (09:16)
[2021-02-09] MEDS: Finasteride 5 MG TAB PO SCH (09:16)
[2021-02-09] MEDS: Metoclopramide HCl 10 MG/2 ML VIAL IVP SCH ×2 (09:17→20:59)
[2021-02-09] MEDS: Mometasone 100 MCG/PUFF (1 INHALER) INH SCH (09:57)
[2021-02-09] MEDS ORDERED: Mometasone 100 MCG/PUFF (1 INHALER) INH PRN (10:45)
[2021-02-09 11:26] LABS: Anion Gap 13 mmol/L (10-20); BUN (Urea Nitrogen) 39 mg/dL (8.4-25.7); Calc. Creatinine Clearance 48 mL/min (70-130); Calcium 7.3 mg/dL (7.8-10.44); Carbon Dioxide 21 mmol/L (23-31); Chloride 101 mmol/L (98-107); Glucose 185 mg/dL (80-115); Potassium 4.6 mmol/L (3.5-5.1); Sodium 130 mmol/L (136-145)
[2021-02-09] MEDS ORDERED: Dextrose 5% in Water 1,000 ML IV SCH (12:30)
[2021-02-09 15:05] LABS: Anion Gap 13 mmol/L (10-20); BUN (Urea Nitrogen) 36 mg/dL (8.4-25.7); Calc. Creatinine Clearance 48 mL/min (70-130); Calcium 7.3 mg/dL (7.8-10.44); Carbon Dioxide 20 mmol/L (23-31); Chloride 99 mmol/L (98-107); Glucose 179 mg/dL (80-115); Potassium 4.3 mmol/L (3.5-5.1); Sodium 128 mmol/L (136-145)
[2021-02-09 19:11] LABS: Anion Gap 12 mmol/L (10-20); BUN (Urea Nitrogen) 32 mg/dL (8.4-25.7); Calc. Creatinine Clearance 49 mL/min (70-130); Calcium 7.3 mg/dL (7.8-10.44); Carbon Dioxide 22 mmol/L (23-31); Chloride 99 mmol/L (98-107); Glucose 86 mg/dL (80-115); Sodium 129 mmol/L (136-145)
[2021-02-09] MEDS: Temazepam 15 MG CAP PO SCH (20:56)
[2021-02-09] MEDS: Lantus 1000 UNITS/10 ML VIAL SC SCH (20:57)
[2021-02-09] MEDS: Atorvastatin Calcium 40 MG TAB PO SCH (20:57)
[2021-02-10 00:04] LABS: Anion Gap 12 mmol/L (10-20); BUN (Urea Nitrogen) 31 mg/dL (8.4-25.7); Calc. Creatinine Clearance 48 mL/min (70-130); Calcium 7.3 mg/dL (7.8-10.44); Carbon Dioxide 19 mmol/L (23-31); Chloride 101 mmol/L (98-107); Glucose 107 mg/dL (80-115); Potassium 4.1 mmol/L (3.5-5.1); Sodium 128 mmol/L (136-145)
[2021-02-10] MEDS: hydrALAZINE 20 MG/ML VIAL SLOW IVP PRN (04:29)
[2021-02-10] MEDS: HumaLOG 300 UNITS/3 ML VIAL SC PRN ×2 (05:49→17:29)
[2021-02-10 06:04] LABS: Anion Gap 12 mmol/L (10-20); BUN (Urea Nitrogen) 26 mg/dL (8.4-25.7); Calc. Creatinine Clearance 49 mL/min (70-130); Calcium 7.5 mg/dL (7.8-10.44); Carbon Dioxide 21 mmol/L (23-31); Chloride 101 mmol/L (98-107); Glucose 206 mg/dL (80-115); Sodium 130 mmol/L (136-145)
[2021-02-10] MEDS: Mometasone 100 MCG/PUFF (1 INHALER) INH SCH ×2 (06:59→18:15)
[2021-02-10] MEDS: Piperacillin/Tazobactam 3.375 GM in Sodium Chloride 0.9% 100 ML IVPB SCH ×3 (08:12→23:53)
[2021-02-10 08:15] LABS: Anion Gap 11 mmol/L (10-20); BUN (Urea Nitrogen) 26 mg/dL (8.4-25.7); Calc. Creatinine Clearance 53 mL/min (70-130); Calcium 7.8 mg/dL (7.8-10.44); Carbon Dioxide 24 mmol/L (23-31); Chloride 103 mmol/L (98-107); Glucose 107 mg/dL (80-115); Potassium 3.8 mmol/L (3.5-5.1); Sodium 134 mmol/L (136-145)
[2021-02-10] MEDS: Senokot S 8.6-50 MG TAB PO SCH ×2 (08:19→21:30)
[2021-02-10] MEDS: Aspirin Chewable 81 MG TAB PO SCH (08:19)
[2021-02-10] MEDS: Metoclopramide HCl 10 MG/2 ML VIAL IVP SCH ×2 (08:19→21:31)
[2021-02-10] MEDS: Tamsulosin HCl 0.4 MG CAP PO SCH (08:20)
[2021-02-10] MEDS: Lisinopril 20 MG TAB PO SCH ×2 (08:20→21:30)
[2021-02-10] MEDS: Carvedilol 25 MG TAB PO SCH ×2 (08:21→21:30)
[2021-02-10] MEDS: guaiFENesin ER 600 MG TAB PO SCH (08:21)
[2021-02-10] MEDS: HYDROcodone/Acetaminophen 10/325 mg Tablet PO SCH ×3 (08:22→21:19)
[2021-02-10] MEDS: Gabapentin 100 MG CAP PO SCH ×3 (08:22→21:30)
[2021-02-10] MEDS: hydrALAZINE 25 MG TAB PO SCH ×2 (08:23→21:30)
[2021-02-10] MEDS: Polyethylene Glycol 3350 17 GM Packet PO SCH (08:24)
[2021-02-10] MEDS: Finasteride 5 MG TAB PO SCH (08:24)
[2021-02-10] MEDS: NIFEdipine XL 90 MG TAB PO SCH (10:19)
[2021-02-10 12:15] LABS: Anion Gap 12 mmol/L (10-20); BUN (Urea Nitrogen) 23 mg/dL (8.4-25.7); Calc. Creatinine Clearance 55 mL/min (70-130); Calcium 7.7 mg/dL (7.8-10.44); Carbon Dioxide 21 mmol/L (23-31); Chloride 103 mmol/L (98-107); Glucose 106 mg/dL (80-115); Potassium 4.1 mmol/L (3.5-5.1); Sodium 132 mmol/L (136-145)
[2021-02-10 12:20] LABS: #Eosinphils 0.1 thou/uL (0.0-0.7); #Lymphocytes 1.3 thou/uL (1.20-3.40); #Monocytes 0.4 thou/uL (0.11-0.59); #Neutrophils 4.4 thou/uL (1.40-6.50); %Basophils 0.3 % (0.0-1.0); %Eosinophils 1.8 % (0.0-10.0); %Lymphocytes 20.9 % (21.0-51.0); %Monocytes 6.3 % (0.0-10.0); %Neutrophils 70.8 % (42.0-75.0); Hemoglobin 10.3 g/dL (14.0-18.0); Mean Corpuscular HGB CONC 34.2 g/dL (32.0-36.0); Mean Corpuscular Volume 93.5 fL (78.0-98.0); Mean Platelet Volume 7.6 fL (7.4-10.4); Platelet Count 119 thou/uL (130-400); RBC Distribution Width 12.8 % (11.5-14.5); Red Blood Cell (RBC) Count 3.22 mill/uL (4.70-6.10); White Blood Cell (WBC) Count 6.2 thou/uL (4.8-10.8)
[2021-02-10 12:21] LABS: MDiff Complete? YES; Platelet Morphology Comment Appears Decreased
[2021-02-10 17:17] LABS: Anion Gap 10 mmol/L (10-20); BUN (Urea Nitrogen) 22 mg/dL (8.4-25.7); Calc. Creatinine Clearance 51 mL/min (70-130); Calcium 7.6 mg/dL (7.8-10.44); Carbon Dioxide 22 mmol/L (23-31); Chloride 100 mmol/L (98-107); Glucose 199 mg/dL (80-115); Potassium 4.3 mmol/L (3.5-5.1); Sodium 128 mmol/L (136-145)
[2021-02-10] MEDS: Temazepam 15 MG CAP PO SCH (21:30)
[2021-02-10] MEDS: Atorvastatin Calcium 40 MG TAB PO SCH (21:31)
[2021-02-10] MEDS: Lantus 1000 UNITS/10 ML VIAL SC SCH (21:34)
[2021-02-11 05:42] LABS: #Eosinphils 0.2 thou/uL (0.0-0.7); #Lymphocytes 1.3 thou/uL (1.20-3.40); #Monocytes 0.3 thou/uL (0.11-0.59); #Neutrophils 3.4 thou/uL (1.40-6.50); %Basophils 0.2 % (0.0-1.0); %Eosinophils 3.1 % (0.0-10.0); %Lymphocytes 24.4 % (21.0-51.0); %Monocytes 6.6 % (0.0-10.0); %Neutrophils 65.8 % (42.0-75.0); Hemoglobin 10.3 g/dL (14.0-18.0); Mean Corpuscular HGB CONC 34.6 g/dL (32.0-36.0); Mean Corpuscular Hemoglobin 31.8 pg (27.0-31.0); Mean Corpuscular Volume 92.1 fL (78.0-98.0); Mean Platelet Volume 7.7 fL (7.4-10.4); Platelet Count 116 thou/uL (130-400); RBC Distribution Width 12.9 % (11.5-14.5); Red Blood Cell (RBC) Count 3.25 mill/uL (4.70-6.10); White Blood Cell (WBC) Count 5.1 thou/uL (4.8-10.8)
[2021-02-11] MEDS: hydrALAZINE 20 MG/ML VIAL SLOW IVP PRN (06:12)
[2021-02-11] MEDS: HumaLOG 300 UNITS/3 ML VIAL SC PRN (06:12)
[2021-02-11 06:16] LABS: Anion Gap 8 mmol/L (10-20); BUN (Urea Nitrogen) 19 mg/dL (8.4-25.7); Calc. Creatinine Clearance 52 mL/min (70-130); Calcium 7.7 mg/dL (7.8-10.44); Carbon Dioxide 24 mmol/L (23-31); Chloride 101 mmol/L (98-107); Glucose 227 mg/dL (80-115); Potassium 4.3 mmol/L (3.5-5.1); Sodium 129 mmol/L (136-145)
[2021-02-11] MEDS: Mometasone 100 MCG/PUFF (1 INHALER) INH SCH (06:39)
[2021-02-11] MEDS: Piperacillin/Tazobactam 3.375 GM in Sodium Chloride 0.9% 100 ML IVPB SCH (07:50)
[2021-02-11] MEDS: hydrALAZINE 25 MG TAB PO SCH (07:51)
[2021-02-11] MEDS: guaiFENesin ER 600 MG TAB PO SCH (07:51)
[2021-02-11] MEDS: Senokot S 8.6-50 MG TAB PO SCH (07:52)
[2021-02-11] MEDS: Lisinopril 20 MG TAB PO SCH (07:52)
[2021-02-11] MEDS: NIFEdipine XL 90 MG TAB PO SCH (07:52)
[2021-02-11] MEDS: Carvedilol 25 MG TAB PO SCH (07:53)
[2021-02-11] MEDS: Finasteride 5 MG TAB PO SCH (07:53)
[2021-02-11] MEDS: HYDROcodone/Acetaminophen 10/325 mg Tablet PO SCH (07:53)
[2021-02-11 07:54] VITALS: TEMP 98
[2021-02-11] MEDS: Tamsulosin HCl 0.4 MG CAP PO SCH (07:54)
[2021-02-11] MEDS: Gabapentin 100 MG CAP PO SCH (07:54)
[2021-02-11] MEDS: Aspirin Chewable 81 MG TAB PO SCH (07:54)
[2021-02-11] MEDS: Polyethylene Glycol 3350 17 GM Packet PO SCH (07:55)
[2021-02-11 08:01] VITALS: BP 168/68
[2021-02-11] MEDS: Metoclopramide HCl 10 MG/2 ML VIAL IVP SCH (08:12)
[2021-02-11] MEDS ORDERED: Metoclopramide HCl 10 MG/2 ML VIAL IVP SCH (09:00)
[2021-02-11] MEDS ORDERED: Sodium Chloride 1 GM TAB PO SCH (15:00)
== END 2021-02-11 13:57 | disposition home or self-care (01) | DRG 74 ==
LOC: ERS 08:16 → T4-A 11:11
PROVIDERS: ADMIT Family Medicine; ATTEND Internal Medicine
PROC: 30233N1 Transfusion of Nonautologous Red Blood Cells into Peripheral Vein, Percutaneous Approach (ICD-10-PCS; principal; 2021-02-09)
DX: E11.43 Type 2 diabetes mellitus with diabetic autonomic (poly)neuropathy (principal); E87.1 Hypo-osmolality and hyponatremia; N17.9 Acute kidney failure, unspecified; K50.90 Crohn's disease, unspecified, without complications; K62.4 Stenosis of anus and rectum; E11.65 Type 2 diabetes mellitus with hyperglycemia; E78.5 Hyperlipidemia, unspecified; M19.90 Unspecified osteoarthritis, unspecified site; I25.10 Atherosclerotic heart disease of native coronary artery without angina pectoris; I12.9 Hypertensive chronic kidney disease with stage 1 through stage 4 chronic kidney disease, or unspecified chronic kidney disease; E11.51 Type 2 diabetes mellitus with diabetic peripheral angiopathy without gangrene; K59.03 Drug induced constipation; T40.605A Adverse effect of unspecified narcotics, initial encounter; E86.0 Dehydration; K31.84 Gastroparesis; D64.9 Anemia, unspecified; N18.9 Chronic kidney disease, unspecified; E11.22 Type 2 diabetes mellitus with diabetic chronic kidney disease; Z86.79 Personal history of other diseases of the circulatory system; Z86.73 Personal history of transient ischemic attack (TIA), and cerebral infarction without residual deficits; Z89.611 Acquired absence of right leg above knee; Z90.49 Acquired absence of other specified parts of digestive tract; Z95.0 Presence of cardiac pacemaker; Z95.5 Presence of coronary angioplasty implant and graft; Z79.82 Long term (current) use of aspirin; Z79.02 Long term (current) use of antithrombotics/antiplatelets; Z79.899 Other long term (current) drug therapy; Z88.5 Allergy status to narcotic agent; Z88.8 Allergy status to other drugs, medicaments and biological substances; Z87.891 Personal history of nicotine dependence; I25.2 Old myocardial infarction; Z79.4 Long term (current) use of insulin
CPT/HCPCS: 36415; 36416; 36430; 70450; 74177; 80048; 80053; 81003; 81015; 82274; 82533; 83690; 83930; 83935; 84443; 84550; 85025; 86850; 86870; 86900; 86901; 86905; 86922; 94640; 96361; 96365; 96375; A4217; J0360; J1815; J2405; J2543; J2765; J3010; J3490; J7620; P9016

== ENCOUNTER 2021-03-23 03:25 | Inpatient (IN) | payer MEDICARE ==
[2021-03-23] MEDS ORDERED: Magnesium 2 GM/50 ML BAG (IN WATER) ONE (03:56)
[2021-03-23] MEDS ORDERED: methylPREDNISolone Sod Succ/PF 125 MG/2 ML VIAL ONE (03:56)
[2021-03-23] MEDS ORDERED: Furosemide 40 MG/4 ML VIAL ONE ×2 (03:56→16:31)
[2021-03-23 04:06] LABS: #Lymphocytes 1.2 thou/uL (1.20-3.40); #Monocytes 0.8 thou/uL (0.11-0.59); #Neutrophils 7.7 thou/uL (1.40-6.50); %Basophils 0.1 % (0.0-1.0); %Eosinophils 0.2 % (0.0-10.0); %Monocytes 8.3 % (0.0-10.0); %Neutrophils 79.5 % (42.0-75.0); Hemoglobin 9.5 g/dL (14.0-18.0); Mean Corpuscular HGB CONC 32.7 g/dL (32.0-36.0); Mean Corpuscular Hemoglobin 30.7 pg (27.0-31.0); Mean Corpuscular Volume 93.9 fL (78.0-98.0); Mean Platelet Volume 8.8 fL (7.4-10.4); Platelet Count 202 thou/uL (130-400); RBC Distribution Width 13.8 % (11.5-14.5); White Blood Cell (WBC) Count 9.6 thou/uL (4.8-10.8)
[2021-03-23 04:30] LABS: Anion Gap 13 mmol/L (10-20); BUN (Urea Nitrogen) 52 mg/dL (8.4-25.7); Calc. Creatinine Clearance 0 mL/min (70-130); Carbon Dioxide 26 mmol/L (23-31); Chloride 96 mmol/L (98-107); Potassium 4.6 mmol/L (3.5-5.1); Sodium 130 mmol/L (136-145)
[2021-03-23 04:31] LABS: ALT (SGPT) 58 U/L (8-55); AST (SGOT) 85 U/L (5-34); Albumin 3.5 g/dL (3.4-4.8); Alkaline Phosphatase 190 U/L (40-110); Bilirubin, Total 0.4 mg/dL (0.2-1.2); Calcium 8.5 mg/dL (7.8-10.44); Globulin 2.9 g/dL (2.4-3.5); Glucose 514 mg/dL (80-115); Protein, Total 6.4 g/dL (5.8-8.1)
[2021-03-23 05:13] LABS: CKMB 2.8 ng/mL (0-6.6)
[2021-03-23] MEDS ORDERED: Ondansetron ODT 4 MG TAB PO PRN (06:31)
[2021-03-23] MEDS ORDERED: Acetaminophen 325 MG TAB PO PRN (06:31)
[2021-03-23] MEDS ORDERED: Ondansetron PF 4 MG/2 ML Vial IVP PRN (06:31)
[2021-03-23] MEDS ORDERED: HYDROcodone/Acetaminophen 5/325 mg Tablet PO SCH (07:00)
[2021-03-23 07:40] LABS: Troponin I 0.259 ng/mL (< 0.028)
[2021-03-23] MEDS ORDERED: Senokot S 8.6-50 MG TAB PO PRN (08:01)
[2021-03-23] MEDS ORDERED: Non-Formulary Item 1 EACH (Cyclobenzaprine Hcl [Cyclobenzaprine Hcl] 5 MG Tablet) PO PRN (08:03)
[2021-03-23] MEDS ORDERED: Cyclobenzaprine 10 MG TAB PO PRN (08:33)
[2021-03-23] MEDS ORDERED: hydrALAZINE 25 MG TAB ONE ×2 (08:34→16:31)
[2021-03-23] MEDS ORDERED: Famotidine 20 MG TAB ONE (08:34)
[2021-03-23] MEDS ORDERED: Lisinopril 10 MG TAB ONE (08:34)
[2021-03-23] MEDS ORDERED: Aspirin Chewable 81 MG TAB ONE (08:34)
[2021-03-23] MEDS ORDERED: Enoxaparin Sodium 40 MG/0.4 ML SYRINGE ONE (08:34)
[2021-03-23] MEDS ORDERED: cloNIDine 0.1 MG TAB ONE ×2 (08:34→16:31)
[2021-03-23] MEDS ORDERED: Clopidogrel Bisulfate 75 MG TAB ONE (08:34)
[2021-03-23] MEDS: cloNIDine 0.1 MG TAB PO SCH ×3 (08:37→21:29)
[2021-03-23] MEDS: Aspirin 81 mg Enteric Coated Tablet PO SCH (08:37)
[2021-03-23] MEDS: Clopidogrel Bisulfate 75 MG TAB PO SCH (08:38)
[2021-03-23] MEDS: Lisinopril 20 MG TAB PO SCH ×2 (08:39→21:28)
[2021-03-23] MEDS: hydrALAZINE 25 MG TAB PO SCH ×3 (08:39→21:30)
[2021-03-23 08:40] LABS: #Lymphocytes 0.7 thou/uL (1.20-3.40); #Monocytes 0.4 thou/uL (0.11-0.59); #Neutrophils 8.1 thou/uL (1.40-6.50); %Eosinophils 0.1 % (0.0-10.0); %Lymphocytes 7.1 % (21.0-51.0); %Monocytes 4.5 % (0.0-10.0); %Neutrophils 88.3 % (42.0-75.0); Hemoglobin 9.6 g/dL (14.0-18.0); Mean Corpuscular HGB CONC 32.9 g/dL (32.0-36.0); Mean Corpuscular Hemoglobin 30.7 pg (27.0-31.0); Mean Corpuscular Volume 93.3 fL (78.0-98.0); Mean Platelet Volume 9.1 fL (7.4-10.4); Platelet Count 213 thou/uL (130-400); RBC Distribution Width 13.6 % (11.5-14.5); Red Blood Cell (RBC) Count 3.13 mill/uL (4.70-6.10); White Blood Cell (WBC) Count 9.2 thou/uL (4.8-10.8)
[2021-03-23 08:55] LABS: Anion Gap 12 mmol/L (10-20); BUN (Urea Nitrogen) 51 mg/dL (8.4-25.7); Calc. Creatinine Clearance 0 mL/min (70-130); Carbon Dioxide 27 mmol/L (23-31); Chloride 94 mmol/L (98-107); Potassium 4.6 mmol/L (3.5-5.1); Sodium 128 mmol/L (136-145)
[2021-03-23 08:56] LABS: Calcium 8.7 mg/dL (7.8-10.44); Glucose 526 mg/dL (80-115)
[2021-03-23] MEDS ORDERED: ANTICOAG Communication Order-Pharmacy FS PRN (08:59)
[2021-03-23] MEDS ORDERED: Non-Formulary Item 1 EACH (Fluticasone/Umeclidin/Vilanter [Trelegy Ellipta 100-62.5-25] 1 PO SCH (09:00)
[2021-03-23] MEDS ORDERED: Enoxaparin Sodium 40 MG/0.4 ML SYRINGE SC SCH (09:00)
[2021-03-23] MEDS ORDERED: Famotidine 20 MG TAB PO SCH (09:00)
[2021-03-23 09:02] LABS: Actual Bicarbonate (HCO3a) 23.9 mEq/L (22-28); Analyzer IN Cardio ER; Base Excess (BEa) -0.1 mEq/L (-2.0 to +3.0); CO2 Tension 36.5 mmHg (35.0-45.0); Calcium, Ionized (arterial) 1.11 mmol/L (1.12-1.30); Carboxyhemoglobin (COHb) 2.6 gm% (0.0-3.0); Hemoglobin (Hb) 9.6 g/dL (14.0-18.0); O2 Tension (PaO2), arterial 65.4 mmHg (> 80.0); Potassium - ABG Lab 4.46 mmol/L (3.70-5.30); pH, Arterial 7.43 (7.35-7.45)
[2021-03-23 09:05] LABS: ALV-art Gradient 60.095 mmHg (0-20); Puncture Site LBA
[2021-03-23 09:59] LABS: Hemoglobin 8.7 g/dL (14.0-18.0); Platelet Count 163 thou/uL (130-400)
[2021-03-23 10:27] LABS: Troponin I 0.603 ng/mL (< 0.028)
[2021-03-23] MEDS ORDERED: HYDROcodone/Acetaminophen 5/325 mg Tablet ONE (10:38)
[2021-03-23] MEDS: Finasteride 5 MG TAB PO SCH (10:44)
[2021-03-23] MEDS: Gabapentin 100 MG CAP PO SCH ×3 (10:44→21:30)
[2021-03-23] MEDS: Carvedilol 25 MG TAB PO SCH ×2 (10:44→21:31)
[2021-03-23] MEDS ORDERED: Enoxaparin Sodium 60 MG/0.6 ML SYRINGE ONE ×2 (11:37→11:40)
[2021-03-23] MEDS ORDERED: Enoxaparin Sodium 60 MG/0.6 ML SYRINGE SC SCH (11:45)
[2021-03-23] MEDS: Lantus 1000 UNITS/10 ML VIAL SC SCH ×2 (12:26→22:23)
[2021-03-23] MEDS ORDERED: Acetaminophen 325 MG TAB ONE (16:34)
[2021-03-23] MEDS: Furosemide 40 MG/4 ML VIAL SLOW IVP SCH (16:38)
[2021-03-23 18:09] VITALS: BMI 18.9
[2021-03-23] MEDS: Mometasone 100 MCG/Formoterol 5 MCG 120 PUFF INHALER INH SCH (20:16)
[2021-03-23] MEDS ORDERED: Non-Formulary Item 1 EACH (Insulin Glargine,Hum.Rec.Anlog [Lantus Solostar] 100 UNIT/ML P SC SCH (21:00)
[2021-03-23] MEDS: Enoxaparin Sodium 60 MG/0.6 ML SYRINGE SC SCH (21:29)
[2021-03-23] MEDS: Doxycycline 100 MG CAP PO SCH (21:29)
[2021-03-23] MEDS: Atorvastatin Calcium 40 MG TAB PO SCH (21:31)
[2021-03-23] MEDS ORDERED: Dextrose 5% in Water 1,000 ML IV PRN (23:42)
[2021-03-23] MEDS ORDERED: Dextrose 50% Abboject 50 ML SYRINGE SLOW IVP PRN (23:42)
[2021-03-24] MEDS: HumaLOG 300 UNITS/3 ML VIAL SC PRN ×3 (00:38→17:38)
[2021-03-24 04:49] LABS: #Lymphocytes 1.9 thou/uL (1.20-3.40); #Monocytes 0.5 thou/uL (0.11-0.59); %Eosinophils 0.2 % (0.0-10.0); %Lymphocytes 29.8 % (21.0-51.0); %Monocytes 7.4 % (0.0-10.0); %Neutrophils 62.6 % (42.0-75.0); Hemoglobin 8.2 g/dL (14.0-18.0); Mean Corpuscular HGB CONC 32.7 g/dL (32.0-36.0); Mean Corpuscular Hemoglobin 30.6 pg (27.0-31.0); Mean Corpuscular Volume 93.5 fL (78.0-98.0); Mean Platelet Volume 8.7 fL (7.4-10.4); Platelet Count 163 thou/uL (130-400); RBC Distribution Width 13.4 % (11.5-14.5); Red Blood Cell (RBC) Count 2.69 mill/uL (4.70-6.10); White Blood Cell (WBC) Count 6.4 thou/uL (4.8-10.8)
[2021-03-24 05:05] LABS: Anion Gap 11 mmol/L (10-20); BUN (Urea Nitrogen) 49 mg/dL (8.4-25.7); Calc. Creatinine Clearance 38 mL/min (70-130); Calcium 8.8 mg/dL (7.8-10.44); Carbon Dioxide 30 mmol/L (23-31); Chloride 100 mmol/L (98-107); Potassium 3.5 mmol/L (3.5-5.1); Sodium 137 mmol/L (136-145)
[2021-03-24 05:09] LABS: Glucose 50 mg/dL (80-115)
[2021-03-24] MEDS: Furosemide 40 MG/4 ML VIAL SLOW IVP SCH ×2 (06:53→14:13)
[2021-03-24 07:55] LABS: Troponin I 1.048 ng/mL (< 0.028)
[2021-03-24] MEDS: Lantus 1000 UNITS/10 ML VIAL SC SCH ×2 (10:34→22:03)
[2021-03-24] MEDS: Mometasone 100 MCG/Formoterol 5 MCG 120 PUFF INHALER INH SCH ×2 (10:34→20:03)
[2021-03-24] MEDS: Aspirin 81 mg Enteric Coated Tablet PO SCH (10:36)
[2021-03-24] MEDS: Carvedilol 25 MG TAB PO SCH ×2 (10:36→20:17)
[2021-03-24] MEDS: cloNIDine 0.1 MG TAB PO SCH ×3 (10:36→20:15)
[2021-03-24] MEDS: Famotidine 20 MG TAB PO SCH (10:37)
[2021-03-24] MEDS: Finasteride 5 MG TAB PO SCH (10:37)
[2021-03-24] MEDS: Enoxaparin Sodium 60 MG/0.6 ML SYRINGE SC SCH ×2 (10:37→20:14)
[2021-03-24] MEDS: Doxycycline 100 MG CAP PO SCH ×2 (10:37→20:20)
[2021-03-24] MEDS: Clopidogrel Bisulfate 75 MG TAB PO SCH (10:37)
[2021-03-24] MEDS: Gabapentin 100 MG CAP PO SCH ×3 (10:38→20:16)
[2021-03-24] MEDS: hydrALAZINE 25 MG TAB PO SCH ×3 (10:38→20:18)
[2021-03-24] MEDS: methylPREDNISolone Sod Succ 40 MG VIAL IVP SCH (10:38)
[2021-03-24] MEDS: Lisinopril 20 MG TAB PO SCH ×2 (10:38→20:15)
[2021-03-24] MEDS: Saccharomyces boulardii 250 MG CAP PO SCH (10:39)
[2021-03-24 13:16] LABS: Critical Call Chem Troponin I RESULT DECREASING; Troponin I 0.789 ng/mL (< 0.028)
[2021-03-24] MEDS: Fluticasone/Umeclidin/Vilanter [Trelegy Ellipta 100-62.5-25] INH SCH ×2 (18:23→18:25)
[2021-03-24] MEDS: Atorvastatin Calcium 40 MG TAB PO SCH (20:17)
[2021-03-24] MEDS: Temazepam 15 MG CAP PO PRN (22:06)
[2021-03-24] MEDS: HYDROcodone/Acetaminophen 5/325 mg Tablet PO PRN (23:58)
[2021-03-25] MEDS: HumaLOG 300 UNITS/3 ML VIAL SC PRN ×5 (01:35→21:43)
[2021-03-25 04:37] LABS: #Lymphocytes 1.5 thou/uL (1.20-3.40); #Monocytes 0.5 thou/uL (0.11-0.59); #Neutrophils 3.3 thou/uL (1.40-6.50); %Basophils 0.4 % (0.0-1.0); %Eosinophils 0.2 % (0.0-10.0); %Lymphocytes 28.4 % (21.0-51.0); %Monocytes 8.6 % (0.0-10.0); %Neutrophils 62.4 % (42.0-75.0); Hemoglobin 8.4 g/dL (14.0-18.0); Mean Corpuscular HGB CONC 32.2 g/dL (32.0-36.0); Mean Corpuscular Volume 93.3 fL (78.0-98.0); Mean Platelet Volume 9.1 fL (7.4-10.4); Platelet Count 143 thou/uL (130-400); RBC Distribution Width 13.6 % (11.5-14.5); Red Blood Cell (RBC) Count 2.81 mill/uL (4.70-6.10); White Blood Cell (WBC) Count 5.3 thou/uL (4.8-10.8)
[2021-03-25 04:57] LABS: Anion Gap 14 mmol/L (10-20); BUN (Urea Nitrogen) 55 mg/dL (8.4-25.7); Calc. Creatinine Clearance 31 mL/min (70-130); Calcium 8.6 mg/dL (7.8-10.44); Carbon Dioxide 29 mmol/L (23-31); Chloride 96 mmol/L (98-107); Glucose 246 mg/dL (80-115); Potassium 3.9 mmol/L (3.5-5.1); Sodium 135 mmol/L (136-145)
[2021-03-25] MEDS: Furosemide 40 MG/4 ML VIAL SLOW IVP SCH (05:58)
[2021-03-25] MEDS: Mometasone 100 MCG/Formoterol 5 MCG 120 PUFF INHALER INH SCH ×2 (07:25→20:33)
[2021-03-25] MEDS: Enoxaparin Sodium 60 MG/0.6 ML SYRINGE SC SCH ×2 (08:39→21:40)
[2021-03-25] MEDS: Lisinopril 20 MG TAB PO SCH ×2 (08:39→21:41)
[2021-03-25] MEDS: Saccharomyces boulardii 250 MG CAP PO SCH (08:39)
[2021-03-25] MEDS: Doxycycline 100 MG CAP PO SCH ×2 (08:40→21:42)
[2021-03-25] MEDS: Aspirin 81 mg Enteric Coated Tablet PO SCH (08:40)
[2021-03-25] MEDS: Gabapentin 100 MG CAP PO SCH ×3 (08:40→21:41)
[2021-03-25] MEDS: cloNIDine 0.1 MG TAB PO SCH ×3 (08:40→21:42)
[2021-03-25] MEDS: Famotidine 20 MG TAB PO SCH (08:41)
[2021-03-25] MEDS: hydrALAZINE 25 MG TAB PO SCH ×3 (08:41→21:41)
[2021-03-25] MEDS: Carvedilol 25 MG TAB PO SCH ×2 (08:41→21:41)
[2021-03-25] MEDS: Clopidogrel Bisulfate 75 MG TAB PO SCH (08:42)
[2021-03-25] MEDS: methylPREDNISolone Sod Succ 40 MG VIAL IVP SCH (08:42)
[2021-03-25] MEDS: Lantus 1000 UNITS/10 ML VIAL SC SCH ×2 (08:43→21:44)
[2021-03-25] MEDS: Finasteride 5 MG TAB PO SCH (10:02)
[2021-03-25] MEDS ORDERED: Furosemide 20 MG TAB PO PRN (11:05)
[2021-03-25] MEDS ORDERED: Ondansetron ODT 4 MG TAB PO PRN (11:05)
[2021-03-25] MEDS: HYDROcodone/Acetaminophen 10/325 mg Tablet PO SCH ×4 (12:37→21:41)
[2021-03-25] MEDS: Metoclopramide HCl 10 MG TAB PO SCH ×2 (16:33→21:42)
[2021-03-25] MEDS: Senokot S 8.6-50 MG TAB PO SCH (21:40)
[2021-03-25] MEDS: Atorvastatin Calcium 40 MG TAB PO SCH (21:42)
[2021-03-25] MEDS: NIFEdipine XL 30 MG TAB PO SCH (21:53)
[2021-03-26 04:49] LABS: #Lymphocytes 1.3 thou/uL (1.20-3.40); #Monocytes 0.3 thou/uL (0.11-0.59); #Neutrophils 3.9 thou/uL (1.40-6.50); %Basophils 0.5 % (0.0-1.0); %Eosinophils 0.3 % (0.0-10.0); %Monocytes 5.6 % (0.0-10.0); %Neutrophils 69.6 % (42.0-75.0); Hemoglobin 8.8 g/dL (14.0-18.0); Mean Corpuscular HGB CONC 31.6 g/dL (32.0-36.0); Mean Corpuscular Hemoglobin 29.9 pg (27.0-31.0); Mean Corpuscular Volume 94.5 fL (78.0-98.0); Mean Platelet Volume 8.6 fL (7.4-10.4); Platelet Count 167 thou/uL (130-400); RBC Distribution Width 13.5 % (11.5-14.5); Red Blood Cell (RBC) Count 2.95 mill/uL (4.70-6.10); White Blood Cell (WBC) Count 5.6 thou/uL (4.8-10.8)
[2021-03-26 05:14] LABS: Anion Gap 10 mmol/L (10-20); BUN (Urea Nitrogen) 50 mg/dL (8.4-25.7); Calc. Creatinine Clearance 34 mL/min (70-130); Calcium 8.8 mg/dL (7.8-10.44); Carbon Dioxide 33 mmol/L (23-31); Chloride 97 mmol/L (98-107); Glucose 78 mg/dL (80-115); Potassium 4.1 mmol/L (3.5-5.1); Sodium 136 mmol/L (136-145)
[2021-03-26] MEDS: Mometasone 100 MCG/Formoterol 5 MCG 120 PUFF INHALER INH SCH ×2 (07:11→20:27)
[2021-03-26] MEDS: cloNIDine 0.1 MG TAB PO SCH ×3 (08:25→21:00)
[2021-03-26] MEDS: NIFEdipine XL 30 MG TAB PO SCH ×2 (08:26→21:00)
[2021-03-26] MEDS: hydrALAZINE 25 MG TAB PO SCH ×3 (08:26→21:01)
[2021-03-26] MEDS: Carvedilol 25 MG TAB PO SCH ×2 (08:26→21:00)
[2021-03-26] MEDS: Tamsulosin HCl 0.4 MG CAP PO SCH (08:26)
[2021-03-26] MEDS: Lisinopril 20 MG TAB PO SCH ×2 (08:27→21:00)
[2021-03-26] MEDS: Senokot S 8.6-50 MG TAB PO SCH ×2 (08:27→21:00)
[2021-03-26] MEDS: Aspirin 81 mg Enteric Coated Tablet PO SCH (08:28)
[2021-03-26] MEDS: Metoclopramide HCl 10 MG TAB PO SCH ×3 (08:28→21:01)
[2021-03-26] MEDS: Doxycycline 100 MG CAP PO SCH ×2 (08:28→21:00)
[2021-03-26] MEDS: Clopidogrel Bisulfate 75 MG TAB PO SCH (08:28)
[2021-03-26] MEDS: Saccharomyces boulardii 250 MG CAP PO SCH (08:28)
[2021-03-26] MEDS: Gabapentin 100 MG CAP PO SCH ×3 (08:29→21:01)
[2021-03-26] MEDS: Famotidine 20 MG TAB PO SCH (08:29)
[2021-03-26] MEDS: Finasteride 5 MG TAB PO SCH (08:29)
[2021-03-26] MEDS: HYDROcodone/Acetaminophen 10/325 mg Tablet PO SCH ×6 (08:30→21:01)
[2021-03-26] MEDS: Polyethylene Glycol 3350 17 GM Packet PO SCH ×2 (08:33→09:30)
[2021-03-26] MEDS: Enoxaparin Sodium 60 MG/0.6 ML SYRINGE SC SCH ×2 (08:33→21:04)
[2021-03-26] MEDS: methylPREDNISolone Sod Succ 40 MG VIAL IVP SCH (08:35)
[2021-03-26] MEDS: Lantus 1000 UNITS/10 ML VIAL SC SCH ×2 (09:00→21:04)
[2021-03-26] MEDS ORDERED: hydrALAZINE 25 MG TAB PO SCH (09:45)
[2021-03-26] MEDS ORDERED: Lantus 1000 UNITS/10 ML VIAL SC SCH (13:15)
[2021-03-26] MEDS: predniSONE 20 MG TAB PO SCH (13:53)
[2021-03-26] MEDS: HumaLOG 300 UNITS/3 ML VIAL SC PRN ×2 (18:19→21:04)
[2021-03-26] MEDS: Atorvastatin Calcium 40 MG TAB PO SCH (21:00)
[2021-03-26] MEDS: Temazepam 15 MG CAP PO PRN (21:11)
[2021-03-27] MEDS: HumaLOG 300 UNITS/3 ML VIAL SC PRN ×5 (00:28→21:55)
[2021-03-27] MEDS: HYDROcodone/Acetaminophen 5/325 mg Tablet PO PRN (05:23)
[2021-03-27] MEDS: Mometasone 100 MCG/Formoterol 5 MCG 120 PUFF INHALER INH SCH ×2 (08:42→19:54)
[2021-03-27] MEDS: Metoclopramide HCl 10 MG TAB PO SCH ×3 (09:12→21:52)
[2021-03-27] MEDS: HYDROcodone/Acetaminophen 10/325 mg Tablet PO SCH ×6 (09:13→21:51)
[2021-03-27] MEDS: Tamsulosin HCl 0.4 MG CAP PO SCH (09:15)
[2021-03-27] MEDS: Saccharomyces boulardii 250 MG CAP PO SCH (09:15)
[2021-03-27] MEDS: Aspirin 81 mg Enteric Coated Tablet PO SCH (09:16)
[2021-03-27] MEDS: cloNIDine 0.1 MG TAB PO SCH ×3 (09:16→21:51)
[2021-03-27] MEDS: Lisinopril 20 MG TAB PO SCH ×2 (09:17→21:52)
[2021-03-27] MEDS: Doxycycline 100 MG CAP PO SCH ×2 (09:17→21:51)
[2021-03-27] MEDS: Famotidine 20 MG TAB PO SCH (09:17)
[2021-03-27] MEDS: Gabapentin 100 MG CAP PO SCH ×3 (09:18→21:52)
[2021-03-27] MEDS: hydrALAZINE 25 MG TAB PO SCH ×3 (09:18→21:52)
[2021-03-27] MEDS: Clopidogrel Bisulfate 75 MG TAB PO SCH (09:19)
[2021-03-27] MEDS: Carvedilol 25 MG TAB PO SCH ×2 (09:19→21:51)
[2021-03-27] MEDS: Senokot S 8.6-50 MG TAB PO SCH ×2 (09:19→23:42)
[2021-03-27] MEDS: Finasteride 5 MG TAB PO SCH (09:21)
[2021-03-27] MEDS: Polyethylene Glycol 3350 17 GM Packet PO SCH (09:22)
[2021-03-27] MEDS: Enoxaparin Sodium 60 MG/0.6 ML SYRINGE SC SCH ×2 (09:30→21:56)
[2021-03-27] MEDS: NIFEdipine XL 30 MG TAB PO SCH ×2 (09:31→21:52)
[2021-03-27] MEDS: Lantus 1000 UNITS/10 ML VIAL SC SCH ×2 (09:31→21:55)
[2021-03-27] MEDS: predniSONE 20 MG TAB PO SCH (11:15)
[2021-03-27] MEDS ORDERED: Carvedilol 25 MG TAB PO SCH (17:00)
[2021-03-27] MEDS: Atorvastatin Calcium 40 MG TAB PO SCH (21:51)
[2021-03-28] MEDS: HumaLOG 300 UNITS/3 ML VIAL SC PRN (06:04)
[2021-03-28] MEDS: Mometasone 100 MCG/Formoterol 5 MCG 120 PUFF INHALER INH SCH (07:37)
[2021-03-28] MEDS ORDERED: Furosemide 20 MG TAB PO SCH (09:00)
[2021-03-28] MEDS: Polyethylene Glycol 3350 17 GM Packet PO SCH (09:33)
[2021-03-28] MEDS: Enoxaparin Sodium 60 MG/0.6 ML SYRINGE SC SCH (09:33)
[2021-03-28] MEDS: HYDROcodone/Acetaminophen 10/325 mg Tablet PO SCH (09:34)
[2021-03-28] MEDS: NIFEdipine XL 30 MG TAB PO SCH (09:34)
[2021-03-28] MEDS: Tamsulosin HCl 0.4 MG CAP PO SCH (09:35)
[2021-03-28] MEDS: Senokot S 8.6-50 MG TAB PO SCH (09:36)
[2021-03-28] MEDS: Doxycycline 100 MG CAP PO SCH (09:36)
[2021-03-28] MEDS: Aspirin 81 mg Enteric Coated Tablet PO SCH (09:36)
[2021-03-28] MEDS: Gabapentin 100 MG CAP PO SCH (09:36)
[2021-03-28] MEDS: Finasteride 5 MG TAB PO SCH (09:37)
[2021-03-28] MEDS: hydrALAZINE 25 MG TAB PO SCH (09:37)
[2021-03-28] MEDS: Metoclopramide HCl 10 MG TAB PO SCH (09:37)
[2021-03-28] MEDS: Clopidogrel Bisulfate 75 MG TAB PO SCH (09:37)
[2021-03-28] MEDS: cloNIDine 0.1 MG TAB PO SCH (09:37)
[2021-03-28] MEDS: Lisinopril 20 MG TAB PO SCH (09:37)
[2021-03-28] MEDS: Carvedilol 25 MG TAB PO SCH (09:38)
[2021-03-28] MEDS: Saccharomyces boulardii 250 MG CAP PO SCH (09:38)
[2021-03-28] MEDS: Lantus 1000 UNITS/10 ML VIAL SC SCH (09:39)
[2021-03-28 11:08] VITALS: BP 165/77; TEMP 98.8
== END 2021-03-28 12:28 | disposition home or self-care (01) | DRG 291 ==
LOC: ERS 03:25 → ERHOLD 06:09 → 2NO 17:55
PROVIDERS: ADMIT Internal Medicine; ATTEND Internal Medicine
DX: I13.0 Hypertensive heart and chronic kidney disease with heart failure and stage 1 through stage 4 chronic kidney disease, or unspecified chronic kidney disease (principal); J96.21 Acute and chronic respiratory failure with hypoxia; I50.33 Acute on chronic diastolic (congestive) heart failure; J44.1 Chronic obstructive pulmonary disease with (acute) exacerbation; R64 Cachexia; N18.4 Chronic kidney disease, stage 4 (severe); Z68.1 Body mass index [BMI] 19.9 or less, adult; I24.8 Other forms of acute ischemic heart disease; E78.5 Hyperlipidemia, unspecified; M19.90 Unspecified osteoarthritis, unspecified site; F41.9 Anxiety disorder, unspecified; F32.9 Major depressive disorder, single episode, unspecified; I25.10 Atherosclerotic heart disease of native coronary artery without angina pectoris; E11.22 Type 2 diabetes mellitus with diabetic chronic kidney disease; E11.51 Type 2 diabetes mellitus with diabetic peripheral angiopathy without gangrene; I25.5 Ischemic cardiomyopathy; I34.0 Nonrheumatic mitral (valve) insufficiency; I44.7 Left bundle-branch block, unspecified; E11.65 Type 2 diabetes mellitus with hyperglycemia; E11.649 Type 2 diabetes mellitus with hypoglycemia without coma; I25.2 Old myocardial infarction; Z86.73 Personal history of transient ischemic attack (TIA), and cerebral infarction without residual deficits; Z89.611 Acquired absence of right leg above knee; Z95.5 Presence of coronary angioplasty implant and graft; Z90.49 Acquired absence of other specified parts of digestive tract; Z95.0 Presence of cardiac pacemaker; Z88.8 Allergy status to other drugs, medicaments and biological substances; Z87.891 Personal history of nicotine dependence; Z79.82 Long term (current) use of aspirin; Z79.899 Other long term (current) drug therapy; Z79.02 Long term (current) use of antithrombotics/antiplatelets
CPT/HCPCS: 36415; 36416; 36600; 71045; 80048; 80053; 82553; 82805; 83880; 84484; 85025; 93005; 94640; 94660; 96365; 96375; J1650; J1815; J1940; J2920; J2930; J3475; J7512; J7620

== ENCOUNTER 2021-03-29 12:47 | Inpatient (IN) | payer MEDICARE ==
[2021-03-29] MEDS ORDERED: Magnesium 2 GM/50 ML BAG (IN WATER) ONE (12:57)
[2021-03-29] MEDS ORDERED: methylPREDNISolone Sod Succ/PF 125 MG/2 ML VIAL ONE (12:58)
[2021-03-29] MEDS ORDERED: Furosemide 40 MG/4 ML VIAL ONE (12:58)
[2021-03-29] MEDS ORDERED: Nitroglycerin 50 MG/250 ML BOT 250 ML ONE (12:58)
[2021-03-29 13:05] LABS: Actual Bicarbonate (HCO3a) 25.5 mEq/L (22-28); Analyzer IN Cardio ER; Base Excess (BEa) -0.6 mEq/L (-2.0 to +3.0); CO2 Tension 48.5 mmHg (35.0-45.0); Calcium, Ionized (arterial) 1.15 mmol/L (1.12-1.30); Carboxyhemoglobin (COHb) 3.5 gm% (0.0-3.0); O2 Tension (PaO2), arterial 296.2 mmHg (> 80.0); Potassium - ABG Lab 4.46 mmol/L (3.70-5.30); pH, Arterial 7.34 (7.35-7.45)
[2021-03-29 13:07] LABS: ALV-art Gradient 70.975 mmHg (0-20); Puncture Site RRA
[2021-03-29 13:27] LABS: #Eosinphils 0.1 thou/uL (0.0-0.7); #Lymphocytes 1.5 thou/uL (1.20-3.40); #Monocytes 0.9 thou/uL (0.11-0.59); #Neutrophils 7.4 thou/uL (1.40-6.50); %Basophils 0.4 % (0.0-1.0); %Lymphocytes 14.9 % (21.0-51.0); %Monocytes 8.8 % (0.0-10.0); Hemoglobin 9.9 g/dL (14.0-18.0); Mean Corpuscular HGB CONC 32.7 g/dL (32.0-36.0); Mean Corpuscular Hemoglobin 30.9 pg (27.0-31.0); Mean Corpuscular Volume 94.6 fL (78.0-98.0); Mean Platelet Volume 8.4 fL (7.4-10.4); Platelet Count 214 thou/uL (130-400); RBC Distribution Width 13.6 % (11.5-14.5); Red Blood Cell (RBC) Count 3.22 mill/uL (4.70-6.10); White Blood Cell (WBC) Count 9.8 thou/uL (4.8-10.8)
[2021-03-29 13:48] LABS: ALT (SGPT) 44 U/L (8-55); AST (SGOT) 72 U/L (5-34); Albumin 3.6 g/dL (3.4-4.8); Alkaline Phosphatase 220 U/L (40-110); Anion Gap 13 mmol/L (10-20); BUN (Urea Nitrogen) 56 mg/dL (8.4-25.7); Bilirubin, Total 0.3 mg/dL (0.2-1.2); Calc. Creatinine Clearance 0 mL/min (70-130); Calcium 9.1 mg/dL (7.8-10.44); Carbon Dioxide 29 mmol/L (23-31); Chloride 100 mmol/L (98-107); Globulin 3.3 g/dL (2.4-3.5); Glucose 77 mg/dL (80-115); Potassium 4.8 mmol/L (3.5-5.1); Protein, Total 6.9 g/dL (5.8-8.1); Sodium 137 mmol/L (136-145)
[2021-03-29 14:11] LABS: CKMB 4.4 ng/mL (0-6.6)
[2021-03-29 14:14] LABS: SARS-CoV-2 NAA Rapid Test Not Detected (NotDetected)
[2021-03-29] MEDS ORDERED: Aspirin Chewable 81 MG TAB ONE (15:23)
[2021-03-29 17:09] LABS: Troponin I 0.176 ng/mL (< 0.028)
[2021-03-29] MEDS ORDERED: Dextrose 50% Abboject 50 ML SYRINGE SLOW IVP PRN (18:58)
[2021-03-29] MEDS ORDERED: Dextrose 5% in Water 1,000 ML IV PRN (18:58)
[2021-03-29 19:37] LABS: Troponin I 0.153 ng/mL (< 0.028)
[2021-03-29] MEDS ORDERED: Ipratropium Bromide 2.5 ml Neb ONE (20:08)
[2021-03-29] MEDS: Ipratropium Bromide 2.5 ml Neb NEB SCH (21:05)
[2021-03-29] MEDS ORDERED: cloNIDine 0.1 MG TAB ONE (21:12)
[2021-03-29] MEDS ORDERED: Lisinopril 10 MG TAB ONE (21:12)
[2021-03-29] MEDS ORDERED: NIFEdipine XL 30 MG TAB ONE (21:12)
[2021-03-29] MEDS ORDERED: Heparin 10,000 UNITS/ 10 ML VIAL ONE (21:12)
[2021-03-29] MEDS ORDERED: hydrALAZINE 25 MG TAB ONE (21:14)
[2021-03-29] MEDS: hydrALAZINE 25 MG TAB PO SCH (21:21)
[2021-03-29] MEDS: cloNIDine 0.1 MG TAB PO SCH (21:21)
[2021-03-29] MEDS: NIFEdipine XL 30 MG TAB PO SCH (21:22)
[2021-03-29] MEDS: Lisinopril 20 MG TAB PO SCH (21:24)
[2021-03-29] MEDS: Carvedilol 25 MG TAB PO SCH (23:09)
[2021-03-29] MEDS: Atorvastatin Calcium 40 MG TAB PO SCH (23:09)
[2021-03-30] MEDS: Metoclopramide HCl 10 MG TAB PO SCH ×4 (00:32→20:51)
[2021-03-30] MEDS: Heparin 5,000 UNITS/ML VIAL SC SCH ×4 (00:33→20:53)
[2021-03-30] MEDS: methylPREDNISolone Sod Succ 40 MG VIAL IVP SCH ×5 (00:35→23:42)
[2021-03-30 00:46] VITALS: BMI 18.1
[2021-03-30] MEDS: Ipratropium Bromide 2.5 ml Neb NEB SCH ×4 (00:48→19:54)
[2021-03-30] MEDS: HumaLOG 300 UNITS/3 ML VIAL SC PRN ×5 (02:22→22:43)
[2021-03-30 04:18] LABS: #Lymphocytes 0.4 thou/uL (1.20-3.40); #Monocytes 0.1 thou/uL (0.11-0.59); #Neutrophils 3.6 thou/uL (1.40-6.50); %Eosinophils 0.2 % (0.0-10.0); %Lymphocytes 10.5 % (21.0-51.0); %Monocytes 2.3 % (0.0-10.0); %Neutrophils 86.9 % (42.0-75.0); Hemoglobin 7.7 g/dL (14.0-18.0); Mean Corpuscular HGB CONC 32.3 g/dL (32.0-36.0); Mean Corpuscular Hemoglobin 30.4 pg (27.0-31.0); Mean Corpuscular Volume 94.3 fL (78.0-98.0); Mean Platelet Volume 9.6 fL (7.4-10.4); Platelet Count 126 thou/uL (130-400); RBC Distribution Width 13.6 % (11.5-14.5); Red Blood Cell (RBC) Count 2.54 mill/uL (4.70-6.10); White Blood Cell (WBC) Count 4.2 thou/uL (4.8-10.8)
[2021-03-30] MEDS: hydrALAZINE 20 MG/ML VIAL SLOW IVP PRN (04:48)
[2021-03-30 04:50] LABS: Anion Gap 15 mmol/L (10-20); BUN (Urea Nitrogen) 57 mg/dL (8.4-25.7); Calc. Creatinine Clearance 28 mL/min (70-130); Calcium 8.2 mg/dL (7.8-10.44); Carbon Dioxide 24 mmol/L (23-31); Chloride 95 mmol/L (98-107); Glucose 445 mg/dL (80-115); Magnesium 2.1 mg/dL (1.6-2.6); Potassium 5.1 mmol/L (3.5-5.1); Sodium 129 mmol/L (136-145)
[2021-03-30] MEDS: Furosemide 40 MG/4 ML VIAL SLOW IVP SCH ×2 (06:02→15:38)
[2021-03-30] MEDS: hydrALAZINE 25 MG TAB PO SCH ×3 (08:55→20:51)
[2021-03-30] MEDS: Aspirin 81 mg Enteric Coated Tablet PO SCH (08:55)
[2021-03-30] MEDS: Lisinopril 20 MG TAB PO SCH (08:56)
[2021-03-30] MEDS: Clopidogrel Bisulfate 75 MG TAB PO SCH (08:56)
[2021-03-30] MEDS: NIFEdipine XL 30 MG TAB PO SCH ×2 (08:56→20:50)
[2021-03-30] MEDS: Carvedilol 25 MG TAB PO SCH ×3 (08:56→20:52)
[2021-03-30] MEDS: HYDROcodone/Acetaminophen 10/325 mg Tablet PO PRN ×3 (08:58→22:38)
[2021-03-30] MEDS: cloNIDine 0.1 MG TAB PO SCH ×3 (08:59→20:52)
[2021-03-30] MEDS ORDERED: Spironolactone 25 MG TAB PO SCH (09:00)
[2021-03-30] MEDS ORDERED: Aspirin Chewable 81 MG TAB PO SCH (09:00)
[2021-03-30] MEDS: Arformoterol 15 MCG/2 ML NEB NEB SCH ×2 (10:21→19:59)
[2021-03-30] MEDS: Atorvastatin Calcium 40 MG TAB PO SCH (20:53)
[2021-03-30] MEDS: Temazepam 15 MG CAP PO PRN (22:39)
[2021-03-31] MEDS ORDERED: HumaLOG 300 UNITS/3 ML VIAL SC SCH ×2 (00:15→20:45)
[2021-03-31] MEDS: Ipratropium Bromide 2.5 ml Neb NEB SCH ×4 (01:12→19:12)
[2021-03-31] MEDS: hydrALAZINE 20 MG/ML VIAL SLOW IVP PRN (04:43)
[2021-03-31 04:46] LABS: #Lymphocytes 0.5 thou/uL (1.20-3.40); #Monocytes 0.4 thou/uL (0.11-0.59); #Neutrophils 5.5 thou/uL (1.40-6.50); %Eosinophils 0.1 % (0.0-10.0); %Lymphocytes 7.5 % (21.0-51.0); %Monocytes 5.7 % (0.0-10.0); %Neutrophils 86.7 % (42.0-75.0); Mean Corpuscular HGB CONC 32.6 g/dL (32.0-36.0); Mean Corpuscular Hemoglobin 30.3 pg (27.0-31.0); Mean Corpuscular Volume 92.8 fL (78.0-98.0); Mean Platelet Volume 8.5 fL (7.4-10.4); Platelet Count 138 thou/uL (130-400); RBC Distribution Width 13.5 % (11.5-14.5); Red Blood Cell (RBC) Count 2.63 mill/uL (4.70-6.10); White Blood Cell (WBC) Count 6.4 thou/uL (4.8-10.8)
[2021-03-31 05:07] LABS: Anion Gap 15 mmol/L (10-20); BUN (Urea Nitrogen) 62 mg/dL (8.4-25.7); Calc. Creatinine Clearance 28 mL/min (70-130); Calcium 8.7 mg/dL (7.8-10.44); Carbon Dioxide 25 mmol/L (23-31); Chloride 91 mmol/L (98-107); Glucose 328 mg/dL (80-115); Potassium 4.6 mmol/L (3.5-5.1); Sodium 126 mmol/L (136-145)
[2021-03-31] MEDS: methylPREDNISolone Sod Succ 40 MG VIAL IVP SCH ×2 (06:16→11:31)
[2021-03-31] MEDS: HumaLOG 300 UNITS/3 ML VIAL SC PRN ×4 (06:19→22:51)
[2021-03-31] MEDS: Arformoterol 15 MCG/2 ML NEB NEB SCH ×2 (06:53→19:12)
[2021-03-31] MEDS ORDERED: Non-Formulary Item 1 EACH (Cyclobenzaprine Hcl [Cyclobenzaprine Hcl] 5 MG Tablet) PO PRN (07:38)
[2021-03-31] MEDS ORDERED: Cyclobenzaprine 10 MG TAB PO PRN (07:47)
[2021-03-31] MEDS ORDERED: cloNIDine 0.1 MG TAB PO SCH (08:44)
[2021-03-31] MEDS ORDERED: Furosemide 20 MG TAB PO SCH (09:00)
[2021-03-31] MEDS ORDERED: Lisinopril 20 MG TAB PO SCH (09:00)
[2021-03-31] MEDS ORDERED: Tamsulosin HCl 0.4 MG CAP PO SCH (09:00)
[2021-03-31] MEDS: Aspirin 81 mg Enteric Coated Tablet PO SCH (09:03)
[2021-03-31] MEDS: Heparin 5,000 UNITS/ML VIAL SC SCH ×3 (09:04→21:13)
[2021-03-31] MEDS: hydrALAZINE 25 MG TAB PO SCH ×3 (09:04→21:00)
[2021-03-31] MEDS: Gabapentin 100 MG CAP PO SCH ×3 (09:05→21:02)
[2021-03-31] MEDS: Furosemide 40 MG/4 ML VIAL SLOW IVP SCH (09:05)
[2021-03-31] MEDS: Senokot S 8.6-50 MG TAB PO SCH ×2 (09:05→21:04)
[2021-03-31] MEDS: Carvedilol 25 MG TAB PO SCH ×3 (09:06→21:05)
[2021-03-31] MEDS: cloNIDine 0.2 MG TAB PO SCH ×3 (09:07→21:05)
[2021-03-31] MEDS: Clopidogrel Bisulfate 75 MG TAB PO SCH (09:07)
[2021-03-31] MEDS: Finasteride 5 MG TAB PO SCH (09:08)
[2021-03-31] MEDS: Metoclopramide HCl 10 MG TAB PO SCH ×3 (09:09→21:08)
[2021-03-31] MEDS: NIFEdipine XL 30 MG TAB PO SCH ×2 (09:10→21:01)
[2021-03-31] MEDS: Tamsulosin HCl 0.4 MG CAP PO SCH (09:13)
[2021-03-31] MEDS: Lantus 1000 UNITS/10 ML VIAL SC SCH ×2 (09:13→21:11)
[2021-03-31] MEDS: HYDROcodone/Acetaminophen 10/325 mg Tablet PO PRN ×2 (11:36→19:13)
[2021-03-31 17:40] LABS: Bacteria/HPF None Seen HPF (None Seen); Bilirubin Negative (Negative); Blood, Urine Negative (Negative); Clarity Clear (Clear); Glucose, Urine (Dipstick) 300 mg/dL (Negative); Ketone, Urine Negative (Negative); Leukocyte Negative Leu/uL (Negative); Nitrite Negative (Negative); Protein, Urine (Dipstick) 50 mg/dL (Neg-Trace); RBC/HPF 0-3 HPF (0-3); Specific Gravity, Urine 1.012 (1.002-1.036); Squamous Epithelial 0-3 HPF (0-3); Urobilinogen Normal mg/dL (Less than 2); WBC/HPF None Seen HPF (0-3)
[2021-03-31] MEDS: Mometasone 100 MCG/Formoterol 5 MCG 120 PUFF INHALER INH SCH (19:13)
[2021-03-31] MEDS ORDERED: Non-Formulary Item 1 EACH (Insulin Glargine,Hum.Rec.Anlog [Lantus Solostar] 100 UNIT/ML P SC SCH (21:00)
[2021-03-31] MEDS: Atorvastatin Calcium 40 MG TAB PO SCH (21:03)
[2021-03-31] MEDS: Temazepam 15 MG CAP PO PRN (21:05)
[2021-04-01] MEDS: Ipratropium Bromide 2.5 ml Neb NEB SCH ×4 (00:57→18:50)
[2021-04-01] MEDS: HYDROcodone/Acetaminophen 10/325 mg Tablet PO PRN ×4 (01:15→21:24)
[2021-04-01 04:24] LABS: #Lymphocytes 1.1 thou/uL (1.20-3.40); #Monocytes 0.5 thou/uL (0.11-0.59); #Neutrophils 5.1 thou/uL (1.40-6.50); %Basophils 0.1 % (0.0-1.0); %Eosinophils 0.1 % (0.0-10.0); %Lymphocytes 16.4 % (21.0-51.0); %Monocytes 6.7 % (0.0-10.0); %Neutrophils 76.7 % (42.0-75.0); Hemoglobin 7.6 g/dL (14.0-18.0); Mean Corpuscular HGB CONC 32.7 g/dL (32.0-36.0); Mean Corpuscular Hemoglobin 30.4 pg (27.0-31.0); Platelet Count 133 thou/uL (130-400); RBC Distribution Width 13.5 % (11.5-14.5); Red Blood Cell (RBC) Count 2.51 mill/uL (4.70-6.10); White Blood Cell (WBC) Count 6.7 thou/uL (4.8-10.8)
[2021-04-01 04:45] LABS: Anion Gap 12 mmol/L (10-20); BUN (Urea Nitrogen) 56 mg/dL (8.4-25.7); Calc. Creatinine Clearance 34 mL/min (70-130); Calcium 8.8 mg/dL (7.8-10.44); Carbon Dioxide 28 mmol/L (23-31); Chloride 93 mmol/L (98-107); Glucose 361 mg/dL (80-115); Potassium 4.5 mmol/L (3.5-5.1); Sodium 128 mmol/L (136-145)
[2021-04-01] MEDS: HumaLOG 300 UNITS/3 ML VIAL SC PRN ×2 (06:07→21:16)
[2021-04-01] MEDS: Arformoterol 15 MCG/2 ML NEB NEB SCH ×2 (07:49→18:50)
[2021-04-01] MEDS: Mometasone 100 MCG/Formoterol 5 MCG 120 PUFF INHALER INH SCH ×2 (07:58→18:52)
[2021-04-01] MEDS: Heparin 5,000 UNITS/ML VIAL SC SCH ×3 (09:00→21:19)
[2021-04-01] MEDS: Aspirin 81 mg Enteric Coated Tablet PO SCH (09:00)
[2021-04-01] MEDS: Senokot S 8.6-50 MG TAB PO SCH ×2 (09:01→21:21)
[2021-04-01] MEDS: Gabapentin 100 MG CAP PO SCH ×3 (09:01→21:24)
[2021-04-01] MEDS: Tamsulosin HCl 0.4 MG CAP PO SCH (09:01)
[2021-04-01] MEDS: predniSONE 20 MG TAB PO SCH (09:01)
[2021-04-01] MEDS: Lantus 1000 UNITS/10 ML VIAL SC SCH ×2 (09:02→21:17)
[2021-04-01] MEDS: Metoclopramide HCl 10 MG TAB PO SCH ×3 (09:02→21:22)
[2021-04-01] MEDS: Carvedilol 25 MG TAB PO SCH ×3 (09:02→21:22)
[2021-04-01] MEDS: cloNIDine 0.2 MG TAB PO SCH ×3 (09:36→21:23)
[2021-04-01] MEDS: Clopidogrel Bisulfate 75 MG TAB PO SCH (09:45)
[2021-04-01] MEDS: hydrALAZINE 25 MG TAB PO SCH ×3 (09:45→21:23)
[2021-04-01] MEDS: Furosemide 40 MG/4 ML VIAL SLOW IVP SCH (09:45)
[2021-04-01] MEDS: Finasteride 5 MG TAB PO SCH (09:45)
[2021-04-01] MEDS: NIFEdipine XL 30 MG TAB PO SCH ×2 (09:46→21:23)
[2021-04-01] MEDS: Atorvastatin Calcium 40 MG TAB PO SCH (21:24)
[2021-04-01] MEDS: Temazepam 15 MG CAP PO PRN (21:24)
[2021-04-02] MEDS: Ipratropium Bromide 2.5 ml Neb NEB SCH ×4 (00:32→18:54)
[2021-04-02 04:47] LABS: #Lymphocytes 0.8 thou/uL (1.20-3.40); #Monocytes 0.4 thou/uL (0.11-0.59); #Neutrophils 4.2 thou/uL (1.40-6.50); %Lymphocytes 14.4 % (21.0-51.0); %Monocytes 6.8 % (0.0-10.0); %Neutrophils 78.7 % (42.0-75.0); Hemoglobin 7.9 g/dL (14.0-18.0); Mean Corpuscular HGB CONC 32.3 g/dL (32.0-36.0); Mean Corpuscular Hemoglobin 30.3 pg (27.0-31.0); Mean Corpuscular Volume 93.6 fL (78.0-98.0); Mean Platelet Volume 8.9 fL (7.4-10.4); Platelet Count 127 thou/uL (130-400); RBC Distribution Width 13.4 % (11.5-14.5); White Blood Cell (WBC) Count 5.3 thou/uL (4.8-10.8)
[2021-04-02 05:38] LABS: Anion Gap 13 mmol/L (10-20); BUN (Urea Nitrogen) 55 mg/dL (8.4-25.7); Calc. Creatinine Clearance 31 mL/min (70-130); Calcium 8.6 mg/dL (7.8-10.44); Carbon Dioxide 28 mmol/L (23-31); Chloride 92 mmol/L (98-107); Glucose 500 mg/dL (80-115); Potassium 5.3 mmol/L (3.5-5.1); Sodium 128 mmol/L (136-145)
[2021-04-02] MEDS: HumaLOG 300 UNITS/3 ML VIAL SC PRN ×4 (06:24→21:06)
[2021-04-02] MEDS: Mometasone 100 MCG/Formoterol 5 MCG 120 PUFF INHALER INH SCH ×2 (07:44→18:55)
[2021-04-02] MEDS: Arformoterol 15 MCG/2 ML NEB NEB SCH ×2 (07:44→18:53)
[2021-04-02] MEDS ORDERED: Lantus 1000 UNITS/10 ML VIAL SC SCH ×2 (09:00→21:00)
[2021-04-02] MEDS: NIFEdipine XL 30 MG TAB PO SCH ×2 (09:06→21:14)
[2021-04-02] MEDS: Metoclopramide HCl 10 MG TAB PO SCH ×3 (09:06→21:16)
[2021-04-02] MEDS: Furosemide 40 MG/4 ML VIAL SLOW IVP SCH (09:06)
[2021-04-02] MEDS: Aspirin 81 mg Enteric Coated Tablet PO SCH (09:07)
[2021-04-02] MEDS: Senokot S 8.6-50 MG TAB PO SCH ×2 (09:07→21:14)
[2021-04-02] MEDS: cloNIDine 0.2 MG TAB PO SCH ×3 (09:07→21:15)
[2021-04-02] MEDS: predniSONE 20 MG TAB PO SCH (09:09)
[2021-04-02] MEDS: Clopidogrel Bisulfate 75 MG TAB PO SCH (09:09)
[2021-04-02] MEDS: Gabapentin 100 MG CAP PO SCH ×3 (09:09→21:15)
[2021-04-02] MEDS: Finasteride 5 MG TAB PO SCH (09:10)
[2021-04-02] MEDS: Tamsulosin HCl 0.4 MG CAP PO SCH (09:12)
[2021-04-02] MEDS: Carvedilol 25 MG TAB PO SCH ×5 (09:12→21:16)
[2021-04-02] MEDS: Heparin 5,000 UNITS/ML VIAL SC SCH ×3 (09:13→21:07)
[2021-04-02] MEDS: HYDROcodone/Acetaminophen 10/325 mg Tablet PO PRN ×2 (09:16→21:15)
[2021-04-02] MEDS: hydrALAZINE 25 MG TAB PO SCH ×4 (09:27→21:18)
[2021-04-02] MEDS ORDERED: Carvedilol 25 MG TAB PO SCH (10:46)
[2021-04-02] MEDS: Temazepam 15 MG CAP PO PRN (21:15)
[2021-04-02] MEDS: Atorvastatin Calcium 40 MG TAB PO SCH (21:16)
[2021-04-03] MEDS: Ipratropium Bromide 2.5 ml Neb NEB SCH ×5 (01:36→23:43)
[2021-04-03 04:31] LABS: #Lymphocytes 0.8 thou/uL (1.20-3.40); #Monocytes 0.3 thou/uL (0.11-0.59); #Neutrophils 4.9 thou/uL (1.40-6.50); %Eosinophils 0.1 % (0.0-10.0); %Lymphocytes 13.1 % (21.0-51.0); %Monocytes 5.5 % (0.0-10.0); %Neutrophils 81.3 % (42.0-75.0); Hemoglobin 7.6 g/dL (14.0-18.0); Mean Corpuscular HGB CONC 32.7 g/dL (32.0-36.0); Mean Corpuscular Hemoglobin 30.5 pg (27.0-31.0); Mean Corpuscular Volume 93.2 fL (78.0-98.0); Mean Platelet Volume 8.7 fL (7.4-10.4); Platelet Count 109 thou/uL (130-400); RBC Distribution Width 13.4 % (11.5-14.5); Red Blood Cell (RBC) Count 2.49 mill/uL (4.70-6.10); White Blood Cell (WBC) Count 6.1 thou/uL (4.8-10.8)
[2021-04-03 04:54] LABS: Anion Gap 13 mmol/L (10-20); BUN (Urea Nitrogen) 45 mg/dL (8.4-25.7); Calc. Creatinine Clearance 28 mL/min (70-130); Calcium 8.4 mg/dL (7.8-10.44); Carbon Dioxide 24 mmol/L (23-31); Chloride 93 mmol/L (98-107); Glucose 448 mg/dL (80-115); Sodium 125 mmol/L (136-145)
[2021-04-03] MEDS: HumaLOG 300 UNITS/3 ML VIAL SC PRN ×3 (05:40→17:54)
[2021-04-03] MEDS: Arformoterol 15 MCG/2 ML NEB NEB SCH ×2 (08:15→18:39)
[2021-04-03] MEDS: Mometasone 100 MCG/Formoterol 5 MCG 120 PUFF INHALER INH SCH (08:15)
[2021-04-03] MEDS: Senokot S 8.6-50 MG TAB PO SCH ×2 (08:48→21:46)
[2021-04-03] MEDS: Clopidogrel Bisulfate 75 MG TAB PO SCH (08:49)
[2021-04-03] MEDS: cloNIDine 0.2 MG TAB PO SCH ×3 (08:49→21:47)
[2021-04-03] MEDS: Finasteride 5 MG TAB PO SCH (08:49)
[2021-04-03] MEDS: hydrALAZINE 25 MG TAB PO SCH ×3 (08:49→21:47)
[2021-04-03] MEDS: NIFEdipine XL 30 MG TAB PO SCH ×2 (08:49→21:46)
[2021-04-03] MEDS: Carvedilol 25 MG TAB PO SCH ×3 (08:50→21:47)
[2021-04-03] MEDS: Aspirin 81 mg Enteric Coated Tablet PO SCH (08:50)
[2021-04-03] MEDS: Metoclopramide HCl 10 MG TAB PO SCH ×3 (08:50→21:45)
[2021-04-03] MEDS: predniSONE 20 MG TAB PO SCH (08:50)
[2021-04-03] MEDS: Tamsulosin HCl 0.4 MG CAP PO SCH (08:51)
[2021-04-03] MEDS: Gabapentin 100 MG CAP PO SCH ×3 (08:52→21:47)
[2021-04-03] MEDS: Lantus 1000 UNITS/10 ML VIAL SC SCH (08:52)
[2021-04-03] MEDS: Heparin 5,000 UNITS/ML VIAL SC SCH ×3 (08:53→21:48)
[2021-04-03] MEDS: HYDROcodone/Acetaminophen 10/325 mg Tablet PO PRN ×3 (08:55→21:45)
[2021-04-03] MEDS ORDERED: Furosemide 40 MG/4 ML VIAL SLOW IVP SCH (09:00)
[2021-04-03] MEDS ORDERED: Lantus 1000 UNITS/10 ML VIAL SC SCH (21:00)
[2021-04-03] MEDS: Atorvastatin Calcium 40 MG TAB PO SCH (21:47)
[2021-04-04 04:56] LABS: #Lymphocytes 1.2 thou/uL (1.20-3.40); #Monocytes 0.4 thou/uL (0.11-0.59); #Neutrophils 5.9 thou/uL (1.40-6.50); %Basophils 0.1 % (0.0-1.0); %Eosinophils 0.2 % (0.0-10.0); %Lymphocytes 15.5 % (21.0-51.0); %Monocytes 4.9 % (0.0-10.0); %Neutrophils 79.3 % (42.0-75.0); Mean Corpuscular HGB CONC 32.3 g/dL (32.0-36.0); Mean Corpuscular Volume 92.8 fL (78.0-98.0); Platelet Count 117 thou/uL (130-400); RBC Distribution Width 13.3 % (11.5-14.5); Red Blood Cell (RBC) Count 2.65 mill/uL (4.70-6.10); White Blood Cell (WBC) Count 7.4 thou/uL (4.8-10.8)
[2021-04-04 05:12] LABS: Anion Gap 12 mmol/L (10-20); BUN (Urea Nitrogen) 45 mg/dL (8.4-25.7); Calc. Creatinine Clearance 32 mL/min (70-130); Calcium 9.1 mg/dL (7.8-10.44); Carbon Dioxide 28 mmol/L (23-31); Chloride 95 mmol/L (98-107); Glucose 87 mg/dL (80-115); Potassium 5.1 mmol/L (3.5-5.1); Sodium 130 mmol/L (136-145)
[2021-04-04] MEDS ORDERED: Furosemide 40 MG TAB PO SCH (07:30)
[2021-04-04] MEDS: Mometasone 100 MCG/Formoterol 5 MCG 120 PUFF INHALER INH SCH ×2 (07:49→07:51)
[2021-04-04] MEDS: Arformoterol 15 MCG/2 ML NEB NEB SCH (07:50)
[2021-04-04] MEDS: Ipratropium Bromide 2.5 ml Neb NEB SCH ×2 (07:51→14:46)
[2021-04-04] MEDS ORDERED: Carvedilol 25 MG TAB PO SCH (08:00)
[2021-04-04] MEDS: Senokot S 8.6-50 MG TAB PO SCH (09:35)
[2021-04-04] MEDS: Aspirin 81 mg Enteric Coated Tablet PO SCH (09:35)
[2021-04-04] MEDS: hydrALAZINE 25 MG TAB PO SCH (09:35)
[2021-04-04] MEDS: Tamsulosin HCl 0.4 MG CAP PO SCH (09:36)
[2021-04-04] MEDS: Finasteride 5 MG TAB PO SCH (09:36)
[2021-04-04] MEDS: predniSONE 20 MG TAB PO SCH (09:36)
[2021-04-04] MEDS: Metoclopramide HCl 10 MG TAB PO SCH (09:36)
[2021-04-04] MEDS: cloNIDine 0.2 MG TAB PO SCH (09:37)
[2021-04-04] MEDS: Heparin 5,000 UNITS/ML VIAL SC SCH (09:37)
[2021-04-04] MEDS: NIFEdipine XL 30 MG TAB PO SCH (09:37)
[2021-04-04] MEDS: Gabapentin 100 MG CAP PO SCH (09:37)
[2021-04-04] MEDS: Clopidogrel Bisulfate 75 MG TAB PO SCH (09:37)
[2021-04-04] MEDS: HYDROcodone/Acetaminophen 10/325 mg Tablet PO PRN (09:38)
[2021-04-04] MEDS: Lantus 1000 UNITS/10 ML VIAL SC SCH ×2 (09:39→09:52)
[2021-04-04 12:36] VITALS: BP 142/67; TEMP 98.3
== END 2021-04-04 14:52 | disposition home or self-care (01) | DRG 280 ==
LOC: ERS 12:47 → ERHOLD 16:01 → 2NO 03-30
PROVIDERS: ADMIT Internal Medicine; ATTEND Internal Medicine
DX: I13.0 Hypertensive heart and chronic kidney disease with heart failure and stage 1 through stage 4 chronic kidney disease, or unspecified chronic kidney disease (principal); J96.21 Acute and chronic respiratory failure with hypoxia; I21.4 Non-ST elevation (NSTEMI) myocardial infarction; I50.33 Acute on chronic diastolic (congestive) heart failure; N17.9 Acute kidney failure, unspecified; J44.1 Chronic obstructive pulmonary disease with (acute) exacerbation; E87.1 Hypo-osmolality and hyponatremia; Z20.822 Contact with and (suspected) exposure to COVID-19; I70.1 Atherosclerosis of renal artery; E11.65 Type 2 diabetes mellitus with hyperglycemia; E11.22 Type 2 diabetes mellitus with diabetic chronic kidney disease; E11.649 Type 2 diabetes mellitus with hypoglycemia without coma; N18.30 Chronic kidney disease, stage 3 unspecified; I25.10 Atherosclerotic heart disease of native coronary artery without angina pectoris; E11.69 Type 2 diabetes mellitus with other specified complication; E11.43 Type 2 diabetes mellitus with diabetic autonomic (poly)neuropathy; K31.84 Gastroparesis; I25.5 Ischemic cardiomyopathy; T38.0X5A Adverse effect of glucocorticoids and synthetic analogues, initial encounter; D63.1 Anemia in chronic kidney disease; D69.6 Thrombocytopenia, unspecified; E11.51 Type 2 diabetes mellitus with diabetic peripheral angiopathy without gangrene; Z88.5 Allergy status to narcotic agent; Z95.0 Presence of cardiac pacemaker; Z79.899 Other long term (current) drug therapy; Z79.82 Long term (current) use of aspirin; Z88.8 Allergy status to other drugs, medicaments and biological substances; Z79.4 Long term (current) use of insulin; Z89.611 Acquired absence of right leg above knee; Z87.891 Personal history of nicotine dependence
CPT/HCPCS: 0240U; 36415; 36416; 36600; 71045; 76770; 80048; 80053; 81001; 82553; 82570; 82805; 83605; 83735; 83880; 84300; 84443; 84484; 85025; 87040; 93005; 93976; 94640; 94660; 94760; 96365; 96375; J0360; J1644; J1815; J1940; J1956; J2920; J2930; J3475; J7512

== ENCOUNTER 2021-04-06 07:41 | Inpatient (IN) | payer MEDICARE ==
[2021-04-06] MEDS ORDERED: hydrALAZINE 20 MG/ML VIAL ONE (08:00)
[2021-04-06] MEDS ORDERED: methylPREDNISolone Sod Succ/PF 125 MG/2 ML VIAL ONE (08:00)
[2021-04-06] MEDS ORDERED: Magnesium 2 GM/50 ML BAG (IN WATER) ONE (08:00)
[2021-04-06 08:11] LABS: Actual Bicarbonate (HCO3a) 27.8 mEq/L (22-28); Analyzer IN Cardio ER; Base Excess (BEa) 2.2 mEq/L (-2.0 to +3.0); CO2 Tension 48.1 mmHg (35.0-45.0); Calcium, Ionized (arterial) 1.13 mmol/L (1.12-1.30); Carboxyhemoglobin (COHb) 4.2 gm% (0.0-3.0); Hemoglobin (Hb) 8.8 g/dL (14.0-18.0); O2 Tension (PaO2), arterial 159.3 mmHg (> 80.0); Potassium - ABG Lab 4.26 mmol/L (3.70-5.30); Puncture Site LBA; pH, Arterial 7.38 (7.35-7.45)
[2021-04-06 08:12] LABS: ALV-art Gradient 137.075 mmHg (0-20)
[2021-04-06 08:40] LABS: Bacteria/HPF None Seen HPF (None Seen); Bilirubin Negative (Negative); Blood, Urine Negative (Negative); Clarity Clear (Clear); Glucose, Urine (Dipstick) Greater than 1000 mg/dL (Negative); Ketone, Urine Negative (Negative); Leukocyte Negative Leu/uL (Negative); Nitrite Negative (Negative); Protein, Urine (Dipstick) 70 mg/dL (Neg-Trace); RBC/HPF 0-3 HPF (0-3); Specific Gravity, Urine 1.012 (1.002-1.036); Squamous Epithelial 0-3 HPF (0-3); Urobilinogen Normal mg/dL (Less than 2); WBC/HPF 0-3 HPF (0-3)
[2021-04-06] MEDS ORDERED: Dextrose 5% in Water 1,000 ML IV PRN ×2 (08:49→12:45)
[2021-04-06] MEDS ORDERED: Acetaminophen 325 MG TAB PER TUBE PRN (08:49)
[2021-04-06] MEDS ORDERED: Polyethylene Glycol 3350 17 GM Packet PER TUBE PRN (08:58)
[2021-04-06] MEDS ORDERED: HUMULIN R 100 UNITS in Sodium Chloride 0.9% 100 ML IVPB SCH (09:00)
[2021-04-06] MEDS ORDERED: Sodium Chloride 0.9% 1,000 ML IV SCH (09:00)
[2021-04-06] MEDS ORDERED: Ventilator Sedation Protocol 1 EACH FS SCH (09:00)
[2021-04-06] MEDS ORDERED: Vancomycin 1 GM/200 ML BAG ONE (09:26)
[2021-04-06 09:27] LABS: SARS-CoV-2 NAA Rapid Test Not Detected (NotDetected)
[2021-04-06] MEDS ORDERED: DISCONTINUE PREVIOUS NARCOTIC PAIN MEDICATIONS AND BENZODIAZEPINES FS SCH (09:45)
[2021-04-06] MEDS ORDERED: Propofol BOLUS 1,000 MG/100 ML VIAL IV PRN (09:45)
[2021-04-06] MEDS ORDERED: Lorazepam 2 MG/ML VIAL SLOW IVP PRN (09:45)
[2021-04-06] MEDS ORDERED: Morphine 2 MG/ML VIAL SLOW IVP PRN (09:45)
[2021-04-06] MEDS ORDERED: Fentanyl BOLUS 250 ML IVPB PRN (09:45)
[2021-04-06] MEDS ORDERED: INSULIN REGULAR IN 0.9 % NACL 100 UNIT in Premix Bag 1 BAG IVPB SCH (10:00)
[2021-04-06 10:04] LABS: Lactic Acid 2.4 mmol/L (0.5-2.2)
[2021-04-06] MEDS: Propofol 1,000 MG/100 ML VIAL IV PRN ×2 (10:32→21:33)
[2021-04-06] MEDS: Fentanyl CADD 100 ML IV SCH (10:34)
[2021-04-06 11:54] LABS: Troponin I 0.067 ng/mL (< 0.028)
[2021-04-06 12:30] VITALS: BMI 19.1
[2021-04-06] MEDS: methylPREDNISolone Sod Succ 40 MG VIAL IVP SCH ×2 (12:40→18:38)
[2021-04-06] MEDS ORDERED: Dextrose 50% Abboject 50 ML SYRINGE IVP PRN (12:45)
[2021-04-06] MEDS: Gabapentin 100 MG CAP PO SCH ×3 (12:56→21:30)
[2021-04-06] MEDS: Clopidogrel Bisulfate 75 MG TAB PER TUBE SCH (12:56)
[2021-04-06] MEDS: Pantoprazole 40 MG GRANULES PACKET PER TUBE SCH ×2 (12:56→21:32)
[2021-04-06] MEDS: HumaLOG 300 UNITS/3 ML VIAL SC PRN ×3 (12:57→18:38)
[2021-04-06] MEDS: Azithromycin 500 MG in Sodium Chloride 0.9% 250 ML 250 ML IVPB SCH (13:16)
[2021-04-06] MEDS: NPH, Human Insulin Isophane 300 UNIT/3 ML VIAL SC SCH ×2 (14:05→18:38)
[2021-04-06] MEDS ORDERED: Furosemide 40 MG/4 ML VIAL SLOW IVP SCH (15:00)
[2021-04-06 15:12] LABS: Anion Gap 15 mmol/L (10-20); BUN (Urea Nitrogen) 52 mg/dL (8.4-25.7); Calc. Creatinine Clearance 29 mL/min (70-130); Calcium 7.7 mg/dL (7.8-10.44); Carbon Dioxide 21 mmol/L (23-31); Chloride 95 mmol/L (98-107); Glucose 461 mg/dL (80-115); Potassium 4.6 mmol/L (3.5-5.1); Sodium 126 mmol/L (136-145)
[2021-04-06 15:18] LABS: Troponin I 0.068 ng/mL (< 0.028)
[2021-04-06] MEDS: cloNIDine 0.1 MG TAB PO SCH ×2 (15:35→21:33)
[2021-04-06] MEDS: Carvedilol 25 MG TAB PER TUBE SCH (18:38)
[2021-04-06] MEDS: Budesonide 0.5 MG/2 ML NEB NEB SCH (19:19)
[2021-04-06] MEDS: Arformoterol 15 MCG/2 ML NEB NEB SCH (19:19)
[2021-04-06 19:43] LABS: Anion Gap 14 mmol/L (10-20); BUN (Urea Nitrogen) 53 mg/dL (8.4-25.7); Calc. Creatinine Clearance 29 mL/min (70-130); Calcium 8.1 mg/dL (7.8-10.44); Carbon Dioxide 25 mmol/L (23-31); Chloride 96 mmol/L (98-107); Glucose 211 mg/dL (80-115); Potassium 4.8 mmol/L (3.5-5.1); Sodium 130 mmol/L (136-145)
[2021-04-06] MEDS: Atorvastatin Calcium 40 MG TAB PER TUBE SCH (21:00)
[2021-04-06] MEDS: Furosemide 40 MG/4 ML VIAL SLOW IVP SCH (21:30)
[2021-04-06] MEDS: Senokot S 8.6-50 MG TAB PER TUBE SCH (21:30)
[2021-04-06] MEDS: Dextrose 50% Abboject 50 ML SYRINGE SLOW IVP PRN (23:51)
[2021-04-07] MEDS: NPH, Human Insulin Isophane 300 UNIT/3 ML VIAL SC SCH ×2 (01:21→07:02)
[2021-04-07 01:41] LABS: Anion Gap 9 mmol/L (10-20); BUN (Urea Nitrogen) 54 mg/dL (8.4-25.7); Calc. Creatinine Clearance 31 mL/min (70-130); Calcium 8.1 mg/dL (7.8-10.44); Carbon Dioxide 28 mmol/L (23-31); Chloride 98 mmol/L (98-107); Glucose 100 mg/dL (80-115); Potassium 4.3 mmol/L (3.5-5.1); Sodium 131 mmol/L (136-145)
[2021-04-07] MEDS: hydrALAZINE 20 MG/ML VIAL SLOW IVP PRN ×2 (02:39→23:07)
[2021-04-07 04:34] LABS: ALT (SGPT) 16 U/L (8-55); AST (SGOT) 14 U/L (5-34); Albumin 2.8 g/dL (3.4-4.8); Alkaline Phosphatase 69 U/L (40-110); Anion Gap 14 mmol/L (10-20); BUN (Urea Nitrogen) 56 mg/dL (8.4-25.7); Bilirubin, Total 0.2 mg/dL (0.2-1.2); Calc. Creatinine Clearance 31 mL/min (70-130); Calcium 8.2 mg/dL (7.8-10.44); Carbon Dioxide 25 mmol/L (23-31); Chloride 96 mmol/L (98-107); Globulin 2.4 g/dL (2.4-3.5); Magnesium 1.9 mg/dL (1.6-2.6); Phosphorus 4.4 mg/dL (2.3-4.7); Potassium 4.2 mmol/L (3.5-5.1); Protein, Total 5.2 g/dL (5.8-8.1); Sodium 131 mmol/L (136-145)
[2021-04-07 04:39] LABS: Glucose 42 mg/dL (80-115); Hemoglobin 6.9 g/dL (14.0-18.0); Mean Corpuscular HGB CONC 33.2 g/dL (32.0-36.0); Mean Corpuscular Hemoglobin 30.7 pg (27.0-31.0); Mean Corpuscular Volume 92.5 fL (78.0-98.0); Mean Platelet Volume 9.7 fL (7.4-10.4); Platelet Count 92 thou/uL (130-400); RBC Distribution Width 13.5 % (11.5-14.5); Red Blood Cell (RBC) Count 2.25 mill/uL (4.70-6.10); White Blood Cell (WBC) Count 7.1 thou/uL (4.8-10.8)
[2021-04-07] MEDS: Dextrose 50% Abboject 50 ML SYRINGE SLOW IVP PRN ×2 (04:49→08:14)
[2021-04-07 05:42] LABS: Band 11 % (5-11); Lymphocytes 16 % (21-51); MDiff Complete? YES; Neutrophil 73 % (42-75); Platelet Morphology Comment Appears Decreased
[2021-04-07] MEDS: Fentanyl CADD 100 ML IV SCH (07:02)
[2021-04-07] MEDS ORDERED: Dextrose 10% in Water 500 ML IV SCH (08:30)
[2021-04-07 08:52] LABS: Actual Bicarbonate (HCO3a) 27.2 mEq/L (22-28); Base Excess (BEa) 3.8 mEq/L (-2.0 to +3.0); CO2 Tension 35.7 mmHg (35.0-45.0); Calcium, Ionized (arterial) 1.13 mmol/L (1.12-1.30); Carboxyhemoglobin (COHb) 1.5 gm% (0.0-3.0); Hemoglobin (Hb) 7.2 g/dL (14.0-18.0); O2 Tension (PaO2), arterial 116.4 mmHg (> 80.0); Potassium - ABG Lab 3.63 mmol/L (3.70-5.30)
[2021-04-07 08:54] LABS: #Lymphocytes 0.9 thou/uL (1.20-3.40); #Monocytes 0.4 thou/uL (0.11-0.59); #Neutrophils 5.6 thou/uL (1.40-6.50); %Basophils 0.1 % (0.0-1.0); %Lymphocytes 12.6 % (21.0-51.0); %Monocytes 6.1 % (0.0-10.0); %Neutrophils 81.2 % (42.0-75.0); Mean Corpuscular HGB CONC 33.4 g/dL (32.0-36.0); Mean Corpuscular Hemoglobin 30.6 pg (27.0-31.0); Mean Corpuscular Volume 91.6 fL (78.0-98.0); Mean Platelet Volume 9.2 fL (7.4-10.4); Platelet Count 80 thou/uL (130-400); RBC Distribution Width 13.5 % (11.5-14.5); White Blood Cell (WBC) Count 6.9 thou/uL (4.8-10.8)
[2021-04-07] MEDS ORDERED: Prevnar 13-Val Conj/PF 0.5 ML SYRINGE IM ONE (09:00)
[2021-04-07] MEDS: cloNIDine 0.1 MG TAB PO SCH ×3 (09:00→20:48)
[2021-04-07] MEDS ORDERED: Aspirin Chewable 81 MG TAB PER TUBE SCH (09:00)
[2021-04-07 09:04] LABS: Anion Gap 13 mmol/L (10-20); BUN (Urea Nitrogen) 53 mg/dL (8.4-25.7); Calc. Creatinine Clearance 31 mL/min (70-130); Calcium 8.3 mg/dL (7.8-10.44); Carbon Dioxide 26 mmol/L (23-31); Chloride 97 mmol/L (98-107); Glucose 186 mg/dL (80-115); Potassium 3.9 mmol/L (3.5-5.1); Sodium 132 mmol/L (136-145)
[2021-04-07 09:09] LABS: ALV-art Gradient 124.175 mmHg (0-20); Puncture Site RBA
[2021-04-07] MEDS: Arformoterol 15 MCG/2 ML NEB NEB SCH ×2 (09:12→19:02)
[2021-04-07] MEDS: Budesonide 0.5 MG/2 ML NEB NEB SCH ×2 (09:12→19:02)
[2021-04-07] MEDS: Propofol 1,000 MG/100 ML VIAL IV PRN (09:15)
[2021-04-07] MEDS: cefTRIAXone\\ROCEPHIN 2 GM in Sodium Chloride 0.9% 100 ML IVPB SCH (09:29)
[2021-04-07] MEDS: methylPREDNISolone Sod Succ 40 MG VIAL IVP SCH (09:30)
[2021-04-07] MEDS: Pantoprazole 40 MG GRANULES PACKET PER TUBE SCH ×2 (09:30→20:44)
[2021-04-07] MEDS: Carvedilol 25 MG TAB PER TUBE SCH ×2 (09:30→17:37)
[2021-04-07] MEDS: Furosemide 40 MG/4 ML VIAL SLOW IVP SCH ×3 (09:30→21:06)
[2021-04-07] MEDS: Gabapentin 100 MG CAP PO SCH ×3 (09:31→20:44)
[2021-04-07] MEDS: Senokot S 8.6-50 MG TAB PER TUBE SCH ×2 (09:32→20:44)
[2021-04-07] MEDS: Clopidogrel Bisulfate 75 MG TAB PER TUBE SCH (09:40)
[2021-04-07] MEDS: Vancomycin HCl 500 MG in Sodium Chloride 0.9% 100 ML IVPB SCH (10:30)
[2021-04-07] MEDS: Azithromycin 500 MG in Sodium Chloride 0.9% 250 ML 250 ML IVPB SCH (12:34)
[2021-04-07] MEDS: Atorvastatin Calcium 40 MG TAB PER TUBE SCH (20:45)
[2021-04-08] MEDS: Fentanyl CADD 100 ML IV SCH (00:04)
[2021-04-08] MEDS: HumaLOG 300 UNITS/3 ML VIAL SC PRN ×5 (00:52→22:54)
[2021-04-08] MEDS: Propofol 1,000 MG/100 ML VIAL IV PRN (04:09)
[2021-04-08 04:32] LABS: Phosphorus 4.6 mg/dL (2.3-4.7)
[2021-04-08 04:38] LABS: ALT (SGPT) 14 U/L (8-55); AST (SGOT) 12 U/L (5-34); Albumin 2.7 g/dL (3.4-4.8); Alkaline Phosphatase 67 U/L (40-110); Anion Gap 12 mmol/L (10-20); BUN (Urea Nitrogen) 53 mg/dL (8.4-25.7); Bilirubin, Total 0.2 mg/dL (0.2-1.2); Calc. Creatinine Clearance 33 mL/min (70-130); Calcium 8.3 mg/dL (7.8-10.44); Carbon Dioxide 27 mmol/L (23-31); Chloride 95 mmol/L (98-107); Globulin 2.5 g/dL (2.4-3.5); Glucose 193 mg/dL (80-115); Magnesium 1.9 mg/dL (1.6-2.6); Potassium 3.8 mmol/L (3.5-5.1); Protein, Total 5.2 g/dL (5.8-8.1); Sodium 130 mmol/L (136-145)
[2021-04-08 04:39] LABS: Hemoglobin 8.5 g/dL (14.0-18.0); Mean Corpuscular Hemoglobin 30.7 pg (27.0-31.0); Mean Corpuscular Volume 90.2 fL (78.0-98.0); Platelet Count 87 thou/uL (130-400); Red Blood Cell (RBC) Count 2.77 mill/uL (4.70-6.10); White Blood Cell (WBC) Count 7.7 thou/uL (4.8-10.8)
[2021-04-08 05:15] LABS: Lymphocytes 24 % (21-51); MDiff Complete? YES; Monocytes 2 % (0-10); Neutrophil 74 % (42-75); Platelet Morphology Comment Appears Decreased
[2021-04-08] MEDS: Budesonide 0.5 MG/2 ML NEB NEB SCH ×2 (06:58→19:18)
[2021-04-08] MEDS: Arformoterol 15 MCG/2 ML NEB NEB SCH ×2 (06:58→19:17)
[2021-04-08] MEDS: Furosemide 40 MG/4 ML VIAL SLOW IVP SCH (07:14)
[2021-04-08] MEDS: Carvedilol 25 MG TAB PER TUBE SCH ×2 (07:14→16:12)
[2021-04-08 08:01] LABS: Actual Bicarbonate (HCO3a) 30.7 mEq/L (22-28); Base Excess (BEa) 5.8 mEq/L (-2.0 to +3.0); CO2 Tension 46.7 mmHg (35.0-45.0); Calcium, Ionized (arterial) 1.15 mmol/L (1.12-1.30); Carboxyhemoglobin (COHb) 2.3 gm% (0.0-3.0); Hemoglobin (Hb) 8.6 g/dL (14.0-18.0); O2 Tension (PaO2), arterial 90.6 mmHg (> 80.0); Potassium - ABG Lab 3.74 mmol/L (3.70-5.30); pH, Arterial 7.44 (7.35-7.45)
[2021-04-08 08:05] LABS: ALV-art Gradient 136.225 mmHg (0-20); Puncture Site RBA
[2021-04-08] MEDS ORDERED: Artificial Tear Sol 15 ML BOT EA EYE PRN (08:48)
[2021-04-08] MEDS ORDERED: Calcium Carbonate 500 MG ChewTAB PO PRN (08:48)
[2021-04-08] MEDS ORDERED: Bisacodyl 10 MG SUPP PR PRN (08:48)
[2021-04-08] MEDS ORDERED: Sodium Chloride 0.65% Nasal 44 ML BOT EA NARE PRN (08:48)
[2021-04-08] MEDS ORDERED: Hydrocerin (Eucerin) Cream 120 gm Jar TOP PRN (08:48)
[2021-04-08] MEDS ORDERED: Loperamide HCl 2 MG CAP PO PRN (08:48)
[2021-04-08] MEDS ORDERED: Bisacodyl 5 MG TAB PO PRN (08:48)
[2021-04-08] MEDS ORDERED: Loratadine 10 MG TAB PO PRN (08:48)
[2021-04-08] MEDS ORDERED: GUAIFENESIN SF SOLN 200 MG/10 ML UDCUP PO PRN (08:48)
[2021-04-08] MEDS ORDERED: Ondansetron ODT 4 MG TAB PO PRN (08:48)
[2021-04-08] MEDS ORDERED: Metoclopramide HCl 10 MG TAB PO SCH (09:00)
[2021-04-08] MEDS ORDERED: Clopidogrel Bisulfate 75 MG TAB PO SCH (09:00)
[2021-04-08] MEDS ORDERED: Tamsulosin HCl 0.4 MG CAP PO SCH (09:00)
[2021-04-08] MEDS ORDERED: Aspirin 81 mg Enteric Coated Tablet PO SCH (09:00)
[2021-04-08] MEDS ORDERED: Gabapentin 100 MG CAP PO SCH (09:00)
[2021-04-08] MEDS: cefTRIAXone\\ROCEPHIN 2 GM in Sodium Chloride 0.9% 100 ML IVPB SCH (09:08)
[2021-04-08] MEDS: Senokot S 8.6-50 MG TAB PER TUBE SCH ×2 (09:10→22:21)
[2021-04-08] MEDS: Pantoprazole 40 MG GRANULES PACKET PER TUBE SCH ×2 (09:10→22:22)
[2021-04-08] MEDS: Gabapentin 100 MG CAP PO SCH ×3 (09:10→22:22)
[2021-04-08] MEDS: methylPREDNISolone Sod Succ 40 MG VIAL IVP SCH (09:11)
[2021-04-08] MEDS: cloNIDine 0.1 MG TAB PO SCH ×3 (09:17→22:20)
[2021-04-08] MEDS: Polyethylene Glycol 3350 17 GM Packet PO SCH (09:57)
[2021-04-08] MEDS: Finasteride 5 MG TAB PO SCH (09:57)
[2021-04-08] MEDS: Tamsulosin HCl 0.4 MG CAP PO SCH (09:57)
[2021-04-08] MEDS: Vancomycin HCl 500 MG in Sodium Chloride 0.9% 100 ML IVPB SCH (10:45)
[2021-04-08] MEDS ORDERED: Vancomycin HCl 750 MG in Sodium Chloride 0.9% 250 ML 250 ML IVPB SCH (11:00)
[2021-04-08] MEDS: hydrALAZINE 20 MG/ML VIAL SLOW IVP PRN (12:11)
[2021-04-08] MEDS: Azithromycin 500 MG in Sodium Chloride 0.9% 250 ML 250 ML IVPB SCH (13:44)
[2021-04-08] MEDS: Ondansetron PF 4 MG/2 ML Vial IVP PRN (14:25)
[2021-04-08] MEDS ORDERED: Atorvastatin Calcium 40 MG TAB PO SCH (21:00)
[2021-04-08] MEDS ORDERED: Lantus 1000 UNITS/10 ML VIAL SC SCH (21:00)
[2021-04-08] MEDS: Atorvastatin Calcium 40 MG TAB PER TUBE SCH ×2 (22:22→22:23)
[2021-04-08] MEDS ORDERED: Dextrose 50% Abboject 50 ML SYRINGE SLOW IVP PRN (22:44)
[2021-04-08] MEDS ORDERED: Dextrose 5% in Water 1,000 ML IV PRN (22:44)
[2021-04-09] MEDS: Ondansetron PF 4 MG/2 ML Vial IVP PRN (04:00)
[2021-04-09 05:12] LABS: Hemoglobin 8.2 g/dL (14.0-18.0); Mean Corpuscular HGB CONC 33.1 g/dL (32.0-36.0); Mean Corpuscular Hemoglobin 30.4 pg (27.0-31.0); Mean Corpuscular Volume 91.8 fL (78.0-98.0); Mean Platelet Volume 9.8 fL (7.4-10.4); Platelet Count 90 thou/uL (130-400); RBC Distribution Width 13.9 % (11.5-14.5)
[2021-04-09 05:27] LABS: ALT (SGPT) 15 U/L (8-55); AST (SGOT) 14 U/L (5-34); Albumin 2.9 g/dL (3.4-4.8); Alkaline Phosphatase 79 U/L (40-110); Anion Gap 12 mmol/L (10-20); BUN (Urea Nitrogen) 49 mg/dL (8.4-25.7); Bilirubin, Total 0.2 mg/dL (0.2-1.2); Calc. Creatinine Clearance 34 mL/min (70-130); Calcium 8.2 mg/dL (7.8-10.44); Carbon Dioxide 28 mmol/L (23-31); Chloride 96 mmol/L (98-107); Globulin 2.6 g/dL (2.4-3.5); Glucose 476 mg/dL (80-115); Magnesium 1.9 mg/dL (1.6-2.6); Phosphorus 3.7 mg/dL (2.3-4.7); Potassium 3.9 mmol/L (3.5-5.1); Protein, Total 5.5 g/dL (5.8-8.1); Sodium 132 mmol/L (136-145)
[2021-04-09] MEDS: HumaLOG 300 UNITS/3 ML VIAL SC PRN ×4 (06:44→21:56)
[2021-04-09] MEDS: Arformoterol 15 MCG/2 ML NEB NEB SCH ×2 (07:02→20:54)
[2021-04-09] MEDS: Budesonide 0.5 MG/2 ML NEB NEB SCH ×2 (07:03→20:55)
[2021-04-09 08:39] LABS: Band 2 % (5-11); Eosinophils 5 % (0-10); Lymphocytes 15 % (21-51); MDiff Complete? YES; Monocytes 3 % (0-10); Neutrophil 75 % (42-75); Platelet Morphology Comment Appears Decreased; Polychromasia SLIGHT = 2-3 cells (100X) (0-2/hpf)
[2021-04-09] MEDS ORDERED: Magnesium 2 GM/50 ML 2 GM in Premix Bag 1 BAG IVPB SCH (09:15)
[2021-04-09] MEDS ORDERED: Lantus 1000 UNITS/10 ML VIAL SC SCH (09:15)
[2021-04-09] MEDS: Pantoprazole 40 MG GRANULES PACKET PER TUBE SCH ×2 (09:57→21:54)
[2021-04-09] MEDS: Tamsulosin HCl 0.4 MG CAP PO SCH (09:57)
[2021-04-09] MEDS: Furosemide 40 MG/4 ML VIAL SLOW IVP SCH (09:57)
[2021-04-09] MEDS: cloNIDine 0.1 MG TAB PO SCH ×3 (09:57→21:49)
[2021-04-09] MEDS: Finasteride 5 MG TAB PO SCH (09:57)
[2021-04-09] MEDS: Gabapentin 100 MG CAP PO SCH ×3 (09:57→21:55)
[2021-04-09] MEDS: cefTRIAXone\\ROCEPHIN 2 GM in Sodium Chloride 0.9% 100 ML IVPB SCH (09:58)
[2021-04-09] MEDS: Carvedilol 25 MG TAB PER TUBE SCH ×2 (09:58→18:05)
[2021-04-09] MEDS: methylPREDNISolone Sod Succ 40 MG VIAL IVP SCH (09:58)
[2021-04-09] MEDS: Senokot S 8.6-50 MG TAB PER TUBE SCH (09:58)
[2021-04-09] MEDS: Polyethylene Glycol 3350 17 GM Packet PO SCH ×2 (09:58→21:54)
[2021-04-09] MEDS: HYDROcodone/Acetaminophen 5/325 mg Tablet PO PRN ×2 (11:53→23:26)
[2021-04-09] MEDS: hydrALAZINE 20 MG/ML VIAL SLOW IVP PRN (12:28)
[2021-04-09] MEDS: Azithromycin 500 MG in Sodium Chloride 0.9% 250 ML 250 ML IVPB SCH (15:10)
[2021-04-09] MEDS ORDERED: Bisacodyl 10 MG SUPP PR SCH (21:00)
[2021-04-09] MEDS: Doxycycline 100 MG CAP PO SCH (21:49)
[2021-04-09] MEDS: Cefdinir 300 MG CAP PO SCH (21:54)
[2021-04-09] MEDS: predniSONE 20 MG TAB PO SCH (21:54)
[2021-04-09] MEDS: Senokot S 8.6-50 MG TAB PO SCH (21:55)
[2021-04-09] MEDS: Lantus 1000 UNITS/10 ML VIAL SC SCH (21:57)
[2021-04-10] MEDS: hydrALAZINE 20 MG/ML VIAL SLOW IVP PRN (05:25)
[2021-04-10 06:18] LABS: ALT (SGPT) 17 U/L (8-55); AST (SGOT) 17 U/L (5-34); Albumin 2.9 g/dL (3.4-4.8); Alkaline Phosphatase 69 U/L (40-110); Anion Gap 15 mmol/L (10-20); BUN (Urea Nitrogen) 39 mg/dL (8.4-25.7); Bilirubin, Total 0.2 mg/dL (0.2-1.2); Calc. Creatinine Clearance 35 mL/min (70-130); Calcium 8.1 mg/dL (7.8-10.44); Carbon Dioxide 25 mmol/L (23-31); Chloride 97 mmol/L (98-107); Globulin 2.7 g/dL (2.4-3.5); Glucose 330 mg/dL (80-115); Potassium 5.2 mmol/L (3.5-5.1); Protein, Total 5.6 g/dL (5.8-8.1); Sodium 132 mmol/L (136-145)
[2021-04-10] MEDS: HumaLOG 300 UNITS/3 ML VIAL SC PRN ×4 (07:03→20:50)
[2021-04-10 07:37] LABS: Hemoglobin 7.9 g/dL (14.0-18.0); Mean Corpuscular HGB CONC 32.6 g/dL (32.0-36.0); Mean Corpuscular Volume 92.2 fL (78.0-98.0); Mean Platelet Volume 9.3 fL (7.4-10.4); Platelet Count 70 thou/uL (130-400); RBC Distribution Width 13.6 % (11.5-14.5); Red Blood Cell (RBC) Count 2.64 mill/uL (4.70-6.10); White Blood Cell (WBC) Count 6.2 thou/uL (4.8-10.8)
[2021-04-10] MEDS ORDERED: cloNIDine 0.1 MG TAB PO PRN (07:50)
[2021-04-10 08:30] LABS: Band 1 % (5-11); Lymphocytes 8 % (21-51); MDiff Complete? YES; Monocytes 1 % (0-10); Neutrophil 90 % (42-75); Platelet Morphology Comment Appears Decreased; Polychromasia SLIGHT = 2-3 cells (100X) (0-2/hpf)
[2021-04-10] MEDS ORDERED: Enoxaparin Sodium 40 MG/0.4 ML SYRINGE SC SCH (09:00)
[2021-04-10] MEDS: Aspirin 81 mg Enteric Coated Tablet PO SCH (09:04)
[2021-04-10] MEDS: Senokot S 8.6-50 MG TAB PO SCH (09:04)
[2021-04-10] MEDS: Furosemide 40 MG/4 ML VIAL SLOW IVP SCH (09:04)
[2021-04-10] MEDS: hydrALAZINE 25 MG TAB PO SCH ×3 (09:04→20:34)
[2021-04-10] MEDS: Pantoprazole 40 MG GRANULES PACKET PER TUBE SCH ×2 (09:04→20:33)
[2021-04-10] MEDS: Polyethylene Glycol 3350 17 GM Packet PO SCH ×2 (09:04→20:31)
[2021-04-10] MEDS: Finasteride 5 MG TAB PO SCH (09:05)
[2021-04-10] MEDS: Carvedilol 25 MG TAB PER TUBE SCH ×2 (09:05→16:29)
[2021-04-10] MEDS: predniSONE 20 MG TAB PO SCH ×2 (09:05→20:35)
[2021-04-10] MEDS: Gabapentin 100 MG CAP PO SCH ×3 (09:05→20:34)
[2021-04-10] MEDS: Doxycycline 100 MG CAP PO SCH (09:05)
[2021-04-10] MEDS: Lantus 1000 UNITS/10 ML VIAL SC SCH (09:06)
[2021-04-10] MEDS: Tamsulosin HCl 0.4 MG CAP PO SCH (09:06)
[2021-04-10] MEDS: cloNIDine 0.1 MG TAB PO SCH ×3 (09:06→20:33)
[2021-04-10] MEDS: Cefdinir 300 MG CAP PO SCH ×2 (09:06→20:34)
[2021-04-10] MEDS: HYDROcodone/Acetaminophen 5/325 mg Tablet PO PRN (09:21)
[2021-04-10] MEDS: Arformoterol 15 MCG/2 ML NEB NEB SCH ×2 (09:53→19:19)
[2021-04-10] MEDS: Budesonide 0.5 MG/2 ML NEB NEB SCH ×2 (09:53→19:20)
[2021-04-10 11:42] LABS: Anion Gap 12 mmol/L (10-20); BUN (Urea Nitrogen) 39 mg/dL (8.4-25.7); Calc. Creatinine Clearance 40 mL/min (70-130); Calcium 8.6 mg/dL (7.8-10.44); Carbon Dioxide 28 mmol/L (23-31); Chloride 95 mmol/L (98-107); Glucose 364 mg/dL (80-115); Potassium 4.6 mmol/L (3.5-5.1); Sodium 130 mmol/L (136-145)
[2021-04-10] MEDS ORDERED: Lantus 1000 UNITS/10 ML VIAL SC SCH (18:15)
[2021-04-10] MEDS ORDERED: Magnesium Citrate 300 ML BOT PO SCH (18:45)
[2021-04-10] MEDS: Saccharomyces boulardii 250 MG CAP PO SCH (20:34)
[2021-04-10] MEDS: Bisacodyl 10 MG SUPP PR SCH (20:35)
[2021-04-10] MEDS: Atorvastatin Calcium 40 MG TAB PER TUBE SCH (20:35)
[2021-04-11] MEDS: HYDROcodone/Acetaminophen 5/325 mg Tablet PO PRN ×2 (02:32→16:41)
[2021-04-11 04:52] LABS: Hemoglobin 7.9 g/dL (14.0-18.0); Mean Corpuscular HGB CONC 32.8 g/dL (32.0-36.0); Mean Corpuscular Volume 91.4 fL (78.0-98.0); Mean Platelet Volume 9.2 fL (7.4-10.4); Platelet Count 70 thou/uL (130-400); RBC Distribution Width 13.3 % (11.5-14.5); Red Blood Cell (RBC) Count 2.64 mill/uL (4.70-6.10); White Blood Cell (WBC) Count 6.3 thou/uL (4.8-10.8)
[2021-04-11 05:02] LABS: ALT (SGPT) 14 U/L (8-55); AST (SGOT) 9 U/L (5-34); Albumin 2.8 g/dL (3.4-4.8); Alkaline Phosphatase 64 U/L (40-110); Anion Gap 10 mmol/L (10-20); BUN (Urea Nitrogen) 37 mg/dL (8.4-25.7); Bilirubin, Total 0.3 mg/dL (0.2-1.2); Calc. Creatinine Clearance 43 mL/min (70-130); Calcium 8.3 mg/dL (7.8-10.44); Carbon Dioxide 31 mmol/L (23-31); Chloride 95 mmol/L (98-107); Globulin 2.4 g/dL (2.4-3.5); Glucose 235 mg/dL (80-115); Magnesium 2.1 mg/dL (1.6-2.6); Potassium 4.8 mmol/L (3.5-5.1); Protein, Total 5.2 g/dL (5.8-8.1); Sodium 131 mmol/L (136-145)
[2021-04-11 06:39] LABS: Band 11 % (5-11); Lymphocytes 7 % (21-51); MDiff Complete? YES; Monocytes 1 % (0-10); Neutrophil 81 % (42-75); Platelet Morphology Comment Appears Decreased
[2021-04-11] MEDS: Senokot S 8.6-50 MG TAB PO SCH ×3 (07:12→21:06)
[2021-04-11] MEDS: Bisacodyl 10 MG SUPP PR SCH (07:13)
[2021-04-11] MEDS: Arformoterol 15 MCG/2 ML NEB NEB SCH ×2 (08:43→20:14)
[2021-04-11] MEDS: Budesonide 0.5 MG/2 ML NEB NEB SCH ×2 (08:44→20:15)
[2021-04-11] MEDS ORDERED: Lantus 1000 UNITS/10 ML VIAL SC SCH ×2 (09:00→21:00)
[2021-04-11] MEDS: Pantoprazole 40 MG GRANULES PACKET PER TUBE SCH ×2 (09:13→21:07)
[2021-04-11] MEDS: Aspirin 81 mg Enteric Coated Tablet PO SCH (09:14)
[2021-04-11] MEDS: Cefdinir 300 MG CAP PO SCH ×2 (09:14→21:04)
[2021-04-11] MEDS: Tamsulosin HCl 0.4 MG CAP PO SCH (09:14)
[2021-04-11] MEDS: cloNIDine 0.1 MG TAB PO SCH ×3 (09:14→21:06)
[2021-04-11] MEDS: Carvedilol 25 MG TAB PER TUBE SCH (09:15)
[2021-04-11] MEDS: Polyethylene Glycol 3350 17 GM Packet PO SCH ×2 (09:16→21:07)
[2021-04-11] MEDS: Furosemide 40 MG TAB PO SCH (09:16)
[2021-04-11] MEDS: Gabapentin 100 MG CAP PO SCH ×3 (09:16→21:05)
[2021-04-11] MEDS: Finasteride 5 MG TAB PO SCH (09:16)
[2021-04-11] MEDS: predniSONE 20 MG TAB PO SCH ×2 (09:16→21:06)
[2021-04-11] MEDS: Lantus 1000 UNITS/10 ML VIAL SC SCH ×2 (09:17→21:11)
[2021-04-11] MEDS: hydrALAZINE 25 MG TAB PO SCH ×3 (09:31→21:05)
[2021-04-11] MEDS ORDERED: NIFEdipine XL 30 MG TAB PO SCH (10:15)
[2021-04-11] MEDS ORDERED: Clopidogrel Bisulfate 75 MG TAB PO SCH (10:15)
[2021-04-11] MEDS: HumaLOG 300 UNITS/3 ML VIAL SC PRN ×3 (12:03→21:12)
[2021-04-11] MEDS: Atorvastatin Calcium 40 MG TAB PER TUBE SCH (21:04)
[2021-04-11] MEDS: Carvedilol 25 MG TAB PO SCH (21:05)
[2021-04-11] MEDS: Saccharomyces boulardii 250 MG CAP PO SCH (21:05)
[2021-04-11] MEDS: NIFEdipine XL 30 MG TAB PO SCH (21:06)
[2021-04-12] MEDS: HYDROcodone/Acetaminophen 5/325 mg Tablet PO PRN ×3 (03:32→21:46)
[2021-04-12 04:41] LABS: #Basophils 0.1 thou/uL (0.0-0.2); #Lymphocytes 0.5 thou/uL (1.20-3.40); #Monocytes 0.3 thou/uL (0.11-0.59); #Neutrophils 5.5 thou/uL (1.40-6.50); %Basophils 0.8 % (0.0-1.0); %Eosinophils 0.1 % (0.0-10.0); %Lymphocytes 7.8 % (21.0-51.0); %Neutrophils 87.2 % (42.0-75.0); Hemoglobin 8.3 g/dL (14.0-18.0); Mean Corpuscular Hemoglobin 30.3 pg (27.0-31.0); Mean Corpuscular Volume 91.9 fL (78.0-98.0); Mean Platelet Volume 9.6 fL (7.4-10.4); Platelet Count 70 thou/uL (130-400); RBC Distribution Width 13.4 % (11.5-14.5); Red Blood Cell (RBC) Count 2.75 mill/uL (4.70-6.10); White Blood Cell (WBC) Count 6.3 thou/uL (4.8-10.8)
[2021-04-12 05:08] LABS: ALT (SGPT) 13 U/L (8-55); AST (SGOT) 8 U/L (5-34); Alkaline Phosphatase 66 U/L (40-110); Anion Gap 12 mmol/L (10-20); BUN (Urea Nitrogen) 35 mg/dL (8.4-25.7); Bilirubin, Total 0.3 mg/dL (0.2-1.2); Calc. Creatinine Clearance 31 mL/min (70-130); Calcium 8.5 mg/dL (7.8-10.44); Carbon Dioxide 31 mmol/L (23-31); Chloride 93 mmol/L (98-107); Globulin 2.5 g/dL (2.4-3.5); Glucose 356 mg/dL (80-115); Potassium 5.7 mmol/L (3.5-5.1); Protein, Total 5.5 g/dL (5.8-8.1); Sodium 130 mmol/L (136-145)
[2021-04-12] MEDS: Carvedilol 25 MG TAB PO SCH ×3 (05:08→21:45)
[2021-04-12] MEDS: cloNIDine 0.1 MG TAB PO SCH ×3 (05:09→21:44)
[2021-04-12] MEDS: HumaLOG 300 UNITS/3 ML VIAL SC PRN ×3 (06:03→17:34)
[2021-04-12] MEDS: Budesonide 0.5 MG/2 ML NEB NEB SCH ×2 (07:12→18:50)
[2021-04-12] MEDS: Arformoterol 15 MCG/2 ML NEB NEB SCH ×2 (07:12→18:50)
[2021-04-12] MEDS: Cefdinir 300 MG CAP PO SCH ×2 (08:31→20:39)
[2021-04-12] MEDS: Aspirin 81 mg Enteric Coated Tablet PO SCH (08:31)
[2021-04-12] MEDS: Finasteride 5 MG TAB PO SCH (08:31)
[2021-04-12] MEDS: Gabapentin 100 MG CAP PO SCH ×3 (08:31→20:43)
[2021-04-12] MEDS: hydrALAZINE 25 MG TAB PO SCH ×3 (08:31→20:41)
[2021-04-12] MEDS: Furosemide 40 MG TAB PO SCH (08:31)
[2021-04-12] MEDS: Senokot S 8.6-50 MG TAB PO SCH ×2 (08:32→20:44)
[2021-04-12] MEDS: NIFEdipine XL 30 MG TAB PO SCH ×2 (08:32→20:40)
[2021-04-12] MEDS: Pantoprazole 40 MG GRANULES PACKET PER TUBE SCH ×2 (08:32→20:39)
[2021-04-12] MEDS: predniSONE 20 MG TAB PO SCH (08:32)
[2021-04-12] MEDS: Polyethylene Glycol 3350 17 GM Packet PO SCH ×2 (08:33→20:49)
[2021-04-12] MEDS: Tamsulosin HCl 0.4 MG CAP PO SCH (08:33)
[2021-04-12] MEDS: Lantus 1000 UNITS/10 ML VIAL SC SCH ×2 (08:33→20:55)
[2021-04-12] MEDS ORDERED: Clopidogrel Bisulfate 75 MG TAB PO SCH (09:00)
[2021-04-12 09:58] LABS: Anion Gap 16 mmol/L (10-20); BUN (Urea Nitrogen) 35 mg/dL (8.4-25.7); Calc. Creatinine Clearance 34 mL/min (70-130); Calcium 8.5 mg/dL (7.8-10.44); Carbon Dioxide 25 mmol/L (23-31); Chloride 94 mmol/L (98-107); Glucose 390 mg/dL (80-115); Sodium 129 mmol/L (136-145)
[2021-04-12] MEDS ORDERED: Furosemide 40 MG TAB PO SCH (14:45)
[2021-04-12 16:37] LABS: Anion Gap 7 mmol/L (10-20); BUN (Urea Nitrogen) 37 mg/dL (8.4-25.7); Calc. Creatinine Clearance 37 mL/min (70-130); Calcium 8.6 mg/dL (7.8-10.44); Carbon Dioxide 35 mmol/L (23-31); Chloride 94 mmol/L (98-107); Glucose 261 mg/dL (80-115); Potassium 5.7 mmol/L (3.5-5.1); Sodium 130 mmol/L (136-145)
[2021-04-12] MEDS: Saccharomyces boulardii 250 MG CAP PO SCH (20:40)
[2021-04-12] MEDS: Atorvastatin Calcium 40 MG TAB PER TUBE SCH (20:41)
[2021-04-13 05:00] LABS: Hemoglobin 8.1 g/dL (14.0-18.0); Mean Corpuscular HGB CONC 32.5 g/dL (32.0-36.0); Mean Corpuscular Volume 92.3 fL (78.0-98.0); Mean Platelet Volume 9.1 fL (7.4-10.4); Platelet Count 65 thou/uL (130-400); RBC Distribution Width 13.5 % (11.5-14.5); Red Blood Cell (RBC) Count 2.69 mill/uL (4.70-6.10); White Blood Cell (WBC) Count 7.2 thou/uL (4.8-10.8)
[2021-04-13 05:01] LABS: Lymphocytes 12 % (21-51); MDiff Complete? YES; Monocytes 5 % (0-10); Neutrophil 83 % (42-75); Platelet Morphology Comment Appears Decreased
[2021-04-13 05:32] LABS: ALT (SGPT) 14 U/L (8-55); AST (SGOT) 9 U/L (5-34); Alkaline Phosphatase 58 U/L (40-110); Anion Gap 10 mmol/L (10-20); BUN (Urea Nitrogen) 39 mg/dL (8.4-25.7); Bilirubin, Total 0.3 mg/dL (0.2-1.2); Calc. Creatinine Clearance 37 mL/min (70-130); Calcium 8.7 mg/dL (7.8-10.44); Carbon Dioxide 31 mmol/L (23-31); Chloride 94 mmol/L (98-107); Globulin 2.4 g/dL (2.4-3.5); Glucose 118 mg/dL (80-115); Potassium 5.3 mmol/L (3.5-5.1); Protein, Total 5.4 g/dL (5.8-8.1); Sodium 130 mmol/L (136-145)
[2021-04-13] MEDS: cloNIDine 0.1 MG TAB PO SCH ×3 (05:43→22:52)
[2021-04-13] MEDS: Carvedilol 25 MG TAB PO SCH ×3 (05:43→22:54)
[2021-04-13] MEDS: Cefdinir 300 MG CAP PO SCH ×2 (08:40→20:56)
[2021-04-13] MEDS: Finasteride 5 MG TAB PO SCH (08:40)
[2021-04-13] MEDS: predniSONE 20 MG TAB PO SCH (08:40)
[2021-04-13] MEDS: Furosemide 40 MG TAB PO SCH (08:40)
[2021-04-13] MEDS: Aspirin 81 mg Enteric Coated Tablet PO SCH (08:40)
[2021-04-13] MEDS: Gabapentin 100 MG CAP PO SCH ×3 (08:41→20:59)
[2021-04-13] MEDS: hydrALAZINE 25 MG TAB PO SCH ×3 (08:41→20:58)
[2021-04-13] MEDS: NIFEdipine XL 30 MG TAB PO SCH ×2 (08:42→20:56)
[2021-04-13] MEDS: Pantoprazole 40 MG GRANULES PACKET PER TUBE SCH ×3 (08:42→20:59)
[2021-04-13] MEDS: Polyethylene Glycol 3350 17 GM Packet PO SCH ×2 (08:43→21:24)
[2021-04-13] MEDS: Senokot S 8.6-50 MG TAB PO SCH ×2 (08:43→21:24)
[2021-04-13] MEDS: Tamsulosin HCl 0.4 MG CAP PO SCH (08:44)
[2021-04-13] MEDS: Lantus 1000 UNITS/10 ML VIAL SC SCH ×2 (08:48→21:05)
[2021-04-13] MEDS: HYDROcodone/Acetaminophen 5/325 mg Tablet PO PRN ×3 (08:54→17:39)
[2021-04-13] MEDS: Budesonide 0.5 MG/2 ML NEB NEB SCH ×2 (08:58→17:39)
[2021-04-13] MEDS: Arformoterol 15 MCG/2 ML NEB NEB SCH ×2 (09:00→17:38)
[2021-04-13] MEDS: Atorvastatin Calcium 40 MG TAB PER TUBE SCH (20:58)
[2021-04-13] MEDS: Saccharomyces boulardii 250 MG CAP PO SCH (20:58)
[2021-04-14 04:40] LABS: #Lymphocytes 1.1 thou/uL (1.20-3.40); #Monocytes 0.4 thou/uL (0.11-0.59); #Neutrophils 4.5 thou/uL (1.40-6.50); %Eosinophils 0.4 % (0.0-10.0); %Neutrophils 75.6 % (42.0-75.0); Hemoglobin 8.2 g/dL (14.0-18.0); Mean Corpuscular HGB CONC 32.1 g/dL (32.0-36.0); Mean Corpuscular Hemoglobin 29.6 pg (27.0-31.0); Mean Corpuscular Volume 92.1 fL (78.0-98.0); Platelet Count 66 thou/uL (130-400); RBC Distribution Width 13.8 % (11.5-14.5); Red Blood Cell (RBC) Count 2.76 mill/uL (4.70-6.10); White Blood Cell (WBC) Count 5.9 thou/uL (4.8-10.8)
[2021-04-14 05:05] LABS: ALT (SGPT) 12 U/L (8-55); AST (SGOT) 11 U/L (5-34); Alkaline Phosphatase 59 U/L (40-110); Anion Gap 13 mmol/L (10-20); BUN (Urea Nitrogen) 44 mg/dL (8.4-25.7); Bilirubin, Total 0.4 mg/dL (0.2-1.2); Calc. Creatinine Clearance 34 mL/min (70-130); Calcium 8.5 mg/dL (7.8-10.44); Carbon Dioxide 28 mmol/L (23-31); Chloride 92 mmol/L (98-107); Globulin 2.4 g/dL (2.4-3.5); Glucose 332 mg/dL (80-115); Potassium 5.5 mmol/L (3.5-5.1); Protein, Total 5.4 g/dL (5.8-8.1); Sodium 127 mmol/L (136-145)
[2021-04-14] MEDS: cloNIDine 0.1 MG TAB PO SCH ×3 (05:36→21:18)
[2021-04-14] MEDS: Carvedilol 25 MG TAB PO SCH ×3 (05:37→21:19)
[2021-04-14] MEDS: HumaLOG 300 UNITS/3 ML VIAL SC PRN ×2 (05:42→21:24)
[2021-04-14] MEDS: hydrALAZINE 25 MG TAB PO SCH ×3 (09:36→21:18)
[2021-04-14] MEDS: Cefdinir 300 MG CAP PO SCH ×2 (09:37→21:17)
[2021-04-14] MEDS: Furosemide 40 MG TAB PO SCH (09:37)
[2021-04-14] MEDS: Aspirin 81 mg Enteric Coated Tablet PO SCH (09:37)
[2021-04-14] MEDS: predniSONE 20 MG TAB PO SCH (09:37)
[2021-04-14] MEDS: Tamsulosin HCl 0.4 MG CAP PO SCH (09:38)
[2021-04-14] MEDS: Gabapentin 100 MG CAP PO SCH ×3 (09:38→21:19)
[2021-04-14] MEDS: NIFEdipine XL 30 MG TAB PO SCH ×2 (09:38→21:18)
[2021-04-14] MEDS: Finasteride 5 MG TAB PO SCH (09:38)
[2021-04-14] MEDS: Senokot S 8.6-50 MG TAB PO SCH ×2 (09:38→21:17)
[2021-04-14] MEDS: Lantus 1000 UNITS/10 ML VIAL SC SCH ×2 (09:40→21:37)
[2021-04-14] MEDS: Budesonide 0.5 MG/2 ML NEB NEB SCH ×2 (09:41→18:25)
[2021-04-14] MEDS: Arformoterol 15 MCG/2 ML NEB NEB SCH ×2 (09:51→18:25)
[2021-04-14] MEDS: Polyethylene Glycol 3350 17 GM Packet PO SCH ×2 (09:51→21:40)
[2021-04-14] MEDS: Pantoprazole 40 MG GRANULES PACKET PER TUBE SCH (09:51)
[2021-04-14 09:53] LABS: SARS-CoV-2 PCR by NAA Not Detected (NotDetected)
[2021-04-14] MEDS: HYDROcodone/Acetaminophen 5/325 mg Tablet PO PRN ×3 (09:58→21:34)
[2021-04-14 13:38] LABS: Band 3 % (5-11); Lymphocytes 25 % (21-51); Metamyelocyte 1 % (0-0); Monocytes 6 % (0-10); Myelocyte 1 % (0-0); Reactive Lymphocytes 1 % (0-10)
[2021-04-14 13:39] LABS: Platelet Morphology Comment Appears Decreased; Polychromasia SLIGHT = 2-3 cells (100X) (0-2/hpf)
[2021-04-14] MEDS: Atorvastatin Calcium 40 MG TAB PER TUBE SCH (21:20)
[2021-04-14] MEDS: Saccharomyces boulardii 250 MG CAP PO SCH (21:20)
[2021-04-15 04:59] LABS: #Lymphocytes 0.7 thou/uL (1.20-3.40); #Monocytes 0.3 thou/uL (0.11-0.59); #Neutrophils 3.6 thou/uL (1.40-6.50); %Eosinophils 0.1 % (0.0-10.0); %Lymphocytes 15.7 % (21.0-51.0); %Monocytes 5.8 % (0.0-10.0); %Neutrophils 78.3 % (42.0-75.0); Hemoglobin 7.5 g/dL (14.0-18.0); Mean Corpuscular HGB CONC 32.6 g/dL (32.0-36.0); Mean Corpuscular Hemoglobin 30.1 pg (27.0-31.0); Mean Corpuscular Volume 92.3 fL (78.0-98.0); Mean Platelet Volume 9.4 fL (7.4-10.4); Platelet Count 66 thou/uL (130-400); RBC Distribution Width 13.9 % (11.5-14.5); White Blood Cell (WBC) Count 4.6 thou/uL (4.8-10.8)
[2021-04-15 05:18] LABS: ALT (SGPT) 13 U/L (8-55); AST (SGOT) 10 U/L (5-34); Alkaline Phosphatase 55 U/L (40-110); Anion Gap 9 mmol/L (10-20); BUN (Urea Nitrogen) 49 mg/dL (8.4-25.7); Bilirubin, Total 0.3 mg/dL (0.2-1.2); Calc. Creatinine Clearance 32 mL/min (70-130); Calcium 8.5 mg/dL (7.8-10.44); Carbon Dioxide 31 mmol/L (23-31); Chloride 93 mmol/L (98-107); Globulin 2.4 g/dL (2.4-3.5); Glucose 387 mg/dL (80-115); Potassium 5.3 mmol/L (3.5-5.1); Protein, Total 5.4 g/dL (5.8-8.1); Sodium 128 mmol/L (136-145)
[2021-04-15] MEDS: Carvedilol 25 MG TAB PO SCH ×2 (05:36→14:58)
[2021-04-15] MEDS: cloNIDine 0.1 MG TAB PO SCH ×2 (05:36→14:57)
[2021-04-15] MEDS: HumaLOG 300 UNITS/3 ML VIAL SC PRN (05:37)
[2021-04-15] MEDS ORDERED: Furosemide 20 MG TAB PO SCH (07:30)
[2021-04-15] MEDS ORDERED: Lantus 1000 UNITS/10 ML VIAL SC SCH (09:00)
[2021-04-15] MEDS: Aspirin 81 mg Enteric Coated Tablet PO SCH (09:41)
[2021-04-15] MEDS: Tamsulosin HCl 0.4 MG CAP PO SCH (09:41)
[2021-04-15] MEDS: Cefdinir 300 MG CAP PO SCH (09:41)
[2021-04-15] MEDS: hydrALAZINE 25 MG TAB PO SCH ×2 (09:41→14:57)
[2021-04-15] MEDS: NIFEdipine XL 30 MG TAB PO SCH (09:41)
[2021-04-15] MEDS: Gabapentin 100 MG CAP PO SCH ×2 (09:42→14:58)
[2021-04-15] MEDS: Finasteride 5 MG TAB PO SCH (09:42)
[2021-04-15] MEDS: predniSONE 20 MG TAB PO SCH (09:42)
[2021-04-15] MEDS: Polyethylene Glycol 3350 17 GM Packet PO SCH (09:43)
[2021-04-15] MEDS: Senokot S 8.6-50 MG TAB PO SCH (09:45)
[2021-04-15] MEDS: HYDROcodone/Acetaminophen 5/325 mg Tablet PO PRN (09:45)
[2021-04-15] MEDS: Budesonide 0.5 MG/2 ML NEB NEB SCH (10:57)
[2021-04-15] MEDS: Arformoterol 15 MCG/2 ML NEB NEB SCH (10:57)
[2021-04-15] MEDS: Lantus 1000 UNITS/10 ML VIAL SC SCH (11:42)
[2021-04-15 16:27] VITALS: BP 140/74; TEMP 97
== END 2021-04-15 17:25 | disposition home health service (06) | DRG 208 ==
LOC: ERS 07:41 → CCU 08:33 → 2NO 04-08 21:28
PROVIDERS: ADMIT Family Medicine; ATTEND Internal Medicine
PROC: 5A1945Z Respiratory Ventilation, 24-96 Consecutive Hours (ICD-10-PCS; principal; 2021-04-06)
PROC: 0D9670Z Drainage of Stomach with Drainage Device, Via Natural or Artificial Opening (ICD-10-PCS; 2021-04-06)
PROC: 30233N1 Transfusion of Nonautologous Red Blood Cells into Peripheral Vein, Percutaneous Approach (ICD-10-PCS; 2021-04-07)
DX: J96.21 Acute and chronic respiratory failure with hypoxia (principal); I50.33 Acute on chronic diastolic (congestive) heart failure; I13.0 Hypertensive heart and chronic kidney disease with heart failure and stage 1 through stage 4 chronic kidney disease, or unspecified chronic kidney disease; J44.1 Chronic obstructive pulmonary disease with (acute) exacerbation; N17.9 Acute kidney failure, unspecified; E87.1 Hypo-osmolality and hyponatremia; I42.9 Cardiomyopathy, unspecified; Z20.822 Contact with and (suspected) exposure to COVID-19; J96.22 Acute and chronic respiratory failure with hypercapnia; F41.9 Anxiety disorder, unspecified; F32.9 Major depressive disorder, single episode, unspecified; I25.10 Atherosclerotic heart disease of native coronary artery without angina pectoris; E78.5 Hyperlipidemia, unspecified; N18.30 Chronic kidney disease, stage 3 unspecified; D63.1 Anemia in chronic kidney disease; D69.6 Thrombocytopenia, unspecified; E11.51 Type 2 diabetes mellitus with diabetic peripheral angiopathy without gangrene; E11.65 Type 2 diabetes mellitus with hyperglycemia; E11.22 Type 2 diabetes mellitus with diabetic chronic kidney disease; N52.9 Male erectile dysfunction, unspecified; M19.90 Unspecified osteoarthritis, unspecified site; R79.89 Other specified abnormal findings of blood chemistry; E11.649 Type 2 diabetes mellitus with hypoglycemia without coma; I44.7 Left bundle-branch block, unspecified; N40.0 Benign prostatic hyperplasia without lower urinary tract symptoms; K27.9 Peptic ulcer, site unspecified, unspecified as acute or chronic, without hemorrhage or perforation; G89.4 Chronic pain syndrome; E87.5 Hyperkalemia; Z87.891 Personal history of nicotine dependence; Z88.5 Allergy status to narcotic agent; Z88.8 Allergy status to other drugs, medicaments and biological substances; Z79.82 Long term (current) use of aspirin; Z79.4 Long term (current) use of insulin; Z79.51 Long term (current) use of inhaled steroids; Z79.52 Long term (current) use of systemic steroids; Z79.899 Other long term (current) drug therapy; I25.2 Old myocardial infarction; Z86.73 Personal history of transient ischemic attack (TIA), and cerebral infarction without residual deficits; Z90.49 Acquired absence of other specified parts of digestive tract; Z89.611 Acquired absence of right leg above knee; Z95.5 Presence of coronary angioplasty implant and graft; Z95.0 Presence of cardiac pacemaker; K59.03 Drug induced constipation; T50.905A Adverse effect of unspecified drugs, medicaments and biological substances, initial encounter
CPT/HCPCS: 36415; 36416; 36430; 36600; 51702; 71045; 74176; 80053; 80202; 81003; 81015; 82805; 83605; 83735; 83880; 84100; 85007; 85027; 86850; 86870; 86900; 86901; 86922; 87040; 87086; 93005; 94002; 94003; 94640; 96365; 96367; 96375; 99292; J0360; J0456; J0696; J1815; J1940; J1956; J2405; J2704; J2920; J2930; J3010; J3370; J3475; J3490; J7050; J7060; J7512; J7620; J7626; P9016; U0002; U0003; U0005

== ENCOUNTER 2021-04-18 07:28 | Inpatient (IN) | payer MEDICARE ==
[2021-04-18 08:06] LABS: Actual Bicarbonate (HCO3a) 25.8 mEq/L (22-28); Analyzer IN Cardio ER; Base Excess (BEa) 1.2 mEq/L (-2.0 to +3.0); Calcium, Ionized (arterial) 1.08 mmol/L (1.12-1.30); Carboxyhemoglobin (COHb) 1.4 gm% (0.0-3.0); O2 Tension (PaO2), arterial 346.9 mmHg (> 80.0); Potassium - ABG Lab 3.99 mmol/L (3.70-5.30); pH, Arterial 7.42 (7.35-7.45)
[2021-04-18 08:07] LABS: #Eosinphils 0.1 thou/uL (0.0-0.7); #Lymphocytes 0.4 thou/uL (1.20-3.40); #Monocytes 0.6 thou/uL (0.11-0.59); #Neutrophils 6.8 thou/uL (1.40-6.50); %Eosinophils 0.7 % (0.0-10.0); %Lymphocytes 5.2 % (21.0-51.0); %Monocytes 7.9 % (0.0-10.0); %Neutrophils 86.2 % (42.0-75.0); Mean Corpuscular HGB CONC 31.7 g/dL (32.0-36.0); Mean Corpuscular Volume 91.3 fL (78.0-98.0); Mean Platelet Volume 8.9 fL (7.4-10.4); Platelet Count 80 thou/uL (130-400); RBC Distribution Width 13.9 % (11.5-14.5); White Blood Cell (WBC) Count 7.8 thou/uL (4.8-10.8)
[2021-04-18 08:08] LABS: Puncture Site RBA
[2021-04-18 08:18] LABS: ALT (SGPT) 31 U/L (8-55); AST (SGOT) 51 U/L (5-34); Albumin 3.6 g/dL (3.4-4.8); Alkaline Phosphatase 123 U/L (40-110); Anion Gap 15 mmol/L (10-20); BUN (Urea Nitrogen) 33 mg/dL (8.4-25.7); CK (CPK) 54 U/L (30-200); Calc. Creatinine Clearance 0 mL/min (70-130); Calcium 8.4 mg/dL (7.8-10.44); Carbon Dioxide 25 mmol/L (23-31); Chloride 95 mmol/L (98-107); Glucose 220 mg/dL (80-115); Lipase 21 U/L (8-78); Potassium 4.2 mmol/L (3.5-5.1); Protein, Total 6.6 g/dL (5.8-8.1); Sodium 131 mmol/L (136-145)
[2021-04-18 08:39] LABS: Bacteria/HPF None Seen HPF (None Seen); Bilirubin Negative (Negative); Blood, Urine Trace (Negative); Clarity Clear (Clear); Glucose, Urine (Dipstick) 200 mg/dL (Negative); Ketone, Urine Negative (Negative); Leukocyte Negative Leu/uL (Negative); Nitrite Negative (Negative); Protein, Urine (Dipstick) 300 mg/dL (Neg-Trace); Specific Gravity, Urine 1.014 (1.002-1.036); Squamous Epithelial None Seen HPF (0-3); Urobilinogen Normal mg/dL (Less than 2); WBC/HPF 0-3 HPF (0-3)
[2021-04-18] MEDS ORDERED: Vancomycin 1 GM/200 ML BAG ONE (08:57)
[2021-04-18] MEDS ORDERED: Ventilator Sedation Protocol 1 EACH FS SCH (09:30)
[2021-04-18 09:36] LABS: SARS-CoV-2 NAA Rapid Test Not Detected (NotDetected)
[2021-04-18] MEDS ORDERED: Lorazepam 2 MG/ML VIAL SLOW IVP PRN (10:00)
[2021-04-18] MEDS ORDERED: DISCONTINUE PREVIOUS NARCOTIC PAIN MEDICATIONS AND BENZODIAZEPINES FS SCH (10:00)
[2021-04-18] MEDS ORDERED: Morphine 2 MG/ML VIAL SLOW IVP PRN (10:00)
[2021-04-18] MEDS ORDERED: Propofol BOLUS 1,000 MG/100 ML VIAL IV PRN (10:00)
[2021-04-18] MEDS ORDERED: Fentanyl BOLUS 250 ML IVPB PRN (10:00)
[2021-04-18] MEDS ORDERED: Propofol 1,000 MG/100 ML VIAL IV ONE (10:12)
[2021-04-18] MEDS: Propofol 1,000 MG/100 ML VIAL IV PRN ×3 (10:23→23:42)
[2021-04-18] MEDS ORDERED: Dextrose 50% Abboject 50 ML SYRINGE SLOW IVP PRN (13:13)
[2021-04-18] MEDS ORDERED: Dextrose 5% in Water 1,000 ML IV PRN (13:13)
[2021-04-18] MEDS ORDERED: HumaLOG 300 UNITS/3 ML VIAL SC PRN (13:13)
[2021-04-18] MEDS ORDERED: Ondansetron ODT 4 MG TAB PO PRN (13:13)
[2021-04-18] MEDS ORDERED: Acetaminophen 500 MG TAB PO PRN ×2 (13:13)
[2021-04-18] MEDS ORDERED: Electrolyte Replacement Protocol 1 EACH FS ONE (13:13)
[2021-04-18] MEDS ORDERED: Nitroglycerin 50 MG/250 ML BOT 250 ML IVPB SCH (14:15)
[2021-04-18] MEDS ORDERED: Electrolyte Replacement Protocol FS PRN (16:15)
[2021-04-18] MEDS: methylPREDNISolone Sod Succ 40 MG VIAL IVP SCH ×2 (17:20→23:42)
[2021-04-18] MEDS: Mometasone 100 MCG/Formoterol 5 MCG 120 PUFF INHALER INH SCH (19:46)
[2021-04-18] MEDS ORDERED: Famotidine/PF 20 mg/2ml Vial SLOW IVP SCH (21:00)
[2021-04-18] MEDS: HumaLOG 300 UNITS/3 ML VIAL SC PRN (22:23)
[2021-04-19] MEDS ORDERED: Fentanyl CADD 100 ML ONE ×2 (00:52→16:22)
[2021-04-19 04:22] LABS: #Lymphocytes 0.3 thou/uL (1.20-3.40); #Monocytes 0.1 thou/uL (0.11-0.59); #Neutrophils 2.2 thou/uL (1.40-6.50); %Lymphocytes 10.1 % (21.0-51.0); %Monocytes 4.9 % (0.0-10.0); Hemoglobin 8.1 g/dL (14.0-18.0); Mean Corpuscular HGB CONC 32.3 g/dL (32.0-36.0); Mean Corpuscular Hemoglobin 29.4 pg (27.0-31.0); Mean Corpuscular Volume 90.9 fL (78.0-98.0); Mean Platelet Volume 9.2 fL (7.4-10.4); Platelet Count 67 thou/uL (130-400); RBC Distribution Width 13.9 % (11.5-14.5); Red Blood Cell (RBC) Count 2.77 mill/uL (4.70-6.10); White Blood Cell (WBC) Count 2.6 thou/uL (4.8-10.8)
[2021-04-19 04:32] LABS: ALT (SGPT) 19 U/L (8-55); AST (SGOT) 11 U/L (5-34); Albumin 2.7 g/dL (3.4-4.8); Alkaline Phosphatase 80 U/L (40-110); Anion Gap 17 mmol/L (10-20); BUN (Urea Nitrogen) 39 mg/dL (8.4-25.7); Bilirubin, Total 0.5 mg/dL (0.2-1.2); Calc. Creatinine Clearance 35 mL/min (70-130); Calcium 8.2 mg/dL (7.8-10.44); Carbon Dioxide 22 mmol/L (23-31); Chloride 95 mmol/L (98-107); Globulin 2.6 g/dL (2.4-3.5); Glucose 289 mg/dL (80-115); Potassium 3.5 mmol/L (3.5-5.1); Protein, Total 5.3 g/dL (5.8-8.1); Sodium 130 mmol/L (136-145)
[2021-04-19] MEDS: methylPREDNISolone Sod Succ 40 MG VIAL IVP SCH ×4 (05:48→23:43)
[2021-04-19] MEDS: HumaLOG 300 UNITS/3 ML VIAL SC PRN ×4 (05:48→22:34)
[2021-04-19] MEDS: Propofol 1,000 MG/100 ML VIAL IV PRN ×3 (06:12→16:24)
[2021-04-19] MEDS ORDERED: Potassium Chloride 40 MEQ in Sodium Chloride 0.9% 250 ML 250 ML IVPB SCH (07:00)
[2021-04-19 07:31] LABS: Actual Bicarbonate (HCO3a) 22.8 mEq/L (22-28); Base Excess (BEa) -1.5 mEq/L (-2.0 to +3.0); CO2 Tension 35.8 mmHg (35.0-45.0); Calcium, Ionized (arterial) 1.16 mmol/L (1.12-1.30); Carboxyhemoglobin (COHb) 1.2 gm% (0.0-3.0); O2 Tension (PaO2), arterial 114.4 mmHg (> 80.0); Potassium - ABG Lab 3.25 mmol/L (3.70-5.30); pH, Arterial 7.42 (7.35-7.45)
[2021-04-19 07:37] LABS: Puncture Site LBA
[2021-04-19] MEDS: Mometasone 100 MCG/Formoterol 5 MCG 120 PUFF INHALER INH SCH ×2 (08:24→18:33)
[2021-04-19] MEDS: Famotidine/PF 20 mg/2ml Vial SLOW IVP SCH (08:25)
[2021-04-19] MEDS: hydrALAZINE 20 MG/ML VIAL SLOW IVP PRN ×4 (09:52→23:43)
[2021-04-19] MEDS: Levofloxacin 750 mg/D5W 500 MG in Premix Bag 1 BAG IVPB SCH (12:52)
[2021-04-19] MEDS: fentaNYL Citrate/PF 2,000 MCG in Sodium Chloride 0.9% 60 ML IV SCH (16:25)
[2021-04-19 17:52] LABS: Lactic Acid 1.8 mmol/L (0.5-2.2)
[2021-04-19 18:20] LABS: AST (SGOT) 11 U/L (5-34); Bilirubin, Total 0.5 mg/dL (0.2-1.2); Calcium 8.1 mg/dL (7.8-10.44); Chloride 99 mmol/L (98-107); Phosphorus 5.4 mg/dL (2.3-4.7); Potassium 4.1 mmol/L (3.5-5.1); Sodium 131 mmol/L (136-145)
[2021-04-19 18:27] LABS: Albumin 2.8 g/dL (3.4-4.8)
[2021-04-19 18:29] LABS: Glucose 364 mg/dL (80-115)
[2021-04-19 18:30] LABS: Globulin 2.5 g/dL (2.4-3.5); Protein, Total 5.3 g/dL (5.8-8.1)
[2021-04-19 18:31] LABS: Anion Gap 16 mmol/L (10-20); Carbon Dioxide 20 mmol/L (23-31)
[2021-04-19 18:32] LABS: Alkaline Phosphatase 84 U/L (40-110); Calc. Creatinine Clearance 32 mL/min (70-130)
[2021-04-19 18:33] LABS: BUN (Urea Nitrogen) 43 mg/dL (8.4-25.7)
[2021-04-19 18:35] LABS: ALT (SGPT) 19 U/L (8-55); Magnesium 2.3 mg/dL (1.6-2.6)
[2021-04-19] MEDS: Propofol 500 MG/50 ML VIAL IV PRN (21:54)
[2021-04-20] MEDS: Propofol 500 MG/50 ML VIAL IV PRN ×4 (01:10→08:14)
[2021-04-20] MEDS: hydrALAZINE 20 MG/ML VIAL SLOW IVP PRN ×4 (02:48→20:23)
[2021-04-20] MEDS: methylPREDNISolone Sod Succ 40 MG VIAL IVP SCH ×4 (05:41→23:40)
[2021-04-20] MEDS: HumaLOG 300 UNITS/3 ML VIAL SC PRN ×4 (05:46→23:17)
[2021-04-20] MEDS ORDERED: Fentanyl CADD 100 ML ONE (08:08)
[2021-04-20] MEDS: fentaNYL Citrate/PF 2,000 MCG in Sodium Chloride 0.9% 60 ML IV SCH (08:13)
[2021-04-20] MEDS: Famotidine/PF 20 mg/2ml Vial SLOW IVP SCH (08:14)
[2021-04-20] MEDS: Mometasone 100 MCG/Formoterol 5 MCG 120 PUFF INHALER INH SCH ×2 (08:28→20:17)
[2021-04-20] MEDS: Levofloxacin 750 mg/D5W 500 MG in Premix Bag 1 BAG IVPB SCH (11:24)
[2021-04-20] MEDS ORDERED: Propofol 1,000 MG/100 ML VIAL IV ONE (12:34)
[2021-04-20] MEDS: Carvedilol 25 MG TAB PO SCH (16:48)
[2021-04-20] MEDS: Propofol 1,000 MG/100 ML VIAL IV PRN ×2 (18:11→19:52)
[2021-04-20] MEDS: Fentanyl CADD 100 ML ONE ×2 (19:50→20:07)
[2021-04-20] MEDS ORDERED: fentaNYL Citrate/PF 2,000 MCG in Sodium Chloride 0.9% 60 ML IV SCH (20:00)
[2021-04-20] MEDS: Furosemide 40 MG/4 ML VIAL SLOW IVP SCH (20:04)
[2021-04-20] MEDS: Lorazepam 2 MG/ML VIAL SLOW IVP PRN (21:59)
[2021-04-20] MEDS: cloNIDine 0.1 MG TAB PO PRN (23:40)
[2021-04-21] MEDS: hydrALAZINE 20 MG/ML VIAL SLOW IVP PRN ×3 (01:09→19:07)
[2021-04-21] MEDS: HumaLOG 300 UNITS/3 ML VIAL SC PRN ×4 (03:49→22:27)
[2021-04-21] MEDS: Propofol 1,000 MG/100 ML VIAL IV PRN ×4 (04:22→16:41)
[2021-04-21] MEDS: methylPREDNISolone Sod Succ 40 MG VIAL IVP SCH ×3 (06:10→17:03)
[2021-04-21 06:59] LABS: #Lymphocytes 0.4 thou/uL (1.20-3.40); #Monocytes 0.2 thou/uL (0.11-0.59); #Neutrophils 3.2 thou/uL (1.40-6.50); %Lymphocytes 10.7 % (21.0-51.0); %Monocytes 5.3 % (0.0-10.0); %Neutrophils 83.9 % (42.0-75.0); Hemoglobin 8.6 g/dL (14.0-18.0); Mean Corpuscular HGB CONC 33.5 g/dL (32.0-36.0); Mean Corpuscular Volume 89.7 fL (78.0-98.0); Mean Platelet Volume 8.9 fL (7.4-10.4); Platelet Count 65 thou/uL (130-400); RBC Distribution Width 13.4 % (11.5-14.5); Red Blood Cell (RBC) Count 2.88 mill/uL (4.70-6.10); White Blood Cell (WBC) Count 3.8 thou/uL (4.8-10.8)
[2021-04-21 07:20] LABS: ALT (SGPT) 14 U/L (8-55); AST (SGOT) 7 U/L (5-34); Albumin 2.5 g/dL (3.4-4.8); Alkaline Phosphatase 70 U/L (40-110); Anion Gap 13 mmol/L (10-20); BUN (Urea Nitrogen) 55 mg/dL (8.4-25.7); Bilirubin, Total 0.3 mg/dL (0.2-1.2); Calc. Creatinine Clearance 34 mL/min (70-130); Calcium 8.1 mg/dL (7.8-10.44); Carbon Dioxide 24 mmol/L (23-31); Chloride 100 mmol/L (98-107); Globulin 2.2 g/dL (2.4-3.5); Glucose 351 mg/dL (80-115); Magnesium 2.2 mg/dL (1.6-2.6); Phosphorus 4.4 mg/dL (2.3-4.7); Potassium 3.7 mmol/L (3.5-5.1); Protein, Total 4.7 g/dL (5.8-8.1); Sodium 133 mmol/L (136-145)
[2021-04-21] MEDS: Furosemide 40 MG/4 ML VIAL SLOW IVP SCH ×2 (07:32→21:11)
[2021-04-21] MEDS: Fentanyl CADD 100 ML ONE (07:34)
[2021-04-21] MEDS: Carvedilol 25 MG TAB PO SCH ×2 (08:02→16:42)
[2021-04-21] MEDS: NIFEdipine XL 30 MG TAB PO SCH ×2 (08:02→08:23)
[2021-04-21] MEDS: Famotidine/PF 20 mg/2ml Vial SLOW IVP SCH (08:02)
[2021-04-21] MEDS: Mometasone 100 MCG/Formoterol 5 MCG 120 PUFF INHALER INH SCH ×2 (08:27→19:26)
[2021-04-21 09:10] LABS: Actual Bicarbonate (HCO3a) 23.7 mEq/L (22-28); Base Excess (BEa) -0.1 mEq/L (-2.0 to +3.0); Calcium, Ionized (arterial) 1.12 mmol/L (1.12-1.30); Hemoglobin (Hb) 9.2 g/dL (14.0-18.0); O2 Tension (PaO2), arterial 69.4 mmHg (> 80.0); Potassium - ABG Lab 3.58 mmol/L (3.70-5.30); pH, Arterial 7.45 (7.35-7.45)
[2021-04-21 09:29] LABS: Puncture Site RRA
[2021-04-21] MEDS: levETIRAcetam in NS 500 MG in Premix Bag 1 BAG IVPB SCH ×2 (10:43→21:11)
[2021-04-21] MEDS: NIFEdipine 10 MG CAP PER TUBE SCH ×3 (10:43→21:11)
[2021-04-21] MEDS: Levofloxacin 750 mg/D5W 500 MG in Premix Bag 1 BAG IVPB SCH (13:00)
[2021-04-21] MEDS: cloNIDine 0.1 MG TAB PO PRN (13:44)
[2021-04-21] MEDS ORDERED: Fentanyl CADD 100 ML ONE (20:36)
[2021-04-22] MEDS: methylPREDNISolone Sod Succ 40 MG VIAL IVP SCH ×4 (00:10→21:00)
[2021-04-22] MEDS: hydrALAZINE 20 MG/ML VIAL SLOW IVP PRN ×2 (02:18→05:35)
[2021-04-22] MEDS: Propofol 1,000 MG/100 ML VIAL IV PRN ×3 (02:23→15:42)
[2021-04-22 04:23] LABS: #Lymphocytes 0.5 thou/uL (1.20-3.40); #Monocytes 0.2 thou/uL (0.11-0.59); #Neutrophils 3.5 thou/uL (1.40-6.50); %Eosinophils 0.3 % (0.0-10.0); %Lymphocytes 12.5 % (21.0-51.0); %Neutrophils 82.2 % (42.0-75.0); Hemoglobin 10.2 g/dL (14.0-18.0); Mean Corpuscular HGB CONC 32.6 g/dL (32.0-36.0); Mean Corpuscular Hemoglobin 29.4 pg (27.0-31.0); Mean Corpuscular Volume 90.1 fL (78.0-98.0); Mean Platelet Volume 9.9 fL (7.4-10.4); Platelet Count 68 thou/uL (130-400); RBC Distribution Width 13.4 % (11.5-14.5); Red Blood Cell (RBC) Count 3.47 mill/uL (4.70-6.10); White Blood Cell (WBC) Count 4.3 thou/uL (4.8-10.8)
[2021-04-22 04:46] LABS: ALT (SGPT) 12 U/L (8-55); AST (SGOT) 6 U/L (5-34); Albumin 2.8 g/dL (3.4-4.8); Alkaline Phosphatase 77 U/L (40-110); Anion Gap 14 mmol/L (10-20); BUN (Urea Nitrogen) 57 mg/dL (8.4-25.7); Bilirubin, Total 0.3 mg/dL (0.2-1.2); Calc. Creatinine Clearance 35 mL/min (70-130); Calcium 8.2 mg/dL (7.8-10.44); Carbon Dioxide 25 mmol/L (23-31); Chloride 97 mmol/L (98-107); Globulin 2.3 g/dL (2.4-3.5); Glucose 423 mg/dL (80-115); Phosphorus 4.4 mg/dL (2.3-4.7); Potassium 3.9 mmol/L (3.5-5.1); Protein, Total 5.1 g/dL (5.8-8.1); Sodium 132 mmol/L (136-145)
[2021-04-22] MEDS: HumaLOG 300 UNITS/3 ML VIAL SC PRN ×4 (05:05→22:22)
[2021-04-22] MEDS ORDERED: Magnesium 2 GM/50 ML 2 GM in Premix Bag 1 BAG IVPB SCH (06:30)
[2021-04-22] MEDS: Famotidine/PF 20 mg/2ml Vial SLOW IVP SCH (07:19)
[2021-04-22] MEDS: levETIRAcetam in NS 500 MG in Premix Bag 1 BAG IVPB SCH (07:19)
[2021-04-22] MEDS: Furosemide 40 MG/4 ML VIAL SLOW IVP SCH ×3 (07:19→21:00)
[2021-04-22] MEDS: NIFEdipine 10 MG CAP PER TUBE SCH ×3 (07:19→21:00)
[2021-04-22] MEDS: Carvedilol 25 MG TAB PO SCH ×2 (07:20→15:42)
[2021-04-22] MEDS: Lorazepam 2 MG/ML VIAL SLOW IVP PRN ×4 (08:20→21:01)
[2021-04-22] MEDS: Mometasone 100 MCG/Formoterol 5 MCG 120 PUFF INHALER INH SCH ×2 (08:44→18:51)
[2021-04-22 08:55] LABS: Actual Bicarbonate (HCO3a) 26.5 mEq/L (22-28); Base Excess (BEa) 3.3 mEq/L (-2.0 to +3.0); CO2 Tension 34.9 mmHg (35.0-45.0); Calcium, Ionized (arterial) 1.15 mmol/L (1.12-1.30); Carboxyhemoglobin (COHb) 0.9 gm% (0.0-3.0); Hemoglobin (Hb) 9.8 g/dL (14.0-18.0); O2 Tension (PaO2), arterial 72.9 mmHg (> 80.0); Potassium - ABG Lab 3.49 mmol/L (3.70-5.30)
[2021-04-22 08:58] LABS: ALV-art Gradient 97.375 mmHg (0-20); Puncture Site RRA
[2021-04-22] MEDS ORDERED: Fentanyl CADD 100 ML ONE (09:10)
[2021-04-22] MEDS: Fentanyl CADD 100 ML ONE (09:14)
[2021-04-22] MEDS: Levofloxacin 750 mg/D5W 500 MG in Premix Bag 1 BAG IVPB SCH (09:57)
[2021-04-22] MEDS ORDERED: Haloperidol Lactate 5 MG/ML VIAL SLOW IVP SCH (10:45)
[2021-04-22] MEDS: NPH, Human Insulin Isophane 300 UNIT/3 ML VIAL SC SCH (21:00)
[2021-04-23] MEDS: hydrALAZINE 20 MG/ML VIAL SLOW IVP PRN ×2 (02:23→06:13)
[2021-04-23] MEDS: Lorazepam 2 MG/ML VIAL SLOW IVP PRN ×2 (02:43→11:35)
[2021-04-23] MEDS: Labetalol HCl 100 MG/20 ML VIAL SLOW IVP PRN (04:05)
[2021-04-23] MEDS: Carvedilol 25 MG TAB PO SCH ×2 (07:44→17:11)
[2021-04-23] MEDS: methylPREDNISolone Sod Succ 40 MG VIAL IVP SCH ×2 (07:45→19:47)
[2021-04-23] MEDS: NIFEdipine 10 MG CAP PER TUBE SCH ×3 (07:45→19:48)
[2021-04-23] MEDS: Furosemide 40 MG/4 ML VIAL SLOW IVP SCH ×2 (07:45→19:47)
[2021-04-23] MEDS: NPH, Human Insulin Isophane 300 UNIT/3 ML VIAL SC SCH ×2 (07:46→19:48)
[2021-04-23] MEDS: Mometasone 100 MCG/Formoterol 5 MCG 120 PUFF INHALER INH SCH ×2 (08:33→18:33)
[2021-04-23] MEDS ORDERED: Famotidine 20 MG TAB PER TUBE SCH (09:45)
[2021-04-23] MEDS: HumaLOG 300 UNITS/3 ML VIAL SC PRN ×2 (10:11→16:02)
[2021-04-23] MEDS ORDERED: Lorazepam 2 MG/ML VIAL ONE (11:42)
[2021-04-23] MEDS ORDERED: Fentanyl CADD 100 ML ONE (11:49)
[2021-04-23] MEDS: Famotidine/PF 20 mg/2ml Vial SLOW IVP SCH (11:58)
[2021-04-23] MEDS: Propofol 1,000 MG/100 ML VIAL IV PRN (12:58)
[2021-04-23] MEDS ORDERED: Lorazepam 2 MG/ML VIAL SLOW IVP PRN (14:45)
[2021-04-24] MEDS: hydrALAZINE 20 MG/ML VIAL SLOW IVP PRN ×2 (02:51→11:19)
[2021-04-24] MEDS: cloNIDine 0.1 MG TAB PO PRN (04:46)
[2021-04-24 05:02] LABS: Anion Gap 13 mmol/L (10-20); BUN (Urea Nitrogen) 51 mg/dL (8.4-25.7); Calc. Creatinine Clearance 42 mL/min (70-130); Calcium 8.5 mg/dL (7.8-10.44); Carbon Dioxide 29 mmol/L (23-31); Chloride 99 mmol/L (98-107); Glucose 330 mg/dL (80-115); Potassium 3.9 mmol/L (3.5-5.1); Sodium 137 mmol/L (136-145)
[2021-04-24 05:03] LABS: Hemoglobin 8.8 g/dL (14.0-18.0); Mean Corpuscular HGB CONC 32.4 g/dL (32.0-36.0); Mean Corpuscular Hemoglobin 28.9 pg (27.0-31.0); Mean Corpuscular Volume 89.3 fL (78.0-98.0); Mean Platelet Volume 10.2 fL (7.4-10.4); Platelet Count 60 thou/uL (130-400); RBC Distribution Width 13.2 % (11.5-14.5); Red Blood Cell (RBC) Count 3.03 mill/uL (4.70-6.10); White Blood Cell (WBC) Count 4.2 thou/uL (4.8-10.8)
[2021-04-24] MEDS: HumaLOG 300 UNITS/3 ML VIAL SC PRN ×3 (05:30→15:46)
[2021-04-24] MEDS: Labetalol HCl 100 MG/20 ML VIAL SLOW IVP PRN ×4 (06:34→19:36)
[2021-04-24 06:41] LABS: Band 2 % (5-11); Lymphocytes 19 % (21-51); MDiff Complete? YES; Monocytes 4 % (0-10); Neutrophil 75 % (42-75); Platelet Morphology Comment Appears Decreased
[2021-04-24] MEDS: Carvedilol 25 MG TAB PO SCH ×2 (07:27→17:06)
[2021-04-24] MEDS: Furosemide 40 MG/4 ML VIAL SLOW IVP SCH (07:28)
[2021-04-24] MEDS: methylPREDNISolone Sod Succ 40 MG VIAL IVP SCH ×2 (07:28→20:20)
[2021-04-24] MEDS: Famotidine 20 MG TAB PER TUBE SCH (07:28)
[2021-04-24] MEDS: NPH, Human Insulin Isophane 300 UNIT/3 ML VIAL SC SCH ×2 (07:29→21:04)
[2021-04-24] MEDS: NIFEdipine 10 MG CAP PER TUBE SCH ×3 (07:29→19:47)
[2021-04-24] MEDS ORDERED: DC Sedation Protocol FS ONE (08:36)
[2021-04-24] MEDS: Mometasone 100 MCG/Formoterol 5 MCG 120 PUFF INHALER INH SCH ×2 (08:57→18:38)
[2021-04-24] MEDS ORDERED: fentaNYL 50 mcg/hour Patch TD SCH (09:00)
[2021-04-24] MEDS ORDERED: niCARdipine 25 MG in Sodium Chloride 0.9% 250 ML 250 ML IVPB SCH (15:30)
[2021-04-25] MEDS: niCARdipine 25 MG in Sodium Chloride 0.9% 250 ML 240 ML IVPB SCH ×2 (02:18→07:18)
[2021-04-25 04:16] LABS: #Lymphocytes 0.8 thou/uL (1.20-3.40); #Monocytes 0.3 thou/uL (0.11-0.59); #Neutrophils 6.5 thou/uL (1.40-6.50); %Basophils 0.1 % (0.0-1.0); %Eosinophils 0.3 % (0.0-10.0); %Lymphocytes 10.5 % (21.0-51.0); %Neutrophils 85.1 % (42.0-75.0); Hemoglobin 10.9 g/dL (14.0-18.0); Mean Corpuscular HGB CONC 32.3 g/dL (32.0-36.0); Mean Corpuscular Volume 89.6 fL (78.0-98.0); Mean Platelet Volume 10.2 fL (7.4-10.4); Platelet Count 82 thou/uL (130-400); RBC Distribution Width 13.4 % (11.5-14.5); Red Blood Cell (RBC) Count 3.76 mill/uL (4.70-6.10); White Blood Cell (WBC) Count 7.6 thou/uL (4.8-10.8)
[2021-04-25 04:38] LABS: Anion Gap 16 mmol/L (10-20); BUN (Urea Nitrogen) 40 mg/dL (8.4-25.7); Calc. Creatinine Clearance 49 mL/min (70-130); Calcium 8.4 mg/dL (7.8-10.44); Carbon Dioxide 27 mmol/L (23-31); Chloride 102 mmol/L (98-107); Glucose 189 mg/dL (80-115); Potassium 3.4 mmol/L (3.5-5.1); Sodium 142 mmol/L (136-145)
[2021-04-25] MEDS ORDERED: Potassium Chloride 20 MEQ TAB PO SCH (06:45)
[2021-04-25] MEDS ORDERED: Potassium Chloride 40 MEQ in Sodium Chloride 0.9% 250 ML 250 ML IVPB SCH (08:00)
[2021-04-25] MEDS: Mometasone 100 MCG/Formoterol 5 MCG 120 PUFF INHALER INH SCH ×2 (08:34→20:00)
[2021-04-25] MEDS: Carvedilol 25 MG TAB PO SCH ×2 (09:13→16:21)
[2021-04-25] MEDS: methylPREDNISolone Sod Succ 40 MG VIAL IVP SCH ×2 (09:13→20:53)
[2021-04-25] MEDS: NIFEdipine 10 MG CAP PER TUBE SCH ×3 (09:13→21:59)
[2021-04-25] MEDS: NPH, Human Insulin Isophane 300 UNIT/3 ML VIAL SC SCH ×2 (09:14→20:53)
[2021-04-25] MEDS: Famotidine 20 MG TAB PER TUBE SCH ×2 (09:17→09:41)
[2021-04-25 13:05] LABS: SARS-CoV-2 NAA Rapid Test Not Detected (NotDetected)
[2021-04-25] MEDS: hydrALAZINE 20 MG/ML VIAL SLOW IVP PRN ×3 (13:53→23:12)
[2021-04-25] MEDS: HumaLOG 300 UNITS/3 ML VIAL SC PRN (16:42)
[2021-04-25] MEDS ORDERED: HYDROcodone/Acetaminophen 5/325 mg Tablet PO PRN (21:23)
[2021-04-25] MEDS ORDERED: Melatonin 3 MG TAB PO PRN (21:23)
[2021-04-26] MEDS: hydrALAZINE 20 MG/ML VIAL SLOW IVP PRN (03:43)
[2021-04-26 04:13] LABS: Anion Gap 15 mmol/L (10-20); BUN (Urea Nitrogen) 37 mg/dL (8.4-25.7); Calc. Creatinine Clearance 52 mL/min (70-130); Calcium 8.9 mg/dL (7.8-10.44); Carbon Dioxide 25 mmol/L (23-31); Chloride 105 mmol/L (98-107); Glucose 144 mg/dL (80-115); Potassium 3.9 mmol/L (3.5-5.1); Sodium 141 mmol/L (136-145)
[2021-04-26 04:44] LABS: #Lymphocytes 0.8 thou/uL (1.20-3.40); #Monocytes 0.2 thou/uL (0.11-0.59); #Neutrophils 7.5 thou/uL (1.40-6.50); %Eosinophils 0.4 % (0.0-10.0); %Lymphocytes 9.8 % (21.0-51.0); %Monocytes 1.8 % (0.0-10.0); %Neutrophils 87.9 % (42.0-75.0); Hemoglobin 9.5 g/dL (14.0-18.0); Mean Corpuscular Hemoglobin 28.8 pg (27.0-31.0); Mean Corpuscular Volume 90.1 fL (78.0-98.0); Mean Platelet Volume 10.1 fL (7.4-10.4); Platelet Count 92 thou/uL (130-400); RBC Distribution Width 13.5 % (11.5-14.5); Red Blood Cell (RBC) Count 3.28 mill/uL (4.70-6.10); White Blood Cell (WBC) Count 8.5 thou/uL (4.8-10.8)
[2021-04-26] MEDS: cloNIDine 0.1 MG TAB PO PRN (08:04)
[2021-04-26] MEDS: Carvedilol 25 MG TAB PO SCH ×2 (08:04→17:33)
[2021-04-26] MEDS: NIFEdipine 10 MG CAP PER TUBE SCH ×3 (08:05→20:22)
[2021-04-26] MEDS: methylPREDNISolone Sod Succ 40 MG VIAL IVP SCH (08:05)
[2021-04-26] MEDS: Famotidine/PF 20 mg/2ml Vial SLOW IVP SCH (08:05)
[2021-04-26] MEDS: Mometasone 100 MCG/Formoterol 5 MCG 120 PUFF INHALER INH SCH ×2 (08:08→19:04)
[2021-04-26] MEDS: NPH, Human Insulin Isophane 300 UNIT/3 ML VIAL SC SCH ×2 (09:59→20:22)
[2021-04-26] MEDS ORDERED: Temazepam 15 MG CAP PO PRN (17:26)
[2021-04-26] MEDS ORDERED: Enalaprilat Dihydrate 1.25 MG/ML VIAL SLOW IVP SCH (18:00)
[2021-04-26] MEDS: hydrALAZINE 25 MG TAB PO SCH (21:58)
[2021-04-26] MEDS: NIFEdipine XL 30 MG TAB PO SCH (21:58)
[2021-04-26] MEDS: Atorvastatin Calcium 40 MG TAB PO SCH (21:58)
[2021-04-26] MEDS: cloNIDine 0.1 MG TAB PO SCH (22:49)
[2021-04-27] MEDS ORDERED: Enalaprilat Dihydrate 1.25 MG/ML VIAL ONE ×2 (04:06→09:10)
[2021-04-27] MEDS: Mometasone 100 MCG/Formoterol 5 MCG 120 PUFF INHALER INH SCH ×2 (07:00→18:40)
[2021-04-27] MEDS: cloNIDine 0.1 MG TAB PO SCH (07:36)
[2021-04-27] MEDS ORDERED: cloNIDine 0.3mg/24 Hour PATCH TD SCH (09:00)
[2021-04-27 09:23] LABS: #Lymphocytes 1.1 thou/uL (1.20-3.40); #Monocytes 0.4 thou/uL (0.11-0.59); #Neutrophils 3.9 thou/uL (1.40-6.50); %Basophils 0.2 % (0.0-1.0); %Eosinophils 0.2 % (0.0-10.0); %Lymphocytes 20.9 % (21.0-51.0); %Neutrophils 71.8 % (42.0-75.0); Hemoglobin 10.9 g/dL (14.0-18.0); Mean Corpuscular Hemoglobin 29.5 pg (27.0-31.0); Mean Corpuscular Volume 89.6 fL (78.0-98.0); Mean Platelet Volume 9.2 fL (7.4-10.4); Platelet Count 85 thou/uL (130-400); RBC Distribution Width 13.9 % (11.5-14.5); White Blood Cell (WBC) Count 5.5 thou/uL (4.8-10.8)
[2021-04-27 09:30] LABS: Anion Gap 12 mmol/L (10-20); BUN (Urea Nitrogen) 36 mg/dL (8.4-25.7); Calc. Creatinine Clearance 50 mL/min (70-130); Calcium 8.4 mg/dL (7.8-10.44); Carbon Dioxide 30 mmol/L (23-31); Chloride 102 mmol/L (98-107); Glucose 206 mg/dL (80-115); Potassium 3.4 mmol/L (3.5-5.1); Sodium 141 mmol/L (136-145)
[2021-04-27] MEDS: Clopidogrel Bisulfate 75 MG TAB PO SCH (09:34)
[2021-04-27] MEDS: predniSONE 20 MG TAB PO SCH (09:34)
[2021-04-27] MEDS: Aspirin 81 mg Enteric Coated Tablet PO SCH (09:34)
[2021-04-27] MEDS: Carvedilol 25 MG TAB PO SCH ×2 (09:34→15:26)
[2021-04-27] MEDS: Famotidine/PF 20 mg/2ml Vial SLOW IVP SCH (09:35)
[2021-04-27] MEDS: Finasteride 5 MG TAB PO SCH (09:35)
[2021-04-27] MEDS: hydrALAZINE 25 MG TAB PO SCH ×3 (09:35→23:39)
[2021-04-27] MEDS: NIFEdipine XL 30 MG TAB PO SCH ×2 (09:36→21:58)
[2021-04-27] MEDS: NPH, Human Insulin Isophane 300 UNIT/3 ML VIAL SC SCH ×2 (09:36→21:58)
[2021-04-27] MEDS ORDERED: Potassium Chloride 20 MEQ TAB PO SCH (12:30)
[2021-04-27] MEDS: Atorvastatin Calcium 40 MG TAB PO SCH (23:39)
[2021-04-28] MEDS ORDERED: Enalaprilat Dihydrate 1.25 MG/ML VIAL SLOW IVP SCH (00:30)
[2021-04-28] MEDS: Enalaprilat Dihydrate 1.25 MG/ML VIAL SLOW IVP SCH ×4 (00:47→17:14)
[2021-04-28] MEDS: Mometasone 100 MCG/Formoterol 5 MCG 120 PUFF INHALER INH SCH ×2 (01:39→11:21)
[2021-04-28 05:45] LABS: #Lymphocytes 1.2 thou/uL (1.20-3.40); #Monocytes 0.7 thou/uL (0.11-0.59); #Neutrophils 4.8 thou/uL (1.40-6.50); %Basophils 0.2 % (0.0-1.0); %Eosinophils 0.1 % (0.0-10.0); %Lymphocytes 18.1 % (21.0-51.0); %Monocytes 9.7 % (0.0-10.0); Hemoglobin 10.6 g/dL (14.0-18.0); Mean Corpuscular HGB CONC 30.8 g/dL (32.0-36.0); Mean Corpuscular Hemoglobin 27.7 pg (27.0-31.0); Mean Corpuscular Volume 89.9 fL (78.0-98.0); Mean Platelet Volume 9.4 fL (7.4-10.4); Platelet Count 89 thou/uL (130-400); RBC Distribution Width 13.7 % (11.5-14.5); Red Blood Cell (RBC) Count 3.82 mill/uL (4.70-6.10); White Blood Cell (WBC) Count 6.7 thou/uL (4.8-10.8)
[2021-04-28 06:02] LABS: Anion Gap 16 mmol/L (10-20); BUN (Urea Nitrogen) 32 mg/dL (8.4-25.7); Calc. Creatinine Clearance 56 mL/min (70-130); Calcium 8.1 mg/dL (7.8-10.44); Carbon Dioxide 23 mmol/L (23-31); Chloride 107 mmol/L (98-107); Glucose 179 mg/dL (80-115); Potassium 3.4 mmol/L (3.5-5.1); Sodium 143 mmol/L (136-145)
[2021-04-28] MEDS ORDERED: Potassium Chloride 20 MEQ TAB PO SCH (06:30)
[2021-04-28] MEDS ORDERED: Potassium Chloride 40 MEQ in Sodium Chloride 0.9% 250 ML 250 ML IVPB SCH (08:00)
[2021-04-28] MEDS: hydrALAZINE 25 MG TAB PO SCH ×3 (11:36→22:03)
[2021-04-28] MEDS: Clopidogrel Bisulfate 75 MG TAB PO SCH (11:44)
[2021-04-28] MEDS: Carvedilol 25 MG TAB PO SCH ×2 (11:44→17:14)
[2021-04-28] MEDS: Finasteride 5 MG TAB PO SCH (11:45)
[2021-04-28] MEDS: NIFEdipine XL 30 MG TAB PO SCH ×2 (11:45→22:03)
[2021-04-28] MEDS: predniSONE 20 MG TAB PO SCH (11:45)
[2021-04-28] MEDS: Aspirin 81 mg Enteric Coated Tablet PO SCH (11:46)
[2021-04-28] MEDS: Famotidine/PF 20 mg/2ml Vial SLOW IVP SCH (11:47)
[2021-04-28] MEDS: NPH, Human Insulin Isophane 300 UNIT/3 ML VIAL SC SCH ×2 (11:49→22:04)
[2021-04-28] MEDS: HumaLOG 300 UNITS/3 ML VIAL SC PRN (17:15)
[2021-04-28] MEDS: Atorvastatin Calcium 40 MG TAB PO SCH (22:03)
[2021-04-28] MEDS: Sodium Bicarbonate Tab 325 MG TAB PER TUBE PRN (23:00)
[2021-04-28] MEDS: Pancrelipase DR 12,000 1 CAP FS PRN (23:00)
[2021-04-29] MEDS: Enalaprilat Dihydrate 1.25 MG/ML VIAL SLOW IVP SCH ×3 (05:16→18:32)
[2021-04-29 05:50] LABS: #Monocytes 0.9 thou/uL (0.11-0.59); #Neutrophils 10.9 thou/uL (1.40-6.50); %Basophils 0.1 % (0.0-1.0); %Eosinophils 0.1 % (0.0-10.0); %Lymphocytes 7.6 % (21.0-51.0); %Neutrophils 85.2 % (42.0-75.0); Hemoglobin 10.6 g/dL (14.0-18.0); Mean Corpuscular HGB CONC 34.2 g/dL (32.0-36.0); Mean Corpuscular Hemoglobin 30.9 pg (27.0-31.0); Mean Corpuscular Volume 90.4 fL (78.0-98.0); Mean Platelet Volume 9.5 fL (7.4-10.4); Platelet Count 97 thou/uL (130-400); RBC Distribution Width 13.8 % (11.5-14.5); Red Blood Cell (RBC) Count 3.44 mill/uL (4.70-6.10); White Blood Cell (WBC) Count 12.8 thou/uL (4.8-10.8)
[2021-04-29 06:21] LABS: Anion Gap 21 mmol/L (10-20); BUN (Urea Nitrogen) 44 mg/dL (8.4-25.7); Calc. Creatinine Clearance 53 mL/min (70-130); Calcium 8.4 mg/dL (7.8-10.44); Carbon Dioxide 17 mmol/L (23-31); Chloride 108 mmol/L (98-107); Glucose 348 mg/dL (80-115); Potassium 4.3 mmol/L (3.5-5.1); Sodium 142 mmol/L (136-145)
[2021-04-29] MEDS: HumaLOG 300 UNITS/3 ML VIAL SC PRN ×2 (06:45→17:12)
[2021-04-29] MEDS: Mometasone 100 MCG/Formoterol 5 MCG 120 PUFF INHALER INH SCH ×2 (07:10→20:06)
[2021-04-29] MEDS ORDERED: NPH, Human Insulin Isophane 300 UNIT/3 ML VIAL SC SCH (09:45)
[2021-04-29] MEDS ORDERED: Vancomycin 1 GM in Premix Bag 1 BAG IVPB SCH ×2 (11:37→21:00)
[2021-04-29] MEDS: Vancomycin 1.5 GRAM/300 ML BAG 1.5 GM in Premix Bag 1 BAG IVPB SCH (11:59)
[2021-04-29] MEDS: hydrALAZINE 20 MG/ML VIAL SLOW IVP PRN (12:12)
[2021-04-29] MEDS: Carvedilol 25 MG TAB PO SCH ×2 (12:19→16:11)
[2021-04-29] MEDS: Clopidogrel Bisulfate 75 MG TAB PO SCH (12:20)
[2021-04-29] MEDS: Aspirin 81 mg Enteric Coated Tablet PO SCH (12:20)
[2021-04-29] MEDS: Finasteride 5 MG TAB PO SCH (12:20)
[2021-04-29] MEDS: predniSONE 20 MG TAB PO SCH (12:20)
[2021-04-29] MEDS: NIFEdipine XL 30 MG TAB PO SCH ×3 (12:21→22:29)
[2021-04-29] MEDS: hydrALAZINE 25 MG TAB PO SCH ×4 (12:21→22:23)
[2021-04-29] MEDS: Cefepime 2 GM in Sodium Chloride 0.9% 100 ML IVPB SCH (12:25)
[2021-04-29] MEDS: Famotidine/PF 20 mg/2ml Vial SLOW IVP SCH (12:37)
[2021-04-29] MEDS: NPH, Human Insulin Isophane 300 UNIT/3 ML VIAL SC SCH ×2 (12:38→22:24)
[2021-04-29 12:40] LABS: Actual Bicarbonate (HCO3a) 23.2 mEq/L (22-28); Base Excess (BEa) 0.3 mEq/L (-2.0 to +3.0); CO2 Tension 31.7 mmHg (35.0-45.0); Calcium, Ionized (arterial) 1.13 mmol/L (1.12-1.30); Carboxyhemoglobin (COHb) 1.5 gm% (0.0-3.0); Hemoglobin (Hb) 11.1 g/dL (14.0-18.0); Potassium - ABG Lab 3.69 mmol/L (3.70-5.30); pH, Arterial 7.48 (7.35-7.45)
[2021-04-29 12:43] LABS: O2 Tension (PaO2), arterial 52.2 mmHg (> 80.0)
[2021-04-29 12:45] LABS: Puncture Site LRA
[2021-04-29] MEDS: cloNIDine 0.1 MG TAB PO SCH ×3 (15:12→22:22)
[2021-04-29] MEDS: Atorvastatin Calcium 40 MG TAB PO SCH ×2 (19:58→22:25)
[2021-04-29] MEDS ORDERED: Cefepime 2 GM in Sodium Chloride 0.9% 100 ML IVPB SCH (21:00)
[2021-04-29] MEDS: Acetaminophen 650 MG Suppository PR PRN (21:14)
[2021-04-30] MEDS: Pancrelipase DR 12,000 1 CAP FS PRN (00:12)
[2021-04-30] MEDS: Sodium Bicarbonate Tab 325 MG TAB PER TUBE PRN (00:51)
[2021-04-30] MEDS: Cefepime 2 GM in Sodium Chloride 0.9% 100 ML IVPB SCH ×3 (00:51→23:50)
[2021-04-30] MEDS: Enalaprilat Dihydrate 1.25 MG/ML VIAL SLOW IVP SCH ×5 (01:01→23:50)
[2021-04-30] MEDS: hydrALAZINE 20 MG/ML VIAL SLOW IVP PRN (01:49)
[2021-04-30] MEDS: cloNIDine 0.1 MG TAB PO SCH ×4 (04:22→21:42)
[2021-04-30] MEDS: Atorvastatin Calcium 40 MG TAB PO SCH ×2 (04:24→21:21)
[2021-04-30] MEDS: hydrALAZINE 25 MG TAB PO SCH ×4 (04:24→21:21)
[2021-04-30] MEDS: Labetalol HCl 100 MG/20 ML VIAL SLOW IVP PRN (07:23)
[2021-04-30] MEDS: Acetaminophen 650 MG Suppository PR PRN (07:30)
[2021-04-30 08:18] LABS: #Lymphocytes 1.2 thou/uL (1.20-3.40); #Monocytes 0.8 thou/uL (0.11-0.59); #Neutrophils 7.2 thou/uL (1.40-6.50); %Eosinophils 0.1 % (0.0-10.0); %Lymphocytes 13.3 % (21.0-51.0); %Monocytes 8.4 % (0.0-10.0); %Neutrophils 78.2 % (42.0-75.0); Hemoglobin 10.8 g/dL (14.0-18.0); Mean Corpuscular HGB CONC 31.2 g/dL (32.0-36.0); Mean Corpuscular Hemoglobin 28.5 pg (27.0-31.0); Mean Corpuscular Volume 91.2 fL (78.0-98.0); Mean Platelet Volume 9.8 fL (7.4-10.4); Platelet Count 100 thou/uL (130-400); RBC Distribution Width 14.6 % (11.5-14.5); White Blood Cell (WBC) Count 9.2 thou/uL (4.8-10.8)
[2021-04-30 08:31] LABS: Anion Gap 18 mmol/L (10-20); BUN (Urea Nitrogen) 49 mg/dL (8.4-25.7); Calc. Creatinine Clearance 49 mL/min (70-130); Calcium 8.1 mg/dL (7.8-10.44); Carbon Dioxide 21 mmol/L (23-31); Chloride 113 mmol/L (98-107); Glucose 192 mg/dL (80-115); Potassium 3.6 mmol/L (3.5-5.1); Sodium 148 mmol/L (136-145)
[2021-04-30] MEDS: Mometasone 100 MCG/Formoterol 5 MCG 120 PUFF INHALER INH SCH ×2 (09:27→21:29)
[2021-04-30] MEDS: Aspirin 81 mg Enteric Coated Tablet PO SCH (09:28)
[2021-04-30] MEDS: Carvedilol 25 MG TAB PO SCH ×2 (09:28→17:11)
[2021-04-30] MEDS: predniSONE 20 MG TAB PO SCH (09:28)
[2021-04-30] MEDS: Finasteride 5 MG TAB PO SCH (09:28)
[2021-04-30] MEDS: Clopidogrel Bisulfate 75 MG TAB PO SCH (09:28)
[2021-04-30] MEDS: NPH, Human Insulin Isophane 300 UNIT/3 ML VIAL SC SCH ×2 (09:29→21:27)
[2021-04-30] MEDS: NIFEdipine XL 30 MG TAB PO SCH ×2 (09:29→21:22)
[2021-04-30] MEDS: Famotidine/PF 20 mg/2ml Vial SLOW IVP SCH (10:12)
[2021-04-30] MEDS: Dextrose 5% in Water 1,000 ML IV SCH (13:03)
[2021-04-30] MEDS: methylPREDNISolone Sod Succ 40 MG VIAL IVP SCH ×3 (13:04→23:51)
[2021-04-30] MEDS: Vancomycin 1.5 GRAM/300 ML BAG 1.5 GM in Premix Bag 1 BAG IVPB SCH (15:44)
[2021-04-30] MEDS: HumaLOG 300 UNITS/3 ML VIAL SC PRN (17:04)
[2021-05-01] MEDS: cloNIDine 0.1 MG TAB PO SCH ×3 (05:28→22:29)
[2021-05-01] MEDS: Enalaprilat Dihydrate 1.25 MG/ML VIAL SLOW IVP SCH ×4 (05:28→23:46)
[2021-05-01] MEDS: methylPREDNISolone Sod Succ 40 MG VIAL IVP SCH ×4 (05:29→23:47)
[2021-05-01] MEDS: HumaLOG 300 UNITS/3 ML VIAL SC PRN ×2 (05:30→11:37)
[2021-05-01] MEDS: Dextrose 5% in Water 1,000 ML IV SCH ×2 (05:42→18:41)
[2021-05-01] MEDS: Carvedilol 25 MG TAB PO SCH ×2 (07:58→14:21)
[2021-05-01] MEDS: Clopidogrel Bisulfate 75 MG TAB PO SCH (07:59)
[2021-05-01] MEDS: Finasteride 5 MG TAB PO SCH (07:59)
[2021-05-01] MEDS: hydrALAZINE 25 MG TAB PO SCH ×3 (07:59→21:13)
[2021-05-01] MEDS: Aspirin 81 mg Enteric Coated Tablet PO SCH (07:59)
[2021-05-01] MEDS: NIFEdipine XL 30 MG TAB PO SCH ×2 (07:59→21:13)
[2021-05-01] MEDS: NPH, Human Insulin Isophane 300 UNIT/3 ML VIAL SC SCH ×2 (08:19→21:16)
[2021-05-01] MEDS: Famotidine/PF 20 mg/2ml Vial SLOW IVP SCH (08:20)
[2021-05-01] MEDS: Mometasone 100 MCG/Formoterol 5 MCG 120 PUFF INHALER INH SCH ×2 (09:43→19:28)
[2021-05-01 10:33] LABS: #Lymphocytes 0.5 thou/uL (1.20-3.40); #Monocytes 0.3 thou/uL (0.11-0.59); %Lymphocytes 8.8 % (21.0-51.0); %Monocytes 4.3 % (0.0-10.0); %Neutrophils 86.9 % (42.0-75.0); Hemoglobin 8.6 g/dL (14.0-18.0); Mean Corpuscular HGB CONC 31.5 g/dL (32.0-36.0); Mean Corpuscular Hemoglobin 29.3 pg (27.0-31.0); Mean Corpuscular Volume 92.9 fL (78.0-98.0); Mean Platelet Volume 9.8 fL (7.4-10.4); Platelet Count 83 thou/uL (130-400); RBC Distribution Width 14.3 % (11.5-14.5); Red Blood Cell (RBC) Count 2.95 mill/uL (4.70-6.10); White Blood Cell (WBC) Count 5.8 thou/uL (4.8-10.8)
[2021-05-01] MEDS: Famotidine 20 MG TAB PO SCH (10:34)
[2021-05-01] MEDS: Aspirin Chewable 81 MG TAB PO SCH (10:34)
[2021-05-01 10:58] LABS: Anion Gap 12 mmol/L (10-20); BUN (Urea Nitrogen) 63 mg/dL (8.4-25.7); Calc. Creatinine Clearance 44 mL/min (70-130); Carbon Dioxide 23 mmol/L (23-31); Chloride 115 mmol/L (98-107); Glucose 312 mg/dL (80-115); Potassium 3.4 mmol/L (3.5-5.1); Sodium 147 mmol/L (136-145)
[2021-05-01] MEDS ORDERED: Potassium Chloride 20 MEQ TAB PO SCH (11:30)
[2021-05-01] MEDS: Cefepime 2 GM in Sodium Chloride 0.9% 100 ML IVPB SCH ×2 (11:33→23:46)
[2021-05-01] MEDS: hydrALAZINE 20 MG/ML VIAL SLOW IVP PRN ×2 (11:34→21:15)
[2021-05-01 12:10] LABS: Vancomycin, Trough 8.7 ug/mL
[2021-05-01] MEDS: Vancomycin 1.5 GRAM/300 ML BAG 1.5 GM in Premix Bag 1 BAG IVPB SCH (13:58)
[2021-05-01] MEDS: Vancomycin 1 GM in Premix Bag 1 BAG IVPB SCH (15:38)
[2021-05-01] MEDS: Atorvastatin Calcium 40 MG TAB PO SCH (21:12)
[2021-05-01] MEDS: Labetalol HCl 100 MG/20 ML VIAL SLOW IVP PRN (22:21)
[2021-05-02] MEDS: Vancomycin 1 GM in Premix Bag 1 BAG IVPB SCH ×2 (01:06→12:09)
[2021-05-02] MEDS: hydrALAZINE 20 MG/ML VIAL SLOW IVP PRN ×4 (01:10→16:27)
[2021-05-02] MEDS: Labetalol HCl 100 MG/20 ML VIAL SLOW IVP PRN ×3 (02:07→20:12)
[2021-05-02] MEDS: Dextrose 5% in Water 1,000 ML IV SCH ×2 (04:17→15:14)
[2021-05-02] MEDS ORDERED: hydrALAZINE 20 MG/ML VIAL SLOW IVP SCH (04:30)
[2021-05-02] MEDS: cloNIDine 0.1 MG TAB PO SCH (05:24)
[2021-05-02] MEDS: methylPREDNISolone Sod Succ 40 MG VIAL IVP SCH ×4 (05:25→23:13)
[2021-05-02] MEDS: HumaLOG 300 UNITS/3 ML VIAL SC PRN ×2 (05:30→11:28)
[2021-05-02] MEDS: Enalaprilat Dihydrate 1.25 MG/ML VIAL SLOW IVP SCH ×3 (05:39→18:02)
[2021-05-02] MEDS: Famotidine 20 MG TAB PO SCH (08:08)
[2021-05-02] MEDS: Aspirin Chewable 81 MG TAB PO SCH (08:08)
[2021-05-02] MEDS: Clopidogrel Bisulfate 75 MG TAB PO SCH (08:08)
[2021-05-02] MEDS: Finasteride 5 MG TAB PO SCH (08:08)
[2021-05-02] MEDS: Carvedilol 25 MG TAB PO SCH ×2 (08:08→14:14)
[2021-05-02] MEDS: hydrALAZINE 25 MG TAB PO SCH ×3 (08:09→20:22)
[2021-05-02] MEDS: NIFEdipine XL 30 MG TAB PO SCH ×2 (08:09→20:22)
[2021-05-02] MEDS: NPH, Human Insulin Isophane 300 UNIT/3 ML VIAL SC SCH ×2 (08:19→20:36)
[2021-05-02] MEDS: Mometasone 100 MCG/Formoterol 5 MCG 120 PUFF INHALER INH SCH ×2 (09:48→18:34)
[2021-05-02] MEDS: Cefepime 2 GM in Sodium Chloride 0.9% 100 ML IVPB SCH ×2 (11:23→23:12)
[2021-05-02 15:06] LABS: #Lymphocytes 0.5 thou/uL (1.20-3.40); #Monocytes 0.3 thou/uL (0.11-0.59); #Neutrophils 7.6 thou/uL (1.40-6.50); %Eosinophils 0.1 % (0.0-10.0); %Lymphocytes 6.2 % (21.0-51.0); %Neutrophils 90.7 % (42.0-75.0); Hemoglobin 8.5 g/dL (14.0-18.0); Mean Corpuscular HGB CONC 32.3 g/dL (32.0-36.0); Mean Corpuscular Hemoglobin 29.4 pg (27.0-31.0); Mean Corpuscular Volume 90.9 fL (78.0-98.0); Mean Platelet Volume 10.1 fL (7.4-10.4); Platelet Count 86 thou/uL (130-400); RBC Distribution Width 14.3 % (11.5-14.5); Red Blood Cell (RBC) Count 2.91 mill/uL (4.70-6.10); White Blood Cell (WBC) Count 8.4 thou/uL (4.8-10.8)
[2021-05-02 15:18] LABS: Anion Gap 11 mmol/L (10-20); BUN (Urea Nitrogen) 52 mg/dL (8.4-25.7); Calc. Creatinine Clearance 58 mL/min (70-130); Calcium 8.3 mg/dL (7.8-10.44); Carbon Dioxide 22 mmol/L (23-31); Chloride 114 mmol/L (98-107); Glucose 158 mg/dL (80-115); Sodium 144 mmol/L (136-145)
[2021-05-02 15:32] LABS: Potassium 2.8 mmol/L (3.5-5.1)
[2021-05-02] MEDS: Potassium Chloride 40 MEQ in Sodium Chloride 0.9% 250 ML 250 ML IVPB SCH ×2 (16:22→20:13)
[2021-05-02 20:13] VITALS: BP 195/91
[2021-05-02] MEDS: Atorvastatin Calcium 40 MG TAB PO SCH (20:22)
[2021-05-02 20:23] LABS: SARS-CoV-2 PCR by NAA Not Detected (NotDetected)
[2021-05-02] MEDS: Ondansetron PF 4 MG/2 ML Vial IVP PRN (22:59)
[2021-05-03 00:57] LABS: Vancomycin, Trough 26.6 ug/mL
[2021-05-03] MEDS: Enalaprilat Dihydrate 1.25 MG/ML VIAL SLOW IVP SCH ×3 (01:06→12:09)
[2021-05-03] MEDS: Dextrose 5% in Water 1,000 ML IV SCH ×2 (01:13→12:08)
[2021-05-03] MEDS: Vancomycin 1 GM in Premix Bag 1 BAG IVPB SCH (02:02)
[2021-05-03] MEDS: methylPREDNISolone Sod Succ 40 MG VIAL IVP SCH ×2 (06:15→12:09)
[2021-05-03] MEDS: HumaLOG 300 UNITS/3 ML VIAL SC PRN (06:22)
[2021-05-03] MEDS: Ondansetron PF 4 MG/2 ML Vial IVP PRN (06:30)
[2021-05-03 07:29] VITALS: TEMP 97.3
[2021-05-03] MEDS: Aspirin Chewable 81 MG TAB PO SCH (08:05)
[2021-05-03] MEDS: Carvedilol 25 MG TAB PO SCH (08:05)
[2021-05-03] MEDS: Clopidogrel Bisulfate 75 MG TAB PO SCH (08:05)
[2021-05-03] MEDS: Famotidine 20 MG TAB PO SCH (08:06)
[2021-05-03] MEDS: Finasteride 5 MG TAB PO SCH (08:06)
[2021-05-03] MEDS: NIFEdipine XL 30 MG TAB PO SCH (08:06)
[2021-05-03] MEDS: hydrALAZINE 25 MG TAB PO SCH (08:06)
[2021-05-03] MEDS: NPH, Human Insulin Isophane 300 UNIT/3 ML VIAL SC SCH (09:14)
[2021-05-03 11:37] VITALS: BMI 20.9
[2021-05-03] MEDS: Cefepime 2 GM in Sodium Chloride 0.9% 100 ML IVPB SCH (12:09)
[2021-05-03] MEDS ORDERED: Vancomycin HCl 750 MG in Sodium Chloride 0.9% 250 ML 250 ML IVPB SCH (13:00)
== END 2021-05-03 08:51 | disposition expired | DRG 207 ==
LOC: ERS 07:28 → ERHOLD 07:56 → CCU 14:07 → 2NO 04-25 17:53 → IMCU/EMU 04-29 18:38
PROVIDERS: ADMIT Family Medicine; ATTEND Internal Medicine
PROC: 5A1955Z Respiratory Ventilation, Greater than 96 Consecutive Hours (ICD-10-PCS; principal; 2021-04-18)
PROC: 0DH67UZ Insertion of Feeding Device into Stomach, Via Natural or Artificial Opening (ICD-10-PCS; 2021-04-27)
PROC: 3E0G76Z Introduction of Nutritional Substance into Upper GI, Via Natural or Artificial Opening (ICD-10-PCS; 2021-04-27)
PROC: 3E0336Z Introduction of Nutritional Substance into Peripheral Vein, Percutaneous Approach (ICD-10-PCS; 2021-04-27)
PROC: 5A0935A Assistance with Respiratory Ventilation, Less than 24 Consecutive Hours, High Flow/Velocity Cannula (ICD-10-PCS; 2021-04-29)
PROC: 5A09457 Assistance with Respiratory Ventilation, 24-96 Consecutive Hours, Continuous Positive Airway Pressure (ICD-10-PCS; 2021-04-30)
DX: J44.1 Chronic obstructive pulmonary disease with (acute) exacerbation (principal); J96.21 Acute and chronic respiratory failure with hypoxia; I50.33 Acute on chronic diastolic (congestive) heart failure; J69.0 Pneumonitis due to inhalation of food and vomit; G93.41 Metabolic encephalopathy; J96.22 Acute and chronic respiratory failure with hypercapnia; I13.0 Hypertensive heart and chronic kidney disease with heart failure and stage 1 through stage 4 chronic kidney disease, or unspecified chronic kidney disease; E87.1 Hypo-osmolality and hyponatremia; E87.3 Alkalosis; Z66 Do not resuscitate; Z20.822 Contact with and (suspected) exposure to COVID-19; E78.5 Hyperlipidemia, unspecified; N52.9 Male erectile dysfunction, unspecified; M19.90 Unspecified osteoarthritis, unspecified site; F41.9 Anxiety disorder, unspecified; F17.210 Nicotine dependence, cigarettes, uncomplicated; N18.30 Chronic kidney disease, stage 3 unspecified; I25.10 Atherosclerotic heart disease of native coronary artery without angina pectoris; E11.51 Type 2 diabetes mellitus with diabetic peripheral angiopathy without gangrene; D63.1 Anemia in chronic kidney disease; N45.1 Epididymitis; E11.22 Type 2 diabetes mellitus with diabetic chronic kidney disease; G40.909 Epilepsy, unspecified, not intractable, without status epilepticus; K59.00 Constipation, unspecified; R13.12 Dysphagia, oropharyngeal phase; E11.649 Type 2 diabetes mellitus with hypoglycemia without coma; I25.2 Old myocardial infarction; Z90.49 Acquired absence of other specified parts of digestive tract; Z78.1 Physical restraint status; Z88.5 Allergy status to narcotic agent; Z79.899 Other long term (current) drug therapy; Z79.82 Long term (current) use of aspirin; Z86.73 Personal history of transient ischemic attack (TIA), and cerebral infarction without residual deficits; Z89.611 Acquired absence of right leg above knee; Z95.5 Presence of coronary angioplasty implant and graft; Z95.0 Presence of cardiac pacemaker; Z95.828 Presence of other vascular implants and grafts; Z88.8 Allergy status to other drugs, medicaments and biological substances; Z82.49 Family history of ischemic heart disease and other diseases of the circulatory system; Z83.6 Family history of other diseases of the respiratory system; Z79.4 Long term (current) use of insulin; Z79.02 Long term (current) use of antithrombotics/antiplatelets; Z79.51 Long term (current) use of inhaled steroids
CPT/HCPCS: 0240U; 36415; 36416; 36600; 70450; 71045; 74018; 80048; 80053; 80202; 81003; 81015; 82805; 83605; 83690; 83735; 83880; 84100; 84146; 85025; 86140; 87040; 93005; 93010; 94002; 94003; 94640; 94660; 95712; 95819; 95957; 96365; 96366; 96367; 96368; J0360; J0692; J1630; J1815; J1940; J1953; J1956; J2060; J2270; J2405; J2704; J2920; J3010; J3370; J3475; J3480; J3490; J7050; J7070; J7512; J7620; S0028; U0002; U0003; U0005